=== PATIENT | female | born 1940 | race Caucasian/White ===

== ENCOUNTER 2018-08-11 00:22 | Inpatient (IN) ==
[2018-08-11 01:07] LABS: Alanine Aminotransferase 8 U/L (10-53); Albumin 2.7 g/dL (3.4-5.0); Anion Gap 9 meq/L (5-15); Aspartate Aminotransferase 10 U/L (15-37); Blood Urea Nitrogen 26 mg/dL (7-18); Calcium 8.3 mg/dL (8.5-10.1); Carbon Dioxide 26.5 meq/L (21.0-32.0); Chloride 107 meq/L (98-107); Glomerular Filtration Rate 24 mL/min (>89); Glucose,Random 316 mg/dL (74-106); Magnesium 1.9 mg/dL (1.5-2.5); Potassium 3.6 meq/L (3.5-5.1); Sodium 142 meq/L (136-145)
[2018-08-11] MEDS ORDERED: hydrALAZINE HCl Inj 20 MG/ML Vial IV.PUSH ONE (01:07)
[2018-08-11 01:10] LABS: Alkaline Phosphatase 166 U/L (45-117); Total Protein 6.5 g/dL (6.4-8.2); Troponin I 0.05 ng/mL (0.02-0.05)
[2018-08-11 01:13] LABS: Bilirubin,Urine Negative (Negative); Clarity,Urine Clear (Clear); Color,Urine Yellow (Yellw/Straw); Glucose,Urine (UA) 500 or Greater mg/dL (Negative); Nitrite,Urine Negative (Negative)
--- NOTE | 2018-08-11 01:52 | XR ---
EXAM DATE: 08/11/2018 1:39 AM EST AGE/SEX: 77 years / Female INDICATIONS: Short of breath. CLINICAL DATA: This is the patient's subsequent encounter. Patient reports that signs and symptoms h ave been present for 1 day and indicates a pain score of 5/10. MEDICAL/SURGICAL HISTORY: None. None. COMPARISON: No prior exams available for comparison. FINDINGS: Vascular congestion and symmetric bilateral interstitial and alveolar parenchymal opacity most sugges tive of pulmonary edema. Heart size is borderline. CONCLUSION: Probable CHF Electronically signed by: Sherman Nick MD 08/11/2018 1:50 AM EST
[2018-08-11 01:53] LABS: Baso # (Auto) 0.1 th/mm3 (0.0-0.2); Baso % (Auto) 0.6 % (0.0-2.0); Eos # (Auto) 0.2 th/mm3 (0.0-0.4); Eos % (Auto) 1.7 % (0.0-4.0); Hematocrit 26.3 % (35.0-46.0); Hemoglobin 8.7 gm/dL (11.6-15.3); Lymph # (Auto) 0.6 th/mm3 (1.0-4.8); Lymph % (Auto) 6.6 % (9.0-44.0); Mean Corpuscular Volume 94.1 fL (80.0-100.0); Mean Platelet Volume 8.5 fL (7.0-11.0); Mono # (Auto) 0.5 th/mm3 (0.0-0.9); Mono % (Auto) 5.2 % (0.0-8.0); Neut # (Auto) 8.2 th/mm3 (1.8-7.7); Neut % (Auto) 85.9 % (16.0-70.0); Platelet Count 134 th/mm3 (150-450); Red Blood Count 2.79 mil/mm3 (4.00-5.30); Red Cell Distribution Width 16.9 % (11.6-17.2); White Blood Count 9.5 th/mm3 (4.0-11.0)
--- NOTE | 2018-08-11 02:12 | P.HPFP ---
History of Present Illness Primary Care Physician: Fidencio Lr <Kevin Reed L - 08/11/18 13:24> Fidencio Lr <Elif Stokes T - 08/11/18 02:12> History of Present Illness: 77-year-old female with a history of stage III kidney disease, CHF, CVA, diabetes, hypertension, CAD s/p 3 stents, since the ED with worsening shortness of breath. Patient is currently visiting from [place], [place]. Has been here for about 3 weeks. Patient states that shortness of breath started 1 week ago. Also started having swelling in her lower extremities. States that she has not been able to walk for extended period of time. Shortness of breath worse with exertion and lying flat. States that she has to use 2 pillows to sleep at night. She is currently on torsemide 20 mg daily. Endorses chest pressure in sternal area. Endorses nausea, but no vomiting. Also endorses one episode of diarrhea. States that stools have been black and tarry. She denies history of stomach ulcer and chronic NSAID use. States that she has had a colonoscopy/endoscopy in the past. States that she will never have a colonoscopy again because she got an infection from it last time. Denies fevers and abdominal pain at this time. Very tearful during the exam because her sister has dementia and wants to go home to take care of her sister. She has oxygen 2L at night at home. PMH: Stage 3 kidney disease, CHF ( last EF/echo unknown), [employer] in [place]. Stroke two years ago ( L sided hands and legs are weak). Diabetes, HTN. COPD. Emphysema. Allergies: Penicillin ( Hives). Tetanus (hives). SurgHx: Complete Hysterectomy, Appendectomy. 3 Cardiac Stents. FH: Sisters have breast cancer. Dad had heart disease. Mom had CKD (72 years ). Social Hx: Lives in [place], Has a townhouse here in [facility], now retired, used to be a [employer]. 1 ppd for 15 years and quit 20 year ago. Denies any alcohol or drug use. Recently travelled from [place] by car ride 3 weeks ago. <Elif Stokes T - 08/11/18 03:45> - Diagnosis (1) Acute exacerbation of CHF (congestive heart failure) (2) Upper GI bleed (3) CKD (chronic kidney disease) (4) HTN (hypertension) (5) COPD (chronic obstructive pulmonary disease) (6) Diabetes (7) Anxiety and depression (8) Nutrition, metabolism, and development symptoms <Kevin Reed - 08/11/18 13:24> (1) Acute exacerbation of CHF (congestive heart failure) (2) Upper GI bleed (3) CKD (chronic kidney disease) (4) HTN (hypertension) (5) COPD (chronic obstructive pulmonary disease) (6) Diabetes (7) Anxiety and depression (8) Nutrition, metabolism, and development symptoms <KikeElifmickey Wheeler - 08/11/18 04:22> Inpatient Certification: I certify that the inpatient services were ordered in accordance with Medicare regulations governing the order. This includes certification that hospital inpatient services are reasonable and necessary and in the case of services not specified as inpatient-only under 42 CFR 419.22(n), that they are appropriately provided as inpatient services in accordance to with the 2-midnight benchmark under 43 CFR 412.3(e) <Kevin Reed - 08/11/18 13:24> Review of Systems All other systems reviewed negative except as stated in HPI <Elif Stokes - 08/11/18 03:16> PMFSH - History History Provided By: Patient <KikeElifmickey Pearson 08/11/18 02:12> - Medical History Medical History: Medical History (Last Reviewed 08/11/18 @ 02:14 by Carlyn Urban MD) CHF (congestive heart failure) COPD (chronic obstructive pulmonary disease) Diabetes HTN (hypertension) Kidney disease Stroke <Kevin Reed - 08/11/18 13:24> Medical History (Last Reviewed 08/11/18 @ 02:14 by Carlyn Urban MD) CHF (congestive heart failure) COPD (chronic obstructive pulmonary disease) Diabetes HTN (hypertension) Kidney disease Stroke <Elif Stokes - 08/11/18 02:33> - Surgical History Surgical History: Surgical History (Last Reviewed 08/11/18 @ 02:14 by Carlyn Urban MD) H/O heart artery stent <Kevin Reed - 08/11/18 13:24> Surgical History (Last Reviewed 08/11/18 @ 02:14 by Carlyn Urban MD) H/O heart artery stent <KikeElif Wheeler T - 08/11/18 02:33> - Family History Family History: Family History (Last Updated 08/11/18 @ 03:13 by Elif Stokes MD, R2) Other Breast cancer <Kevin Reed - 08/11/18 13:24> Family History (Last Updated 08/11/18 @ 03:13 by Elif Stokes MD, R2) Other Breast cancer <Elif Stokes - 08/11/18 03:16> - Social History I have reviewed the patient's Social History: Yes <KikeMaykelElifshani Pearson - 03:16> - Tobacco History Second Hand Smoke Exposure: No <Elif Stokes - 08/11/18 02:12> Tobacco Use In Past 30 Days: No <KikeElifshani Wheeler Lili - 08/11/18 02:12> Smoking Status: Former smoker <Elif Stokes - 08/11/18 02:12> Tobacco Type: Cigarettes <Lisha Stokesmickey Wheeler T - 08/11/18 02:12> - Alcohol History How Often Do You Have a Drink Containing Alcohol: Never <KikeMaykelElifshani Wheeler Lili - 02:12> - Substance Use History Substance History: No History of Abuse <Lisha Stokesmickey Wheeler T - 08/11/18 02:12> - Travel History Recent Travel in the [facility] Within the Last 8 Weeks: No <Elif Stokes Lili - 08/11 02:12> Recent Travel Out of the Country Within the Last 8 Weeks: No <KikeElifmickey Wheeler T - 08/11/18 02:12> - Immunization History Tetanus Immunization: Never Vaccinated <KikeElifmickey Wheeler Lili - 08/11/18 02:12> Medications and Allergies Allergies Allergy/AdvReac Type Severity Reaction Status Date / Time penicillin G Allergy Severe HIVES Verified 08/11/18 02:47 Tetanus Vaccines and Toxoid Allergy Swelling Verified 08/11/18 01:13 EST TAPE Allergy Unknown Rash Uncoded 08/11/18 01:13 EST <Kevin Reed - 08/11/18 13:24> Home Medications Medication Instructions Recorded Confirmed Type ergocalciferol (vitamin D2) 50,000 unit PO BID 08/11/18 08/11/18 History [Vitamin D2] gabapentin 300 mg PO TID 08/11/18 08/11/18 History hydralazine 25 mg PO TID 08/11/18 08/11/18 History hydroxyzine pamoate 25 mg PO HS 08/11/18 08/11/18 History insulin aspart U-100 [Novolog 5 unit SUBCUT QAM 08/11/18 08/11/18 History Flexpen U-100 Insulin] insulin degludec [Tresiba 40 unit SUBCUT DAILY 08/11/18 08/11/18 History FlexTouch U-200] isosorbide mononitrate 30 mg PO DAILY 08/11/18 08/11/18 History levothyroxine 200 mcg PO DAILY 08/11/18 08/11/18 History omeprazole 20 mg PO BID 08/11/18 08/11/18 History sertraline 50 mg PO HS 08/11/18 08/11/18 History simvastatin 20 mg PO QPM 08/11/18 08/11/18 History torsemide 20 mg PO DAILY 08/11/18 08/11/18 History trazodone 50 mg PO HS 08/11/18 08/11/18 History <Kevin Reed L - 08/11/18 13:24> Active Medications: Active Medications Albuterol (Duoneb Neb (Prn)) 1 ampul NEB Q4HR NEB PRN PRN Reason: wheezing Clonidine HCl (Catapres) 0.1 mg PO Q6H PRN PRN Reason: SEE LABEL COMMENTS Dextrose (D50w Vial) 50 ml IV.PUSH UNSCH PRN PRN Reason: PER HYPOGLYCEMIA PROTOCOL Ergocalciferol (Vitamin D2) 50,000 unit PO Q7D AG Furosemide (Lasix Inj) 40 mg IV.PUSH BID@0900,1800 [facility] Last Admin: 08/11/18 08:47 Dose: 40 mg Gabapentin (Neurontin) 300 mg PO TID [facility] Last Admin: 08/11/18 12:47 Dose: 300 mg Glucagon (Glucagon Inj) 1 mg OTHER PRN PRN PRN Reason: for Hypoglycemia Protocol Hydralazine HCl (Apresoline) 25 mg PO TID [facility] Last Admin: 08/11/18 12:48 Dose: 25 mg Lactated Ringer's (Lr 1000 Ml Inj) 1,000 mls @ 30 mls/hr IV.SIG .Q24H [facility] Stop: 08/12/18 13:14 Sodium Chloride (Ns Inj) 500 mls @ 30 mls/hr IV.SIG .Q10H [facility] Insulin Aspart (Novolog Insulin Correctional Sugar Inj) 0 unit SQ ACHS [facility]; Protocol Insulin Detemir (Levemir Inj) 20 unit SQ BID [facility] Isosorbide Mononitrate (Imdur) 30 mg PO DAILY@0700 [facility] Last Admin: 08/11/18 06:20 Dose: 30 mg Levothyroxine Sodium (Synthroid) 200 mcg PO DAILY@0700 [facility] Last Admin: 08/11/18 06:20 Dose: 200 mcg Metoprolol Tartrate (Lopressor) 25 mg PO [employer] Stop: 08/11/18 14:01 Ondansetron HCl (Zofran Inj) 4 mg IV.PUSH Q6H PRN PRN Reason: NAUSEA OR VOMITING Pantoprazole Sodium (Protonix Inj) 40 mg IV.PUSH Q12H [facility] Last Admin: 08/11/18 04:59 Dose: 40 mg Pt Own Tresiba Flex (Touch) 0 each SQ DAILY [facility] Last Admin: 08/11/18 08:48 Dose: Not Given Pravastatin Sodium (Pravachol) 40 mg PO QPM [facility] Sertraline HCl (Zoloft) 50 mg PO [facility] Sodium Chloride (Ns Flush) 2 ml IV.FLUSH BID [facility] Last Admin: 08/11/18 08:48 Dose: 2 ml Sodium Chloride (Ns Flush) 2 ml IV.FLUSH PRN PRN PRN Reason: FLUSH AFTER USING IV ACCESS Trazodone HCl (Desyrel) 50 mg PO HS [facility] Last Admin: 08/11/18 03:30 Dose: 50 mg <Kevin Reed L - 08/11/18 13:24> Exam Vital signs: Vital Signs 08/11/18 00:27 08/11/18 00:32 08/11/18 01:23 EDT Temperature 98.1 F Pulse Rate 97 H 83 82 Respiratory Rate 28 H 22 24 Blood Pressure 202/87 H 186/80 H 214/91 H Pulse Oximetry 95 98 96 08/11/18 01:24 EDT 08/11/18 01:00 EST 08/11/18 01:34 EST Temperature Pulse Rate 80 81 80 Respiratory Rate 20 24 23 Blood Pressure 199/91 H 186/82 H Pulse Oximetry 96 96 98 08/11/18 01:58 EST 08/11/18 03:49 08/11/18 05:00 Temperature Pulse Rate 85 85 90 Respiratory Rate 15 17 22 Blood Pressure 187/79 H 218/94 H 186/75 H Pulse Oximetry 98 97 97 08/11/18 06:00 08/11/18 08:00 08/11/18 09:59 Temperature 98.0 F 97.6 F Pulse Rate 86 82 Respiratory Rate 18 20 Blood Pressure 161/71 H 131/69 Pulse Oximetry 97 98 98 Intake & Output 08/10/18 08/11/18 08/11/18 19:59 06:59 18:59 Weight 70.307 kg Other: # Voids <Kevin Reed - 08/11/18 13:24> Vital Signs 08/11/18 00:27 08/11/18 00:32 08/11/18 01:23 EDT Temperature 98.1 F Pulse Rate 97 H 83 82 Respiratory Rate 28 H 22 24 Blood Pressure 202/87 H 186/80 H 214/91 H Pulse Oximetry 95 98 96 08/11/18 01:24 EDT 08/11/18 01:00 EST 08/11/18 01:34 EST Temperature Pulse Rate 80 81 80 Respiratory Rate 20 24 23 Blood Pressure 199/91 H 186/82 H Pulse Oximetry 96 96 98 08/11/18 01:58 EST Temperature Pulse Rate 85 Respiratory Rate 15 Blood Pressure 187/79 H Pulse Oximetry 98 Intake & Output 08/10/18 08/10/18 08/11/18 06:59 18:59 05:59 Weight 70.307 kg <Elif Stokes - 08/11/18 02:12> Narrative: General: Tearful and anxious elderly female on 3 L of nasal cannula, stating that she is having trouble breathing HENT: PERRLA, no lymphadenopathy or JVD, throat clear Cardio: Regular rate and rhythm, 3/6 systolic murmur, pain producible upon pressing on the chest wall Pulmonary: Lungs clear to auscultation bilaterally s/p lasix, no crackles or wheezing Abdomen: Soft, nondistended, nontender, positive bowel sounds, no guarding, no rebound Extremities: 2+ pitting edema bilaterally Neuro: Alert and oriented x3, cranial nerves II to XII intact, strength 5 out of 5 in upper and lower extremities, sensation intact <Elif Stokes T - 08/11/18 03:45> Results - Labs Result diagrams: 08/11/18 01:30 EST 08/11/18 01:30 EST <Kevin Reed L - 08/11/18 13:24> Abnormal lab results 08/11/18 08/11/18 08/11/18 Range/Units 01:30 EST 01:30 EST 03:25 RBC 2.79 L (4.00-5.30) mil/mm3 Hgb 8.7 L (11.6-15.3) gm/dL Hct 26.3 L (35.0-46.0) % Plt Count 134 L (150-450) th/mm3 Neut % (Auto) 85.9 H (16.0-70.0) % Lymph % (Auto) 6.6 L (9.0-44.0) % Neut # (Auto) 8.2 H (1.8-7.7) th/mm3 Lymph # (Auto) 0.6 L (1.0-4.8) th/mm3 ABG pH (7.380-7.420) ABG pCO2 (38-42) mmHg ABG O2 Content (12.0-20.0) Vol % Hemoglobin (12.0-16.0) G/DL POC Glucose (68-110) mg/dl Troponin I 0.06 H (0.02-0.05) ng/mL B-Natriuretic Peptide Greater than 5000 H (0-100) pg/mL 08/11/18 08/11/18 08/11/18 Range/Units 03:28 04:41 07:31 RBC (4.00-5.30) mil/mm3 Hgb (11.6-15.3) gm/dL Hct (35.0-46.0) % Plt Count (150-450) th/mm3 Neut % (Auto) (16.0-70.0) % Lymph % (Auto) (9.0-44.0) % Neut # (Auto) (1.8-7.7) th/mm3 Lymph # (Auto) (1.0-4.8) th/mm3 ABG pH 7.46 H (7.380-7.420) ABG pCO2 33 L (38-42) mmHg ABG O2 Content 11.0 L (12.0-20.0) Vol % Hemoglobin 8.2 L (12.0-16.0) G/DL POC Glucose 306 H 281 H (68-110) mg/dl Troponin I (0.02-0.05) ng/mL B-Natriuretic Peptide (0-100) pg/mL 08/11/18 08/11/18 Range/Units 11:19 12:18 RBC (4.00-5.30) mil/mm3 Hgb (11.6-15.3) gm/dL Hct (35.0-46.0) % Plt Count (150-450) th/mm3 Neut % (Auto) (16.0-70.0) % Lymph % (Auto) (9.0-44.0) % Neut # (Auto) (1.8-7.7) th/mm3 Lymph # (Auto) (1.0-4.8) th/mm3 ABG pH (7.380-7.420) ABG pCO2 (38-42) mmHg ABG O2 Content (12.0-20.0) Vol % Hemoglobin (12.0-16.0) G/DL POC Glucose 514 H* (68-110) mg/dl Troponin I 0.06 H (0.02-0.05) ng/mL B-Natriuretic Peptide (0-100) pg/mL Short CBC 08/11/18 Range/Units 01:30 EST WBC 9.5 (4.0-11.0) th/mm3 Hgb 8.7 L (11.6-15.3) gm/dL Hct 26.3 L (35.0-46.0) % Plt Count 134 L (150-450) th/mm3 Cardiac Enzymes 08/11/18 08/11/18 Range/Units 03:25 11:19 Troponin I 0.06 H 0.06 H (0.02-0.05) ng/mL Urine 08/11/18 Range/Units 01:00 EST Urine Color Yellow (Yellw/Straw) Urine Clarity Clear (Clear) Urine pH 6.0 (5.0-8.5) Ur Specific [place] 1.010 (1.002-1.035) Urine Protein 500 or greater (Neg-Trace) mg/dL Urine Glucose (UA) 500 or greater (Negative) mg/dL <Kevin Reed L - 08/11/18 13:24> Abnormal lab results 08/11/18 Range/Units 01:30 EST RBC 2.79 L (4.00-5.30) mil/mm3 Hgb 8.7 L (11.6-15.3) gm/dL Hct 26.3 L (35.0-46.0) % Plt Count 134 L (150-450) th/mm3 Neut % (Auto) 85.9 H (16.0-70.0) % Lymph % (Auto) 6.6 L (9.0-44.0) % Neut # (Auto) 8.2 H (1.8-7.7) th/mm3 Lymph # (Auto) 0.6 L (1.0-4.8) th/mm3 Short CBC 08/11/18 Range/Units 01:30 EST WBC 9.5 (4.0-11.0) th/mm3 Hgb 8.7 L (11.6-15.3) gm/dL Hct 26.3 L (35.0-46.0) % Plt Count 134 L (150-450) th/mm3 Urine 08/11/18 Range/Units 01:00 EST Urine Color Yellow (Yellw/Straw) Urine Clarity Clear (Clear) Urine pH 6.0 (5.0-8.5) Ur Specific [place] 1.010 (1.002-1.035) Urine Protein 500 or greater (Neg-Trace) mg/dL Urine Glucose (UA) 500 or greater (Negative) mg/dL <Elif Stokes T - 08/11/18 02:12> - Imaging Impressions Chest X-Ray 08/11/18 01:14 EST CONCLUSION: Probable CHF <Kevin Reed L - 08/11/18 13:24> Impressions Chest X-Ray 08/11/18 01:14 EST CONCLUSION: Probable CHF <Elif Stokes T - 08/11/18 02:12> Caprini VTE Risk Assessment Caprini VTE Risk Assessment: Moderate/High Risk (score >= 2) <Elif Stokes T - 08/11/18 03:20> Caprini Risk Assessment Model: Point Value = 1 Point Value = 2 Point Value = 3 Point Value = 5 Age 41-60 Minor surgery BMI > 25 kg/m2 Swollen legs Varicose veins or History of unexplained or recurrent spontaneous Oral contraceptives or hormone replacement Sepsis (< 1 month) Serious lung disease, including pneumonia (< 1 month) Abnormal pulmonary function Acute myocardial infarction Congestive heart failure (< 1 month) History of inflammatory bowel disease Medical patient at bed rest Age 61-74 Arthroscopic surgery Major open surgery (> 45 min) Laparoscopic surgery (> 45 min) Malignancy Confined to bed (> 72 hours) Immobilizing plaster cast Central venous access Age >= 75 History of VTE Family history of VTE Factor V Leiden Prothrombin [id number] Lupus anticoagulant Anticardiolipin antibodies Elevated serum homocysteine Heparin-induced thrombocytopenia Other congenital or acquired thrombophilia Stroke (< 1 month) Elective arthroplasty Hip, pelvis, or leg fracture Acute spinal cord injury (< 1 month) <Kevin Reed - 08/11/18 13:24> Point Value = 1 Point Value = 2 Point Value = 3 Point Value = 5 Age 41-60 Minor surgery BMI > 25 kg/m2 Swollen legs Varicose veins or History of unexplained or recurrent spontaneous Oral contraceptives or hormone replacement Sepsis (< 1 month) Serious lung disease, including pneumonia (< 1 month) Abnormal pulmonary function Acute myocardial infarction Congestive heart failure (< 1 month) History of inflammatory bowel disease Medical patient at bed rest Age 61-74 Arthroscopic surgery Major open surgery (> 45 min) Laparoscopic surgery (> 45 min) Malignancy Confined to bed (> 72 hours) Immobilizing plaster cast Central venous access Age >= 75 History of VTE Family history of VTE Factor V Leiden Prothrombin [id number] Lupus anticoagulant Anticardiolipin antibodies Elevated serum homocysteine Heparin-induced thrombocytopenia Other congenital or acquired thrombophilia Stroke (< 1 month) Elective arthroplasty Hip, pelvis, or leg fracture Acute spinal cord injury (< 1 month) <Elif Stokes T - 08/11/18 02:12> Prophylaxis Regimen: Total Risk Factor Score Risk Level Prophylaxis Regimen 0-1 Low Early ambulation 2 Moderate Order ONE of the following: *Sequential Compression Device (SCD) *Heparin 5000 units SQ BID 3-4 Higher Order ONE of the following medications: *Heparin 5000 units SQ TID *Enoxaparin/Lovenox 40 mg SQ daily (WT < 150 kg, CrCl > 30 mL/min) *Enoxaparin/Lovenox 30 mg SQ daily (WT < 150 kg, CrCl > 10-29 mL/min) *Enoxaparin/Lovenox 30 mg SQ BID (WT < 150 kg, CrCl > 30 mL/min) AND/OR *Sequential Compression Device (SCD) 5 or more Highest Order ONE of the following medications: *Heparin 5000 units SQ TID (Preferred with Epidurals) *Enoxaparin/Lovenox 40 mg SQ daily (WT < 150 kg, CrCl > 30 mL/min) *Enoxaparin/Lovenox 30 mg SQ daily (WT < 150 kg, CrCl > 10-29 mL/min) *Enoxaparin/Lovenox 30 mg SQ BID (WT < 150 kg, CrCl > 30 mL/min) AND *Sequential Compression Device (SCD) <Kevin Reed - 08/11/18 13:24> Total Risk Factor Score Risk Level Prophylaxis Regimen 0-1 Low Early ambulation 2 Moderate Order ONE of the following: *Sequential Compression Device (SCD) *Heparin 5000 units SQ BID 3-4 Higher Order ONE of the following medications: *Heparin 5000 units SQ TID *Enoxaparin/Lovenox 40 mg SQ daily (WT < 150 kg, CrCl > 30 mL/min) *Enoxaparin/Lovenox 30 mg SQ daily (WT < 150 kg, CrCl > 10-29 mL/min) *Enoxaparin/Lovenox 30 mg SQ BID (WT < 150 kg, CrCl > 30 mL/min) AND/OR *Sequential Compression Device (SCD) 5 or more Highest Order ONE of the following medications: *Heparin 5000 units SQ TID (Preferred with Epidurals) *Enoxaparin/Lovenox 40 mg SQ daily (WT < 150 kg, CrCl > 30 mL/min) *Enoxaparin/Lovenox 30 mg SQ daily (WT < 150 kg, CrCl > 10-29 mL/min) *Enoxaparin/Lovenox 30 mg SQ BID (WT < 150 kg, CrCl > 30 mL/min) AND *Sequential Compression Device (SCD) <Elif Stokes - 08/11/18 02:12> Assessment and Plan - Assessment (1) Acute exacerbation of CHF (congestive heart failure) Code(s): I50.9 - Heart failure, unspecified Status: Acute (2) Upper GI bleed Code(s): K92.2 - Gastrointestinal hemorrhage, unspecified Status: Acute (3) CKD (chronic kidney disease) Code(s): N18.9 - Chronic kidney disease, unspecified Status: Chronic (4) HTN (hypertension) Code(s): I10 - Essential (primary) hypertension Status: Chronic (5) COPD (chronic obstructive pulmonary disease) Code(s): J44.9 - Chronic obstructive pulmonary disease, unspecified Status: Acute (6) Diabetes Code(s): E11.9 - Type 2 diabetes mellitus without complications Status: Acute (7) Anxiety and depression Code(s): F41.9 - Anxiety disorder, unspecified; F32.9 - Major depressive disorder, single episode, unspecified Status: Acute (8) Nutrition, metabolism, and development symptoms Code(s): R63.8 - Other symptoms and signs concerning food and fluid intake Status: Acute <Kevin Reed - 08/11/18 13:24> (1) Acute exacerbation of CHF (congestive heart failure) Code(s): I50.9 - Heart failure, unspecified Status: Acute Plan: 77-year-old female with a history of stage III kidney disease, CHF, CVA, diabetes, hypertension, CAD s/p 3 stents, since the ED with worsening shortness of breath and lower extremity edema. Chest x-ray demonstrates probable CHF BNP ordered and pending ABG ordered EKG-normal sinus rhythm, atrial enlargement Troponin 0.05 Patient was on 20 mg p.o. of torsemide at home s/p 60mg IV lasix , Gave additional 20mg IV lasix For every 40 mg Lasix p.o., 20 mEq PO KCl given Continue IV Lasix 40mg BID Echo 2D ordered Cardiac telemetry Continue to trend EKG and troponin q6h Fluid restriction <1.5L/day Strict I & Os Daily weights (2) Upper GI bleed Code(s): K92.2 - Gastrointestinal hemorrhage, unspecified Status: Acute Plan: Patient presenting with anemia and endorsing melena. Hemoccult ordered Protonix 40 mg IV twice daily Liquid diet Continue to monitor H&H q6h, transfuse if Hb<8 due to cardiac history GI consulted for possible EGD Patient refusing colonoscopy (3) CKD (chronic kidney disease) Code(s): N18.9 - Chronic kidney disease, unspecified Status: Acute Plan: GFR of 24, BUN of 26, creatinine of 2.02 on admission Continue to monitor (4) HTN (hypertension) Code(s): I10 - Essential (primary) hypertension Status: Acute Plan: Continue home hydralazine 25 mg p.o. 3 times daily Clonidine 0.1mg PRN for BP >180/100 (5) COPD (chronic obstructive pulmonary disease) Code(s): J44.9 - Chronic obstructive pulmonary disease, unspecified Status: Acute Plan: Patient reports being on home oxygen at night 2 L Duo nebs every 4 as needed (6) Diabetes Code(s): E11.9 - Type 2 diabetes mellitus without complications Status: Acute Plan: Held home Tresiba Accu-Cheks Low-dose sliding scale Hypoglycemia protocol in place (7) Anxiety and depression Code(s): F41.9 - Anxiety disorder, unspecified; F32.9 - Major depressive disorder, single episode, unspecified Status: Acute Plan: Continue home Zoloft 50 mg p.o. at bedtime and trazodone 50 mg p.o. at bedtime (8) Nutrition, metabolism, and development symptoms Code(s): R63.8 - Other symptoms and signs concerning food and fluid intake Status: Acute Plan: Fluids: contraindicated Diet: liquid w/ fluid restriction vitals q4h, monitor I & Os, cardiac telemetery DVT ppx: SCDs, chemical ppx contraindicated <Elif Stokes - 08/11/18 04:22> - Attending Attestation The exam, history, and the medical decision-making described in the above note were completed with the assistance of the resident physician. I reviewed and agree with the findings presented. I attest that I had a [id number] encounter with the patient on the same day, and personally performed and documented my assessment and findings in the medical record. <Kevin Reed - 08/11/18 13:24> <Kevin Reed - Last Filed: 08/11/18 13:24> (3) CKD (chronic kidney disease) Qualifiers: Chronic kidney disease stage: stage 3 (moderate) Qualified Code(s): N18.3 - Chronic kidney disease, stage 3 (moderate) <Kevin Reed - Last Filed: 08/11/18 13:24> (3) CKD (chronic kidney disease) Qualifiers: Chronic kidney disease stage: stage 3 (moderate) Qualified Code(s): N18.3 - Chronic kidney disease, stage 3 (moderate)
--- NOTE | 2018-08-11 02:17 | ED ---
HPI General Chief Complaint: Shortness of Breath/Dyspnea Stated Complaint: Poss Uti Time Seen by Provider: 08/11/18 00:54 Source: patient Mode of arrival: ambulatory Limitations: no limitations History of Present Illness 77-year-old female came to the emergency room with history of progressive shortness of breath for past 1 week along with slight chest discomfort. Patient has also noticed bilateral lower extremity edema that is progressively worsening over past 1 week. Patient complains of some urinary symptoms including dysuria over past 1 week. No history of fever or chills. Patient seemed anxious and says currently she is short of breath at rest. Patient requires oxygen at night but she is in [facility] [place] from [place] and did not bring her oxygen tank. They drove from [place] 2 weeks ago. Vital signs were suggestive of hypertension. Patient has stage III kidney disease as well as coronary artery disease. 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 Shortness of breath is worsened on exertion. The chest discomfort does not radiate and no exacerbating or relieving factors identified. The chest discomfort is 2 out of 10. It is substernal. MD Complaint: Reports shortness of breath Onset (ago): week(s) Severity: moderate Consistency/Duration: constant Relieving factors: nothing Exacerbating factors: lying flat and movement Known history of: Reports COPD and congestive heart failure Treatment prior to arrival: Reports none Related Data Home Medications Medication Instructions Recorded Confirmed ergocalciferol (vitamin D2) 50,000 unit PO BID 08/11/18 08/11/18 [Vitamin D2] gabapentin 300 mg PO TID 08/11/18 08/11/18 hydralazine 25 mg PO TID 08/11/18 08/11/18 hydroxyzine pamoate 25 mg PO HS 08/11/18 08/11/18 insulin aspart U-100 [Novolog 5 unit SUBCUT QAM 08/11/18 08/11/18 Flexpen U-100 Insulin] insulin degludec [Tresiba 40 unit SUBCUT DAILY 08/11/18 08/11/18 FlexTouch U-200] isosorbide mononitrate 30 mg PO DAILY 08/11/18 08/11/18 levothyroxine 200 mcg PO DAILY 08/11/18 08/11/18 sertraline 50 mg PO HS 08/11/18 08/11/18 simvastatin 20 mg PO QPM 08/11/18 08/11/18 torsemide 20 mg PO DAILY 08/11/18 08/11/18 trazodone 50 mg PO HS 08/11/18 08/11/18 Previous Rx's Medication Instructions Recorded pantoprazole [Protonix] 40 mg PO BID #30 ea 08/14/18 Allergies Allergy/AdvReac Type Severity Reaction Status Date / Time penicillin G Allergy Severe HIVES Verified 08/11/18 02:47 Tetanus Vaccines and Toxoid Allergy Swelling Verified 08/11/18 01:13 EST TAPE Allergy Unknown Rash Uncoded 08/11/18 01:13 EST Review of Systems ROS: all other systems reviewed are negative [facility] Medical History Medical History CHF (congestive heart failure) (Acute) COPD (chronic obstructive pulmonary disease) (Acute) Diabetes (Acute) HTN (hypertension) (Acute) Kidney disease (Acute) Stroke (Acute) Surgical History Surgical History H/O heart artery stent (Acute) Family History Family History Other Breast cancer Social History Social History Substance History: No History of Abuse Second Hand Smoke Exposure: No Smoking Status: Never smoker Tobacco Type: Cigarettes How Often Do You Have a Drink Containing Alcohol: Never Recent Travel in [facility] within the Last 8 Weeks: No Recent Out of Country Travel within the Last 8 Weeks: No Immunization History Tetanus Immunization: Never Vaccinated Exam Narrative Exam Narrative: GENERAL: Awake, alert, elderly, moderate distress, anxious SKIN: Focused skin assessment warm/dry. HEAD: Atraumatic. Normocephalic. EYES: Pupils equal and round. No scleral icterus. No injection or drainage. ENT: No nasal bleeding or discharge. Mucous membranes pink and moist. NECK: Trachea midline. No JVD. CARDIOVASCULAR: Regular rate and rhythm. No murmur appreciated. RESPIRATORY: No accessory muscle use. Fine bibasilar crackles GASTROINTESTINAL: Abdomen soft, non-tender, nondistended. Hepatic and splenic margins not palpable. MUSCULOSKELETAL: No obvious deformities. No clubbing. No cyanosis. 3+ pedal edema bilaterally NEUROLOGICAL: Awake and alert. No obvious cranial nerve deficits. Motor grossly within normal limits. Normal speech. PSYCHIATRIC: Appropriate mood and affect; insight and judgment normal. Course Initial Documented Vital Signs Temperature 98.1 F 08/11/18 00:27 Pulse Rate 97 H 08/11/18 00:27 Respiratory Rate 28 H 08/11/18 00:27 Blood Pressure 202/87 H 08/11/18 00:27 Pulse Oximetry 95 08/11/18 00:27 Last Documented Vital Signs Temperature 97.9 F 08/14/18 16:00 Pulse Rate 71 08/14/18 16:00 Respiratory Rate 19 08/14/18 16:00 Blood Pressure 165/71 H 08/14/18 16:00 Pulse Oximetry 96 08/14/18 16:37 Medical Decision Making MDM Narrative Medical decision making narrative: 2:14 AM patient was given IV Lasix. She has urinated twice since then. I went back to reassess her and she says she feels better in terms of the shortness of breath. She was given an inch of Nitropaste which did not bring the blood pressure sufficiently down. I have given her IV hydralazine. Currently her blood pressure is 187/79. Blood test results are back and creatinine is suggestive of stage III kidney disease. Chest x-ray has been read by the radiologist as congestive heart failure. I explained to the patient that based on this she requires admission and she understands. She is agreeable to the plan. I discussed the case with the residents of accepted the patient. Medical Screen Exam Complete: Yes Emergency Medical Condition: Yes Lab Data Result diagrams: 08/14/18 05:00 08/14/18 05:00 Lab Results 08/11/18 08/11/18 08/11/18 Range/Units 01:00 EST 01:30 EST 01:30 EST WBC 9.5 (4.0-11.0) th/mm3 RBC 2.79 L (4.00-5.30) mil/mm3 Hgb 8.7 L (11.6-15.3) gm/dL Hct 26.3 L (35.0-46.0) % MCV 94.1 (80.0-100.0) fL MCH 31.0 (27.0-34.0) pg MCHC 33.0 (32.0-36.0) % RDW 16.9 (11.6-17.2) % Plt Count 134 L (150-450) th/mm3 MPV 8.5 (7.0-11.0) fL Neut % (Auto) 85.9 H (16.0-70.0) % Lymph % (Auto) 6.6 L (9.0-44.0) % Young % (Auto) 5.2 (0.0-8.0) % Eos % (Auto) 1.7 (0.0-4.0) % Baso % (Auto) 0.6 (0.0-2.0) % Neut # (Auto) 8.2 H (1.8-7.7) th/mm3 Lymph # (Auto) 0.6 L (1.0-4.8) th/mm3 Young # (Auto) 0.5 (0.0-0.9) th/mm3 Eos # (Auto) 0.2 (0.0-0.4) th/mm3 Baso # (Auto) 0.1 (0.0-0.2) th/mm3 WBC Differential . Differential Comment Auto diff final Retic Count (0.4-3.0) % Absolute Retic (20.0-150.0) mil/L Haptoglobin (30-200) mg/dL PT (9.8-11.6) sec INR Ratio Puncture Site Patient Temperature O2 Saturation (90-100) % ABG pH (7.380-7.420) ABG pCO2 (38-42) mmHg ABG pO2 (61-120) mmHg ABG HCO3 (22-26) mmol/L ABG O2 Content (12.0-20.0) Vol % ABG Base Excess (-2-2) mmol/L ABG Methemoglobin (0-2) % Jairo Test Hemoglobin (12.0-16.0) G/DL Carboxyhemoglobin (0-4) % O2 Delivery Device Liter Flow L/M Critical Value Sodium (136-145) meq/L Potassium (3.5-5.1) meq/L Chloride (98-107) meq/L Carbon Dioxide (21.0-32.0) meq/L Anion Gap (5-15) meq/L BUN (7-18) mg/dL Creatinine (0.50-1.00) mg/dL Estimated GFR (>89) mL/min POC Glucose (68-110) mg/dl Random Glucose (74-106) mg/dL Calcium (8.5-10.1) mg/dL Iron (50-170) mcg/dL TIBC (250-450) mcg/dL % Saturation (20-50) % Ferritin (8-252) ng/mL Total Bilirubin (0.2-1.0) mg/dL AST (15-37) U/L ALT (10-53) U/L Alkaline Phosphatase (45-117) U/L Lactate Dehydrogenase (84-246) U/L Troponin I (0.02-0.05) ng/mL B-Natriuretic Peptide Greater than 5000 H (0-100) pg/mL Total Protein (6.4-8.2) g/dL Total Protein (PEP) Albumin (3.4-5.0) g/dL Albumin (PEP) Albumin/Globulin Ratio Cajuv-2-Photksdsm Xaiyq-5-Aniljaqhx Beta Globulins Gamma Globulins PEP Pathologist Comment Vitamin B12 (193-986) pg/mL Folate (3.1-17.5) ng/mL Urine Color Yellow (Yellw/Straw) Urine Clarity Clear (Clear) Urine pH 6.0 (5.0-8.5) Ur Specific Zimmerman 1.010 (1.002-1.035) Urine Protein 500 or greater (Neg-Trace) mg/dL Urine Glucose (UA) 500 or greater (Negative) mg/dL Urine Ketones Negative (Negative) mg/dL Urine Occult Blood Negative (Negative) Urine Nitrate Negative (Negative) Urine Bilirubin Negative (Negative) Ur Microscopic Review Not Reportable 08/11/18 08/11/18 08/11/18 Range/Units 03:25 03:28 04:41 WBC (4.0-11.0) th/mm3 RBC (4.00-5.30) mil/mm3 Hgb (11.6-15.3) gm/dL Hct (35.0-46.0) % MCV (80.0-100.0) fL MCH (27.0-34.0) pg MCHC (32.0-36.0) % RDW (11.6-17.2) % Plt Count (150-450) th/mm3 MPV (7.0-11.0) fL Neut % (Auto) (16.0-70.0) % Lymph % (Auto) (9.0-44.0) % Young % (Auto) (0.0-8.0) % Eos % (Auto) (0.0-4.0) % Baso % (Auto) (0.0-2.0) % Neut # (Auto) (1.8-7.7) th/mm3 Lymph # (Auto) (1.0-4.8) th/mm3 Young # (Auto) (0.0-0.9) th/mm3 Eos # (Auto) (0.0-0.4) th/mm3 Baso # (Auto) (0.0-0.2) th/mm3 WBC Differential Differential Comment Retic Count (0.4-3.0) % Absolute Retic (20.0-150.0) mil/L Haptoglobin (30-200) mg/dL PT (9.8-11.6) sec INR Ratio Puncture Site Right brachial Patient Temperature 98.6 O2 Saturation 95 (90-100) % ABG pH 7.46 H (7.380-7.420) ABG pCO2 33 L (38-42) mmHg ABG pO2 89 (61-120) mmHg ABG HCO3 23 (22-26) mmol/L ABG O2 Content 11.0 L (12.0-20.0) Vol % ABG Base Excess -0.8 (-2-2) mmol/L ABG Methemoglobin 0.7 (0-2) % Jairo Test Present Hemoglobin 8.2 L (12.0-16.0) G/DL Carboxyhemoglobin 2.5 (0-4) % O2 Delivery Device Nasal cannula Liter Flow 3.00 L/M Critical Value No Sodium (136-145) meq/L Potassium (3.5-5.1) meq/L Chloride (98-107) meq/L Carbon Dioxide (21.0-32.0) meq/L Anion Gap (5-15) meq/L BUN (7-18) mg/dL Creatinine (0.50-1.00) mg/dL Estimated GFR (>89) mL/min POC Glucose 306 H (68-110) mg/dl Random Glucose (74-106) mg/dL Calcium (8.5-10.1) mg/dL Iron (50-170) mcg/dL TIBC (250-450) mcg/dL % Saturation (20-50) % Ferritin (8-252) ng/mL Total Bilirubin (0.2-1.0) mg/dL AST (15-37) U/L ALT (10-53) U/L Alkaline Phosphatase (45-117) U/L Lactate Dehydrogenase (84-246) U/L Troponin I 0.06 H (0.02-0.05) ng/mL B-Natriuretic Peptide (0-100) pg/mL Total Protein (6.4-8.2) g/dL Total Protein (PEP) Albumin (3.4-5.0) g/dL Albumin (PEP) Albumin/Globulin Ratio Iwnmo-1-Yybbohkwg Ntuzu-3-Bmojfpces Beta Globulins Gamma Globulins PEP Pathologist Comment Vitamin B12 (193-986) pg/mL Folate (3.1-17.5) ng/mL Urine Color (Yellw/Straw) Urine Clarity (Clear) Urine pH (5.0-8.5) Ur Specific Zimmerman (1.002-1.035) Urine Protein (Neg-Trace) mg/dL Urine Glucose (UA) (Negative) mg/dL Urine Ketones (Negative) mg/dL Urine Occult Blood (Negative) Urine Nitrate (Negative) Urine Bilirubin (Negative) Ur Microscopic Review 08/11/18 08/11/18 08/11/18 Range/Units 07:31 11:19 12:18 WBC (4.0-11.0) th/mm3 RBC (4.00-5.30) mil/mm3 Hgb (11.6-15.3) gm/dL Hct (35.0-46.0) % MCV (80.0-100.0) fL MCH (27.0-34.0) pg MCHC (32.0-36.0) % RDW (11.6-17.2) % Plt Count (150-450) th/mm3 MPV (7.0-11.0) fL Neut % (Auto) (16.0-70.0) % Lymph % (Auto) (9.0-44.0) % Young % (Auto) (0.0-8.0) % Eos % (Auto) (0.0-4.0) % Baso % (Auto) (0.0-2.0) % Neut # (Auto) (1.8-7.7) th/mm3 Lymph # (Auto) (1.0-4.8) th/mm3 Young # (Auto) (0.0-0.9) th/mm3 Eos # (Auto) (0.0-0.4) th/mm3 Baso # (Auto) (0.0-0.2) th/mm3 WBC Differential Differential Comment Retic Count (0.4-3.0) % Absolute Retic (20.0-150.0) mil/L Haptoglobin (30-200) mg/dL PT (9.8-11.6) sec INR Ratio Puncture Site Patient Temperature O2 Saturation (90-100) % ABG pH (7.380-7.420) ABG pCO2 (38-42) mmHg ABG pO2 (61-120) mmHg ABG HCO3 (22-26) mmol/L ABG O2 Content (12.0-20.0) Vol % ABG Base Excess (-2-2) mmol/L ABG Methemoglobin (0-2) % Jairo Test Hemoglobin (12.0-16.0) G/DL Carboxyhemoglobin (0-4) % O2 Delivery Device Liter Flow L/M Critical Value Sodium (136-145) meq/L Potassium (3.5-5.1) meq/L Chloride (98-107) meq/L Carbon Dioxide (21.0-32.0) meq/L Anion Gap (5-15) meq/L BUN (7-18) mg/dL Creatinine (0.50-1.00) mg/dL Estimated GFR (>89) mL/min POC Glucose 281 H 514 H* (68-110) mg/dl Random Glucose (74-106) mg/dL Calcium (8.5-10.1) mg/dL Iron (50-170) mcg/dL TIBC (250-450) mcg/dL % Saturation (20-50) % Ferritin (8-252) ng/mL Total Bilirubin (0.2-1.0) mg/dL AST (15-37) U/L ALT (10-53) U/L Alkaline Phosphatase (45-117) U/L Lactate Dehydrogenase (84-246) U/L Troponin I 0.06 H (0.02-0.05) ng/mL B-Natriuretic Peptide (0-100) pg/mL Total Protein (6.4-8.2) g/dL Total Protein (PEP) Albumin (3.4-5.0) g/dL Albumin (PEP) Albumin/Globulin Ratio Tjkvm-5-Dydzatbyj Bqdgp-5-Jwgipwcee Beta Globulins Gamma Globulins PEP Pathologist Comment Vitamin B12 (193-986) pg/mL Folate (3.1-17.5) ng/mL Urine Color (Yellw/Straw) Urine Clarity (Clear) Urine pH (5.0-8.5) Ur Specific Zimmerman (1.002-1.035) Urine Protein (Neg-Trace) mg/dL Urine Glucose (UA) (Negative) mg/dL Urine Ketones (Negative) mg/dL Urine Occult Blood (Negative) Urine Nitrate (Negative) Urine Bilirubin (Negative) Ur Microscopic Review 08/11/18 08/11/18 08/12/18 Range/Units 16:15 19:32 06:30 WBC 9.5 (4.0-11.0) th/mm3 RBC 2.77 L (4.00-5.30) mil/mm3 Hgb 8.9 L (11.6-15.3) gm/dL Hct 25.9 L (35.0-46.0) % MCV 93.5 (80.0-100.0) fL MCH 32.3 (27.0-34.0) pg MCHC 34.5 (32.0-36.0) % RDW 17.0 (11.6-17.2) % Plt Count 168 (150-450) th/mm3 MPV 8.1 (7.0-11.0) fL Neut % (Auto) 77.4 H (16.0-70.0) % Lymph % (Auto) 12.6 (9.0-44.0) % Young % (Auto) 6.7 (0.0-8.0) % Eos % (Auto) 2.7 (0.0-4.0) % Baso % (Auto) 0.6 (0.0-2.0) % Neut # (Auto) 7.3 (1.8-7.7) th/mm3 Lymph # (Auto) 1.2 (1.0-4.8) th/mm3 Young # (Auto) 0.6 (0.0-0.9) th/mm3 Eos # (Auto) 0.3 (0.0-0.4) th/mm3 Baso # (Auto) 0.1 (0.0-0.2) th/mm3 WBC Differential . Differential Comment Auto diff final Retic Count (0.4-3.0) % Absolute Retic (20.0-150.0) mil/L Haptoglobin (30-200) mg/dL PT (9.8-11.6) sec INR Ratio Puncture Site Patient Temperature O2 Saturation (90-100) % ABG pH (7.380-7.420) ABG pCO2 (38-42) mmHg ABG pO2 (61-120) mmHg ABG HCO3 (22-26) mmol/L ABG O2 Content (12.0-20.0) Vol % ABG Base Excess (-2-2) mmol/L ABG Methemoglobin (0-2) % Jairo Test Hemoglobin (12.0-16.0) G/DL Carboxyhemoglobin (0-4) % O2 Delivery Device Liter Flow L/M Critical Value Sodium (136-145) meq/L Potassium (3.5-5.1) meq/L Chloride (98-107) meq/L Carbon Dioxide (21.0-32.0) meq/L Anion Gap (5-15) meq/L BUN (7-18) mg/dL Creatinine (0.50-1.00) mg/dL Estimated GFR (>89) mL/min POC Glucose 230 H 278 H (68-110) mg/dl Random Glucose (74-106) mg/dL Calcium (8.5-10.1) mg/dL Iron (50-170) mcg/dL TIBC (250-450) mcg/dL % Saturation (20-50) % Ferritin (8-252) ng/mL Total Bilirubin (0.2-1.0) mg/dL AST (15-37) U/L ALT (10-53) U/L Alkaline Phosphatase (45-117) U/L Lactate Dehydrogenase (84-246) U/L Troponin I (0.02-0.05) ng/mL B-Natriuretic Peptide (0-100) pg/mL Total Protein (6.4-8.2) g/dL Total Protein (PEP) Albumin (3.4-5.0) g/dL Albumin (PEP) Albumin/Globulin Ratio Rcqxh-6-Byohfxjti Swwic-4-Kxyetrumk Beta Globulins Gamma Globulins PEP Pathologist Comment Vitamin B12 (193-986) pg/mL Folate (3.1-17.5) ng/mL Urine Color (Yellw/Straw) Urine Clarity (Clear) Urine pH (5.0-8.5) Ur Specific Zimmerman (1.002-1.035) Urine Protein (Neg-Trace) mg/dL Urine Glucose (UA) (Negative) mg/dL Urine Ketones (Negative) mg/dL Urine Occult Blood (Negative) Urine Nitrate (Negative) Urine Bilirubin (Negative) Ur Microscopic Review 08/12/18 08/12/18 08/12/18 Range/Units 06:30 06:30 06:30 WBC (4.0-11.0) th/mm3 RBC (4.00-5.30) mil/mm3 Hgb (11.6-15.3) gm/dL Hct (35.0-46.0) % MCV (80.0-100.0) fL MCH (27.0-34.0) pg MCHC (32.0-36.0) % RDW (11.6-17.2) % Plt Count (150-450) th/mm3 MPV (7.0-11.0) fL Neut % (Auto) (16.0-70.0) % Lymph % (Auto) (9.0-44.0) % Young % (Auto) (0.0-8.0) % Eos % (Auto) (0.0-4.0) % Baso % (Auto) (0.0-2.0) % Neut # (Auto) (1.8-7.7) th/mm3 Lymph # (Auto) (1.0-4.8) th/mm3 Young # (Auto) (0.0-0.9) th/mm3 Eos # (Auto) (0.0-0.4) th/mm3 Baso # (Auto) (0.0-0.2) th/mm3 WBC Differential Differential Comment Retic Count (0.4-3.0) % Absolute Retic (20.0-150.0) mil/L Haptoglobin (30-200) mg/dL PT 11.3 (9.8-11.6) sec INR 1.1 Ratio Puncture Site Patient Temperature O2 Saturation (90-100) % ABG pH (7.380-7.420) ABG pCO2 (38-42) mmHg ABG pO2 (61-120) mmHg ABG HCO3 (22-26) mmol/L ABG O2 Content (12.0-20.0) Vol % ABG Base Excess (-2-2) mmol/L ABG Methemoglobin (0-2) % Jairo Test Hemoglobin (12.0-16.0) G/DL Carboxyhemoglobin (0-4) % O2 Delivery Device Liter Flow L/M Critical Value Sodium 146 H (136-145) meq/L Potassium 3.2 L (3.5-5.1) meq/L Chloride 109 H (98-107) meq/L Carbon Dioxide 26.6 (21.0-32.0) meq/L Anion Gap 10 (5-15) meq/L BUN 21 H (7-18) mg/dL Creatinine 1.83 H (0.50-1.00) mg/dL Estimated GFR 27 L (>89) mL/min POC Glucose (68-110) mg/dl Random Glucose 61 L D (74-106) mg/dL Calcium 8.9 (8.5-10.1) mg/dL Iron 50 (50-170) mcg/dL TIBC 283 (250-450) mcg/dL % Saturation 17.7 L (20-50) % Ferritin (8-252) ng/mL Total Bilirubin 0.6 (0.2-1.0) mg/dL AST 5 L (15-37) U/L ALT 7 L (10-53) U/L Alkaline Phosphatase 152 H (45-117) U/L Lactate Dehydrogenase (84-246) U/L Troponin I (0.02-0.05) ng/mL B-Natriuretic Peptide (0-100) pg/mL Total Protein 6.7 (6.4-8.2) g/dL Total Protein (PEP) Albumin 2.8 L (3.4-5.0) g/dL Albumin (PEP) Albumin/Globulin Ratio Snyfu-4-Jvieiqghc Uuonm-0-Rdzvemblm Beta Globulins Gamma Globulins PEP Pathologist Comment Vitamin B12 552 (193-986) pg/mL Folate Greater than 20.0 H (3.1-17.5) ng/mL Urine Color (Yellw/Straw) Urine Clarity (Clear) Urine pH (5.0-8.5) Ur Specific Zimmerman (1.002-1.035) Urine Protein (Neg-Trace) mg/dL Urine Glucose (UA) (Negative) mg/dL Urine Ketones (Negative) mg/dL Urine Occult Blood (Negative) Urine Nitrate (Negative) Urine Bilirubin (Negative) Ur Microscopic Review 08/12/18 08/12/18 08/12/18 Range/Units 08:58 10:46 12:30 WBC (4.0-11.0) th/mm3 RBC (4.00-5.30) mil/mm3 Hgb (11.6-15.3) gm/dL Hct (35.0-46.0) % MCV (80.0-100.0) fL MCH (27.0-34.0) pg MCHC (32.0-36.0) % RDW (11.6-17.2) % Plt Count (150-450) th/mm3 MPV (7.0-11.0) fL Neut % (Auto) (16.0-70.0) % Lymph % (Auto) (9.0-44.0) % Young % (Auto) (0.0-8.0) % Eos % (Auto) (0.0-4.0) % Baso % (Auto) (0.0-2.0) % Neut # (Auto) (1.8-7.7) th/mm3 Lymph # (Auto) (1.0-4.8) th/mm3 Young # (Auto) (0.0-0.9) th/mm3 Eos # (Auto) (0.0-0.4) th/mm3 Baso # (Auto) (0.0-0.2) th/mm3 WBC Differential Differential Comment Retic Count (0.4-3.0) % Absolute Retic (20.0-150.0) mil/L Haptoglobin (30-200) mg/dL PT (9.8-11.6) sec INR Ratio Puncture Site Patient Temperature O2 Saturation (90-100) % ABG pH (7.380-7.420) ABG pCO2 (38-42) mmHg ABG pO2 (61-120) mmHg ABG HCO3 (22-26) mmol/L ABG O2 Content (12.0-20.0) Vol % ABG Base Excess (-2-2) mmol/L ABG Methemoglobin (0-2) % Jairo Test Hemoglobin (12.0-16.0) G/DL Carboxyhemoglobin (0-4) % O2 Delivery Device Liter Flow L/M Critical Value Sodium (136-145) meq/L Potassium (3.5-5.1) meq/L Chloride (98-107) meq/L Carbon Dioxide (21.0-32.0) meq/L Anion Gap (5-15) meq/L BUN (7-18) mg/dL Creatinine (0.50-1.00) mg/dL Estimated GFR (>89) mL/min POC Glucose 76 77 90 (68-110) mg/dl Random Glucose (74-106) mg/dL Calcium (8.5-10.1) mg/dL Iron (50-170) mcg/dL TIBC (250-450) mcg/dL % Saturation (20-50) % Ferritin (8-252) ng/mL Total Bilirubin (0.2-1.0) mg/dL AST (15-37) U/L ALT (10-53) U/L Alkaline Phosphatase (45-117) U/L Lactate Dehydrogenase (84-246) U/L Troponin I (0.02-0.05) ng/mL B-Natriuretic Peptide (0-100) pg/mL Total Protein (6.4-8.2) g/dL Total Protein (PEP) Albumin (3.4-5.0) g/dL Albumin (PEP) Albumin/Globulin Ratio Rfbmf-3-Fjqivcnxz Rtmre-0-Xkjpbfzsq Beta Globulins Gamma Globulins PEP Pathologist Comment Vitamin B12 (193-986) pg/mL Folate (3.1-17.5) ng/mL Urine Color (Yellw/Straw) Urine Clarity (Clear) Urine pH (5.0-8.5) Ur Specific Zimmerman (1.002-1.035) Urine Protein (Neg-Trace) mg/dL Urine Glucose (UA) (Negative) mg/dL Urine Ketones (Negative) mg/dL Urine Occult Blood (Negative) Urine Nitrate (Negative) Urine Bilirubin (Negative) Ur Microscopic Review 11/05/18 11/05/18 11/06/18 Range/Units 17:44 20:17 04:00 WBC 9.8 (4.0-11.0) th/mm3 RBC 2.49 L (4.00-5.30) mil/mm3 Hgb 7.8 L (11.6-15.3) gm/dL Hct 23.5 L (35.0-46.0) % MCV 94.2 (80.0-100.0) fL MCH 31.3 (27.0-34.0) pg MCHC 33.2 (32.0-36.0) % RDW 16.5 (11.6-17.2) % Plt Count 130 L (150-450) th/mm3 MPV 8.0 (7.0-11.0) fL Neut % (Auto) 82.6 H (16.0-70.0) % Lymph % (Auto) 9.2 (9.0-44.0) % Young % (Auto) 5.4 (0.0-8.0) % Eos % (Auto) 2.2 (0.0-4.0) % Baso % (Auto) 0.6 (0.0-2.0) % Neut # (Auto) 8.1 H (1.8-7.7) th/mm3 Lymph # (Auto) 0.9 L (1.0-4.8) th/mm3 Young # (Auto) 0.5 (0.0-0.9) th/mm3 Eos # (Auto) 0.2 (0.0-0.4) th/mm3 Baso # (Auto) 0.1 (0.0-0.2) th/mm3 WBC Differential . Differential Comment Auto diff final Retic Count (0.4-3.0) % Absolute Retic (20.0-150.0) mil/L Haptoglobin (30-200) mg/dL PT (9.8-11.6) sec INR Ratio Puncture Site Patient Temperature O2 Saturation (90-100) % ABG pH (7.380-7.420) ABG pCO2 (38-42) mmHg ABG pO2 (61-120) mmHg ABG HCO3 (22-26) mmol/L ABG O2 Content (12.0-20.0) Vol % ABG Base Excess (-2-2) mmol/L ABG Methemoglobin (0-2) % Jairo Test Hemoglobin (12.0-16.0) G/DL Carboxyhemoglobin (0-4) % O2 Delivery Device Liter Flow L/M Critical Value Sodium (136-145) meq/L Potassium (3.5-5.1) meq/L Chloride (98-107) meq/L Carbon Dioxide (21.0-32.0) meq/L Anion Gap (5-15) meq/L BUN (7-18) mg/dL Creatinine (0.50-1.00) mg/dL Estimated GFR (>89) mL/min POC Glucose 239 H 205 H (68-110) mg/dl Random Glucose (74-106) mg/dL Calcium (8.5-10.1) mg/dL Iron (50-170) mcg/dL TIBC (250-450) mcg/dL % Saturation (20-50) % Ferritin (8-252) ng/mL Total Bilirubin (0.2-1.0) mg/dL AST (15-37) U/L ALT (10-53) U/L Alkaline Phosphatase (45-117) U/L Lactate Dehydrogenase (84-246) U/L Troponin I (0.02-0.05) ng/mL B-Natriuretic Peptide (0-100) pg/mL Total Protein (6.4-8.2) g/dL Total Protein (PEP) Albumin (3.4-5.0) g/dL Albumin (PEP) Albumin/Globulin Ratio Pcfwy-1-Zgpkmydhj Kpgmb-5-Fnhtzziem Beta Globulins Gamma Globulins PEP Pathologist Comment Vitamin B12 (193-986) pg/mL Folate (3.1-17.5) ng/mL Urine Color (Yellw/Straw) Urine Clarity (Clear) Urine pH (5.0-8.5) Ur Specific Zimmerman (1.002-1.035) Urine Protein (Neg-Trace) mg/dL Urine Glucose (UA) (Negative) mg/dL Urine Ketones (Negative) mg/dL Urine Occult Blood (Negative) Urine Nitrate (Negative) Urine Bilirubin (Negative) Ur Microscopic Review 08/13/18 08/13/18 08/13/18 Range/Units 04:00 04:00 07:42 WBC (4.0-11.0) th/mm3 RBC (4.00-5.30) mil/mm3 Hgb (11.6-15.3) gm/dL Hct (35.0-46.0) % MCV (80.0-100.0) fL MCH (27.0-34.0) pg MCHC (32.0-36.0) % RDW (11.6-17.2) % Plt Count (150-450) th/mm3 MPV (7.0-11.0) fL Neut % (Auto) (16.0-70.0) % Lymph % (Auto) (9.0-44.0) % Young % (Auto) (0.0-8.0) % Eos % (Auto) (0.0-4.0) % Baso % (Auto) (0.0-2.0) % Neut # (Auto) (1.8-7.7) th/mm3 Lymph # (Auto) (1.0-4.8) th/mm3 Young # (Auto) (0.0-0.9) th/mm3 Eos # (Auto) (0.0-0.4) th/mm3 Baso # (Auto) (0.0-0.2) th/mm3 WBC Differential Differential Comment Retic Count (0.4-3.0) % Absolute Retic (20.0-150.0) mil/L Haptoglobin 183 (30-200) mg/dL PT (9.8-11.6) sec INR Ratio Puncture Site Patient Temperature O2 Saturation (90-100) % ABG pH (7.380-7.420) ABG pCO2 (38-42) mmHg ABG pO2 (61-120) mmHg ABG HCO3 (22-26) mmol/L ABG O2 Content (12.0-20.0) Vol % ABG Base Excess (-2-2) mmol/L ABG Methemoglobin (0-2) % Jairo Test Hemoglobin (12.0-16.0) G/DL Carboxyhemoglobin (0-4) % O2 Delivery Device Liter Flow L/M Critical Value Sodium 141 (136-145) meq/L Potassium 4.3 D (3.5-5.1) meq/L Chloride 107 (98-107) meq/L Carbon Dioxide 27.2 (21.0-32.0) meq/L Anion Gap 7 (5-15) meq/L BUN 20 H (7-18) mg/dL Creatinine 1.90 H (0.50-1.00) mg/dL Estimated GFR 26 L (>89) mL/min POC Glucose 152 H (68-110) mg/dl Random Glucose 199 H D (74-106) mg/dL Calcium 8.5 (8.5-10.1) mg/dL Iron (50-170) mcg/dL TIBC (250-450) mcg/dL % Saturation (20-50) % Ferritin 96 (8-252) ng/mL Total Bilirubin (0.2-1.0) mg/dL AST (15-37) U/L ALT (10-53) U/L Alkaline Phosphatase (45-117) U/L Lactate Dehydrogenase 203 (84-246) U/L Troponin I (0.02-0.05) ng/mL B-Natriuretic Peptide (0-100) pg/mL Total Protein (6.4-8.2) g/dL Total Protein (PEP) Cancelled Albumin (3.4-5.0) g/dL Albumin (PEP) Cancelled Albumin/Globulin Ratio Cancelled Arifs-5-Egzqybjgx Cancelled Vnerv-9-Efzrpwhfb Cancelled Beta Globulins Cancelled Gamma Globulins Cancelled PEP Pathologist Comment Cancelled Vitamin B12 (193-986) pg/mL Folate (3.1-17.5) ng/mL Urine Color (Yellw/Straw) Urine Clarity (Clear) Urine pH (5.0-8.5) Ur Specific Zimmerman (1.002-1.035) Urine Protein (Neg-Trace) mg/dL Urine Glucose (UA) (Negative) mg/dL Urine Ketones (Negative) mg/dL Urine Occult Blood (Negative) Urine Nitrate (Negative) Urine Bilirubin (Negative) Ur Microscopic Review 08/13/18 08/13/18 08/13/18 Range/Units 12:15 12:15 12:33 WBC (4.0-11.0) th/mm3 RBC (4.00-5.30) mil/mm3 Hgb 7.8 L (11.6-15.3) gm/dL Hct 23.0 L (35.0-46.0) % MCV (80.0-100.0) fL MCH (27.0-34.0) pg MCHC (32.0-36.0) % RDW (11.6-17.2) % Plt Count (150-450) th/mm3 MPV (7.0-11.0) fL Neut % (Auto) (16.0-70.0) % Lymph % (Auto) (9.0-44.0) % Young % (Auto) (0.0-8.0) % Eos % (Auto) (0.0-4.0) % Baso % (Auto) (0.0-2.0) % Neut # (Auto) (1.8-7.7) th/mm3 Lymph # (Auto) (1.0-4.8) th/mm3 Young # (Auto) (0.0-0.9) th/mm3 Eos # (Auto) (0.0-0.4) th/mm3 Baso # (Auto) (0.0-0.2) th/mm3 WBC Differential Differential Comment Retic Count 3.6 H (0.4-3.0) % Absolute Retic 88.2 (20.0-150.0) mil/L Haptoglobin (30-200) mg/dL PT (9.8-11.6) sec INR Ratio Puncture Site Patient Temperature O2 Saturation (90-100) % ABG pH (7.380-7.420) ABG pCO2 (38-42) mmHg ABG pO2 (61-120) mmHg ABG HCO3 (22-26) mmol/L ABG O2 Content (12.0-20.0) Vol % ABG Base Excess (-2-2) mmol/L ABG Methemoglobin (0-2) % Jairo Test Hemoglobin (12.0-16.0) G/DL Carboxyhemoglobin (0-4) % O2 Delivery Device Liter Flow L/M Critical Value Sodium (136-145) meq/L Potassium (3.5-5.1) meq/L Chloride (98-107) meq/L Carbon Dioxide (21.0-32.0) meq/L Anion Gap (5-15) meq/L BUN (7-18) mg/dL Creatinine (0.50-1.00) mg/dL Estimated GFR (>89) mL/min POC Glucose 199 H (68-110) mg/dl Random Glucose (74-106) mg/dL Calcium (8.5-10.1) mg/dL Iron (50-170) mcg/dL TIBC (250-450) mcg/dL % Saturation (20-50) % Ferritin (8-252) ng/mL Total Bilirubin (0.2-1.0) mg/dL AST (15-37) U/L ALT (10-53) U/L Alkaline Phosphatase (45-117) U/L Lactate Dehydrogenase (84-246) U/L Troponin I (0.02-0.05) ng/mL B-Natriuretic Peptide (0-100) pg/mL Total Protein (6.4-8.2) g/dL Total Protein (PEP) Albumin (3.4-5.0) g/dL Albumin (PEP) Albumin/Globulin Ratio Vxzer-5-Ctmbjysyn Tqqyg-7-Yqvfddbos Beta Globulins Gamma Globulins PEP Pathologist Comment Vitamin B12 (193-986) pg/mL Folate (3.1-17.5) ng/mL Urine Color (Yellw/Straw) Urine Clarity (Clear) Urine pH (5.0-8.5) Ur Specific Zimmerman (1.002-1.035) Urine Protein (Neg-Trace) mg/dL Urine Glucose (UA) (Negative) mg/dL Urine Ketones (Negative) mg/dL Urine Occult Blood (Negative) Urine Nitrate (Negative) Urine Bilirubin (Negative) Ur Microscopic Review 08/13/18 08/13/18 08/14/18 Range/Units 16:13 20:45 05:00 WBC 8.0 (4.0-11.0) th/mm3 RBC 2.60 L (4.00-5.30) mil/mm3 Hgb 8.3 L (11.6-15.3) gm/dL Hct 24.1 L (35.0-46.0) % MCV 92.8 (80.0-100.0) fL MCH 32.0 (27.0-34.0) pg MCHC 34.5 (32.0-36.0) % RDW 16.0 (11.6-17.2) % Plt Count 111 L (150-450) th/mm3 MPV 7.8 (7.0-11.0) fL Neut % (Auto) (16.0-70.0) % Lymph % (Auto) (9.0-44.0) % Young % (Auto) (0.0-8.0) % Eos % (Auto) (0.0-4.0) % Baso % (Auto) (0.0-2.0) % Neut # (Auto) (1.8-7.7) th/mm3 Lymph # (Auto) (1.0-4.8) th/mm3 Young # (Auto) (0.0-0.9) th/mm3 Eos # (Auto) (0.0-0.4) th/mm3 Baso # (Auto) (0.0-0.2) th/mm3 WBC Differential Differential Comment Retic Count (0.4-3.0) % Absolute Retic (20.0-150.0) mil/L Haptoglobin (30-200) mg/dL PT (9.8-11.6) sec INR Ratio Puncture Site Patient Temperature O2 Saturation (90-100) % ABG pH (7.380-7.420) ABG pCO2 (38-42) mmHg ABG pO2 (61-120) mmHg ABG HCO3 (22-26) mmol/L ABG O2 Content (12.0-20.0) Vol % ABG Base Excess (-2-2) mmol/L ABG Methemoglobin (0-2) % Jairo Test Hemoglobin (12.0-16.0) G/DL Carboxyhemoglobin (0-4) % O2 Delivery Device Liter Flow L/M Critical Value Sodium (136-145) meq/L Potassium (3.5-5.1) meq/L Chloride (98-107) meq/L Carbon Dioxide (21.0-32.0) meq/L Anion Gap (5-15) meq/L BUN (7-18) mg/dL Creatinine (0.50-1.00) mg/dL Estimated GFR (>89) mL/min POC Glucose 178 H 235 H (68-110) mg/dl Random Glucose (74-106) mg/dL Calcium (8.5-10.1) mg/dL Iron (50-170) mcg/dL TIBC (250-450) mcg/dL % Saturation (20-50) % Ferritin (8-252) ng/mL Total Bilirubin (0.2-1.0) mg/dL AST (15-37) U/L ALT (10-53) U/L Alkaline Phosphatase (45-117) U/L Lactate Dehydrogenase (84-246) U/L Troponin I (0.02-0.05) ng/mL B-Natriuretic Peptide (0-100) pg/mL Total Protein (6.4-8.2) g/dL Total Protein (PEP) Albumin (3.4-5.0) g/dL Albumin (PEP) Albumin/Globulin Ratio Fdwsk-2-Kkctgyomu Kszfj-8-Dcvvpnrts Beta Globulins Gamma Globulins PEP Pathologist Comment Vitamin B12 (193-986) pg/mL Folate (3.1-17.5) ng/mL Urine Color (Yellw/Straw) Urine Clarity (Clear) Urine pH (5.0-8.5) Ur Specific Zimmerman (1.002-1.035) Urine Protein (Neg-Trace) mg/dL Urine Glucose (UA) (Negative) mg/dL Urine Ketones (Negative) mg/dL Urine Occult Blood (Negative) Urine Nitrate (Negative) Urine Bilirubin (Negative) Ur Microscopic Review 08/14/18 08/14/18 08/14/18 Range/Units 05:00 05:00 05:00 WBC (4.0-11.0) th/mm3 RBC (4.00-5.30) mil/mm3 Hgb (11.6-15.3) gm/dL Hct (35.0-46.0) % MCV (80.0-100.0) fL MCH (27.0-34.0) pg MCHC (32.0-36.0) % RDW (11.6-17.2) % Plt Count (150-450) th/mm3 MPV (7.0-11.0) fL Neut % (Auto) (16.0-70.0) % Lymph % (Auto) (9.0-44.0) % Young % (Auto) (0.0-8.0) % Eos % (Auto) (0.0-4.0) % Baso % (Auto) (0.0-2.0) % Neut # (Auto) (1.8-7.7) th/mm3 Lymph # (Auto) (1.0-4.8) th/mm3 Young # (Auto) (0.0-0.9) th/mm3 Eos # (Auto) (0.0-0.4) th/mm3 Baso # (Auto) (0.0-0.2) th/mm3 WBC Differential Differential Comment Retic Count (0.4-3.0) % Absolute Retic (20.0-150.0) mil/L Haptoglobin (30-200) mg/dL PT (9.8-11.6) sec INR Ratio Puncture Site Patient Temperature O2 Saturation (90-100) % ABG pH (7.380-7.420) ABG pCO2 (38-42) mmHg ABG pO2 (61-120) mmHg ABG HCO3 (22-26) mmol/L ABG O2 Content (12.0-20.0) Vol % ABG Base Excess (-2-2) mmol/L ABG Methemoglobin (0-2) % Jairo Test Hemoglobin (12.0-16.0) G/DL Carboxyhemoglobin (0-4) % O2 Delivery Device Liter Flow L/M Critical Value Sodium 141 (136-145) meq/L Potassium 3.9 (3.5-5.1) meq/L Chloride 104 (98-107) meq/L Carbon Dioxide 28.0 (21.0-32.0) meq/L Anion Gap 9 (5-15) meq/L BUN 27 H (7-18) mg/dL Creatinine 2.05 H (0.50-1.00) mg/dL Estimated GFR 23 L (>89) mL/min POC Glucose (68-110) mg/dl Random Glucose 152 H (74-106) mg/dL Calcium 8.9 (8.5-10.1) mg/dL Iron (50-170) mcg/dL TIBC (250-450) mcg/dL % Saturation (20-50) % Ferritin (8-252) ng/mL Total Bilirubin (0.2-1.0) mg/dL AST (15-37) U/L ALT (10-53) U/L Alkaline Phosphatase (45-117) U/L Lactate Dehydrogenase (84-246) U/L Troponin I (0.02-0.05) ng/mL B-Natriuretic Peptide (0-100) pg/mL Total Protein (6.4-8.2) g/dL Total Protein (PEP) 5.8 L Albumin (3.4-5.0) g/dL Albumin (PEP) 3.13 L Albumin/Globulin Ratio 1.17 L Rgjua-0-Kwvikjuoc 0.26 Gcmuy-1-Mkeubeaci 0.83 Beta Globulins 0.68 Gamma Globulins 0.89 PEP Pathologist Comment Vitamin B12 428 (193-986) pg/mL Folate 16.8 (3.1-17.5) ng/mL Urine Color (Yellw/Straw) Urine Clarity (Clear) Urine pH (5.0-8.5) Ur Specific Zimmerman (1.002-1.035) Urine Protein (Neg-Trace) mg/dL Urine Glucose (UA) (Negative) mg/dL Urine Ketones (Negative) mg/dL Urine Occult Blood (Negative) Urine Nitrate (Negative) Urine Bilirubin (Negative) Ur Microscopic Review 08/14/18 08/14/18 08/14/18 Range/Units 08:27 12:28 17:04 WBC (4.0-11.0) th/mm3 RBC (4.00-5.30) mil/mm3 Hgb (11.6-15.3) gm/dL Hct (35.0-46.0) % MCV (80.0-100.0) fL MCH (27.0-34.0) pg MCHC (32.0-36.0) % RDW (11.6-17.2) % Plt Count (150-450) th/mm3 MPV (7.0-11.0) fL Neut % (Auto) (16.0-70.0) % Lymph % (Auto) (9.0-44.0) % Young % (Auto) (0.0-8.0) % Eos % (Auto) (0.0-4.0) % Baso % (Auto) (0.0-2.0) % Neut # (Auto) (1.8-7.7) th/mm3 Lymph # (Auto) (1.0-4.8) th/mm3 Young # (Auto) (0.0-0.9) th/mm3 Eos # (Auto) (0.0-0.4) th/mm3 Baso # (Auto) (0.0-0.2) th/mm3 WBC Differential Differential Comment Retic Count (0.4-3.0) % Absolute Retic (20.0-150.0) mil/L Haptoglobin (30-200) mg/dL PT (9.8-11.6) sec INR Ratio Puncture Site Patient Temperature O2 Saturation (90-100) % ABG pH (7.380-7.420) ABG pCO2 (38-42) mmHg ABG pO2 (61-120) mmHg ABG HCO3 (22-26) mmol/L ABG O2 Content (12.0-20.0) Vol % ABG Base Excess (-2-2) mmol/L ABG Methemoglobin (0-2) % Jairo Test Hemoglobin (12.0-16.0) G/DL Carboxyhemoglobin (0-4) % O2 Delivery Device Liter Flow L/M Critical Value Sodium (136-145) meq/L Potassium (3.5-5.1) meq/L Chloride (98-107) meq/L Carbon Dioxide (21.0-32.0) meq/L Anion Gap (5-15) meq/L BUN (7-18) mg/dL Creatinine (0.50-1.00) mg/dL Estimated GFR (>89) mL/min POC Glucose 186 H 255 H 270 H (68-110) mg/dl Random Glucose (74-106) mg/dL Calcium (8.5-10.1) mg/dL Iron (50-170) mcg/dL TIBC (250-450) mcg/dL % Saturation (20-50) % Ferritin (8-252) ng/mL Total Bilirubin (0.2-1.0) mg/dL AST (15-37) U/L ALT (10-53) U/L Alkaline Phosphatase (45-117) U/L Lactate Dehydrogenase (84-246) U/L Troponin I (0.02-0.05) ng/mL B-Natriuretic Peptide (0-100) pg/mL Total Protein (6.4-8.2) g/dL Total Protein (PEP) Albumin (3.4-5.0) g/dL Albumin (PEP) Albumin/Globulin Ratio Zkeuj-3-Bcpbsnhbh Xfsfx-0-Vawwgsgvs Beta Globulins Gamma Globulins PEP Pathologist Comment Vitamin B12 (193-986) pg/mL Folate (3.1-17.5) ng/mL Urine Color (Yellw/Straw) Urine Clarity (Clear) Urine pH (5.0-8.5) Ur Specific Zimmerman (1.002-1.035) Urine Protein (Neg-Trace) mg/dL Urine Glucose (UA) (Negative) mg/dL Urine Ketones (Negative) mg/dL Urine Occult Blood (Negative) Urine Nitrate (Negative) Urine Bilirubin (Negative) Ur Microscopic Review Imaging Data Radiologist's impression: Chest X-Ray 08/11/18 01:14 EST CONCLUSION: Probable CHF Liver Ultrasound 08/14/18 00:00 CONCLUSION: 1. Elongated right hepatic lobe characteristic of a Celina's lobe. 2. Thickened gallbladder wall with intraluminal filling defect which is adherent and may represent a small polyp. 3. Right renal calculus. ECG Data Attestation: I personally reviewed and interpreted this ECG as follows: Interpretation: Twelve-lead EKG was reviewed by me. Normal sinus rhythm, left axis deviation, LVH by voltage criteria, poor R wave progression, nonspecific ST -T wave changes. Heart rate of 83 bpm. Discharge Plan Discharge Disposition Patient Disposition: 30 Still Patient Discharge Condition Condition: Stable Discharge Order Discharge Orders: Discharge Order (Routine); Ordered 08/14/18 Ordered By: Sabino Pérez Discharge Details Anticipated Discharge Date: 08/14/18 Physicians Team ED Provider: Carlyn Urban Attending Provider: Kevin Reed Other Providers: Bina Fontaine ; Christal Aranda Status ED Status: Left Department Discharge Information Discharge Date/Time: 08/11/18 06:16
[2018-08-11] MEDS ORDERED: Sodium Chloride 0.9% 2 ML Flush PRN IV.FLUSH (03:17)
[2018-08-11] MEDS: hydrALAZINE 25 MG Tablet PO SCH ×4 (03:30→17:17)
[2018-08-11] MEDS: traZODone 50 MG Tablet PO SCH ×2 (03:30→20:07)
[2018-08-11] MEDS ORDERED: Dextrose 50% in Water 50 ML Vial IV.PUSH PRN (03:51)
[2018-08-11 04:59] LABS: ABG Base Excess -0.8 mmol/L (-2-2); ABG PCO2 33 mmHg (38-42); ABG PO2 89 mmHg (61-120)
[2018-08-11] MEDS: Pantoprazole Inj 40 MG Vial IV.PUSH SCH ×2 (04:59→16:39)
[2018-08-11] MEDS: Isosorbide Mononitrate 30 MG ER 24HR Tablet (Imdur) PO SCH (06:20)
[2018-08-11] MEDS: Gabapentin 300 MG Capsule PO SCH ×3 (08:47→17:18)
[2018-08-11] MEDS: Sodium Chloride 0.9% 2 ML Flush BID IV.FLUSH SCH ×2 (08:48→20:07)
[2018-08-11] MEDS: TRESIBA FLEX TOUCH SQ SCH (08:48)
--- NOTE | 2018-08-11 10:43 | P.CONGI ---
History of Present Illness Consult date: 08/11/18 Chief complaint: CHF exacerbation History of Present Illness: This is 77-year-old female with a history of stage III kidney disease, CHF, CVA , diabetes, hypertension, CAD s/p 3 stents, visiting from [place], [place] who presents with shortness of breath for 1 week worse with exertion and edema in her lower extremities. Labs revealed anemia, hgb of 8.7. Endorses black tarry stools on off for few weeks, more recent episodes were few days ago. She denies history of stomach ulcer. Denies chronic NSAID use. States she had hx of GI anemia and GI bleed 2 yrs ago, at which time, she under went colonoscopy/ endoscopy and CE and no source of bleed found. States that she will never have a colonoscopy again because she got an infection from it last time. Denies nausea, vomiting, hematemesis, or abd pain. <Whitney Du - Last Filed: 08/11/18 10:33> Review of Systems All other systems reviewed negative except as stated in HPI <Whitney Du - Last Filed: 08/11/18 10:33> PMFSH - History History Provided By: Patient - Medical History Medical History: Medical History (Last Reviewed 08/11/18 @ 02:14 by Carlyn Urban MD) CHF (congestive heart failure) COPD (chronic obstructive pulmonary disease) Diabetes HTN (hypertension) Kidney disease Stroke - Surgical History Surgical History: Surgical History (Last Reviewed 08/11/18 @ 02:14 by Carlyn Urban MD) H/O heart artery stent - Family History Family History: Family History (Last Updated 08/11/18 @ 03:13 by Elif Stokes MD, R2) Other Breast cancer - Tobacco History Second Hand Smoke Exposure: No Tobacco Use In Past 30 Days: No Smoking Status: Never smoker Tobacco Type: Cigarettes - Alcohol History How Often Do You Have a Drink Containing Alcohol: Never - Substance Use History Substance History: No History of Abuse - Travel History Recent Travel in the [facility] Within the Last 8 Weeks: No Recent Travel Out of the Country Within the Last 8 Weeks: No - Immunization History Tetanus Immunization: Never Vaccinated Hx Influenza Vaccine This Season: No <Whitney Du - Last Filed: 08/11/18 10:33> - Medical History Medical History: Medical History (Last Reviewed 08/11/18 @ 02:14 by Carlyn Urban MD) CHF (congestive heart failure) COPD (chronic obstructive pulmonary disease) Diabetes HTN (hypertension) Kidney disease Stroke - Surgical History Surgical History: Surgical History (Last Reviewed 08/11/18 @ 02:14 by Carlyn Urban MD) H/O heart artery stent - Family History Family History: Family History (Last Updated 08/11/18 @ 03:13 by Elif Stokes MD, R2) Other Breast cancer <Bina Fontaine - Last Filed: 08/11/18 19:23> Medications and Allergies Active Medications: Active Medications Albuterol (Duoneb Neb (Prn)) 1 ampul NEB Q4HR NEB PRN PRN Reason: wheezing Clonidine HCl (Catapres) 0.1 mg PO Q6H PRN PRN Reason: SEE LABEL COMMENTS Dextrose (D50w Vial) 50 ml IV.PUSH UNSCH PRN PRN Reason: PER HYPOGLYCEMIA PROTOCOL Ergocalciferol (Vitamin D2) 50,000 unit PO BID AG Furosemide (Lasix Inj) 40 mg IV.PUSH BID@0900,1800 [facility] Last Admin: 08/11/18 08:47 Dose: 40 mg Gabapentin (Neurontin) 300 mg PO TID [facility] Last Admin: 08/11/18 08:47 Dose: 300 mg Glucagon (Glucagon Inj) 1 mg OTHER PRN PRN PRN Reason: for Hypoglycemia Protocol Hydralazine HCl (Apresoline) 25 mg PO TID [facility] Last Admin: 08/11/18 08:47 Dose: 25 mg Insulin Aspart (Novolog Inj) 5 units SQ DAILY@0800 [facility] Last Admin: 08/11/18 08:47 Dose: 5 units Isosorbide Mononitrate (Imdur) 30 mg PO DAILY@0700 [facility] Last Admin: 08/11/18 06:20 Dose: 30 mg Levothyroxine Sodium (Synthroid) 200 mcg PO DAILY@0700 [facility] Last Admin: 08/11/18 06:20 Dose: 200 mcg Ondansetron HCl (Zofran Inj) 4 mg IV.PUSH Q6H PRN PRN Reason: NAUSEA OR VOMITING Pantoprazole Sodium (Protonix Inj) 40 mg IV.PUSH Q12H [facility] Last Admin: 08/11/18 04:59 Dose: 40 mg Pt Own Tresiba Flex (Touch) 0 each SQ DAILY [facility] Last Admin: 08/11/18 08:48 Dose: Not Given Pravastatin Sodium (Pravachol) 40 mg PO QPM AG Sertraline HCl (Zoloft) 50 mg PO HS [facility] Sodium Chloride (Ns Flush) 2 ml IV.FLUSH BID [facility] Last Admin: 08/11/18 08:48 Dose: 2 ml Sodium Chloride (Ns Flush) 2 ml IV.FLUSH PRN PRN PRN Reason: FLUSH AFTER USING IV ACCESS Trazodone HCl (Desyrel) 50 mg PO HS [facility] Last Admin: 08/11/18 03:30 Dose: 50 mg <FlorianMichaelsweetiegomez - Last Filed: 08/11/18 10:33> Active Medications: Active Medications Albuterol (Duoneb Neb (Prn)) 1 ampul NEB Q4HR NEB PRN PRN Reason: wheezing Clonidine HCl (Catapres) 0.1 mg PO Q6H PRN PRN Reason: SEE LABEL COMMENTS Dextrose (D50w Vial) 50 ml IV.PUSH UNSCH PRN PRN Reason: PER HYPOGLYCEMIA PROTOCOL Ergocalciferol (Vitamin D2) 50,000 unit PO Q7D [facility] Furosemide (Lasix Inj) 40 mg IV.PUSH BID@0900,1800 [facility] Last Admin: 08/11/18 17:17 Dose: 40 mg Gabapentin (Neurontin) 300 mg PO TID [facility] Last Admin: 08/11/18 17:18 Dose: 300 mg Glucagon (Glucagon Inj) 1 mg OTHER PRN PRN PRN Reason: for Hypoglycemia Protocol Hydralazine HCl (Apresoline) 25 mg PO TID [facility] Last Admin: 08/11/18 17:17 Dose: 25 mg Lactated Ringer's (Lr 1000 Ml Inj) 1,000 mls @ 30 mls/hr IV.SIG .Q24H [facility] Stop: 08/12/18 13:14 Sodium Chloride (Ns Inj) 500 mls @ 30 mls/hr IV.SIG .Q10H [facility] Insulin Aspart (Novolog Insulin Correctional Sugar Inj) 0 unit SQ ACHS [facility]; Protocol Last Admin: 08/11/18 17:17 Dose: 4 unit Insulin Detemir (Levemir Inj) 20 unit SQ BID [facility] Isosorbide Mononitrate (Imdur) 30 mg PO DAILY@0700 [facility] Last Admin: 08/11/18 06:20 Dose: 30 mg Levothyroxine Sodium (Synthroid) 200 mcg PO DAILY@0700 [facility] Last Admin: 08/11/18 06:20 Dose: 200 mcg Ondansetron HCl (Zofran Inj) 4 mg IV.PUSH Q6H PRN PRN Reason: NAUSEA OR VOMITING Pantoprazole Sodium (Protonix Inj) 40 mg IV.PUSH Q12H [facility] Last Admin: 08/11/18 16:39 Dose: 40 mg Pt Own Tresiba Flex (Touch) 0 each SQ DAILY [facility] Last Admin: 08/11/18 08:48 Dose: Not Given Pravastatin Sodium (Pravachol) 40 mg PO QPM [facility] Last Admin: 08/11/18 17:18 Dose: 40 mg Sertraline HCl (Zoloft) 50 mg PO HS [facility] Sodium Chloride (Ns Flush) 2 ml IV.FLUSH BID [facility] Last Admin: 08/11/18 08:48 Dose: 2 ml Sodium Chloride (Ns Flush) 2 ml IV.FLUSH PRN PRN PRN Reason: FLUSH AFTER USING IV ACCESS Trazodone HCl (Desyrel) 50 mg PO HS [facility] Last Admin: 08/11/18 03:30 Dose: 50 mg <Bina Fontaine - Last Filed: 08/11/18 19:23> Allergies Allergy/AdvReac Type Severity Reaction Status Date / Time penicillin G Allergy Severe HIVES Verified 08/11/18 02:47 Tetanus Vaccines and Toxoid Allergy Swelling Verified 08/11/18 01:13 EST TAPE Allergy Unknown Rash Uncoded 08/11/18 01:13 EST Home Medications Medication Instructions Recorded Confirmed Type ergocalciferol (vitamin D2) 50,000 unit PO BID 08/11/18 08/11/18 History [Vitamin D2] gabapentin 300 mg PO TID 08/11/18 08/11/18 History hydralazine 25 mg PO TID 08/11/18 08/11/18 History hydroxyzine pamoate 25 mg PO HS 08/11/18 08/11/18 History insulin aspart U-100 [Novolog 5 unit SUBCUT QAM 08/11/18 08/11/18 History Flexpen U-100 Insulin] insulin degludec [Tresiba 40 unit SUBCUT DAILY 08/11/18 08/11/18 History FlexTouch U-200] isosorbide mononitrate 30 mg PO DAILY 08/11/18 08/11/18 History levothyroxine 200 mcg PO DAILY 08/11/18 08/11/18 History omeprazole 20 mg PO BID 08/11/18 08/11/18 History sertraline 50 mg PO HS 08/11/18 08/11/18 History simvastatin 20 mg PO QPM 08/11/18 08/11/18 History torsemide 20 mg PO DAILY 08/11/18 08/11/18 History trazodone 50 mg PO HS 08/11/18 08/11/18 History Exam Vital signs: Vital Signs 08/11/18 00:27 08/11/18 00:32 08/11/18 01:23 EDT Temperature 98.1 F Pulse Rate 97 H 83 82 Respiratory Rate 28 H 22 24 Blood Pressure 202/87 H 186/80 H 214/91 H Pulse Oximetry 95 98 96 08/11/18 01:24 EDT 08/11/18 01:00 EST 08/11/18 01:34 EST Temperature Pulse Rate 80 81 80 Respiratory Rate 20 24 23 Blood Pressure 199/91 H 186/82 H Pulse Oximetry 96 96 98 08/11/18 01:58 EST 08/11/18 03:49 08/11/18 05:00 Temperature Pulse Rate 85 85 90 Respiratory Rate 15 17 22 Blood Pressure 187/79 H 218/94 H 186/75 H Pulse Oximetry 98 97 97 08/11/18 06:00 08/11/18 09:59 Temperature 98.0 F Pulse Rate 86 Respiratory Rate 18 Blood Pressure 161/71 H Pulse Oximetry 97 98 Intake & Output 08/10/18 08/11/18 08/11/18 19:59 06:59 18:59 Weight Other: # Voids - Constitutional no acute distress - Routine HEENT Exam Head: Present: normocephalic - Routine Neck Exam Present: supple - Routine Respiratory Exam Present: CTA bilaterally - Routine Cardiovascular Exam Present: RRR - Routine Abdominal Exam Present: soft, normoactive bowel sounds. Absent: tenderness, distended, rebound - Routine Extremities Exam Present: edema - Routine Skin Exam Present: intact, dry - Routine Neurological Exam Present: alert, oriented X3, normal speech <Amawi,Khawla - Last Filed: 08/11/18 10:33> Vital signs: Vital Signs 08/11/18 00:27 08/11/18 00:32 08/11/18 01:23 EDT Temperature 98.1 F Pulse Rate 97 H 83 82 Respiratory Rate 28 H 22 24 Blood Pressure 202/87 H 186/80 H 214/91 H Pulse Oximetry 95 98 96 08/11/18 01:24 EDT 08/11/18 01:00 EST 08/11/18 01:34 EST Temperature Pulse Rate 80 81 80 Respiratory Rate 20 24 23 Blood Pressure 199/91 H 186/82 H Pulse Oximetry 96 96 98 08/11/18 01:58 EST 08/11/18 03:49 08/11/18 05:00 Temperature Pulse Rate 85 85 90 Respiratory Rate 15 17 22 Blood Pressure 187/79 H 218/94 H 186/75 H Pulse Oximetry 98 97 97 08/11/18 06:00 08/11/18 08:00 08/11/18 09:59 Temperature 98.0 F 97.6 F Pulse Rate 86 82 Respiratory Rate 18 20 Blood Pressure 161/71 H 131/69 Pulse Oximetry 97 98 98 08/11/18 16:00 Temperature Pulse Rate 75 Respiratory Rate Blood Pressure Pulse Oximetry Intake & Output 08/11/18 08/11/18 08/12/18 06:59 18:59 06:59 Weight 70.307 kg Other: # Voids 1 <Bina Fontaine - Last Filed: 08/11/18 19:23> Results - Labs CBC & Chem 7: 08/11/18 01:30 EST 08/11/18 01:30 EST Labs: Laboratory Results - last 24 hr 08/11/18 08/11/18 08/11/18 01:00 EST 01:30 EST 01:30 EST WBC 9.5 RBC 2.79 L Hgb 8.7 L Hct 26.3 L MCV 94.1 MCH 31.0 MCHC 33.0 RDW 16.9 Plt Count 134 L MPV 8.5 Neut % (Auto) 85.9 H Lymph % (Auto) 6.6 L [place] % (Auto) 5.2 Eos % (Auto) 1.7 Baso % (Auto) 0.6 Neut # (Auto) 8.2 H Lymph # (Auto) 0.6 L [place] # (Auto) 0.5 Eos # (Auto) 0.2 Baso # (Auto) 0.1 WBC Differential . Differential Comment Auto diff final Puncture Site Patient Temperature O2 Saturation ABG pH ABG pCO2 ABG pO2 ABG HCO3 ABG O2 Content ABG Base Excess ABG Methemoglobin [place] Test Hemoglobin Carboxyhemoglobin O2 Delivery Device Liter Flow Critical Value POC Glucose Troponin I B-Natriuretic Peptide Greater than 5000 H Urine Color Yellow Urine Clarity Clear Urine pH 6.0 Ur Specific [place] 1.010 Urine Protein 500 or greater Urine Glucose (UA) 500 or greater Urine Ketones Negative Urine Occult Blood Negative Urine Nitrate Negative Urine Bilirubin Negative Ur Microscopic Review Not Reportable 08/11/18 08/11/18 08/11/18 03:25 03:28 04:41 WBC RBC Hgb Hct MCV MCH MCHC RDW Plt Count MPV Neut % (Auto) Lymph % (Auto) [place] % (Auto) Eos % (Auto) Baso % (Auto) Neut # (Auto) Lymph # (Auto) [place] # (Auto) Eos # (Auto) Baso # (Auto) WBC Differential Differential Comment Puncture Site Right brachial Patient Temperature 98.6 O2 Saturation 95 ABG pH 7.46 H ABG pCO2 33 L ABG pO2 89 ABG HCO3 23 ABG O2 Content 11.0 L ABG Base Excess -0.8 ABG Methemoglobin 0.7 [place] Test Present Hemoglobin 8.2 L Carboxyhemoglobin 2.5 O2 Delivery Device Nasal cannula Liter Flow 3.00 Critical Value No POC Glucose 306 H Troponin I 0.06 H B-Natriuretic Peptide Urine Color Urine Clarity Urine pH Ur Specific [place] Urine Protein Urine Glucose (UA) Urine Ketones Urine Occult Blood Urine Nitrate Urine Bilirubin Ur Microscopic Review 08/11/18 07:31 WBC RBC Hgb Hct MCV MCH MCHC RDW Plt Count MPV Neut % (Auto) Lymph % (Auto) [place] % (Auto) Eos % (Auto) Baso % (Auto) Neut # (Auto) Lymph # (Auto) [place] # (Auto) Eos # (Auto) Baso # (Auto) WBC Differential Differential Comment Puncture Site Patient Temperature O2 Saturation ABG pH ABG pCO2 ABG pO2 ABG HCO3 ABG O2 Content ABG Base Excess ABG Methemoglobin [place] Test Hemoglobin Carboxyhemoglobin O2 Delivery Device Liter Flow Critical Value POC Glucose 281 H Troponin I B-Natriuretic Peptide Urine Color Urine Clarity Urine pH Ur Specific [place] Urine Protein Urine Glucose (UA) Urine Ketones Urine Occult Blood Urine Nitrate Urine Bilirubin Ur Microscopic Review - Imaging Impressions Chest X-Ray 08/11/18 01:14 EST CONCLUSION: Probable CHF <Whitney Du - Last Filed: 08/11/18 10:33> - Labs CBC & Chem 7: 08/11/18 01:30 EST 08/11/18 01:30 EST Labs: Laboratory Results - last 24 hr 08/11/18 08/11/18 08/11/18 01:00 EST 01:30 EST 01:30 EST WBC 9.5 RBC 2.79 L Hgb 8.7 L Hct 26.3 L MCV 94.1 MCH 31.0 MCHC 33.0 RDW 16.9 Plt Count 134 L MPV 8.5 Neut % (Auto) 85.9 H Lymph % (Auto) 6.6 L [place] % (Auto) 5.2 Eos % (Auto) 1.7 Baso % (Auto) 0.6 Neut # (Auto) 8.2 H Lymph # (Auto) 0.6 L [place] # (Auto) 0.5 Eos # (Auto) 0.2 Baso # (Auto) 0.1 WBC Differential . Differential Comment Auto diff final Puncture Site Patient Temperature O2 Saturation ABG pH ABG pCO2 ABG pO2 ABG HCO3 ABG O2 Content ABG Base Excess ABG Methemoglobin [place] Test Hemoglobin Carboxyhemoglobin O2 Delivery Device Liter Flow Critical Value POC Glucose Troponin I B-Natriuretic Peptide Greater than 5000 H Urine Color Yellow Urine Clarity Clear Urine pH 6.0 Ur Specific [place] 1.010 Urine Protein 500 or greater Urine Glucose (UA) 500 or greater Urine Ketones Negative Urine Occult Blood Negative Urine Nitrate Negative Urine Bilirubin Negative Ur Microscopic Review Not Reportable 08/11/18 08/11/18 08/11/18 03:25 03:28 04:41 WBC RBC Hgb Hct MCV MCH MCHC RDW Plt Count MPV Neut % (Auto) Lymph % (Auto) [place] % (Auto) Eos % (Auto) Baso % (Auto) Neut # (Auto) Lymph # (Auto) [place] # (Auto) Eos # (Auto) Baso # (Auto) WBC Differential Differential Comment Puncture Site Right brachial Patient Temperature 98.6 O2 Saturation 95 ABG pH 7.46 H ABG pCO2 33 L ABG pO2 89 ABG HCO3 23 ABG O2 Content 11.0 L ABG Base Excess -0.8 ABG Methemoglobin 0.7 [place] Test Present Hemoglobin 8.2 L Carboxyhemoglobin 2.5 O2 Delivery Device Nasal cannula Liter Flow 3.00 Critical Value No POC Glucose 306 H Troponin I 0.06 H B-Natriuretic Peptide Urine Color Urine Clarity Urine pH Ur Specific [place] Urine Protein Urine Glucose (UA) Urine Ketones Urine Occult Blood Urine Nitrate Urine Bilirubin Ur Microscopic Review 08/11/18 08/11/18 08/11/18 07:31 11:19 12:18 WBC RBC Hgb Hct MCV MCH MCHC RDW Plt Count MPV Neut % (Auto) Lymph % (Auto) [place] % (Auto) Eos % (Auto) Baso % (Auto) Neut # (Auto) Lymph # (Auto) [place] # (Auto) Eos # (Auto) Baso # (Auto) WBC Differential Differential Comment Puncture Site Patient Temperature O2 Saturation ABG pH ABG pCO2 ABG pO2 ABG HCO3 ABG O2 Content ABG Base Excess ABG Methemoglobin [place] Test Hemoglobin Carboxyhemoglobin O2 Delivery Device Liter Flow Critical Value POC Glucose 281 H 514 H* Troponin I 0.06 H B-Natriuretic Peptide Urine Color Urine Clarity Urine pH Ur Specific [place] Urine Protein Urine Glucose (UA) Urine Ketones Urine Occult Blood Urine Nitrate Urine Bilirubin Ur Microscopic Review 08/11/18 16:15 WBC RBC Hgb Hct MCV MCH MCHC RDW Plt Count MPV Neut % (Auto) Lymph % (Auto) [place] % (Auto) Eos % (Auto) Baso % (Auto) Neut # (Auto) Lymph # (Auto) [place] # (Auto) Eos # (Auto) Baso # (Auto) WBC Differential Differential Comment Puncture Site Patient Temperature O2 Saturation ABG pH ABG pCO2 ABG pO2 ABG HCO3 ABG O2 Content ABG Base Excess ABG Methemoglobin [place] Test Hemoglobin Carboxyhemoglobin O2 Delivery Device Liter Flow Critical Value POC Glucose 230 H Troponin I B-Natriuretic Peptide Urine Color Urine Clarity Urine pH Ur Specific [place] Urine Protein Urine Glucose (UA) Urine Ketones Urine Occult Blood Urine Nitrate Urine Bilirubin Ur Microscopic Review - Imaging Impressions Chest X-Ray 08/11/18 01:14 EST CONCLUSION: Probable CHF <Bina Fontaine - Last Filed: 08/11/18 19:23> Assessment and Plan - Plan - Anemia/symptomatic, melanotic stools- Labs revealed anemia, hgb of 8.7. Endorses black tarry stools on off for few weeks, more recent episodes were few days ago. She denies history of stomach ulcer. Denies chronic NSAID use. States she had hx of GI anemia and GI bleed 2 yrs ago, at which time, she under went colonoscopy/endoscopy and CE and no source of bleed found. States that she will never have a colonoscopy again because she got an infection from it last time. Denies nausea, vomiting, hematemesis, or abd pain. - CHF- Echo ordered, diuretics per attending - history of stage III kidney disease, CHF, CVA, diabetes, hypertension, CAD s/ p 3 stents, per attending Plan: - Clears - EGD tomorrow - NPO mn - Cont. protonix - Monitor hh - Transfuse as needed - PT is declining colonoscopy - Supportive care - Pt seen and examined by Dr. Fontaine and myself and this note is written on her behalf. <Whitney Du - Last Filed: 08/11/18 10:33> - Attending Attestation seen, examined agree with above <Bina Fontaine - Last Filed: 08/11/18 19:23>
[2018-08-11] MEDS ORDERED: Insulin Detemir Inj 1,000 UNIT/10 ML Vial SQ ONE (12:31)
[2018-08-11] MEDS ORDERED: Chlorhexidine Gluconate 2% 1 Pack (2 Cloths) TOPICAL ONE (13:07)
--- NOTE | 2018-08-11 13:10 | P.PNFP ---
Subjective Interval history: She is sitting up in a chair this morning. She reports feeling significantly better compared to yesterday. She feels anxious but states that she is an "anxious person". Does not report any additional black stools overnight. No nausea/vomiting. No abdominal pain. Edema in legs significantly decreased. Reports good urine output. Currently on 3L nasal cannula and has normal O2 saturation. Not requiring much accessory muscle use. No chest pain. No calf tenderness or swelling. Results - Labs Result diagrams: 08/11/18 01:30 EST 08/11/18 01:30 EST Abnormal lab results 08/11/18 08/11/18 08/11/18 Range/Units 01:30 EST 01:30 EST 03:25 RBC 2.79 L (4.00-5.30) mil/mm3 Hgb 8.7 L (11.6-15.3) gm/dL Hct 26.3 L (35.0-46.0) % Plt Count 134 L (150-450) th/mm3 Neut % (Auto) 85.9 H (16.0-70.0) % Lymph % (Auto) 6.6 L (9.0-44.0) % Neut # (Auto) 8.2 H (1.8-7.7) th/mm3 Lymph # (Auto) 0.6 L (1.0-4.8) th/mm3 ABG pH (7.380-7.420) ABG pCO2 (38-42) mmHg ABG O2 Content (12.0-20.0) Vol % Hemoglobin (12.0-16.0) G/DL POC Glucose (68-110) mg/dl Troponin I 0.06 H (0.02-0.05) ng/mL B-Natriuretic Peptide Greater than 5000 H (0-100) pg/mL 08/11/18 08/11/18 08/11/18 Range/Units 03:28 04:41 07:31 RBC (4.00-5.30) mil/mm3 Hgb (11.6-15.3) gm/dL Hct (35.0-46.0) % Plt Count (150-450) th/mm3 Neut % (Auto) (16.0-70.0) % Lymph % (Auto) (9.0-44.0) % Neut # (Auto) (1.8-7.7) th/mm3 Lymph # (Auto) (1.0-4.8) th/mm3 ABG pH 7.46 H (7.380-7.420) ABG pCO2 33 L (38-42) mmHg ABG O2 Content 11.0 L (12.0-20.0) Vol % Hemoglobin 8.2 L (12.0-16.0) G/DL POC Glucose 306 H 281 H (68-110) mg/dl Troponin I (0.02-0.05) ng/mL B-Natriuretic Peptide (0-100) pg/mL 08/11/18 08/11/18 Range/Units 11:19 12:18 RBC (4.00-5.30) mil/mm3 Hgb (11.6-15.3) gm/dL Hct (35.0-46.0) % Plt Count (150-450) th/mm3 Neut % (Auto) (16.0-70.0) % Lymph % (Auto) (9.0-44.0) % Neut # (Auto) (1.8-7.7) th/mm3 Lymph # (Auto) (1.0-4.8) th/mm3 ABG pH (7.380-7.420) ABG pCO2 (38-42) mmHg ABG O2 Content (12.0-20.0) Vol % Hemoglobin (12.0-16.0) G/DL POC Glucose 514 H* (68-110) mg/dl Troponin I 0.06 H (0.02-0.05) ng/mL B-Natriuretic Peptide (0-100) pg/mL Short CBC 08/11/18 Range/Units 01:30 EST WBC 9.5 (4.0-11.0) th/mm3 Hgb 8.7 L (11.6-15.3) gm/dL Hct 26.3 L (35.0-46.0) % Plt Count 134 L (150-450) th/mm3 Cardiac Enzymes 08/11/18 08/11/18 Range/Units 03:25 11:19 Troponin I 0.06 H 0.06 H (0.02-0.05) ng/mL Urine 08/11/18 Range/Units 01:00 EST Urine Color Yellow (Yellw/Straw) Urine Clarity Clear (Clear) Urine pH 6.0 (5.0-8.5) Ur Specific Beecher 1.010 (1.002-1.035) Urine Protein 500 or greater (Neg-Trace) mg/dL Urine Glucose (UA) 500 or greater (Negative) mg/dL - Imaging Impressions Chest X-Ray 08/11/18 01:14 EST CONCLUSION: Probable CHF Physical Exam Vital signs: Vital Signs 08/11/18 00:27 08/11/18 00:32 08/11/18 01:23 EDT Temperature 98.1 F Pulse Rate 97 H 83 82 Respiratory Rate 28 H 22 24 Blood Pressure 202/87 H 186/80 H 214/91 H Pulse Oximetry 95 98 96 08/11/18 01:24 EDT 08/11/18 01:00 EST 08/11/18 01:34 EST Temperature Pulse Rate 80 81 80 Respiratory Rate 20 24 23 Blood Pressure 199/91 H 186/82 H Pulse Oximetry 96 96 98 08/11/18 01:58 EST 08/11/18 03:49 08/11/18 05:00 Temperature Pulse Rate 85 85 90 Respiratory Rate 15 17 22 Blood Pressure 187/79 H 218/94 H 186/75 H Pulse Oximetry 98 97 97 08/11/18 06:00 08/11/18 08:00 08/11/18 09:59 Temperature 98.0 F 97.6 F Pulse Rate 86 82 Respiratory Rate 18 20 Blood Pressure 161/71 H 131/69 Pulse Oximetry 97 98 98 Intake & Output 08/10/18 08/11/18 08/11/18 19:59 06:59 18:59 Weight 70.307 kg Other: # Voids Narrative: General: Sitting up in chair, no distress Skin: No rashes or lesions HEENT: Normocephalic Neck: Supple, JVD present, hepatojugular reflux positive CV: RRR, 3/6 systolic murmur over the aortic valve (reports this is not new) Lungs: Fine crackles in bases, otherwise CTAB, 3L nasal cannula, no accessory muscle use, no respiratory distress Abdomen: Soft, nontender, nondistended, normal bowel sounds Ext: Very minimal lower extremity edema Neuro: Awake, alert Assessment and Plan - Assessment (1) Acute exacerbation of CHF (congestive heart failure) Code(s): I50.9 - Heart failure, unspecified Status: Acute Plan: 77-year-old female with a history of stage III kidney disease, CHF, CVA, diabetes, hypertension, CAD s/p 3 stents, presented with SOB and edema. Chest x-ray demonstrates probable CHF BNP significantly elevated ABG relatively benign EKG-normal sinus rhythm, atrial enlargement Troponin levels stable Has significant systolic murmur over aortic valve Continue IV Lasix 40mg BID Continue supplemental KCl Echo 2D ordered and pending Cardiac telemetry Fluid restriction <1.5L/day Strict I & Os Daily weights Counseling on sodium restriction Continue hydralazine and isosorbide mononitrate (2) Upper GI bleed Code(s): K92.2 - Gastrointestinal hemorrhage, unspecified Status: Acute Plan: No chronic NSAID use, had anemia and melena about 2 years ago with negative colonoscopy/EGD (per patient report) No pepto bismol or iron therapy that would turn stool black No reported history of gastric ulcers Patient presenting with anemia and endorsing melena. Hemoccult ordered, pending Protonix 40 mg IV twice daily Liquid diet Continue to monitor H&H, transfuse if Hb<8 due to cardiac history GI consulted, EGD tomorrow Patient refusing colonoscopy (3) CKD (chronic kidney disease) Code(s): N18.9 - Chronic kidney disease, unspecified Status: Chronic Plan: Avoid nephrotoxic agents, NSAIDs/contrast if possible (4) HTN (hypertension) Code(s): I10 - Essential (primary) hypertension Status: Chronic Plan: Continue home hydralazine 25 mg p.o. 3 times daily Clonidine 0.1mg PRN for BP >180/100 (5) COPD (chronic obstructive pulmonary disease) Code(s): J44.9 - Chronic obstructive pulmonary disease, unspecified Status: Acute Plan: Patient reports being on home oxygen at night 2 L Duo nebs every 4 as needed Does not appear to be in COPD exacerbation at this time (6) Diabetes Code(s): E11.9 - Type 2 diabetes mellitus without complications Status: Acute Plan: Held home Tresiba Levemir 20 units BID Accu-Cheks Low-dose sliding scale Hypoglycemia protocol in place (7) Anxiety and depression Code(s): F41.9 - Anxiety disorder, unspecified; F32.9 - Major depressive disorder, single episode, unspecified Status: Acute Plan: Continue home Zoloft 50 mg p.o. at bedtime and trazodone 50 mg p.o. at bedtime (8) Nutrition, metabolism, and development symptoms Code(s): R63.8 - Other symptoms and signs concerning food and fluid intake Status: Acute Plan: Fluids: by mouth Diet: liquid w/ fluid restriction, NPO after midnight for EGD vitals q4h, monitor I & Os, cardiac telemetery DVT ppx: SCDs, chemical ppx contraindicated due to acute GI bleed - Assessment and Plan Discussed Condition With: Seen and discussed with Dr. Stokes, Dr. Caldwell, Dr. Knox Discharge Planning: From respiratory standpoint she is much better and almost back to baseline. Discharge pending workup for acute GI bleed. (3) CKD (chronic kidney disease) Qualifiers: Chronic kidney disease stage: stage 3 (moderate) Qualified Code(s): N18.3 - Chronic kidney disease, stage 3 (moderate)
[2018-08-11] MEDS ORDERED: Sodium Chlor 0.9% Inj 500 ML IV.SIG SCH (14:00)
[2018-08-11] MEDS ORDERED: Metoprolol Tartrate 25 MG Tablet PO ONE (14:00)
[2018-08-11] MEDS: Insulin NovoLOG Aspart Correctional Sugar Inj SQ SCH ×2 (17:17→20:08)
[2018-08-11] MEDS: Sertraline 50 MG Tablet PO SCH (20:07)
[2018-08-11] MEDS: Insulin Detemir Inj 1,000 UNIT/10 ML Vial SQ SCH (20:08)
--- NOTE | 2018-08-11 22:30 | ECG ---
Date Performed: 08/11/2018 Time Performed: 10:11:37 PTAGE: 77 years EKG: Sinus rhythm POSSIBLE LEFT ATRIAL ENLARGEMENT LEFT VENTRICULAR HYPERTROPHY AND ST-T CHANGE ABNORMAL ECG PREVIOUS TRACING : 08/11/2018 01.20 Since the previous tracing, no significant change noted DOCTOR: Jose Juan Jacobs Interpretating Date/Time 08/11/2018 22:29:13
--- NOTE | 2018-08-11 22:47 | ECG ---
Date Performed: 08/11/2018 Time Performed: 01:20:05 PTAGE: 77 years EKG: Sinus rhythm POSSIBLE LEFT ATRIAL ENLARGEMENT BORDERLINE LEFT AXIS DEVIATION LEFT VENTRICULAR HYPERTROPHY AND ST- T CHANGE ABNORMAL ECG Since the PREVIOUS TRACING , no significant change noted DOCTOR: Jose Juan Jacobs Interpretating Date/Time 08/11/2018 22:46:27
[2018-08-12] MEDS: Pantoprazole Inj 40 MG Vial IV.PUSH SCH ×2 (03:19→17:55)
[2018-08-12] MEDS: Isosorbide Mononitrate 30 MG ER 24HR Tablet (Imdur) PO SCH ×2 (06:42→12:54)
[2018-08-12 07:23] LABS: Baso # (Auto) 0.1 th/mm3 (0.0-0.2); Baso % (Auto) 0.6 % (0.0-2.0); Eos # (Auto) 0.3 th/mm3 (0.0-0.4); Eos % (Auto) 2.7 % (0.0-4.0); Hematocrit 25.9 % (35.0-46.0); Hemoglobin 8.9 gm/dL (11.6-15.3); Lymph # (Auto) 1.2 th/mm3 (1.0-4.8); Lymph % (Auto) 12.6 % (9.0-44.0); Mean Corpuscular HGB Conc 34.5 % (32.0-36.0); Mean Corpuscular Hemoglobin 32.3 pg (27.0-34.0); Mean Corpuscular Volume 93.5 fL (80.0-100.0); Mean Platelet Volume 8.1 fL (7.0-11.0); Mono # (Auto) 0.6 th/mm3 (0.0-0.9); Mono % (Auto) 6.7 % (0.0-8.0); Neut # (Auto) 7.3 th/mm3 (1.8-7.7); Neut % (Auto) 77.4 % (16.0-70.0); Platelet Count 168 th/mm3 (150-450); Red Blood Count 2.77 mil/mm3 (4.00-5.30); White Blood Count 9.5 th/mm3 (4.0-11.0)
[2018-08-12 07:43] LABS: INR 1.1 Ratio; Prothrombin Time 11.3 sec (9.8-11.6)
[2018-08-12] MEDS: Insulin Detemir Inj 1,000 UNIT/10 ML Vial SQ SCH ×2 (08:00→20:31)
[2018-08-12 08:04] LABS: Alanine Aminotransferase 7 U/L (10-53); Albumin 2.8 g/dL (3.4-5.0); Alkaline Phosphatase 152 U/L (45-117); Anion Gap 10 meq/L (5-15); Aspartate Aminotransferase 5 U/L (15-37); Blood Urea Nitrogen 21 mg/dL (7-18); Calcium 8.9 mg/dL (8.5-10.1); Carbon Dioxide 26.6 meq/L (21.0-32.0); Chloride 109 meq/L (98-107); Glomerular Filtration Rate 27 mL/min (>89); Glucose,Random 61 mg/dL (74-106); Potassium 3.2 meq/L (3.5-5.1); Sodium 146 meq/L (136-145); Total Protein 6.7 g/dL (6.4-8.2)
[2018-08-12] MEDS ORDERED: Influenza (Quadrivalent) Vaccine 0.5 ML Syringe IM ONE (09:00)
[2018-08-12] MEDS: Sodium Chloride 0.9% 2 ML Flush BID IV.FLUSH SCH ×2 (09:00→20:30)
[2018-08-12] MEDS: Insulin NovoLOG Aspart Correctional Sugar Inj SQ SCH ×4 (09:11→20:31)
--- NOTE | 2018-08-12 12:02 | P.PNFP ---
Subjective Interval history: Patient has no complaints this morning. NPO for EGD. Denies any SOB, chest pain, or abdominal pain. Last bowel movement was three days ago. Slept well overnight. On 3 L NC. <Monse Benites C - 08/12/18 12:02> Results - Labs Result diagrams: 08/12/18 06:30 08/12/18 06:30 <Kevin Reed L - 08/12/18 16:57> Abnormal lab results 08/11/18 08/12/18 08/12/18 Range/Units 19:32 06:30 06:30 RBC 2.77 L (4.00-5.30) mil/mm3 Hgb 8.9 L (11.6-15.3) gm/dL Hct 25.9 L (35.0-46.0) % Neut % (Auto) 77.4 H (16.0-70.0) % Sodium 146 H (136-145) meq/L Potassium 3.2 L (3.5-5.1) meq/L Chloride 109 H (98-107) meq/L BUN 21 H (7-18) mg/dL Creatinine 1.83 H (0.50-1.00) mg/dL Estimated GFR 27 L (>89) mL/min POC Glucose 278 H (68-110) mg/dl Random Glucose 61 L D (74-106) mg/dL % Saturation (20-50) % AST 5 L (15-37) U/L ALT 7 L (10-53) U/L Alkaline Phosphatase 152 H (45-117) U/L Albumin 2.8 L (3.4-5.0) g/dL Folate (3.1-17.5) ng/mL 08/12/18 Range/Units 06:30 RBC (4.00-5.30) mil/mm3 Hgb (11.6-15.3) gm/dL Hct (35.0-46.0) % Neut % (Auto) (16.0-70.0) % Sodium (136-145) meq/L Potassium (3.5-5.1) meq/L Chloride (98-107) meq/L BUN (7-18) mg/dL Creatinine (0.50-1.00) mg/dL Estimated GFR (>89) mL/min POC Glucose (68-110) mg/dl Random Glucose (74-106) mg/dL % Saturation 17.7 L (20-50) % AST (15-37) U/L ALT (10-53) U/L Alkaline Phosphatase (45-117) U/L Albumin (3.4-5.0) g/dL Folate Greater than 20.0 H (3.1-17.5) ng/mL Short CBC 08/12/18 Range/Units 06:30 WBC 9.5 (4.0-11.0) th/mm3 Hgb 8.9 L (11.6-15.3) gm/dL Hct 25.9 L (35.0-46.0) % Plt Count 168 (150-450) th/mm3 BMP 08/12/18 06:30 Sodium 146 H Potassium 3.2 L Chloride 109 H Carbon Dioxide 26.6 BUN 21 H Creatinine 1.83 H Calcium 8.9 Liver Function 08/12/18 Range/Units 06:30 Total Bilirubin 0.6 (0.2-1.0) mg/dL AST 5 L (15-37) U/L ALT 7 L (10-53) U/L Alkaline Phosphatase 152 H (45-117) U/L Albumin 2.8 L (3.4-5.0) g/dL <Kevin Reed L - 08/12/18 16:57> Abnormal lab results 08/11/18 08/11/18 08/11/18 Range/Units 11:19 12:18 16:15 RBC (4.00-5.30) mil/mm3 Hgb (11.6-15.3) gm/dL Hct (35.0-46.0) % Neut % (Auto) (16.0-70.0) % Sodium (136-145) meq/L Potassium (3.5-5.1) meq/L Chloride (98-107) meq/L BUN (7-18) mg/dL Creatinine (0.50-1.00) mg/dL Estimated GFR (>89) mL/min POC Glucose 514 H* 230 H (68-110) mg/dl Random Glucose (74-106) mg/dL AST (15-37) U/L ALT (10-53) U/L Alkaline Phosphatase (45-117) U/L Troponin I 0.06 H (0.02-0.05) ng/mL Albumin (3.4-5.0) g/dL 08/11/18 08/12/18 08/12/18 Range/Units 19:32 06:30 06:30 RBC 2.77 L (4.00-5.30) mil/mm3 Hgb 8.9 L (11.6-15.3) gm/dL Hct 25.9 L (35.0-46.0) % Neut % (Auto) 77.4 H (16.0-70.0) % Sodium 146 H (136-145) meq/L Potassium 3.2 L (3.5-5.1) meq/L Chloride 109 H (98-107) meq/L BUN 21 H (7-18) mg/dL Creatinine 1.83 H (0.50-1.00) mg/dL Estimated GFR 27 L (>89) mL/min POC Glucose 278 H (68-110) mg/dl Random Glucose 61 L D (74-106) mg/dL AST 5 L (15-37) U/L ALT 7 L (10-53) U/L Alkaline Phosphatase 152 H (45-117) U/L Troponin I (0.02-0.05) ng/mL Albumin 2.8 L (3.4-5.0) g/dL Short CBC 08/12/18 Range/Units 06:30 WBC 9.5 (4.0-11.0) th/mm3 Hgb 8.9 L (11.6-15.3) gm/dL Hct 25.9 L (35.0-46.0) % Plt Count 168 (150-450) th/mm3 BMP 08/12/18 06:30 Sodium 146 H Potassium 3.2 L Chloride 109 H Carbon Dioxide 26.6 BUN 21 H Creatinine 1.83 H Calcium 8.9 Cardiac Enzymes 08/11/18 Range/Units 11:19 Troponin I 0.06 H (0.02-0.05) ng/mL Liver Function 08/12/18 Range/Units 06:30 Total Bilirubin 0.6 (0.2-1.0) mg/dL AST 5 L (15-37) U/L ALT 7 L (10-53) U/L Alkaline Phosphatase 152 H (45-117) U/L Albumin 2.8 L (3.4-5.0) g/dL <Monse Benites C - 08/12/18 12:02> Physical Exam Vital signs: Vital Signs 08/11/18 20:00 08/12/18 00:00 08/12/18 04:00 Temperature 98.0 F 97.4 F L 97.3 F L Pulse Rate 74 77 70 Respiratory Rate 20 20 20 Blood Pressure 142/63 H 116/57 L 152/71 H Pulse Oximetry 99 96 95 08/12/18 08:00 08/12/18 10:31 08/12/18 12:23 Temperature 97.2 F L Pulse Rate 74 58 L 76 Respiratory Rate 18 Blood Pressure 170/70 H 170/75 H Pulse Oximetry 96 08/12/18 12:40 08/12/18 15:00 08/12/18 16:00 Temperature 97.2 F L Pulse Rate 80 90 90 Respiratory Rate 18 18 Blood Pressure 168/80 H 161/70 H Pulse Oximetry 96 Intake & Output 08/11/18 08/12/18 08/12/18 18:59 06:59 18:59 Intake Total 1260 / 1260 280 / 280 200 / 200 Balance 1260 / 1260 280 / 280 200 / 200 Weight 70.307 kg 76.3 kg 76.3 kg Intake: Oral 1260 / 1260 280 / 280 Anesthesia Amount 200 / 200 Other: # Voids 5 3 1 Date of Last Bowel Movement 08/11/18 # Bowel Movements 0 <Kevin Reed L - 08/12/18 16:57> Vital Signs 08/11/18 12:00 08/11/18 16:00 08/11/18 20:00 Temperature 97.9 F 97.7 F 98.0 F Pulse Rate 72 59 L 74 Respiratory Rate 20 20 20 Blood Pressure 162/77 H 166/88 H 142/63 H Pulse Oximetry 96 98 99 08/12/18 00:00 08/12/18 04:00 08/12/18 10:31 Temperature 97.4 F L 97.3 F L Pulse Rate 77 70 58 L Respiratory Rate 20 20 Blood Pressure 116/57 L 152/71 H 170/70 H Pulse Oximetry 96 95 Intake & Output 08/11/18 08/12/18 08/12/18 18:59 06:59 18:59 Intake Total 1260 / 1260 280 / 280 Balance 1260 / 1260 280 / 280 Weight 70.307 kg 76.3 kg Intake: Oral 1260 / 1260 280 / 280 Other: # Voids 5 3 # Bowel Movements 0 <Monse Benites - 08/12/18 12:02> Narrative: General: Sitting up in chair, no distress Skin: No rashes or lesions HEENT: Normocephalic Neck: Supple, JVD present, hepatojugular reflux positive CV: RRR, 3/6 systolic murmur over the aortic valve (reports this is not new) Lungs: Fine crackles in bases, otherwise CTAB, 3L nasal cannula, no accessory muscle use, no respiratory distress Abdomen: Soft, nontender, nondistended, normal bowel sounds Ext: Very minimal lower extremity edema Neuro: Awake, alert <Monse Benites - 08/12/18 12:02> Assessment and Plan - Assessment (1) Acute exacerbation of CHF (congestive heart failure) Code(s): I50.9 - Heart failure, unspecified Status: Acute (2) Upper GI bleed Code(s): K92.2 - Gastrointestinal hemorrhage, unspecified Status: Acute (3) CKD (chronic kidney disease) Code(s): N18.9 - Chronic kidney disease, unspecified Status: Chronic (4) HTN (hypertension) Code(s): I10 - Essential (primary) hypertension Status: Chronic (5) COPD (chronic obstructive pulmonary disease) Code(s): J44.9 - Chronic obstructive pulmonary disease, unspecified Status: Acute (6) Diabetes Code(s): E11.9 - Type 2 diabetes mellitus without complications Status: Acute (7) Anxiety and depression Code(s): F41.9 - Anxiety disorder, unspecified; F32.9 - Major depressive disorder, single episode, unspecified Status: Acute (8) Nutrition, metabolism, and development symptoms Code(s): R63.8 - Other symptoms and signs concerning food and fluid intake Status: Acute <Kevin Reed - 08/12/18 16:57> (1) Acute exacerbation of CHF (congestive heart failure) Code(s): I50.9 - Heart failure, unspecified Status: Acute Plan: 77-year-old female with a history of stage III kidney disease, CHF, CVA, diabetes, hypertension, CAD s/p 3 stents, presented with SOB and edema. Chest x-ray demonstrates probable CHF BNP significantly elevated ABG relatively benign EKG-normal sinus rhythm, atrial enlargement Troponin levels stable Has significant systolic murmur over aortic valve Transitioned from IV Lasix 40mg BID to PO 40 BID Continue supplemental KCl Echo 2D ordered and pending Cardiac telemetry Fluid restriction <1.5L/day Strict I & Os Daily weights: up 6 kg from yesterday but unsure accuracy of measurements. Counseling on sodium restriction Continue hydralazine and isosorbide mononitrate (2) Upper GI bleed Code(s): K92.2 - Gastrointestinal hemorrhage, unspecified Status: Acute Plan: No chronic NSAID use, had anemia and melena about 2 years ago with negative colonoscopy/EGD (per patient report) No pepto bismol or iron therapy that would turn stool black No reported history of gastric ulcers Patient presenting with anemia and endorsing melena. Hemoccult ordered, pending Protonix 40 mg IV twice daily NPO for procedure, was on liquid diet Continue to monitor H&H, transfuse if Hb<8 due to cardiac history GI consulted, EGD today Patient refusing colonoscopy (3) CKD (chronic kidney disease) Code(s): N18.9 - Chronic kidney disease, unspecified Status: Chronic Plan: Avoid nephrotoxic agents, NSAIDs/contrast if possible (4) HTN (hypertension) Code(s): I10 - Essential (primary) hypertension Status: Chronic Plan: Continue home hydralazine 25 mg p.o. 3 times daily Clonidine 0.1mg PRN for BP >180/100 (5) COPD (chronic obstructive pulmonary disease) Code(s): J44.9 - Chronic obstructive pulmonary disease, unspecified Status: Acute Plan: Patient reports being on home oxygen at night 2 L Duo nebs every 4 as needed Does not appear to be in COPD exacerbation at this time (6) Diabetes Code(s): E11.9 - Type 2 diabetes mellitus without complications Status: Acute Plan: Held home Tresiba Levemir 20 units BID; holding morning dose for NPO and procedure Accu-Cheks Low-dose sliding scale Hypoglycemia protocol in place (7) Anxiety and depression Code(s): F41.9 - Anxiety disorder, unspecified; F32.9 - Major depressive disorder, single episode, unspecified Status: Acute Plan: Continue home Zoloft 50 mg p.o. at bedtime and trazodone 50 mg p.o. at bedtime (8) Nutrition, metabolism, and development symptoms Code(s): R63.8 - Other symptoms and signs concerning food and fluid intake Status: Acute Plan: Fluids: by mouth Diet: liquid w/ fluid restriction, NPO after midnight for EGD vitals q4h, monitor I & Os, cardiac telemetery DVT ppx: SCDs, chemical ppx contraindicated due to acute GI bleed Discussed with Dr. Reed <Monse Benites - 08/12/18 11:54> - Attending Attestation The exam, history, and the medical decision-making described in the above note were completed with the assistance of the resident physician. I reviewed and agree with the findings presented. I attest that I had a [id number] encounter with the patient on the same day, and personally performed and documented my assessment and findings in the medical record. By my exam, has trace edema of lower extremities and fine crackles in the bases. Overall she feels much better from a respiratory standpoint, "almost back to baseline". I believe she would benefit from at least another day of recovery. Plus, we are still waiting on the echocardiogram as this may guide further management. I do hear a significant systolic murmur over the aortic valve, which echocardiogram will help us to characterize. She reports this murmur is not new. Will continue hydralazine/isosorbide mononitrate for her CHF, and will continue to elder counselor on limiting sodium intake in the diet. She would benefit from following up with cardiology closely, and may benefit from cardiac rehab as well. <Kevin Reed - 08/12/18 16:57> <Monse Benites - Last Filed: 08/12/18 11:54> (3) CKD (chronic kidney disease) Qualifiers: Chronic kidney disease stage: stage 3 (moderate) Qualified Code(s): N18.3 - Chronic kidney disease, stage 3 (moderate) <Kevin Reed - Last Filed: 08/12/18 16:57> (3) CKD (chronic kidney disease) Qualifiers: Chronic kidney disease stage: stage 3 (moderate) Qualified Code(s): N18.3 - Chronic kidney disease, stage 3 (moderate) <Monse Benites - Last Filed: 08/12/18 11:54> (3) CKD (chronic kidney disease) Qualifiers: Chronic kidney disease stage: stage 3 (moderate) Qualified Code(s): N18.3 - Chronic kidney disease, stage 3 (moderate) <Kevin Reed - Last Filed: 08/12/18 16:57> (3) CKD (chronic kidney disease) Qualifiers: Chronic kidney disease stage: stage 3 (moderate) Qualified Code(s): N18.3 - Chronic kidney disease, stage 3 (moderate)
--- NOTE | 2018-08-12 12:18 | GIPROC ---
[facility] [address] [facility]. [facility], [address] EGD PROCEDURE REPORT EXAM DATE: 08/12/2018 PATIENT NAME: Rita Trivedi MR #: [id number] BIRTHDATE: 1940 ATTENDING: Bina Fontaine MD ORDER #: [id number] CUSTOMER SERVICE CLERK: Candelario Madrid and Vanita Rowell STATUS: inpatient INDICATIONS: The patient is a 77 yr old female here for an EGD due to anemia melena PROCEDURE PERFORMED: EGD w/ biopsy MEDICATIONS: Per Anesthesia and None. TOPICAL ANESTHETIC: none CONSENT: The patient understands the risks and benefits of the procedure and understands that these risks include, but are not limited to: sedation, allergic reaction, infection, perforation and/or bleeding. Alternative means of evaluation and treatment include, among others: physical exam, x-rays, and/or surgical intervention. The patient elects to proceed with this endoscopic procedure. medical equipment was checked for proper function. Hand hygiene and appropriate measures for infection prevention was taken. After the risks, benefits and alternatives of the procedure were thoroughly explained, Informed consent was verified, confirmed and timeout was successfully executed by the treatment team. The patient was anesthetized with topical anesthesia and the Pentax EG-[id number] endoscope was introduced through the mouth and advanced to the second portion of the duodenum. Retroflexed views revealed a hiatal hernia The gastroscope was then slowly withdrawn and removed. Duodenitis second portion-biopsy gastritis antrum-biopsy gastric body polyps -biopsy. ADVERSE EVENTS: There were no complications. IMPRESSIONS: 1. Duodenitis second portion-biopsy gastritis antrum-biopsy gastric body polyps -biopsy 2. Retroflexed views revealed a hiatal hernia RECOMMENDATIONS: 1. Await biopsy results. Biopsy results will not be ready for 7-10 days. If you don't hear from us in two weeks, call our office for biopsy results. 2. Anti-reflux regimen 3. Continue PPI 4. Colonoscopy if agrees if hb cintinues to drop-bleeidng scan hematology evalution PATIENT CONDITION: stable DISPOSITION: Inpatient REPEAT EXAM: Return 3 years EGD Bina Fontaine MD eSigned: Bina Fontaine MD 08/12/2018 12:17 PM cc: PATIENT NAME: Rita Trivedi MR#: [id number]
[2018-08-12] MEDS: Gabapentin 300 MG Capsule PO SCH ×3 (12:53→17:55)
[2018-08-12] MEDS: hydrALAZINE 25 MG Tablet PO SCH ×3 (12:53→17:55)
[2018-08-12 14:26] LABS: % Iron Saturation 17.7 % (20-50); Iron 50 mcg/dL (50-170); Total Iron Binding Capacity 283 mcg/dL (250-450); Vitamin B12 552 pg/mL (193-986)
[2018-08-12] MEDS: TRESIBA FLEX TOUCH SQ SCH (15:33)
[2018-08-12] MEDS: Senna/Docusate Sodium 8.6/50 MG Tablet PO PRN (15:35)
--- NOTE | 2018-08-12 17:18 | ECHRPT ---
Indication: Heart Failure CONCLUSIONS Normal left ventricular size. Moderate concentric left ventricular hypertrophy. The left ventricular systolic function is moderately reduced with an estimated ejection fraction in the range of 40-45%. The left atrial size is mildly dilated. Moderate mitral valve regurgitation. Mitral annular calcification is present. Aortic valve sclerosis is present. mean gradient = 19 mm hg c/w at least mild aortic valve stenosis There is trace tricuspid valve regurgitation. The estimated pulmonary arterial pressure is 49 mmHg. BP: / HR: Rhythm: MEASUREMENTS (Male / Female) Normal Values Technical Quality:Good 2D ECHO LV Diastolic Diameter PLAX 4.4 cm 4.2 - 5.9 / 3.9 - 5.3 cm LV Systolic Diameter PLAX 3.3 cm IVS Diastolic Thickness 1.5 cm 0.6 - 1.0 / 0.6 - 0.9 cm LVPW Diastolic Thickness 1.4 cm 0.6 - 1.0 / 0.6 - 0.9 cm LV Relative Wall Thickness 0.6 RV Internal Dim ED PLAX 3.1 cm LVOT Diameter 2.1 cm Aortic Root Diameter 2.4 cm LA Systolic Diameter LX 4.4 cm 3.0 - 4.0 / 2.7 - 3.8 cm DOPPLER AV Peak Velocity 288.0 cm/s AV Peak Gradient 33.2 mmHg AV Mean Gradient 19.0 mmHg AV Velocity Time Integral 58.5 cm LVOT Peak Velocity 141.0 cm/s LVOT Peak Gradient 8.0 mmHg LVOT Velocity Time Integral 29.5 cm AV Area Cont Eq vti 1.7 cm AV Area Cont Eq pk 1.7 cm MV Peak Velocity 196.0 cm/s MV Peak Gradient 15.4 mmHg MV Mean Velocity 126.0 cm/s MV Mean Gradient 7.0 mmHg Mitral E Point Velocity 160.0 cm/s Mitral A Point Velocity 174.0 cm/s Mitral E to A Ratio 0.9 LV E' Lateral Velocity 6.8 cm/s Mitral E to LV E' Lateral Ratio 23.5 LV E' Septal Velocity 5.8 cm/s Mitral E to LV E' Septal Ratio 27.8 TR Peak Velocity 312.0 cm/s TR Peak Gradient 38.9 mmHg Right Atrial Pressure 10.0 mmHg Pulmonary Artery Systolic Pressu 48.9 mmHg Right Ventricular Systolic Press 48.9 mmHg PV Peak Velocity 134.0 cm/s PV Peak Gradient 7.2 mmHg FINDINGS LEFT VENTRICLE Normal left ventricular size. Moderate concentric left ventricular hypertrophy. The left ventricular systolic function is moderately reduced with an estimated ejection fraction in the range of 40-45%. RIGHT VENTRICLE Normal right ventricular size and systolic function. LEFT ATRIUM The left atrial size is mildly dilated. RIGHT ATRIUM The right atrial size is normal. ATRIAL SEPTUM Normal atrial septal thickness without atrial level shunting by limited color doppler interrogation. AORTA The aortic root and proximal ascending aorta are normal in size on limited imaging. MITRAL VALVE Moderate mitral valve regurgitation. Mitral annular calcification is present. AORTIC VALVE Trileaflet aortic valve. Aortic valve sclerosis is present. TRICUSPID VALVE There is trace tricuspid valve regurgitation. The estimated pulmonary arterial pressure is 49 mmHg. PULMONARY VALVE No pulmonary valve regurgitation or stenosis. VESSELS The inferior vena cava is normal in size. PERICARDIUM No pericardial effusion. Gt Dee MD, FACC, [facility] [place] (Electronically Signed) Final Date:12 August 2018 17:18
[2018-08-12] MEDS: Furosemide 40 MG Tablet PO SCH (17:55)
[2018-08-12] MEDS: Sertraline 50 MG Tablet PO SCH (20:30)
[2018-08-12] MEDS: traZODone 50 MG Tablet PO SCH (20:30)
[2018-08-13] MEDS: Pantoprazole Inj 40 MG Vial IV.PUSH SCH (03:12)
[2018-08-13 04:31] LABS: Baso # (Auto) 0.1 th/mm3 (0.0-0.2); Baso % (Auto) 0.6 % (0.0-2.0); Eos # (Auto) 0.2 th/mm3 (0.0-0.4); Eos % (Auto) 2.2 % (0.0-4.0); Hematocrit 23.5 % (35.0-46.0); Hemoglobin 7.8 gm/dL (11.6-15.3); Lymph # (Auto) 0.9 th/mm3 (1.0-4.8); Lymph % (Auto) 9.2 % (9.0-44.0); Mean Corpuscular HGB Conc 33.2 % (32.0-36.0); Mean Corpuscular Hemoglobin 31.3 pg (27.0-34.0); Mean Corpuscular Volume 94.2 fL (80.0-100.0); Mono # (Auto) 0.5 th/mm3 (0.0-0.9); Mono % (Auto) 5.4 % (0.0-8.0); Neut # (Auto) 8.1 th/mm3 (1.8-7.7); Neut % (Auto) 82.6 % (16.0-70.0); Platelet Count 130 th/mm3 (150-450); Red Blood Count 2.49 mil/mm3 (4.00-5.30); Red Cell Distribution Width 16.5 % (11.6-17.2); White Blood Count 9.8 th/mm3 (4.0-11.0)
[2018-08-13 05:05] LABS: Calcium 8.5 mg/dL (8.5-10.1); Carbon Dioxide 27.2 meq/L (21.0-32.0); Potassium 4.3 meq/L (3.5-5.1)
[2018-08-13] MEDS: Isosorbide Mononitrate 30 MG ER 24HR Tablet (Imdur) PO SCH (06:01)
[2018-08-13] MEDS: Gabapentin 300 MG Capsule PO SCH ×3 (08:27→17:30)
[2018-08-13] MEDS: hydrALAZINE 25 MG Tablet PO SCH ×3 (08:27→17:30)
[2018-08-13] MEDS: Insulin Detemir Inj 1,000 UNIT/10 ML Vial SQ SCH ×2 (08:28→21:56)
[2018-08-13] MEDS: Furosemide 40 MG Tablet PO SCH ×2 (08:30→17:32)
[2018-08-13] MEDS: Sodium Chloride 0.9% 2 ML Flush BID IV.FLUSH SCH ×2 (08:31→20:34)
[2018-08-13] MEDS: TRESIBA FLEX TOUCH SQ SCH (10:06)
[2018-08-13] MEDS: Insulin NovoLOG Aspart Correctional Sugar Inj SQ SCH (10:33)
--- NOTE | 2018-08-13 11:16 | P.PNFP ---
Subjective Interval history: Patient seen and examined this morning. Patient reports she is doing well. No acute events overnight. Patient reports she still has not had a bowel movement. Patient has had blood pressure ranges between 150s/80s-90s for the past 24 hours. Chest pain, shortness of breath, fever, or chills. She would like to know when she can go home. Results - Labs Result diagrams: 08/13/18 04:00 08/13/18 04:00 Abnormal lab results 08/12/18 08/12/18 08/12/18 Range/Units 06:30 17:44 20:17 RBC (4.00-5.30) mil/mm3 Hgb (11.6-15.3) gm/dL Hct (35.0-46.0) % Plt Count (150-450) th/mm3 Neut % (Auto) (16.0-70.0) % Neut # (Auto) (1.8-7.7) th/mm3 Lymph # (Auto) (1.0-4.8) th/mm3 BUN (7-18) mg/dL Creatinine (0.50-1.00) mg/dL Estimated GFR (>89) mL/min POC Glucose 239 H 205 H (68-110) mg/dl Random Glucose (74-106) mg/dL % Saturation 17.7 L (20-50) % Folate Greater than 20.0 H (3.1-17.5) ng/mL 08/13/18 08/13/18 08/13/18 Range/Units 04:00 04:00 07:42 RBC 2.49 L (4.00-5.30) mil/mm3 Hgb 7.8 L (11.6-15.3) gm/dL Hct 23.5 L (35.0-46.0) % Plt Count 130 L (150-450) th/mm3 Neut % (Auto) 82.6 H (16.0-70.0) % Neut # (Auto) 8.1 H (1.8-7.7) th/mm3 Lymph # (Auto) 0.9 L (1.0-4.8) th/mm3 BUN 20 H (7-18) mg/dL Creatinine 1.90 H (0.50-1.00) mg/dL Estimated GFR 26 L (>89) mL/min POC Glucose 152 H (68-110) mg/dl Random Glucose 199 H D (74-106) mg/dL % Saturation (20-50) % Folate (3.1-17.5) ng/mL Short CBC 08/13/18 Range/Units 04:00 WBC 9.8 (4.0-11.0) th/mm3 Hgb 7.8 L (11.6-15.3) gm/dL Hct 23.5 L (35.0-46.0) % Plt Count 130 L (150-450) th/mm3 BMP 08/13/18 04:00 Sodium 141 Potassium 4.3 D Chloride 107 Carbon Dioxide 27.2 BUN 20 H Creatinine 1.90 H Calcium 8.5 Physical Exam Vital signs: Vital Signs 08/12/18 12:23 08/12/18 12:40 08/12/18 15:00 Temperature 97.2 F L 97.2 F L Pulse Rate 76 80 90 Respiratory Rate 18 18 18 Blood Pressure 170/75 H 168/80 H 161/70 H Pulse Oximetry 96 96 08/12/18 16:00 08/12/18 20:00 08/13/18 00:00 Temperature 98.1 F 98.6 F 98.8 F Pulse Rate 94 H 94 H 94 H Respiratory Rate 18 16 18 Blood Pressure 155/67 H 168/78 H 152/86 H Pulse Oximetry 96 98 96 08/13/18 04:00 08/13/18 08:00 08/13/18 10:53 Temperature 98.1 F 98 F Pulse Rate 75 77 Respiratory Rate 14 19 Blood Pressure 158/89 H 161/75 H Pulse Oximetry 94 L 98 98 Intake & Output 08/12/18 08/13/18 08/13/18 18:59 06:59 18:59 Intake Total 200 / 200 240 / 240 Output Total 850 / 850 Balance 200 / 200 -610 / -610 Weight 76.3 kg 76 kg Intake: Oral 240 / 240 Anesthesia Amount 200 / 200 Output: Urine 850 / 850 Other: # Voids 1 Date of Last Bowel Movement 08/11/18 08/11/18 08/11/18 - Constitutional no acute distress - Routine HEENT Exam Head: Present: normocephalic Eye: Present: EOMI, PERRL ENT: Present: mucous membranes moist - Routine Neck Exam Present: supple, full ROM - Routine Respiratory Exam Present: CTA bilaterally. Absent: accessory muscle use - Routine Cardiovascular Exam Present: RRR, S1, S2, murmur (systolic ejection murmur over aortic valve, chronic) - Routine Abdominal Exam Present: soft. Absent: tenderness - Routine Extremities Exam Present: pulses intact. Absent: cyanosis, edema, calf tenderness - Routine Skin Exam Present: intact - Routine Neurological Exam Present: oriented X3 Assessment and Plan - Assessment (1) Acute exacerbation of CHF (congestive heart failure) Code(s): I50.9 - Heart failure, unspecified Status: Acute Plan: 77-year-old female with a history of stage III kidney disease, CHF, CVA, diabetes, hypertension, CAD s/p 3 stents, presented with SOB and edema. On admission: chest x-ray demonstrates probable CHF BNP significantly elevated ABG relatively benign EKG-normal sinus rhythm, atrial enlargement Troponin levels stable Has significant systolic murmur over aortic valve, stable Patient is asymptomatic and lower extremity edema has resolved. Transitioned from IV Lasix 40mg BID to PO 40 BID on 08/11 Continue supplemental KCl Echo: Ejection fraction of 40-45%, moderate concentric left ventricular hypertrophy, mildly dilated left atrium and aortic valve sclerosis. Cardiac telemetry Fluid restriction <1.5L/day Strict I & Os Daily weights: Today's weight slightly decrease from yesterday by 0.3 kg but unsure accuracy of measurements. Counseling on sodium restriction Continue hydralazine and isosorbide mononitrate Hydralazine increased to 50 mg 3 times daily (2) Upper GI bleed Code(s): K92.2 - Gastrointestinal hemorrhage, unspecified Status: Acute Plan: No chronic NSAID use, had anemia and melena about 2 years ago with negative colonoscopy/EGD (per patient report) No pepto bismol or iron therapy that would turn stool black No reported history of gastric ulcers Patient presenting with anemia and endorsing melena. Hemoccult ordered, pending Protonix 40 mg IV twice daily Continue to monitor H&H, transfuse if Hb<8 due to cardiac history Patient with drop in H&H this morning of 7.8/23.5 from 8.9/25.9 (08/12). Will repeat H&H at noon and consider transfusing 1 unit if H&H remains less than 7 or is decreased. Patient is otherwise asymptomatic. Medical plan discussed with patient and she agreed. GI consulted, she recommendations Patient refusing colonoscopy EGD procedure done on 08/12 showing: Gastritis and gastric polyps. Biopsy taken, results will be available 7-10 days. (3) CKD (chronic kidney disease) Code(s): N18.9 - Chronic kidney disease, unspecified Status: Chronic Plan: Avoid nephrotoxic agents, NSAIDs/contrast if possible Stable Continue to monitor kidney function (4) HTN (hypertension) Code(s): I10 - Essential (primary) hypertension Status: Chronic Plan: Patient with elevated blood pressures of 150s/80s-90s Will increase home hydralazine from 25 mg p.o. 3 times daily to 50 mg 3 times daily Clonidine 0.1mg PRN for BP >180/100 Continue to monitor vital signs (5) COPD (chronic obstructive pulmonary disease) Code(s): J44.9 - Chronic obstructive pulmonary disease, unspecified Status: Acute Plan: Patient reports being on home oxygen at night 2 L Duo nebs every 4 as needed Does not appear to be in COPD exacerbation at this time (6) Diabetes Code(s): E11.9 - Type 2 diabetes mellitus without complications Status: Acute Plan: Held home Tresiba Levemir 20 units BID Accu-Cheks Low-dose sliding scale Hypoglycemia protocol in place (7) Anxiety and depression Code(s): F41.9 - Anxiety disorder, unspecified; F32.9 - Major depressive disorder, single episode, unspecified Status: Acute Plan: Continue home Zoloft 50 mg p.o. at bedtime and trazodone 50 mg p.o. at bedtime (8) Nutrition, metabolism, and development symptoms Code(s): R63.8 - Other symptoms and signs concerning food and fluid intake Status: Acute Plan: Fluids: by mouth Diet: Diabetic diet vitals q4h, monitor I & Os, cardiac telemetery DVT ppx: SCDs, chemical ppx contraindicated due to acute GI bleed Discussed with Dr. Reed (3) CKD (chronic kidney disease) Qualifiers: Chronic kidney disease stage: stage 3 (moderate) Qualified Code(s): N18.3 - Chronic kidney disease, stage 3 (moderate)
[2018-08-13 12:42] LABS: Hemoglobin 7.8 gm/dL (11.6-15.3)
[2018-08-13] MEDS: Senna/Docusate Sodium 8.6/50 MG Tablet PO PRN (12:47)
[2018-08-13] MEDS: Insulin NovoLIN Regular Correctional Sugar Inj SQ SCH ×3 (12:52→21:56)
--- NOTE | 2018-08-13 14:01 | P.PNGI ---
Subjective Interval history: Patient is resting in the bed but states that she is feeling somewhat better has some lower abdominal cramping but feels like her bowels are going to move today Discussed with patient again EGD findings and antireflux regimen including PPI meds Current hemoglobin unchanged 7.8, will redraw this afternoon to see if patient possibly needs transfusion <Farzana Jordan - Last Filed: 08/13/18 14:01> Physical Exam Vital signs: Vital Signs 08/12/18 15:00 08/12/18 16:00 08/12/18 20:00 Temperature 98.1 F 98.6 F Pulse Rate 90 94 H 94 H Respiratory Rate 18 18 16 Blood Pressure 161/70 H 155/67 H 168/78 H Pulse Oximetry 96 98 08/13/18 00:00 08/13/18 04:00 08/13/18 08:00 Temperature 98.8 F 98.1 F 98 F Pulse Rate 94 H 75 68 Respiratory Rate 18 14 19 Blood Pressure 152/86 H 158/89 H 161/75 H Pulse Oximetry 96 94 L 98 08/13/18 10:53 08/13/18 12:00 Temperature 97.8 F Pulse Rate 72 Respiratory Rate 22 Blood Pressure 161/77 H Pulse Oximetry 98 97 Intake & Output 08/12/18 08/13/18 08/13/18 18:59 06:59 18:59 Intake Total 200 / 200 240 / 240 Output Total 850 / 850 Balance 200 / 200 -610 / -610 Weight 76.3 kg 76 kg Intake: Oral 240 / 240 Anesthesia Amount 200 / 200 Output: Urine 850 / 850 Other: # Voids 1 Date of Last Bowel Movement 08/11/18 08/11/18 08/11/18 - Constitutional no acute distress, obese, cooperative - Routine HEENT Exam Head: Present: normocephalic (Pale) ENT: Present: mucous membranes moist - Routine Respiratory Exam Present: accessory muscle use (No shortness of breath at rest) - Routine Cardiovascular Exam Present: S1, S2 - Routine Abdominal Exam Present: soft (Round, no obvious tenderness, occasional lower abdominal cramping with urge to defecate) <Farzana Jordan - Last Filed: 08/13/18 14:01> Vital signs: Vital Signs 08/12/18 20:00 08/13/18 00:00 08/13/18 04:00 Temperature 98.6 F 98.8 F 98.1 F Pulse Rate 94 H 94 H 75 Respiratory Rate 16 18 14 Blood Pressure 168/78 H 152/86 H 158/89 H Pulse Oximetry 98 96 94 L 08/13/18 08:00 08/13/18 10:53 08/13/18 12:00 Temperature 98 F 97.8 F Pulse Rate 68 72 Respiratory Rate 19 22 Blood Pressure 161/75 H 161/77 H Pulse Oximetry 98 98 97 08/13/18 16:00 Temperature 98.1 F Pulse Rate 76 Respiratory Rate 24 Blood Pressure 116/74 Pulse Oximetry 98 Intake & Output 08/12/18 08/13/18 08/13/18 18:59 06:59 18:59 Intake Total 200 / 200 240 / 240 420 / 420 Output Total 850 / 850 Balance 200 / 200 -610 / -610 420 / 420 Weight 76.3 kg 76 kg Intake: IV 0 / 0 Oral 240 / 240 420 / 420 Anesthesia Amount 200 / 200 Output: Urine 850 / 850 Other: # Voids 1 Date of Last Bowel Movement 08/11/18 08/11/18 08/11/18 <Bina Fontaine - Last Filed: 08/13/18 18:47> Results - Labs CBC & Chem 7: 08/13/18 12:15 08/13/18 04:00 Laboratory Results - last 24 hr 08/12/18 08/12/18 08/12/18 06:30 17:44 20:17 WBC RBC Hgb Hct MCV MCH MCHC RDW Plt Count MPV Neut % (Auto) Lymph % (Auto) Coleman % (Auto) Eos % (Auto) Baso % (Auto) Neut # (Auto) Lymph # (Auto) Coleman # (Auto) Eos # (Auto) Baso # (Auto) WBC Differential Differential Comment Sodium Potassium Chloride Carbon Dioxide Anion Gap BUN Creatinine Estimated GFR POC Glucose 239 H 205 H Random Glucose Calcium Iron 50 TIBC 283 % Saturation 17.7 L Vitamin B12 552 Folate Greater than 20.0 H 08/13/18 08/13/18 08/13/18 04:00 04:00 07:42 WBC 9.8 RBC 2.49 L Hgb 7.8 L Hct 23.5 L MCV 94.2 MCH 31.3 MCHC 33.2 RDW 16.5 Plt Count 130 L MPV 8.0 Neut % (Auto) 82.6 H Lymph % (Auto) 9.2 Coleman % (Auto) 5.4 Eos % (Auto) 2.2 Baso % (Auto) 0.6 Neut # (Auto) 8.1 H Lymph # (Auto) 0.9 L Coleman # (Auto) 0.5 Eos # (Auto) 0.2 Baso # (Auto) 0.1 WBC Differential . Differential Comment Auto diff final Sodium 141 Potassium 4.3 D Chloride 107 Carbon Dioxide 27.2 Anion Gap 7 BUN 20 H Creatinine 1.90 H Estimated GFR 26 L POC Glucose 152 H Random Glucose 199 H D Calcium 8.5 Iron TIBC % Saturation Vitamin B12 Folate 08/13/18 08/13/18 12:15 12:33 WBC RBC Hgb 7.8 L Hct 23.0 L MCV MCH MCHC RDW Plt Count MPV Neut % (Auto) Lymph % (Auto) Coleman % (Auto) Eos % (Auto) Baso % (Auto) Neut # (Auto) Lymph # (Auto) Coleman # (Auto) Eos # (Auto) Baso # (Auto) WBC Differential Differential Comment Sodium Potassium Chloride Carbon Dioxide Anion Gap BUN Creatinine Estimated GFR POC Glucose 199 H Random Glucose Calcium Iron TIBC % Saturation Vitamin B12 Folate Microbiology 08/11/18 01:30 EST Blood - Peripheral Aerobic Blood Culture - Preliminary No growth in 2 days 08/11/18 01:30 EST Blood - Peripheral Anaerobic Blood Culture - Preliminary No growth in 2 days 08/11/18 01:38 EST Blood - Peripheral Aerobic Blood Culture - Preliminary No growth in 2 days 08/11/18 01:38 EST Blood - Peripheral Anaerobic Blood Culture - Preliminary No growth in 2 days <Farzana Jordan - Last Filed: 08/13/18 14:01> - Labs CBC & Chem 7: 08/13/18 12:15 08/13/18 04:00 Laboratory Results - last 24 hr 08/12/18 08/13/18 08/13/18 20:17 04:00 04:00 WBC 9.8 RBC 2.49 L Hgb 7.8 L Hct 23.5 L MCV 94.2 MCH 31.3 MCHC 33.2 RDW 16.5 Plt Count 130 L MPV 8.0 Neut % (Auto) 82.6 H Lymph % (Auto) 9.2 Coleman % (Auto) 5.4 Eos % (Auto) 2.2 Baso % (Auto) 0.6 Neut # (Auto) 8.1 H Lymph # (Auto) 0.9 L Coleman # (Auto) 0.5 Eos # (Auto) 0.2 Baso # (Auto) 0.1 WBC Differential . Differential Comment Auto diff final Sodium 141 Potassium 4.3 D Chloride 107 Carbon Dioxide 27.2 Anion Gap 7 BUN 20 H Creatinine 1.90 H Estimated GFR 26 L POC Glucose 205 H Random Glucose 199 H D Calcium 8.5 08/13/18 08/13/18 08/13/18 07:42 12:15 12:33 WBC RBC Hgb 7.8 L Hct 23.0 L MCV MCH MCHC RDW Plt Count MPV Neut % (Auto) Lymph % (Auto) Coleman % (Auto) Eos % (Auto) Baso % (Auto) Neut # (Auto) Lymph # (Auto) Coleman # (Auto) Eos # (Auto) Baso # (Auto) WBC Differential Differential Comment Sodium Potassium Chloride Carbon Dioxide Anion Gap BUN Creatinine Estimated GFR POC Glucose 152 H 199 H Random Glucose Calcium 08/13/18 16:13 WBC RBC Hgb Hct MCV MCH MCHC RDW Plt Count MPV Neut % (Auto) Lymph % (Auto) Coleman % (Auto) Eos % (Auto) Baso % (Auto) Neut # (Auto) Lymph # (Auto) Coleman # (Auto) Eos # (Auto) Baso # (Auto) WBC Differential Differential Comment Sodium Potassium Chloride Carbon Dioxide Anion Gap BUN Creatinine Estimated GFR POC Glucose 178 H Random Glucose Calcium Microbiology 08/11/18 01:30 EST Blood - Peripheral Aerobic Blood Culture - Preliminary No growth in 2 days 08/11/18 01:30 EST Blood - Peripheral Anaerobic Blood Culture - Preliminary No growth in 2 days 08/11/18 01:38 EST Blood - Peripheral Aerobic Blood Culture - Preliminary No growth in 2 days 08/11/18 01:38 EST Blood - Peripheral Anaerobic Blood Culture - Preliminary No growth in 2 days <Bina Fontaine - Last Filed: 08/13/18 18:47> Assessment and Plan - Plan - Anemia/symptomatic, melanotic stools- Labs revealed anemia, hgb of 8.7. Endorses black tarry stools on off for few weeks, more recent episodes were few days ago. She denies history of stomach ulcer. Denies chronic NSAID use. States she had hx of GI anemia and GI bleed 2 yrs ago, at which time, she under went colonoscopy/endoscopy and CE and no source of bleed found. States that she will never have a colonoscopy again because she got an infection from it last time. Denies nausea, vomiting, hematemesis, or abd pain. - CHF- Echo ordered, diuretics per attending - history of stage III kidney disease, CHF, CVA, diabetes, hypertension, CAD s/ p 3 stents, per attending 08/13/2018 patient is resting in the bed no bowel movement times 2 days but has the urge with some lower abdominal cramping patient denies any chest pain no shortness of breath no dizziness. Patient was able to eat without any nausea vomiting or heartburn Patient is status post EGD on 08/12/2018 findings included gastritis, duodenitis , gastric polyps, and hiatal hernia. Biopsies are pending discussed findings with patient. Per the record patient is declining colonoscopy. Plan: Diet as tolerated PPI, transition dose to p.o. 40 mg twice daily Monitor for any further melena Avoid NSAIDs and aspirin Bowel regimen, if no BM by this evening encourage patient to take regular laxative, already receiving stool softeners Monitor labs with special attention to hemoglobin and transfuse as needed Biopsies pending Supportive care Patient was seen per myself and Dr. Fontaine, note was written on her behalf <Farzana Jordan - Last Filed: 08/13/18 14:01> - Attending Attestation seen, examined agree with above gi will sign off patient refusing colonoscopy hematology eval call us as needed <Bina Fontaine - Last Filed: 08/13/18 18:47>
[2018-08-13] MEDS ORDERED: LORazepam 0.5 MG Tablet PO PRN (16:00)
--- NOTE | 2018-08-13 20:24 | MB ---
cc: Christal Aranda MD DATE: 08/13/2018 CHIEF COMPLAINT: Anemia. HISTORY OF PRESENT ILLNESS: Ms. Silva is a 77-year-old lady with history of chronic kidney disease, congestive heart failure, stroke, diabetes, hypertension, coronary artery disease, who was admitted to the hospital with shortness of breath of 1 week duration and bilateral lower extremity edema. She also reports intermittent black tarry stools and she does have a history of GI bleed approximately 2 years ago. She was seen by the gastroenterology service and underwent EGD, which showed duodenitis in the second portion. Biopsy performed. Gastritis in the antrum. Biopsy report from the gastric body polyps and biopsy performed. She also was found to have a hiatal hernia. Colonoscopy was offered; however, the patient declined. Echocardiogram performed showed left ventricular systolic function moderately reduced with an estimated ejection fraction in the range of 40-45%. PAST MEDICAL HISTORY: 1. Chronic kidney disease. 2. Congestive heart failure. 3. Cerebrovascular accident. 4. Diabetes. 5. Hypertension. 6. Chronic obstructive pulmonary disease. SURGICAL HISTORY: 1. Hysterectomy. 2. Appendectomy. 3. Cardiac stent. ALLERGIES: PENICILLIN. FAMILY HISTORY: No known family history of anemia. SOCIAL HISTORY: Good support system with her family. Former smoker. No current alcohol use. REVIEW OF SYSTEMS: As above in HPI, all others negative. PHYSICAL EXAMINATION: GENERAL: Elderly lady, in no distress, sitting in bedside chair. HEENT: Head is normocephalic, atraumatic. Eyes: PERRLA. EOMI. NECK: Supple. No palpable lymphadenopathy. CARDIOVASCULAR: Regular rate and rhythm. No murmurs. RESPIRATORY: Clear to auscultation bilaterally. ABDOMEN: Soft, nontender, nondistended. Bowel sounds present. EXTREMITIES: No edema. NEUROLOGIC: Nonfocal. PSYCHIATRIC: Appropriate mood and affect. LABORATORY STUDIES: Creatinine 1.9, EGFR estimated at 20. Vitamin B12 is within normal limits at 552, folate is greater than 20, total bilirubin is 0.6. AST low at 5, ALT low at 7, alkaline phosphatase slightly elevated at 152. White blood cell count 9, hemoglobin 7.8, platelet count 130,000, ANC slightly elevated at 8.1. Total iron binding capacity and percent sat are within normal limits. ASSESSMENT AND PLAN: Anemia with normal total white blood cell count intermittent elevated absolute neutrophil count and intermittent mild thrombocytopenia. Contributing factors to anemia certainly include chronic renal disease. Could consider initiation of erythropoietin therapy in the outpatient setting. Total protein is within normal limits at 6.7. Anemia can be common in older adults, especially those with chronic conditions including heart failure and chronic renal disease. MCV is within normal limits at 94.2, possibly some evidence of occult GI bleed, given noticed decreased renal function and heart failure. We will check ferritin, reticulocyte count, SPEP, LDH, haptoglobin, also cardiorenal anemia, with the patient with anemia, heart failure and chronic renal disease could certainly be contributing. She does have intermittently elevated platelet count. We will check ultrasound to evaluate the spleen. If further workup unrevealing, could consider bone marrow biopsy. she will need close follow up in oncology clinic. MD JONATHAN Noel/claude , 05:39 PM , 05:49 PM GENEVIEVE
[2018-08-13] MEDS: traZODone 50 MG Tablet PO SCH (20:33)
[2018-08-13] MEDS: Sertraline 50 MG Tablet PO SCH (20:34)
[2018-08-13 20:37] LABS: Reticulocyte Percent 3.6 % (0.4-3.0)
[2018-08-13 21:23] LABS: Lactate Dehydrogenase 203 U/L (84-246)
[2018-08-13 21:25] LABS: Ferritin 96 ng/mL (8-252)
[2018-08-14] MEDS: Isosorbide Mononitrate 30 MG ER 24HR Tablet (Imdur) PO SCH (06:06)
[2018-08-14 06:58] LABS: Calcium 8.9 mg/dL (8.5-10.1); Potassium 3.9 meq/L (3.5-5.1)
[2018-08-14 07:07] LABS: Hematocrit 24.1 % (35.0-46.0); Hemoglobin 8.3 gm/dL (11.6-15.3); Mean Corpuscular HGB Conc 34.5 % (32.0-36.0); Mean Corpuscular Volume 92.8 fL (80.0-100.0); Mean Platelet Volume 7.8 fL (7.0-11.0); Platelet Count 111 th/mm3 (150-450)
[2018-08-14] MEDS ORDERED: Furosemide 40 MG Tablet PO SCH (09:00)
[2018-08-14] MEDS: Insulin Detemir Inj 1,000 UNIT/10 ML Vial SQ SCH (09:16)
[2018-08-14 09:52] LABS: Folate 16.8 ng/mL (3.1-17.5)
--- NOTE | 2018-08-14 10:20 | US ---
EXAM DATE: 08/14/2018 10:10 AM EST AGE/SEX: 77 years / Female INDICATIONS: Abdominal pain. CLINICAL DATA: This is the patient's initial encounter. Patient reports that signs and symptoms have been present for 1 day and indicates a pain score of 0/10. MEDICAL/SURGICAL HISTORY: Congestive heart failure. Chronic obstructive pulmonary disease. Hy pertension. Diabetes. CVA. Kidney disease. Coronary artery stent. COMPARISON: [facility], US KIDNEY, BILATERAL, 08/26/2015. . MEASUREMENTS: Liver:__ 20.9 cm. Common Bile Duct:__ 5mm. Right Kidney:__ 10.7 x 4.5 x 4.6 cm. FINDINGS: Liver: Elongation of the right hepatic lobe has appearance of a Celina's lobe. Echogenic texture of t he liver is normal. There are no space-occupying lesions or evidence of biliary duct dilatation. Portal Vein: Hepatopedal flow seen in portal vein. Common Duct: No intraluminal mass or stone visualized. Gallbladder: Gallbladder wall is thickened measuring 5 mm. 5 mm filling defect is identified depende ntly within the gallbladder. The filling defect is not mobile Pancreas: The visualized portions are within normal limits Right Kidney: 6 mm hyperechoic structure is identified in the midpole which has the appearance of a small stone. There is no evidence of hydronephrosis. Other: None. CONCLUSION: 1. Elongated right hepatic lobe characteristic of a Celina's lobe. 2. Thickened gallbladder wall with intraluminal filling defect which is adherent and may represent a small polyp. 3. Right renal calculus. Electronically signed by: Lino Zacarias MD 08/14/2018 10:19 AM EST
[2018-08-14] MEDS: Gabapentin 300 MG Capsule PO SCH ×3 (10:21→18:49)
[2018-08-14] MEDS: hydrALAZINE 25 MG Tablet PO SCH ×3 (10:21→18:49)
[2018-08-14] MEDS: TRESIBA FLEX TOUCH SQ SCH (10:27)
[2018-08-14] MEDS: Insulin NovoLIN Regular Correctional Sugar Inj SQ SCH ×3 (10:31→18:48)
[2018-08-14] MEDS: Sodium Chloride 0.9% 2 ML Flush BID IV.FLUSH SCH (10:32)
--- NOTE | 2018-08-14 13:11 | P.PNFP ---
Subjective Interval history: Patient was seen and examined at bedside this am. No acute events overnight. Patient reports that she feels well and would like to go home. She had a normal BM yesterday. Denies fever, chills, CP or SOB. <Sabino Pérez D - 08/14/18 21:30> Results - Labs Result diagrams: 08/14/18 05:00 08/14/18 05:00 <Kevin Reed - 08/15/18 22:36> Abnormal lab results 08/13/18 08/13/18 08/13/18 Range/Units 12:15 16:13 20:45 RBC (4.00-5.30) mil/mm3 Hgb (11.6-15.3) gm/dL Hct (35.0-46.0) % Plt Count (150-450) th/mm3 Retic Count 3.6 H (0.4-3.0) % BUN (7-18) mg/dL Creatinine (0.50-1.00) mg/dL Estimated GFR (>89) mL/min POC Glucose 178 H 235 H (68-110) mg/dl Random Glucose (74-106) mg/dL Total Protein (PEP) (6.4-8.2) gm/dL 08/14/18 08/14/18 08/14/18 Range/Units 05:00 05:00 05:00 RBC 2.60 L (4.00-5.30) mil/mm3 Hgb 8.3 L (11.6-15.3) gm/dL Hct 24.1 L (35.0-46.0) % Plt Count 111 L (150-450) th/mm3 Retic Count (0.4-3.0) % BUN 27 H (7-18) mg/dL Creatinine 2.05 H (0.50-1.00) mg/dL Estimated GFR 23 L (>89) mL/min POC Glucose (68-110) mg/dl Random Glucose 152 H (74-106) mg/dL Total Protein (PEP) 5.8 L (6.4-8.2) gm/dL 08/14/18 08/14/18 Range/Units 08:27 12:28 RBC (4.00-5.30) mil/mm3 Hgb (11.6-15.3) gm/dL Hct (35.0-46.0) % Plt Count (150-450) th/mm3 Retic Count (0.4-3.0) % BUN (7-18) mg/dL Creatinine (0.50-1.00) mg/dL Estimated GFR (>89) mL/min POC Glucose 186 H 255 H (68-110) mg/dl Random Glucose (74-106) mg/dL Total Protein (PEP) (6.4-8.2) gm/dL Short CBC 08/14/18 Range/Units 05:00 WBC 8.0 (4.0-11.0) th/mm3 Hgb 8.3 L (11.6-15.3) gm/dL Hct 24.1 L (35.0-46.0) % Plt Count 111 L (150-450) th/mm3 BMP 08/14/18 05:00 Sodium 141 Potassium 3.9 Chloride 104 Carbon Dioxide 28.0 BUN 27 H Creatinine 2.05 H Calcium 8.9 <Sabino Pérez - 08/14/18 13:11> - Imaging Impressions Liver Ultrasound 08/14/18 00:00 CONCLUSION: 1. Elongated right hepatic lobe characteristic of a Celina's lobe. 2. Thickened gallbladder wall with intraluminal filling defect which is adherent and may represent a small polyp. 3. Right renal calculus. <Sabino Pérez 08/14/18 13:11> Physical Exam Vital signs: Vital Signs 08/13/18 16:00 08/13/18 20:00 08/14/18 00:00 Temperature 98.1 F 98.6 F 97.5 F L Pulse Rate 76 82 72 Respiratory Rate 24 18 20 Blood Pressure 116/74 162/72 H 164/71 H Pulse Oximetry 98 96 98 08/14/18 04:00 08/14/18 08:00 Temperature 97.8 F Pulse Rate 83 Respiratory Rate 18 Blood Pressure 130/61 Pulse Oximetry 94 L 95 Intake & Output 08/13/18 08/14/18 08/14/18 18:59 06:59 18:59 Intake Total 420 / 420 Balance 420 / 420 Weight 75.3 kg Intake: IV 0 / 0 Oral 420 / 420 Other: # Voids 4 Date of Last Bowel Movement 08/11/18 08/11/18 08/11/18 <Sabino Pérez 08/14/18 13:11> - Constitutional no acute distress <Sabino Pérez 08/14/18 21:30> - Routine HEENT Exam Head: Present: normocephalic <Sabino Pérez 08/14/18 21:30> Eye: Present: EOMI, PERRL <Sabino Pérez 08/14/18 21:30> ENT: Present: mucous membranes moist <Sabino Pérez 08/14/18 21:30> - Routine Respiratory Exam Present: CTA bilaterally. Absent: accessory muscle use <Sabino Pérez 04/24 21:30> - Routine Cardiovascular Exam Present: RRR, S1, S2, murmur (systolic ejection murmur over aortic valve, chronic) <Sabino Pérez 08/14/18 21:30> - Routine Abdominal Exam Present: soft. Absent: distended <Sabino Pérez 08/14/18 21:30> - Routine Extremities Exam Present: pulses intact. Absent: cyanosis, edema, calf tenderness <Sabino Pérez 08/14/18 21:30> - Routine Skin Exam Present: intact <Sabino Pérez 08/14/18 21:30> - Routine Neurological Exam Present: oriented X3 <Sabino Pérez 08/14/18 21:30> - Routine Psychiatric Exam Present: normal affect <Sabino Pérez 08/14/18 21:30> Assessment and Plan - Assessment (1) Acute exacerbation of CHF (congestive heart failure) Code(s): I50.9 - Heart failure, unspecified Status: Acute (2) Upper GI bleed Code(s): K92.2 - Gastrointestinal hemorrhage, unspecified Status: Acute (3) CKD (chronic kidney disease) Code(s): N18.9 - Chronic kidney disease, unspecified Status: Chronic (4) HTN (hypertension) Code(s): I10 - Essential (primary) hypertension Status: Chronic (5) COPD (chronic obstructive pulmonary disease) Code(s): J44.9 - Chronic obstructive pulmonary disease, unspecified Status: Acute (6) Diabetes Code(s): E11.9 - Type 2 diabetes mellitus without complications Status: Acute (7) Anxiety and depression Code(s): F41.9 - Anxiety disorder, unspecified; F32.9 - Major depressive disorder, single episode, unspecified Status: Acute (8) Nutrition, metabolism, and development symptoms Code(s): R63.8 - Other symptoms and signs concerning food and fluid intake Status: Acute <Kevin Reed - 08/15/18 22:36> (1) Acute exacerbation of CHF (congestive heart failure) Code(s): I50.9 - Heart failure, unspecified Status: Acute Plan: 77-year-old female with a history of stage III kidney disease, CHF, CVA, diabetes, hypertension, CAD s/p 3 stents, presented with SOB and edema. On admission: chest x-ray demonstrates probable CHF BNP significantly elevated ABG relatively benign EKG-normal sinus rhythm, atrial enlargement Troponin levels stable Has significant systolic murmur over aortic valve, stable Patient is asymptomatic and lower extremity edema has resolved. Decreased Lasix 40mg BID to PO 40 QD Continue supplemental KCl Echo: Ejection fraction of 40-45%, moderate concentric left ventricular hypertrophy, mildly dilated left atrium and aortic valve sclerosis. Cardiac telemetry Fluid restriction <1.5L/day Strict I & Os Daily weights: Today's weight slightly decrease from yesterday Counseling on sodium restriction Continue hydralazine and isosorbide mononitrate Hydralazine increased to 50 mg 3 times daily (2) Upper GI bleed Code(s): K92.2 - Gastrointestinal hemorrhage, unspecified Status: Acute Plan: No chronic NSAID use, had anemia and melena about 2 years ago with negative colonoscopy/EGD (per patient report) No pepto bismol or iron therapy that would turn stool black No reported history of gastric ulcers Patient presented with anemia and endorsing melena. Hemoccult ordered, pending Protonix 40 mg po BID monitor H&H, transfuse if Hb<8 due to cardiac history Patient with stable repeat H&H x2 Patient is asymptomatic. Medical plan discussed with patient and she agreed. GI consulted, appreciate recommendations Patient refusing colonoscopy EGD procedure done on 08/12 showing: Gastritis and gastric polyps. Biopsy taken, results will be available 7-10 days. GI has signed off and heme/onc was consulted for further evaluation of anemia causes Discussed cause with heme/onc and pt is cleared to be discharge from their standpoint and ok to f/u as an out patient. (3) CKD (chronic kidney disease) Code(s): N18.9 - Chronic kidney disease, unspecified Status: Chronic Plan: Avoid nephrotoxic agents, NSAIDs/contrast if possible Stable Continue to monitor kidney function (4) HTN (hypertension) Code(s): I10 - Essential (primary) hypertension Status: Chronic Plan: Blood pressures of 130s/60s this am Increase home hydralazine from 25 mg p.o. 3 times daily to 50 mg 3 times daily Clonidine 0.1mg PRN for BP >180/100 Continue to monitor vital signs (5) COPD (chronic obstructive pulmonary disease) Code(s): J44.9 - Chronic obstructive pulmonary disease, unspecified Status: Acute Plan: Patient reports being on home oxygen at night 2 L Duo nebs every 4 as needed Does not appear to be in COPD exacerbation (6) Diabetes Code(s): E11.9 - Type 2 diabetes mellitus without complications Status: Acute Plan: Held home Tresiba Levemir 20 units BID Accu-Cheks Low-dose sliding scale Hypoglycemia protocol in place (7) Anxiety and depression Code(s): F41.9 - Anxiety disorder, unspecified; F32.9 - Major depressive disorder, single episode, unspecified Status: Acute Plan: Continue home Zoloft 50 mg p.o. at bedtime and trazodone 50 mg p.o. at bedtime (8) Nutrition, metabolism, and development symptoms Code(s): R63.8 - Other symptoms and signs concerning food and fluid intake Status: Acute Plan: Fluids: by mouth Diet: Diabetic diet vitals q4h, monitor I & Os, cardiac telemetery DVT ppx: SCDs, chemical ppx contraindicated due to acute GI bleed Discussed with Dr. Reed <Sabino Pérez - 08/14/18 21:11> - Attending Attestation The exam, history, and the medical decision-making described in the above note were completed with the assistance of the resident physician. I reviewed and agree with the findings presented. I attest that I had a inte-fh-[id number] encounter with the patient on the same day, and personally performed and documented my assessment and findings in the medical record. <Kevin Reed - 08/15/18 22:36> <Sabino Pérez D - Last Filed: 08/14/18 21:11> (3) CKD (chronic kidney disease) Qualifiers: Chronic kidney disease stage: stage 3 (moderate) Qualified Code(s): N18.3 - Chronic kidney disease, stage 3 (moderate) <Kevin Reed - Last Filed: 08/15/18 22:36> (3) CKD (chronic kidney disease) Qualifiers: Chronic kidney disease stage: stage 3 (moderate) Qualified Code(s): N18.3 - Chronic kidney disease, stage 3 (moderate) <Sabino Pérez D - Last Filed: 08/14/18 21:11> (3) CKD (chronic kidney disease) Qualifiers: Chronic kidney disease stage: stage 3 (moderate) Qualified Code(s): N18.3 - Chronic kidney disease, stage 3 (moderate) <Kevin Reed - Last Filed: 08/15/18 22:36> (3) CKD (chronic kidney disease) Qualifiers: Chronic kidney disease stage: stage 3 (moderate) Qualified Code(s): N18.3 - Chronic kidney disease, stage 3 (moderate)
[2018-08-14 16:38] VITALS: O2SAT 96
[2018-08-14 16:56] VITALS: BP 165/71; PULSE 71; RESP 19; TEMP 97.9
--- NOTE | 2018-08-14 17:13 | P.PNONC ---
Subjective Interval history: Patient sleeping on approach, awakens easily to voice. She is asking when she can go home. She has no complaints at this time. Objective Vital Signs/Intake & Output: Vital Signs 08/13/18 20:00 08/14/18 00:00 08/14/18 04:00 Temperature 98.6 F 97.5 F L 97.8 F Pulse Rate 82 72 83 Respiratory Rate 18 20 18 Blood Pressure 162/72 H 164/71 H 130/61 Pulse Oximetry 96 98 94 L Pulse Oximetry [Exertion on Room Air] Pulse Oximetry [Resting on Room Air] 08/14/18 08:00 08/14/18 12:00 08/14/18 16:00 Temperature 97.8 F 97.9 F Pulse Rate 67 71 Respiratory Rate 18 19 Blood Pressure 154/69 H 165/71 H Pulse Oximetry 95 94 L 96 Pulse Oximetry [Exertion on Room Air] Pulse Oximetry [Resting on Room Air] 08/14/18 16:37 Temperature Pulse Rate Respiratory Rate Blood Pressure Pulse Oximetry Pulse Oximetry [Exertion on Room Air] 90 L Pulse Oximetry [Resting on Room Air] 96 Intake & Output 08/13/18 08/14/18 08/14/18 18:59 06:59 18:59 Intake Total 420 / 420 Balance 420 / 420 Weight 75.3 kg Intake: IV 0 / 0 Oral 420 / 420 Other: # Voids 4 Date of Last Bowel Movement 08/11/18 08/11/18 08/11/18 Result Diagrams: 08/14/18 05:00 08/14/18 05:00 Laboratory Results: Laboratory Results - last 24 hr 08/13/18 08/13/18 08/13/18 04:00 12:15 20:45 WBC RBC Hgb Hct MCV MCH MCHC RDW Plt Count MPV Retic Count 3.6 H Absolute Retic 88.2 Haptoglobin 183 Sodium Potassium Chloride Carbon Dioxide Anion Gap BUN Creatinine Estimated GFR POC Glucose 235 H Random Glucose Calcium Ferritin 96 Lactate Dehydrogenase 203 Total Protein (PEP) Cancelled Albumin (PEP) Cancelled Albumin/Globulin Ratio Cancelled Cucby-5-Ptqoqlhfo Cancelled Kenqu-3-Uhxoawzlj Cancelled Beta Globulins Cancelled Gamma Globulins Cancelled PEP Pathologist Comment Cancelled Vitamin B12 Folate 08/14/18 08/14/18 08/14/18 05:00 05:00 05:00 WBC 8.0 RBC 2.60 L Hgb 8.3 L Hct 24.1 L MCV 92.8 MCH 32.0 MCHC 34.5 RDW 16.0 Plt Count 111 L MPV 7.8 Retic Count Absolute Retic Haptoglobin Sodium 141 Potassium 3.9 Chloride 104 Carbon Dioxide 28.0 Anion Gap 9 BUN 27 H Creatinine 2.05 H Estimated GFR 23 L POC Glucose Random Glucose 152 H Calcium 8.9 Ferritin Lactate Dehydrogenase Total Protein (PEP) 5.8 L Albumin (PEP) Albumin/Globulin Ratio Nvomg-1-Qqrisdshc Vegek-9-Qbccarnqo Beta Globulins Gamma Globulins PEP Pathologist Comment Vitamin B12 Folate 08/14/18 08/14/18 08/14/18 05:00 08:27 12:28 WBC RBC Hgb Hct MCV MCH MCHC RDW Plt Count MPV Retic Count Absolute Retic Haptoglobin Sodium Potassium Chloride Carbon Dioxide Anion Gap BUN Creatinine Estimated GFR POC Glucose 186 H 255 H Random Glucose Calcium Ferritin Lactate Dehydrogenase Total Protein (PEP) Albumin (PEP) Albumin/Globulin Ratio Eefxc-7-Jzodhbspn Jifeq-3-Xhhhysmgi Beta Globulins Gamma Globulins PEP Pathologist Comment Vitamin B12 428 Folate 16.8 Culture Results: Microbiology 08/11/18 01:30 EST Aerobic Blood Culture - Preliminary Blood - Peripheral No growth in 3 days Anaerobic Blood Culture - Preliminary No growth in 3 days 08/11/18 01:38 EST Aerobic Blood Culture - Preliminary Blood - Peripheral No growth in 3 days Anaerobic Blood Culture - Preliminary No growth in 3 days Imaging Studies: Impressions Liver Ultrasound 08/14/18 00:00 CONCLUSION: 1. Elongated right hepatic lobe characteristic of a Celina's lobe. 2. Thickened gallbladder wall with intraluminal filling defect which is adherent and may represent a small polyp. 3. Right renal calculus. Medications: Active Medications Generic Name Dose Route Start Last Admin Trade Name Freq PRN Reason Stop Dose Admin Clonidine HCl 0.1 mg 08/11/18 04:21 08/13/18 21:56 Catapres PO 0.1 mg Q6H PRN Administration SEE LABEL COMMENTS Furosemide 40 mg 08/14/18 09:00 08/14/18 10:29 Lasix PO 40 mg DAILY AG Administration Gabapentin 300 mg 08/11/18 09:00 08/14/18 13:12 Neurontin PO 300 mg TID AG Administration Hydralazine HCl 50 mg 08/13/18 13:00 08/14/18 13:12 Apresoline PO 50 mg TID AG Administration Sodium Chloride 500 mls @ 30 mls/hr 08/11/18 14:00 08/12/18 11:03 Ns Inj IV.SIG Not Given .Q10H AG Insulin Detemir 20 unit 08/11/18 21:00 08/14/18 09:16 Levemir Inj SQ 20 unit BID AG Administration Insulin Human Regular 0 units 08/13/18 12:00 08/14/18 13:14 Novolin R Correctional Sugar Inj SQ 5 units ACHS AG Administration Protocol Isosorbide Mononitrate 30 mg 08/11/18 07:00 08/14/18 06:06 Imdur PO 30 mg DAILY@0700 AG Administration Levothyroxine Sodium 200 mcg 08/11/18 07:00 08/14/18 06:06 Synthroid PO 200 mcg DAILY@0700 AG Administration Lorazepam 0.5 mg 08/13/18 16:00 08/13/18 17:33 Ativan PO 0.5 mg Q8H PRN Administration breakthrough anxiety Pantoprazole Sodium 40 mg 08/13/18 14:15 08/14/18 10:21 Protonix PO 40 mg BID AG Administration Pt Own Tresiba Flex 0 each 08/11/18 09:00 08/14/18 10:27 Touch SQ Not Given DAILY [facility] Potassium Chloride 20 meq 08/13/18 09:00 08/14/18 10:22 Klor-Con 10 PO 20 meq DAILY AG Administration Pravastatin Sodium 40 mg 08/11/18 18:00 08/13/18 17:32 Pravachol PO 40 mg QPM AG Administration Senna/Docusate Sodium 1 tab 08/12/18 14:23 08/13/18 12:47 Nidhi-Colace PO 1 tab BID PRN Administration MILD [employer]IP[employer] Sennosides 17.2 mg 08/12/18 18:00 08/14/18 05:04 Senokot PO 17.2 mg Q12H AG Administration Sertraline HCl 50 mg 08/11/18 21:00 08/13/18 20:34 Zoloft PO 50 mg HS AG Administration Sodium Chloride 2 ml 08/11/18 09:00 08/14/18 10:32 Ns Flush IV.FLUSH 2 ml BID AG Administration Trazodone HCl 50 mg 08/11/18 03:00 08/13/18 20:33 Desyrel PO 50 mg HS AG Administration Objective Remarks: GENERAL: Elderly female patient, in no acute distress. SKIN: Warm and dry. HEAD: Normocephalic. EYES: No scleral icterus. No injection or drainage. NECK: Supple, trachea midline. CARDIOVASCULAR: Regular rate and rhythm without murmurs. RESPIRATORY: Posterior breath sounds clear, equal bilaterally. No accessory muscle use. GASTROINTESTINAL: Abdomen soft, non-tender, nondistended. EXTREMITIES: No cyanosis, or edema. MUSCULOSKELETAL: Adequate muscle tone. NEUROLOGICAL: No obvious focal deficit. Awake, alert, and oriented x3. PSYCHIATRIC: Appropriate mood and affect; insight and judgment normal. Assessment/Plan - Plan Ms. Silva lady with a history of chronic kidney disease, CHF, stroke, diabetes, hypertension and coronary artery disease. Recently admitted to the hospital for shortness of breath and possible GI bleed. Hematology was consulted for anemia. Recommendations: 1. Normocytic anemia, hemoglobin has trended up slightly. Ultrasound abdomen does not appear to have included the spleen. Ferritin folate and B12 are all within normal limits. 2. Continue to monitor hemoglobin trends. Anemia could be secondary to chronic disease or GI bleed. 3.
[2018-08-14] MEDS: Furosemide 40 MG Tablet PO SCH (19:23)
--- NOTE | 2018-08-14 19:47 | P.DS ---
Date of admission: 08/11/18 02:19 Primary care physician: Fidencio Lr Brief History from admission: 77-year-old female with a history of stage III kidney disease, CHF, CVA, diabetes, hypertension, CAD s/p 3 stents, since the ED with worsening shortness of breath. Patient is currently visiting from [place], [place]. Has been here for about 3 weeks. Patient states that shortness of breath started 1 week ago. Also started having swelling in her lower extremities. States that she has not been able to walk for extended period of time. Shortness of breath worse with exertion and lying flat. States that she has to use 2 pillows to sleep at night. She is currently on torsemide 20 mg daily. Endorses chest pressure in sternal area. Endorses nausea, but no vomiting. Also endorses one episode of diarrhea. States that stools have been black and tarry. She denies history of stomach ulcer and chronic NSAID use. States that she has had a colonoscopy/ endoscopy in the past. States that she will never have a colonoscopy again because she got an infection from it last time. Denies fevers and abdominal pain at this time. Very tearful during the exam because her sister has dementia and wants to go home to take care of her sister. She has oxygen 2L at night at home. PMH: Stage 3 kidney disease, CHF ( last EF/echo unknown), [employer] in [place]. Stroke two years ago ( L sided hands and legs are weak). Diabetes, HTN. COPD. Emphysema. Allergies: Penicillin ( Hives). Tetanus (hives). SurgHx: Complete Hysterectomy, Appendectomy. 3 Cardiac Stents. FH: Sisters have breast cancer. Dad had heart disease. Mom had CKD (72 years ). Social Hx: Lives in [place], Has a townhouse here in [facility], now retired, used to be a [employer]. 1 ppd for 15 years and quit 20 year ago. Denies any alcohol or drug use. Recently travelled from [place] by car ride 3 weeks ago. DS: Diagnosis - Discharge Diagnosis (1) Acute exacerbation of CHF (congestive heart failure) Status: Acute (2) Upper GI bleed Status: Acute (3) CKD (chronic kidney disease) Status: Chronic (4) HTN (hypertension) Status: Chronic (5) COPD (chronic obstructive pulmonary disease) Status: Acute (6) Diabetes Status: Acute (7) Anxiety and depression Status: Acute (8) Nutrition, metabolism, and development symptoms Status: Acute DS: Medications - Discharge Medications Prescriptions: pantoprazole [Protonix] 40 mg PO BID #30 ea DS: Summary - Time Spent with Patient Total time spent providing and/or coordinating discharge services: - Quality: VTE Deep Vein Thrombosis/Pulmonary Embolism Present on Admission: No Exam Vital signs: Vital Signs 08/13/18 20:00 08/14/18 00:00 08/14/18 04:00 Temperature 98.6 F 97.5 F L 97.8 F Pulse Rate 82 72 83 Respiratory Rate 18 20 18 Blood Pressure 162/72 H 164/71 H 130/61 Pulse Oximetry 96 98 94 L Pulse Oximetry [Exertion on Room Air] Pulse Oximetry [Resting on Room Air] 08/14/18 08:00 08/14/18 12:00 08/14/18 16:00 Temperature 97.8 F 97.9 F Pulse Rate 67 71 Respiratory Rate 18 19 Blood Pressure 154/69 H 165/71 H Pulse Oximetry 95 94 L 96 Pulse Oximetry [Exertion on Room Air] Pulse Oximetry [Resting on Room Air] 08/14/18 16:37 Temperature Pulse Rate Respiratory Rate Blood Pressure Pulse Oximetry Pulse Oximetry [Exertion on Room Air] 90 L Pulse Oximetry [Resting on Room Air] 96 Intake & Output 08/14/18 08/14/18 08/15/18 06:59 18:59 06:59 Weight 75.3 kg Other: # Voids 4 Date of Last Bowel Movement 08/11/18 08/11/18 Results Completed studies during hospitalization: Pending at discharge 08/12/18 07:23 Surgical [PTH] Routine Labs on day of discharge: Labs from last 24 hours 08/14/18 08/14/18 08/14/18 17:04 12:28 08:27 WBC RBC Hgb Hct MCV MCH MCHC RDW Plt Count MPV Retic Count Absolute Retic Haptoglobin Sodium Potassium Chloride Carbon Dioxide Anion Gap BUN Creatinine Estimated GFR POC Glucose 270 H 255 H 186 H Random Glucose Calcium Ferritin Lactate Dehydrogenase Total Protein (PEP) Albumin (PEP) Albumin/Globulin Ratio Ufbcc-2-Kuryapcgv Oilve-1-Tjvyarkxn Beta Globulins Gamma Globulins PEP Pathologist Comment Vitamin B12 Folate 08/14/18 08/14/18 08/14/18 05:00 05:00 05:00 WBC RBC Hgb Hct MCV MCH MCHC RDW Plt Count MPV Retic Count Absolute Retic Haptoglobin Sodium 141 Potassium 3.9 Chloride 104 Carbon Dioxide 28.0 Anion Gap 9 BUN 27 H Creatinine 2.05 H Estimated GFR 23 L POC Glucose Random Glucose 152 H Calcium 8.9 Ferritin Lactate Dehydrogenase Total Protein (PEP) 5.8 L Albumin (PEP) Pending Albumin/Globulin Ratio Pending Fxycp-5-Kelxrygkx Pending Pzfuq-7-Yjocpfksw Pending Beta Globulins Pending Gamma Globulins Pending PEP Pathologist Comment Pending Vitamin B12 428 Folate 16.8 08/14/18 08/13/18 08/13/18 05:00 20:45 12:15 WBC 8.0 RBC 2.60 L Hgb 8.3 L Hct 24.1 L MCV 92.8 MCH 32.0 MCHC 34.5 RDW 16.0 Plt Count 111 L MPV 7.8 Retic Count 3.6 H Absolute Retic 88.2 Haptoglobin Sodium Potassium Chloride Carbon Dioxide Anion Gap BUN Creatinine Estimated GFR POC Glucose 235 H Random Glucose Calcium Ferritin Lactate Dehydrogenase Total Protein (PEP) Albumin (PEP) Albumin/Globulin Ratio Rajrz-1-Lddsmkzaq Bqcos-9-Osyipbpkx Beta Globulins Gamma Globulins PEP Pathologist Comment Vitamin B12 Folate 08/13/18 04:00 WBC RBC Hgb Hct MCV MCH MCHC RDW Plt Count MPV Retic Count Absolute Retic Haptoglobin 183 Sodium Potassium Chloride Carbon Dioxide Anion Gap BUN Creatinine Estimated GFR POC Glucose Random Glucose Calcium Ferritin 96 Lactate Dehydrogenase 203 Total Protein (PEP) Cancelled Albumin (PEP) Cancelled Albumin/Globulin Ratio Cancelled Aevxs-8-Cfsicpxdy Cancelled Wfmrr-6-Xemsrmegd Cancelled Beta Globulins Cancelled Gamma Globulins Cancelled PEP Pathologist Comment Cancelled Vitamin B12 Folate Preliminary micro results at discharge 08/11/18 01:30 EST Aerobic Blood Culture - Preliminary Blood - Peripheral No growth in 3 days Anaerobic Blood Culture - Preliminary No growth in 3 days 08/11/18 01:38 EST Aerobic Blood Culture - Preliminary Blood - Peripheral No growth in 3 days Anaerobic Blood Culture - Preliminary No growth in 3 days - Impressions ITS Impressions Chest X-Ray 08/11/18 01:14 EST CONCLUSION: Probable CHF Liver Ultrasound 08/14/18 00:00 CONCLUSION: 1. Elongated right hepatic lobe characteristic of a Celina's lobe. 2. Thickened gallbladder wall with intraluminal filling defect which is adherent and may represent a small polyp. 3. Right renal calculus. Discharge Plan - Discharge Disposition Patient Disposition: 01 Discharge Home - Discharge Condition Condition: Stable - Discharge Order Discharge Orders: Discharge Order (Routine); Ordered 08/14/18 Ordered By: Sabino Pérez - Discharge Details Anticipated Discharge Date: 08/14/18 - Physicians Team Attending Provider: Kevin Reed Other Providers: Bina Fontaine MD ; Christal Aranda
== END 2018-08-14 18:51 | disposition home or self-care (01) ==
LOC: NEPE 00:22 → NEDA 02:19 → N04 05:52
PROVIDERS: ADMIT Family Medicine; ATTEND Family Medicine
PROC: PANENDO (2018-08-12 11:51)

== ENCOUNTER 2018-10-10 16:08 | Inpatient (IN) ==
--- NOTE | 2018-10-10 16:51 | ED ---
HPI General Chief complaint: Anxiety Stated complaint: syncope Time Seen by Provider: 10/10/18 16:23 History of Present Illness HPI narrative: This patient was in the waiting room of her oncologist office. She was feeling lightheaded and generalized weakness. She was seated in a wheelchair. She had a syncopal episode according to the friend who is with her. She says the patient passed out and leaned back in the wheelchair but did not fall out. There is no seizure activity. When this happened staff called paramedics who brought her to the ER. She recently had a bone marrow biopsy. She does not know the results. Symptoms were of moderate severity. No alleviating factors. She presents extremely anxious and panicky. She has a lot of anxiety problems. She is tearful. She acts very immature and regressed like a child. Symptoms are exacerbated by her anxiety. Duration one day Related Data Home Medications Medication Instructions Recorded Confirmed ergocalciferol (vitamin D2) 50,000 unit PO BID 08/11/18 09/25/18 [Vitamin D2] gabapentin 300 mg PO TID 08/11/18 10/10/18 hydralazine 25 mg PO TID 08/11/18 10/10/18 hydroxyzine pamoate 25 mg PO HS 08/11/18 09/25/18 insulin aspart U-100 [Novolog 5 unit SUBCUT QAM 08/11/18 09/25/18 Flexpen U-100 Insulin] insulin degludec [Tresiba 40 unit SUBCUT DAILY 08/11/18 10/10/18 FlexTouch U-200] isosorbide mononitrate 30 mg PO DAILY 08/11/18 10/10/18 levothyroxine 200 mcg PO DAILY 08/11/18 10/10/18 sertraline 50 mg PO HS 08/11/18 10/10/18 simvastatin 20 mg PO QPM 08/11/18 10/10/18 torsemide 20 mg PO DAILY 08/11/18 10/10/18 trazodone 50 mg PO HS 08/11/18 10/10/18 carvedilol 25 mg PO BID 09/25/18 09/25/18 omeprazole 40 mg PO DAILY 10/10/18 10/10/18 Previous Rx's Medication Instructions Recorded pantoprazole [Protonix] 40 mg PO BID #30 ea 08/14/18 albuterol sulfate 2 inh INHALATION Q8H PRN #18 g 09/11/18 Allergies Allergy/AdvReac Type Severity Reaction Status Date / Time penicillin G Allergy Severe HIVES Verified 10/10/18 16:16 minocycline [From Minocin] Allergy Hives Verified 10/10/18 16:16 Tetanus Vaccines and Toxoid Allergy Swelling Verified 10/10/18 16:16 TAPE Allergy Unknown Rash Uncoded 09/11/18 18:53 Review of Systems ROS: all other systems reviewed are negative [facility] Medical History Medical History Anxiety (Acute) CHF (congestive heart failure) (Acute) COPD (chronic obstructive pulmonary disease) (Acute) Diabetes (Acute) H/O: hysterectomy (Acute) HTN (hypertension) (Acute) Kidney disease (Acute) Panic disorder (Acute) Stroke (Acute) Surgical History Surgical History H/O heart artery stent (Acute) History of tonsillectomy (Acute) Family History Family History Other Breast cancer Social History Social History Substance History: No History of Abuse Second Hand Smoke Exposure: No Smoking Status: Former smoker Tobacco Type: Cigarettes How Often Do You Have a Drink Containing Alcohol: Never Recent Travel in [facility] within the Last 8 Weeks: No Recent Out of Country Travel within the Last 8 Weeks: No Immunization History Tetanus Immunization: >5 Years Exam Narrative Exam Narrative: GENERAL: Well-nourished, well-developed patient in no apparent distress. SKIN: Focused skin assessment reveals no rash and nodules. Skin is Warm and dry. HEAD: Atraumatic. Normocephalic. EYES: Pupils equal and round. No scleral icterus. No injection or drainage. ENT: No nasal bleeding or discharge. Mucous membranes pink and moist. NECK: Trachea midline. No JVD. CARDIOVASCULAR: Regular rate and rhythm. No murmur appreciated. RESPIRATORY: No accessory muscle use. Clear to auscultation. Breath sounds equal bilaterally. GASTROINTESTINAL: Abdomen soft, non-tender, nondistended. Hepatic and splenic margins not palpable. MUSCULOSKELETAL: No obvious deformities. No clubbing. No cyanosis. No edema. NEUROLOGICAL: Awake and alert. No obvious cranial nerve deficits. Motor exam shows some left-sided weakness of the leg which is chronic per prior stroke according to the patient. Normal speech. PSYCHIATRIC: Extremely anxious mood and affect; insight and judgment seem reduced . Course Initial Documented Vital Signs Temperature 98.7 F 10/10/18 16:10 Pulse Rate 73 10/10/18 16:10 Respiratory Rate 24 10/10/18 16:10 Blood Pressure 224/97 H 10/10/18 16:10 Pulse Oximetry 98 10/10/18 16:10 Last Documented Vital Signs Temperature 98.7 F 10/10/18 16:10 Pulse Rate 58 L 10/10/18 17:20 Respiratory Rate 18 10/10/18 17:20 Blood Pressure 189/85 H 10/10/18 17:20 Pulse Oximetry 98 10/10/18 17:20 Critical Care Time Critical Care Time: Yes Total Critical Care Time: 80 Attestation: Aggregate critical care time was 80 minutes. Time to perform other separately billable procedures was not included in the critical care time. My time did not include minutes spent treating any other patients simultaneously or on activities that did not directly contribute to the patient's treatment. The services I provided to this patient were to treat and/or prevent clinically significant deterioration that could result in: Cardiogenic shock, cardiopulmonary arrest, myocardial injury I provided critical care services requiring my management, as noted below: Chart data review, documentation time, medication orders and management, vital sign assessments/reviewing monitor data, ordering and reviewing lab tests, ordering and interpreting/reviewing x-rays and diagnostic studies, care of the patient and discussion of the patient with the admitting physicians. Medical Decision Making MDM Narrative Medical decision making narrative: 77-year-old panicky female who reports having had a syncopal episode while seated in a wheelchair. She seems to be at neurologic baseline. She is very hypertensive and anxious. I gave her a dose of clonidine and Ativan and will telemetry observe her. I have ordered EKG and labs and brain CT. On recheck her anxiety has completely resolved. She is calm and cooperative. Unfortunately her diabetes is out of control with a blood sugar of 700. She is not in DKA. PH is 7.4 and bicarbonate is normal at 23. I did give her half liter of normal saline IV. She has CHF so I am not going to give her any more fluid. Her chest x-ray shows borderline fluid balance. Creatinine is 2.3. I gave her 10 units IV regular insulin. Repeat Accu-Chek is 550. Patient came in with a sinus bradycardia and no ectopy. Now she is throwing a few PVCs. She had a spell of lightheadedness with a 10 beat run of nonsustained V. tach. The terminated without treatment. She did not have syncope. She has not had any chest pain or symptoms. On request of Dr. Prado I am adding a set of cardiac enzymes. Patient has hypokalemia. I have given her 50 mEq. With elevated creatinine I have gone to be a bit cautious but this will require close management to increase the level a bit more. I placed a call to the hospitalist to discuss. Dr. Prado has recommended CIC at the [facility]. This patient may very well likely need EP studies and he recommends consultation also with Dr. Sharpe. Patient is quite complicated with a lot of chronic medical problems thrown in. I spoken with her at 7:30 PM and she is at this point minimally symptomatic. She has never been hypotensive. Dr. Prado recommends continuing the beta- maura but no antiarrhythmics at this time. Apparently they would throw off the accuracy and usefulness of any EP studies. Medical Screen Exam Complete: Yes Emergency Medical Condition: Yes Differential Diagnosis Differential Diagnosis: Cardiac arrhythmia, vasovagal episode, panic attack Medical Records Medical records reviewed: Yes I reviewed the patient's medical records. Lab Data Lab results reviewed: Yes I reviewed the patient's lab results. Result diagrams: 10/10/18 17:00 10/10/18 17:00 Lab Results 10/10/18 10/10/18 10/10/18 Range/Units 17:00 17:00 17:00 CBC w Diff Auto diff final WBC 11.5 H (4.0-11.0) th/mm3 RBC 3.55 L (4.00-5.30) mil/mm3 Hgb 10.3 L (11.6-15.3) gm/dL Hct 31.6 L (35.0-46.0) % MCV 89.1 (80.0-100.0) fL MCH 29.1 (27.0-34.0) pg MCHC 32.6 (32.0-36.0) % RDW 14.5 (11.6-17.2) % Plt Count 164 D (150-450) th/mm3 MPV 7.6 (7.0-11.0) fL Neut % (Auto) 90.2 H (16.0-70.0) % Lymph % (Auto) 5.4 L (9.0-44.0) % [place] % (Auto) 3.0 (0.0-8.0) % Eos % (Auto) 0.9 (0.0-4.0) % Baso % (Auto) 0.5 (0.0-2.0) % Neut # (Auto) 10.4 H (1.8-7.7) th/mm3 Lymph # (Auto) 0.6 L (1.0-4.8) th/mm3 [place] # (Auto) 0.3 (0.0-0.9) th/mm3 Eos # (Auto) 0.1 (0.0-0.4) th/mm3 Baso # (Auto) 0.1 (0.0-0.2) th/mm3 WBC Differential . Differential Comment . Puncture Site Patient Temperature O2 Saturation (90-100) % ABG pH (7.380-7.420) ABG pCO2 (38-42) mmHg ABG pO2 (61-120) mmHg ABG HCO3 (22-26) mmol/L ABG O2 Content (12.0-20.0) Vol % ABG Base Excess (-2-2) mmol/L ABG Methemoglobin (0-2) % Jairo Test Hemoglobin (12.0-16.0) G/DL Carboxyhemoglobin (0-4) % O2 Delivery Device Liter Flow L/M Critical Value Sodium 129 L (136-145) meq/L Potassium 2.9 L* (3.5-5.1) meq/L Chloride 92 L (98-107) meq/L Carbon Dioxide 23.1 (21.0-32.0) meq/L Anion Gap 14 (5-15) meq/L BUN 27 H (7-18) mg/dL Creatinine 2.30 H (0.50-1.00) mg/dL Estimated GFR 21 L (>89) mL/min POC Glucose (68-110) mg/dl Random Glucose 700 H* (74-106) mg/dL Calcium 9.1 (8.5-10.1) mg/dL Total Bilirubin 0.6 (0.2-1.0) mg/dL AST 14 L (15-37) U/L ALT Less than 6 L (10-53) U/L Alkaline Phosphatase 145 H (45-117) U/L Total Protein 7.5 (6.4-8.2) g/dL Albumin 3.0 L (3.4-5.0) g/dL Beta-Hydroxybutyric Acd 1.50 H (0.00-0.39) mmol/L 10/10/18 10/10/18 10/10/18 Range/Units 18:09 18:35 19:02 CBC w Diff WBC (4.0-11.0) th/mm3 RBC (4.00-5.30) mil/mm3 Hgb (11.6-15.3) gm/dL Hct (35.0-46.0) % MCV (80.0-100.0) fL MCH (27.0-34.0) pg MCHC (32.0-36.0) % RDW (11.6-17.2) % Plt Count (150-450) th/mm3 MPV (7.0-11.0) fL Neut % (Auto) (16.0-70.0) % Lymph % (Auto) (9.0-44.0) % [place] % (Auto) (0.0-8.0) % Eos % (Auto) (0.0-4.0) % Baso % (Auto) (0.0-2.0) % Neut # (Auto) (1.8-7.7) th/mm3 Lymph # (Auto) (1.0-4.8) th/mm3 [place] # (Auto) (0.0-0.9) th/mm3 Eos # (Auto) (0.0-0.4) th/mm3 Baso # (Auto) (0.0-0.2) th/mm3 WBC Differential Differential Comment Puncture Site Right brachial Patient Temperature 98.6 O2 Saturation 93 (90-100) % ABG pH 7.40 (7.380-7.420) ABG pCO2 40 (38-42) mmHg ABG pO2 77 (61-120) mmHg ABG HCO3 24 (22-26) mmol/L ABG O2 Content 17.5 (12.0-20.0) Vol % ABG Base Excess 0.1 (-2-2) mmol/L ABG Methemoglobin 0.6 (0-2) % Jairo Test Present Hemoglobin 13.3 (12.0-16.0) G/DL Carboxyhemoglobin 1.6 (0-4) % O2 Delivery Device Nasal cannula Liter Flow 2.00 L/M Critical Value No Sodium (136-145) meq/L Potassium (3.5-5.1) meq/L Chloride (98-107) meq/L Carbon Dioxide (21.0-32.0) meq/L Anion Gap (5-15) meq/L BUN (7-18) mg/dL Creatinine (0.50-1.00) mg/dL Estimated GFR (>89) mL/min POC Glucose Greater than 600 H* Greater than 600 H* (68-110) mg/dl Random Glucose (74-106) mg/dL Calcium (8.5-10.1) mg/dL Total Bilirubin (0.2-1.0) mg/dL AST (15-37) U/L ALT (10-53) U/L Alkaline Phosphatase (45-117) U/L Total Protein (6.4-8.2) g/dL Albumin (3.4-5.0) g/dL Beta-Hydroxybutyric Acd (0.00-0.39) mmol/L 10/10/18 Range/Units 19:24 CBC w Diff WBC (4.0-11.0) th/mm3 RBC (4.00-5.30) mil/mm3 Hgb (11.6-15.3) gm/dL Hct (35.0-46.0) % MCV (80.0-100.0) fL MCH (27.0-34.0) pg MCHC (32.0-36.0) % RDW (11.6-17.2) % Plt Count (150-450) th/mm3 MPV (7.0-11.0) fL Neut % (Auto) (16.0-70.0) % Lymph % (Auto) (9.0-44.0) % [place] % (Auto) (0.0-8.0) % Eos % (Auto) (0.0-4.0) % Baso % (Auto) (0.0-2.0) % Neut # (Auto) (1.8-7.7) th/mm3 Lymph # (Auto) (1.0-4.8) th/mm3 [place] # (Auto) (0.0-0.9) th/mm3 Eos # (Auto) (0.0-0.4) th/mm3 Baso # (Auto) (0.0-0.2) th/mm3 WBC Differential Differential Comment Puncture Site Patient Temperature O2 Saturation (90-100) % ABG pH (7.380-7.420) ABG pCO2 (38-42) mmHg ABG pO2 (61-120) mmHg ABG HCO3 (22-26) mmol/L ABG O2 Content (12.0-20.0) Vol % ABG Base Excess (-2-2) mmol/L ABG Methemoglobin (0-2) % Jairo Test Hemoglobin (12.0-16.0) G/DL Carboxyhemoglobin (0-4) % O2 Delivery Device Liter Flow L/M Critical Value Sodium (136-145) meq/L Potassium (3.5-5.1) meq/L Chloride (98-107) meq/L Carbon Dioxide (21.0-32.0) meq/L Anion Gap (5-15) meq/L BUN (7-18) mg/dL Creatinine (0.50-1.00) mg/dL Estimated GFR (>89) mL/min POC Glucose 550 H* (68-110) mg/dl Random Glucose (74-106) mg/dL Calcium (8.5-10.1) mg/dL Total Bilirubin (0.2-1.0) mg/dL AST (15-37) U/L ALT (10-53) U/L Alkaline Phosphatase (45-117) U/L Total Protein (6.4-8.2) g/dL Albumin (3.4-5.0) g/dL Beta-Hydroxybutyric Acd (0.00-0.39) mmol/L Imaging Data Attestation: I personally reviewed and interpreted this imaging study as follows : Radiologist's impression: Head CT 10/10/18 16:40 CONCLUSION: 1. Stable CT scan of the brain compared to the prior examination. . Chest X-Ray 10/10/18 18:12 CONCLUSION: 1. Cardiomegaly with trace positive fluid balance. Discharge Plan Discharge Order Discharge Orders: ED Use Only Admit Order (Routine); Ordered 10/10/18 Ordered By: Jakob Leyva Physicians Team ED Provider: Jakob Leyva Primary Care Provider: NON STAFF,PROVIDER Attending Provider: Chris Hunt Rxs /Orders / Referrals /Forms Prescriptions: No Action torsemide 20 mg Tablet 20 mg PO DAILY RF: 0 trazodone 50 mg Tablet 50 mg PO HS RF: 0 isosorbide mononitrate 30 mg Tablet Extended Release 24 Hr 30 mg PO DAILY RF: 0 hydralazine 25 mg Tablet 25 mg PO TID RF: 0 simvastatin 20 mg Tablet 20 mg PO QPM RF: 0 gabapentin 300 mg Capsule 300 mg PO TID RF: 0 levothyroxine 200 mcg Tablet 200 mcg PO DAILY RF: 0 ergocalciferol (vitamin D2) [Vitamin D2] 50,000 unit Capsule 50,000 unit PO BID RF: 0 sertraline 50 mg Tablet 50 mg PO HS RF: 0 hydroxyzine pamoate 25 mg Capsule 25 mg PO HS RF: 0 insulin aspart U-100 [Novolog Flexpen U-100 Insulin] 100 unit/mL Insulin Pen 5 unit SUBCUT QAM RF: 0 insulin degludec [Tresiba FlexTouch U-200] 200 unit/mL (3 mL) Insulin Pen 40 unit SUBCUT DAILY RF: 0 pantoprazole [Protonix] [address] For Susp In Packet 40 mg PO BID Qty: 30 RF: 0 carvedilol 12.5 mg Tablet 25 mg PO BID RF: 0 omeprazole 40 mg Capsule,Delayed Release(Dr/Ec) 40 mg PO DAILY RF: 0 albuterol sulfate 90 mcg/actuation HFA aerosol inhaler 2 inh INHALATION Q8H PRN (Reason: shortness of breath or wheezing) Qty: 18 RF : 0 Discharge Interventions Interventions: Vital Signs Last Done: 10/10/18 17:20 Status ED Status: Admitted Patient
[2018-10-10 17:17] LABS: Baso # (Auto) 0.1 th/mm3 (0.0-0.2); Baso % (Auto) 0.5 % (0.0-2.0); Eos # (Auto) 0.1 th/mm3 (0.0-0.4); Eos % (Auto) 0.9 % (0.0-4.0); Hematocrit 31.6 % (35.0-46.0); Hemoglobin 10.3 gm/dL (11.6-15.3); Lymph # (Auto) 0.6 th/mm3 (1.0-4.8); Lymph % (Auto) 5.4 % (9.0-44.0); Mean Corpuscular HGB Conc 32.6 % (32.0-36.0); Mean Corpuscular Hemoglobin 29.1 pg (27.0-34.0); Mean Corpuscular Volume 89.1 fL (80.0-100.0); Mean Platelet Volume 7.6 fL (7.0-11.0); Mono # (Auto) 0.3 th/mm3 (0.0-0.9); Neut # (Auto) 10.4 th/mm3 (1.8-7.7); Neut % (Auto) 90.2 % (16.0-70.0); Platelet Count 164 th/mm3 (150-450); Red Blood Count 3.55 mil/mm3 (4.00-5.30); Red Cell Distribution Width 14.5 % (11.6-17.2); White Blood Count 11.5 th/mm3 (4.0-11.0)
[2018-10-10 17:36] LABS: Alkaline Phosphatase 145 U/L (45-117); Anion Gap 14 meq/L (5-15); Aspartate Aminotransferase 14 U/L (15-37); Blood Urea Nitrogen 27 mg/dL (7-18); Calcium 9.1 mg/dL (8.5-10.1); Carbon Dioxide 23.1 meq/L (21.0-32.0); Chloride 92 meq/L (98-107); Glomerular Filtration Rate 21 mL/min (>89); Sodium 129 meq/L (136-145); Total Protein 7.5 g/dL (6.4-8.2)
[2018-10-10 17:45] LABS: Glucose,Random 700 mg/dL (74-106); Potassium 2.9 meq/L (3.5-5.1)
--- NOTE | 2018-10-10 17:47 | CT ---
EXAM DATE: 10/10/2018 5:44 PM EST AGE/SEX: 77 years / Female INDICATIONS: Cephalgia. Syncope. CLINICAL DATA: This is the patient's initial encounter. Patient reports that signs and symptoms have been present for 1 day and indicates a pain score of 6/10. MEDICAL/SURGICAL HISTORY: Hypertension. Stroke. Congestive heart failure. Tonsillectomy. RADIATION DOSE: 57.91 CTDI (mGy) COMPARISON: [facility] [place], CT HEAD W/O CONTRAST, 09/11/2018. . TECHNIQUE: CT of the head without contrast. Using automated exposure control and adjustment of the mA and/or kV according to patient size, radiation dose was kept as low as reasonably achievable to ob tain optimal diagnostic quality images. DICOM format image data is available electronically for revi ew and comparison. FINDINGS: Cerebrum: The ventricles are normal for age. Stable bilateral cortical atrophy and chronic white mat ter changes. No evidence of midline shift, mass lesion, hemorrhage or acute infarction. No extraaxi al fluid collections are seen. Posterior Fossa: The cerebellum and brainstem are intact. The 4th ventricle is midline. The cerebe llopontine angle is unremarkable. Extracranial: The visualized portion of the orbits is intact. Skull: The calvaria is intact. No evidence of skull fracture. No new or significant changes compared to the prior study. CONCLUSION: 1. Stable CT scan of the brain compared to the prior examination. . Electronically signed by: John Jaimes MD Board Certified Radiologist 10/10/2018 5:46 PM EST
[2018-10-10] MEDS ORDERED: Sodium Chlor 0.9% Inj 500 ML IV.SIG ONE (18:12)
[2018-10-10 18:43] LABS: ABG Base Excess 0.1 mmol/L (-2-2); ABG PCO2 40 mmHg (38-42); ABG PO2 77 mmHg (61-120)
--- NOTE | 2018-10-10 19:09 | XR ---
EXAM DATE: 10/10/2018 7:06 PM EST AGE/SEX: 77 years / Female INDICATIONS: Short of breath. CLINICAL DATA: This is the patient's initial encounter. Patient reports that signs and symptoms have been present for 1 day and indicates a pain score of 0/10. MEDICAL/SURGICAL HISTORY: . COPD. Asthma. DM type 2. CHF. . Tonsillectomy. 3 cardiac stent maci cements. COMPARISON: [facility], CHEST 1V SINGLE AP, 09/11/2018. . FINDINGS: Mild diffuse interstitial prominence improved from prior exam. Cardiac silhouette is enlarged. Remain cullen of exam is unchanged. CONCLUSION: 1. Cardiomegaly with trace positive fluid balance. Electronically signed by: Russel Holloway MD Board Certified Radiologist 10/10/2018 7:08 PM EST
[2018-10-10 19:55] LABS: Creatine Kinase 102 U/L (26-192)
[2018-10-10 19:56] LABS: Troponin I 0.14 ng/mL (0.02-0.05)
[2018-10-10 20:07] LABS: Creatine Kinase MB 5.1 ng/mL (0.5-3.6)
[2018-10-10] MEDS ORDERED: Dextrose 50% in Water 50 ML Vial IV.PUSH PRN (20:49)
[2018-10-10] MEDS ORDERED: Acetaminophen 325 MG Tablet PO PRN (21:00)
[2018-10-10] MEDS: Insulin NovoLOG Aspart Correctional Sugar Inj SQ SCH (21:28)
[2018-10-11] MEDS ORDERED: ALPRAZolam 0.25 MG Tablet PO ONE (00:19)
[2018-10-11 02:07] LABS: Troponin I 0.14 ng/mL (0.02-0.05)
[2018-10-11] MEDS: Insulin NovoLOG Aspart Correctional Sugar Inj SQ SCH ×5 (02:23→22:49)
--- NOTE | 2018-10-11 04:13 | P.HPIM ---
History of Present Illness Service: [facility] Primary Care Physician: PROVIDER NON STAFF Chief Complaint: Syncope History of Present Illness: 77-year-old female with a history of anxiety, CHF, COPD, diabetes, CVA presented to the ED after having a syncopal episode at her oncologist office. She was following up with Dr. Aranda for results on her recent bone marrow biopsy when she felt very upset and feeling lightheaded and generalized weakness when she passed out in her wheelchair. Per the ER physician there was no seizure activity and she did not fall. The ER physician talked to Dr. Prado who recommended patient be evaluated for an EP study by Dr. Li. She was also found to have a blood sugar of 700 and states she has been taking her insulin at home. Patient is somewhat of a poor historian and it is unsure how reliable she is. During her visit in the ER she did have a 10 beat run of V. tach and was asymptomatic. She is currently anxious because she does not know the results of her bone biopsy. Inpatient Certification Inpatient Certification: I certify that the inpatient services were ordered in accordance with Medicare regulations governing the order. This includes certification that hospital inpatient services are reasonable and necessary and in the case of services not specified as inpatient-only under 42 CFR 419.22(n), that they are appropriately provided as inpatient services in accordance to with the 2-midnight benchmark under 43 CFR 412.3(e) Estimated Total Length of Stay (Days): 2 Plans for Post Hospital Care: Home Review of Systems Review of Systems: all other systems reviewed are negative [facility] Medical History Medical History Anxiety (Acute) H/O: hysterectomy (Acute) Panic disorder (Acute) CHF (congestive heart failure) (Acute) COPD (chronic obstructive pulmonary disease) (Acute) Diabetes (Acute) HTN (hypertension) (Acute) Kidney disease (Acute) Stroke (Acute) Surgical History Surgical History History of tonsillectomy (Acute) H/O heart artery stent (Acute) Family History Family History Other Breast cancer Social History Social History Substance History: No History of Abuse Second Hand Smoke Exposure: No Smoking Status: Former smoker Tobacco Type: Cigarettes How Often Do You Have a Drink Containing Alcohol: Never Recent Travel in [facility] within the Last 8 Weeks: No Recent Out of Country Travel within the Last 8 Weeks: No Immunization History Tetanus Immunization: >5 Years Medications and Allergies Allergies Allergy/AdvReac Type Severity Reaction Status Date / Time penicillin G Allergy Severe HIVES Verified 10/10/18 16:16 minocycline [From Minocin] Allergy Hives Verified 10/10/18 16:16 Tetanus Vaccines and Toxoid Allergy Swelling Verified 10/10/18 16:16 TAPE Allergy Unknown Rash Uncoded 09/11/18 18:53 Home Medications Medication Instructions Recorded Confirmed Type ergocalciferol (vitamin D2) 50,000 unit PO BID 08/11/18 09/25/18 History [Vitamin D2] gabapentin 300 mg PO TID 08/11/18 10/10/18 History hydralazine 25 mg PO TID 08/11/18 10/10/18 History hydroxyzine pamoate 25 mg PO HS 08/11/18 09/25/18 History insulin aspart U-100 [Novolog 5 unit SUBCUT QAM 08/11/18 09/25/18 History Flexpen U-100 Insulin] insulin degludec [Tresiba 40 unit SUBCUT DAILY 08/11/18 10/10/18 History FlexTouch U-200] isosorbide mononitrate 30 mg PO DAILY 08/11/18 10/10/18 History levothyroxine 200 mcg PO DAILY 08/11/18 10/10/18 History sertraline 50 mg PO HS 08/11/18 10/10/18 History simvastatin 20 mg PO QPM 08/11/18 10/10/18 History torsemide 20 mg PO DAILY 08/11/18 10/10/18 History trazodone 50 mg PO HS 08/11/18 10/10/18 History carvedilol 25 mg PO BID 09/25/18 09/25/18 History omeprazole 40 mg PO DAILY 10/10/18 10/10/18 History Active Medications: Active Medications Acetaminophen (Tylenol) 650 mg PO Q4H PRN PRN Reason: Temp > 100.4 Dextrose (D50w Vial) 50 ml IV.PUSH UNSCH PRN PRN Reason: PER HYPOGLYCEMIA PROTOCOL Glucagon (Glucagon Inj) 1 mg OTHER PRN PRN PRN Reason: for Hypoglycemia Protocol Insulin Aspart (Novolog Insulin Correctional Sugar Inj) 0 unit SQ ACHS AND 3AM AG; Protocol Last Admin: 10/11/18 02:23 Dose: 4 unit Ondansetron HCl (Zofran Inj) 4 mg IV.PUSH Q6H PRN PRN Reason: NAUSEA OR VOMITING Sodium Chloride (Ns Flush) 2 ml IV.FLUSH BID AG Last Admin: 10/11/18 00:14 Dose: Not Given Sodium Chloride (Ns Flush) 2 ml IV.FLUSH PRN PRN PRN Reason: FLUSH AFTER USING IV ACCESS Physical Exam Vital signs: Last Vital Signs Temp 98.3 F 10/11/18 00:00 Pulse 52 L 10/11/18 01:00 Resp 16 10/11/18 00:00 BP 133/58 L 10/11/18 00:00 Pulse Ox 95 10/11/18 00:00 Intake & Output 10/08/18 10/09/18 10/10/18 10/11/18 06:59 06:59 06:59 06:59 Intake Total 500 / 500 Balance 500 / 500 Weight 70.76 kg Narrative: GENERAL: Well-nourished patient who is anxious, in no distress SKIN: Warm and dry. No open lesions or lacerations HEAD: Normocephalic. EYES: No scleral icterus. No injection or drainage. NECK: Supple, trachea midline. No JVD or lymphadenopathy. CARDIOVASCULAR: Regular rate and rhythm without murmurs, gallops, or rubs. RESPIRATORY: Breath sounds equal bilaterally. No accessory muscle use. GASTROINTESTINAL: Abdomen soft, non-tender, nondistended. MUSCULOSKELETAL: No cyanosis, or edema. Results Labs CBC & Chem 7: 10/10/18 17:00 10/10/18 17:[address] 10/10/18 16:40 CONCLUSION: 1. Stable CT scan of the brain compared to the prior examination. . Chest X-Ray 10/10/18 18:12 CONCLUSION: 1. Cardiomegaly with trace positive fluid balance. Caprini VTE Risk Assessment Caprini VTE Risk Assessment: Moderate/High Risk (score >= 2) Caprini Risk Assessment Model: Point Value = 1 Point Value = 2 Point Value = 3 Point Value = 5 Age 41-60 Minor surgery BMI > 25 kg/m2 Swollen legs Varicose veins or History of unexplained or recurrent spontaneous Oral contraceptives or hormone replacement Sepsis (< 1 month) Serious lung disease, including pneumonia (< 1 month) Abnormal pulmonary function Acute myocardial infarction Congestive heart failure (< 1 month) History of inflammatory bowel disease Medical patient at bed rest Age 61-74 Arthroscopic surgery Major open surgery (> 45 min) Laparoscopic surgery (> 45 min) Malignancy Confined to bed (> 72 hours) Immobilizing plaster cast Central venous access Age >= 75 History of VTE Family history of VTE Factor V Leiden Prothrombin [id number] Lupus anticoagulant Anticardiolipin antibodies Elevated serum homocysteine Heparin-induced thrombocytopenia Other congenital or acquired thrombophilia Stroke (< 1 month) Elective arthroplasty Hip, pelvis, or leg fracture Acute spinal cord injury (< 1 month) Prophylaxis Regimen: Total Risk Factor Score Risk Level Prophylaxis Regimen 0-1 Low Early ambulation 2 Moderate Order ONE of the following: *Sequential Compression Device (SCD) *Heparin 5000 units SQ BID 3-4 Higher Order ONE of the following medications: *Heparin 5000 units SQ TID *Enoxaparin/Lovenox 40 mg SQ daily (WT < 150 kg, CrCl > 30 mL/min) *Enoxaparin/Lovenox 30 mg SQ daily (WT < 150 kg, CrCl > 10-29 mL/min) *Enoxaparin/Lovenox 30 mg SQ BID (WT < 150 kg, CrCl > 30 mL/min) AND/OR *Sequential Compression Device (SCD) 5 or more Highest Order ONE of the following medications: *Heparin 5000 units SQ TID (Preferred with Epidurals) *Enoxaparin/Lovenox 40 mg SQ daily (WT < 150 kg, CrCl > 30 mL/min) *Enoxaparin/Lovenox 30 mg SQ daily (WT < 150 kg, CrCl > 10-29 mL/min) *Enoxaparin/Lovenox 30 mg SQ BID (WT < 150 kg, CrCl > 30 mL/min) AND *Sequential Compression Device (SCD) Assessment and Plan Plan 77-year-old female with a history of anxiety, CHF, COPD, diabetes, CVA presented to the ED after having a syncopal episode and her oncologist office. She states she was feeling lightheaded and generalized weakness when she passed out in her wheelchair. Syncope possibly due to heart arrhythmia -Consult cardiology, Dr. Holm for evaluation of EP study -Continue home beta-maura -N.p.o. -Carotid US ordered Hypokalemia Potassium 2.9 -Supplementation ordered, check potassium, replace as needed Hyperglycemia, Glucose 700 -Accu checks with SSI EMA, creatinine 2.3, baseline 1.8 -Mild hydration with IVF -Trend creatinine -Consider US if no improvement -Hold torsemide for now Elevated troponin, troponin 0.14 likely due to kidney function r/o acs -Serial troponin and EKGs -We will start heparin if troponin trends upward Plasma cell neoplasm -will consult her oncologist CHF, chronic Last echocardiogram August 2018 shows LV systolic function moderately reduced , EF 40-45% -Resume home medications -Monitor for fluid overload Anxiety -Xanax as needed COPD, chronic, not in exacerbation -Resume home medications, duo nebs as needed DVT prophylaxis: Heparin sq H&P: Quality VTE Deep Vein Thrombosis/Pulmonary Embolism Present on Admission: No
[2018-10-11] MEDS: Sod Chloride 0.9% Inj 1,000 ML IV.CONT SCH ×2 (05:31→18:20)
[2018-10-11 06:43] LABS: Baso # (Auto) 0.1 th/mm3 (0.0-0.2); Baso % (Auto) 0.5 % (0.0-2.0); Eos # (Auto) 0.2 th/mm3 (0.0-0.4); Eos % (Auto) 1.6 % (0.0-4.0); Hematocrit 26.6 % (35.0-46.0); Hemoglobin 9.3 gm/dL (11.6-15.3); Lymph # (Auto) 1.4 th/mm3 (1.0-4.8); Lymph % (Auto) 11.6 % (9.0-44.0); Mean Corpuscular Hemoglobin 30.4 pg (27.0-34.0); Mean Corpuscular Volume 86.8 fL (80.0-100.0); Mean Platelet Volume 7.8 fL (7.0-11.0); Mono # (Auto) 0.7 th/mm3 (0.0-0.9); Mono % (Auto) 6.1 % (0.0-8.0); Neut # (Auto) 9.4 th/mm3 (1.8-7.7); Neut % (Auto) 80.2 % (16.0-70.0); Platelet Count 148 th/mm3 (150-450); Red Blood Count 3.06 mil/mm3 (4.00-5.30); Red Cell Distribution Width 15.8 % (11.6-17.2); White Blood Count 11.7 th/mm3 (4.0-11.0)
[2018-10-11 07:03] LABS: Calcium 9.1 mg/dL (8.5-10.1); Carbon Dioxide 25.7 meq/L (21.0-32.0); Troponin I 0.18 ng/mL (0.02-0.05)
[2018-10-11 07:12] LABS: Potassium 2.9 meq/L (3.5-5.1)
[2018-10-11] MEDS ORDERED: Magnesium Sulfate Inj 2 GM in Sodium Chlor 0.9% Inj 96 ML IV.SIG ONE (09:00)
[2018-10-11] MEDS: hydrALAZINE 25 MG Tablet PO SCH ×4 (09:22→18:20)
[2018-10-11] MEDS: Heparin - SQ 10,000 UNITS/ML Vial SQ SCH ×2 (09:23→22:51)
[2018-10-11] MEDS: Isosorbide Mononitrate 30 MG ER 24HR Tablet (Imdur) PO SCH ×2 (09:23→16:16)
--- NOTE | 2018-10-11 09:28 | US ---
EXAM DATE: 10/11/2018 7:48 AM EST AGE/SEX: 77 years / Female INDICATIONS: Syncope. CLINICAL DATA: This is the patient's initial encounter. Patient reports that signs and symptoms have been present for 1 day and indicates a pain score of 0/10. MEDICAL/SURGICAL HISTORY: . Congestive heart failure. Chronic obstructive pulmonary disease. Hy pertension. Diabetes. CVA. Kidney disease. Tonsillectomy. Coronary artery stent. COMPARISON: POI, CTA CAROTID ARTERIES, 08/12/2015. . VELOCITY PARAMETERS: ICA/CCA Ratio: Right 2.7 , Left 1.2 ICA: Right 183 cm/sec, Left 90 cm/sec CCA: Right 67 cm/sec, Left 73 cm/sec ECA: Right 140 cm/sec, Left 124 cm/sec Vertebral: Right 60 cm/sec antegrade, Left 42 cm/sec antegrade FINDINGS: Right Carotid: There is extensive atherosclerotic plaquing at the bifurcation.The waveforms are with in normal limits. Left Carotid: There is moderate atherosclerotic plaquing at the bifurcation. The waveforms are withi n normal limits. Other: None. CONCLUSION: 1. Right Internal Carotid Artery: Extensive atherosclerotic plaquing with elevation of the peak syst olic velocity ratio suggesting hemodynamically significant stenosis in the origin of the right chemistry intern al carotid. This is in the range of 50-69% by NASCET criteria. 2. Left Internal Carotid Artery: Moderate atherosclerotic plaquing. Exam would suggest a mild degree of stenosis at the bifurcation. This does not appear hemodynamically significant. Electronically signed by: Stevo Ventura MD Board Certified Radiologist 10/11/2018 9:27 AM EST
[2018-10-11] MEDS ORDERED: Regadenoson Inj 0.4 MG/5 ML Syringe IV.PUSH ONE (09:30)
--- NOTE | 2018-10-11 10:00 | MB ---
cc: Sascha Krishna MD DATE: 10/11/2018 REASON FOR CONSULTATION: Syncopal episode. HISTORY OF PRESENT ILLNESS: Ms. Silva is a 77-year-old female with history of CVA, heart failure, COPD, diabetes mellitus, coronary artery disease. She had a previous PTCA plus stent by in 2005. Reportedly, 2-3 years ago, she had 3-4 stent placement. The patient was at the doctor's office and lost consciousness. She was brought to the emergency room. Also, blood sugar was high at 700. Episode of nonsustained ventricular tachycardia also observed. I was consulted for further evaluation and management. The patient was reviewed. The patient was evaluated. ALLERGIES: MULTIPLE, PENICILLIN, MINOCYCLINE, TETANUS TOXOID, AND TAPE. SOCIAL HISTORY: She denies smoking and drinking. FAMILY HISTORY: Noncontributory to her current medical condition. MEDICATIONS: She is on Apresoline 25 mg, 3 times a day. She is on acetaminophen. She is on Imdur 30 mg a day, Levoxyl 200 mcg a day, magnesium sulfate, Zofran, Protonix, Pravachol 40 mg a day, Zoloft 50 mg a day and trazodone 50 mg at bedtime. REVIEW OF SYSTEMS: Currently, the patient referred no chest pain, no chest discomfort. No fever. PHYSICAL EXAMINATION: GENERAL: Alert, fully oriented. VITAL SIGNS: Blood pressure on evaluation 112/57, pulse 60, respiratory rate 18. LUNGS: Ventilated. CARDIOVASCULAR: S1, S2. No gallop. No murmur. ABDOMEN: Soft. No masses. No bruits. EXTREMITIES: No edema. ELECTROCARDIOGRAM: Sinus rhythm, sinus yan, diffuse ST changes. LABORATORY DATA: Hemoglobin 9.3, white blood cell 11.7. Potassium normal at 2.9, creatinine 2.08. Troponin 0.18. BNP over 2500. ASSESSMENT AND RECOMMENDATIONS: Ms. Silva had a syncopal episode. Also, her blood sugar was very high. It is controlled right now. Also, her blood pressure was very high. She has a history of coronary artery disease and multiple stent placements. Her BNP is over 2500. During hospitalization, she had an episode of nonsustained ventricular tachycardia, over 210 beats observed. At this point, she will need a nuclear stress study. If the nuclear stress study is negative for ischemia, then I will consider electrophysiology study. Also, her potassium is low. Potassium will need to be replaced. Replacement is in the process. We will await for new lab. Case extensively discussed with her. Will be followed this weekend by one of my partners. Possible electrophysiology study on Sunday morning. MD ROSA Gabriel/[email or web address] , 08:52 AM , 09:02 AM
--- NOTE | 2018-10-11 12:09 | NM ---
EXAM DATE: 10/11/2018 11:54 AM EST AGE/SEX: 77 years / Female INDICATIONS:Angina. . Syncope. CLINICAL DATA: This is the patient's initial encounter. Patient reports that signs and symptoms have been present for 1 day and indicates a pain score of 5/10. MEDICAL/SURGICAL HISTORY: Chronic obstructive pulmonary disease. Congestive heart failure. Hy pertension. Diabetes. Tonsillectomy. Coronary artery stent. COMPARISON: No prior exams available for comparison. DOSE: 8.1 mCi Tc 99m Myoview at rest 26.3 mCi [id number] at stress 0.4 mg Lexiscan STRESS SYMPTOMS: Short of breath. EJECTION FRACTION: 45 % TECHNIQUE: The patient underwent pharmacologic stress with infusion of prescribed dose. Continuous ECG tracing was monitored during stress. Gated SPECT imaging was performed after stress and conventi onal SPECT imaging was performed at rest. The examination was performed on a SPECT/CT scanner, both attenuation and non-corrected datasets were reviewed. FINDINGS: Distribution: The maximum perfused segment at stress is in the anterior lateral wall. Perfusion Study: The pattern of perfusion at stress is within normal limits. Gated Study: There are intact wall motion and wall thickening without hypokinetic or dyskinetic segm ents. The ejection fraction is calculated at 45%. RISK CATEGORY: Low (<1% Annual Mortality Rate) CONCLUSION: 1. Globally depressed ejection fraction without evidence for stress-induced ischemia Electronically signed by: Jim Ventura MD Board Certified Radiologist 10/11/2018 12:08 PM EST
[2018-10-11] MEDS ORDERED: MethylPREDNISolone Sod Succinate Inj 125 MG/2 ML Vial IV.PUSH ONE (15:13)
--- NOTE | 2018-10-11 15:32 | P.PNIM ---
Subjective Interval history: Chief Complaint: Syncope History of Present Illness: 77-year-old female with a history of anxiety, CHF, COPD, diabetes, CVA presented to the ED after having a syncopal episode at her oncologist office. She was following up with Dr. Aranda for results on her recent bone marrow biopsy when she felt very upset and feeling lightheaded and generalized weakness when she passed out in her wheelchair. Per the ER physician there was no seizure activity and she did not fall. The ER physician talked to Dr. Prado who recommended patient be evaluated for an EP study by Dr. Li. She was also found to have a blood sugar of 700 and states she has been taking her insulin at home. Patient is somewhat of a poor historian and it is unsure how reliable she is. During her visit in the ER she did have a 10 beat run of V. tach and was asymptomatic. She is currently anxious because she does not know the results of her bone biopsy. 1-4 ANNETTE ALARCON- HAS MULTIPLE MYELOMA- HE FEELS HAS INTERSTITIAL PNEUMONITIS- WILL GIVE STEROID HYPOKALEMIA WILL REPLACE SEEN BY DR GORDON POSSIBLE EP STUDY IN FUTURE ANNETTE RN AND PATIENT AND CM AM LABS NUCLEAR STRESS SHOWS DEPRESSED EF WITHOUT STRESS INDUCED ISCHEMIA AT EF OF 45% Physical Exam Vital signs: Vital Signs 10/10/18 16:10 10/10/18 17:00 10/10/18 17:20 Temperature 98.7 F Pulse Rate 73 58 L 58 L Respiratory Rate 24 18 Blood Pressure 224/97 H 189/85 H Pulse Oximetry 98 98 10/10/18 19:34 10/10/18 20:29 10/10/18 21:32 Temperature Pulse Rate 58 L 54 L 53 L Respiratory Rate 17 16 16 Blood Pressure 116/57 L 133/57 L 140/73 Pulse Oximetry 97 97 98 10/11/18 00:00 10/11/18 00:10 10/11/18 01:00 Temperature 98.3 F Pulse Rate 58 L 51 L 52 L Respiratory Rate 16 Blood Pressure 133/58 L Pulse Oximetry 95 10/11/18 02:00 10/11/18 03:00 10/11/18 04:00 Temperature 99.2 F Pulse Rate 48 L 51 L 51 L Respiratory Rate 16 Blood Pressure 112/57 L Pulse Oximetry 98 10/11/18 05:00 10/11/18 06:00 10/11/18 07:00 Temperature 98 F Pulse Rate 56 L 58 L 46 L Respiratory Rate 16 Blood Pressure 137/80 Pulse Oximetry 97 10/11/18 08:00 10/11/18 09:00 10/11/18 10:00 Temperature Pulse Rate 64 62 62 Respiratory Rate Blood Pressure Pulse Oximetry 10/11/18 12:00 10/11/18 13:00 10/11/18 14:00 Temperature 98 F Pulse Rate 62 67 65 Respiratory Rate 16 Blood Pressure 157/69 H Pulse Oximetry 93 L Intake & Output 10/10/18 10/11/18 10/11/18 18:59 06:59 18:59 Intake Total 500 / 500 100 / 100 Balance 500 / 500 100 / 100 Weight 70.76 kg 70.5 kg Intake: IV 500 / 500 100 / 100 Magnesium Sulfate Inj 2 GM In 100 / 100 NS Inj 96 ML @ 50 mls/hr IV.SIG ONCE ONE Rx#:[id number] NS Inj 500 ML @ Wide Open IV. 500 / 500 SIG BOLUS ONE Rx#:[id number] Other: # Voids 1 # Bowel Movements 1 Narrative: GENERAL: Well-nourished patient who is anxious, in no distress SKIN: Warm and dry. No open lesions or lacerations HEAD: Normocephalic. EYES: No scleral icterus. No injection or drainage. NECK: Supple, trachea midline. No JVD or lymphadenopathy. CARDIOVASCULAR: Regular rate and rhythm without murmurs, gallops, or rubs. RESPIRATORY: Breath sounds equal bilaterally. No accessory muscle use. GASTROINTESTINAL: Abdomen soft, non-tender, nondistended. MUSCULOSKELETAL: No cyanosis, or edema. Results - Labs CBC & Chem 7: 10/11/18 05:29 10/11/18 05:29 Laboratory Results - last 24 hr 10/10/18 10/10/18 10/10/18 17:00 17:00 17:00 CBC w Diff Auto diff final WBC 11.5 H RBC 3.55 L Hgb 10.3 L Hct 31.6 L MCV 89.1 MCH 29.1 MCHC 32.6 RDW 14.5 Plt Count 164 D MPV 7.6 Neut % (Auto) 90.2 H Lymph % (Auto) 5.4 L [place] % (Auto) 3.0 Eos % (Auto) 0.9 Baso % (Auto) 0.5 Neut # (Auto) 10.4 H Lymph # (Auto) 0.6 L [place] # (Auto) 0.3 Eos # (Auto) 0.1 Baso # (Auto) 0.1 WBC Differential . Differential Comment . Puncture Site Patient Temperature O2 Saturation ABG pH ABG pCO2 ABG pO2 ABG HCO3 ABG O2 Content ABG Base Excess ABG Methemoglobin [place] Test Hemoglobin Carboxyhemoglobin O2 Delivery Device Liter Flow Critical Value Sodium 129 L Potassium 2.9 L* Chloride 92 L Carbon Dioxide 23.1 Anion Gap 14 BUN 27 H Creatinine 2.30 H Estimated GFR 21 L POC Glucose Random Glucose 700 H* Calcium 9.1 Magnesium Total Bilirubin 0.6 AST 14 L ALT Less than 6 L Alkaline Phosphatase 145 H Total Creatine Kinase CK-MB (CK-2) Troponin I B-Natriuretic Peptide Total Protein 7.5 Albumin 3.0 L Beta-Hydroxybutyric Acd 1.50 H Stl C.difficile DNA Amp St C. diff Tox Epid 027 10/10/18 10/10/18 10/10/18 17:00 18:09 18:35 CBC w Diff WBC RBC Hgb Hct MCV MCH MCHC RDW Plt Count MPV Neut % (Auto) Lymph % (Auto) [place] % (Auto) Eos % (Auto) Baso % (Auto) Neut # (Auto) Lymph # (Auto) [place] # (Auto) Eos # (Auto) Baso # (Auto) WBC Differential Differential Comment Puncture Site Right brachial Patient Temperature 98.6 O2 Saturation 93 ABG pH 7.40 ABG pCO2 40 ABG pO2 77 ABG HCO3 24 ABG O2 Content 17.5 ABG Base Excess 0.1 ABG Methemoglobin 0.6 [place] Test Present Hemoglobin 13.3 Carboxyhemoglobin 1.6 O2 Delivery Device Nasal cannula Liter Flow 2.00 Critical Value No Sodium Potassium Chloride Carbon Dioxide Anion Gap BUN Creatinine Estimated GFR POC Glucose Greater than 600 H* Random Glucose Calcium Magnesium Total Bilirubin AST ALT Alkaline Phosphatase Total Creatine Kinase 102 CK-MB (CK-2) 5.1 H Troponin I 0.14 H B-Natriuretic Peptide Total Protein Albumin Beta-Hydroxybutyric Acd Stl C.difficile DNA Amp St C. diff Tox Epid 027 10/10/18 10/10/18 10/10/18 19:02 19:24 21:06 CBC w Diff WBC RBC Hgb Hct MCV MCH MCHC RDW Plt Count MPV Neut % (Auto) Lymph % (Auto) [place] % (Auto) Eos % (Auto) Baso % (Auto) Neut # (Auto) Lymph # (Auto) [place] # (Auto) Eos # (Auto) Baso # (Auto) WBC Differential Differential Comment Puncture Site Patient Temperature O2 Saturation ABG pH ABG pCO2 ABG pO2 ABG HCO3 ABG O2 Content ABG Base Excess ABG Methemoglobin [place] Test Hemoglobin Carboxyhemoglobin O2 Delivery Device Liter Flow Critical Value Sodium Potassium Chloride Carbon Dioxide Anion Gap BUN Creatinine Estimated GFR POC Glucose Greater than 600 H* 550 H* 419 H Random Glucose Calcium Magnesium Total Bilirubin AST ALT Alkaline Phosphatase Total Creatine Kinase CK-MB (CK-2) Troponin I B-Natriuretic Peptide Total Protein Albumin Beta-Hydroxybutyric Acd Stl C.difficile DNA Amp St C. diff Tox Epid 027 10/10/18 10/11/18 10/11/18 22:07 01:13 02:00 CBC w Diff WBC RBC Hgb Hct MCV MCH MCHC RDW Plt Count MPV Neut % (Auto) Lymph % (Auto) [place] % (Auto) Eos % (Auto) Baso % (Auto) Neut # (Auto) Lymph # (Auto) [place] # (Auto) Eos # (Auto) Baso # (Auto) WBC Differential Differential Comment Puncture Site Patient Temperature O2 Saturation ABG pH ABG pCO2 ABG pO2 ABG HCO3 ABG O2 Content ABG Base Excess ABG Methemoglobin [place] Test Hemoglobin Carboxyhemoglobin O2 Delivery Device Liter Flow Critical Value Sodium Potassium Chloride Carbon Dioxide Anion Gap BUN Creatinine Estimated GFR POC Glucose 439 H Random Glucose Calcium Magnesium Total Bilirubin AST ALT Alkaline Phosphatase Total Creatine Kinase 97 CK-MB (CK-2) Troponin I 0.14 H B-Natriuretic Peptide Total Protein Albumin Beta-Hydroxybutyric Acd Stl C.difficile DNA Amp Negative St C. diff Tox Epid 027 Negative 10/11/18 10/11/18 10/11/18 02:20 05:29 05:29 CBC w Diff WBC 11.7 H RBC 3.06 L Hgb 9.3 L Hct 26.6 L MCV 86.8 MCH 30.4 MCHC 35.0 RDW 15.8 Plt Count 148 L MPV 7.8 Neut % (Auto) 80.2 H Lymph % (Auto) 11.6 [place] % (Auto) 6.1 Eos % (Auto) 1.6 Baso % (Auto) 0.5 Neut # (Auto) 9.4 H Lymph # (Auto) 1.4 [place] # (Auto) 0.7 Eos # (Auto) 0.2 Baso # (Auto) 0.1 WBC Differential . Differential Comment Auto diff final Puncture Site Patient Temperature O2 Saturation ABG pH ABG pCO2 ABG pO2 ABG HCO3 ABG O2 Content ABG Base Excess ABG Methemoglobin [place] Test Hemoglobin Carboxyhemoglobin O2 Delivery Device Liter Flow Critical Value Sodium 138 Potassium 2.9 L* Chloride 103 D Carbon Dioxide 25.7 Anion Gap 9 BUN 26 H Creatinine 2.08 H Estimated GFR 23 L POC Glucose 222 H Random Glucose 143 H D Calcium 9.1 Magnesium Total Bilirubin AST ALT Alkaline Phosphatase Total Creatine Kinase 88 CK-MB (CK-2) Troponin I 0.18 H B-Natriuretic Peptide Total Protein Albumin Beta-Hydroxybutyric Acd Stl C.difficile DNA Amp St C. diff Tox Epid 027 10/11/18 10/11/18 10/11/18 05:29 09:21 09:27 CBC w Diff WBC RBC Hgb Hct MCV MCH MCHC RDW Plt Count MPV Neut % (Auto) Lymph % (Auto) [place] % (Auto) Eos % (Auto) Baso % (Auto) Neut # (Auto) Lymph # (Auto) [place] # (Auto) Eos # (Auto) Baso # (Auto) WBC Differential Differential Comment Puncture Site Patient Temperature O2 Saturation ABG pH ABG pCO2 ABG pO2 ABG HCO3 ABG O2 Content ABG Base Excess ABG Methemoglobin [place] Test Hemoglobin Carboxyhemoglobin O2 Delivery Device Liter Flow Critical Value Sodium Potassium Chloride Carbon Dioxide Anion Gap BUN Creatinine Estimated GFR POC Glucose 192 H Random Glucose Calcium Magnesium 1.9 Total Bilirubin AST ALT Alkaline Phosphatase Total Creatine Kinase CK-MB (CK-2) Troponin I B-Natriuretic Peptide 2518 H Total Protein Albumin Beta-Hydroxybutyric Acd Stl C.difficile DNA Amp St C. diff Tox Epid 027 10/11/18 13:23 CBC w Diff WBC RBC Hgb Hct MCV MCH MCHC RDW Plt Count MPV Neut % (Auto) Lymph % (Auto) [place] % (Auto) Eos % (Auto) Baso % (Auto) Neut # (Auto) Lymph # (Auto) [place] # (Auto) Eos # (Auto) Baso # (Auto) WBC Differential Differential Comment Puncture Site Patient Temperature O2 Saturation ABG pH ABG pCO2 ABG pO2 ABG HCO3 ABG O2 Content ABG Base Excess ABG Methemoglobin [place] Test Hemoglobin Carboxyhemoglobin O2 Delivery Device Liter Flow Critical Value Sodium Potassium Chloride Carbon Dioxide Anion Gap BUN Creatinine Estimated GFR POC Glucose 249 H Random Glucose Calcium Magnesium Total Bilirubin AST ALT Alkaline Phosphatase Total Creatine Kinase CK-MB (CK-2) Troponin I B-Natriuretic Peptide Total Protein Albumin Beta-Hydroxybutyric Acd Stl C.difficile DNA Amp St C. diff Tox Epid 027 - Imaging Impressions Head CT 10/10/18 16:40 CONCLUSION: 1. Stable CT scan of the brain compared to the prior examination. . Chest X-Ray 10/10/18 18:12 CONCLUSION: 1. Cardiomegaly with trace positive fluid balance. Carotid Doppler Study 10/11/18 00:00 CONCLUSION: 1. Right Internal Carotid Artery: Extensive atherosclerotic plaquing with elevation of the peak systolic velocity ratio suggesting hemodynamically significant stenosis in the origin of the right internal carotid. This is in the range of 50-69% by NASCET criteria. 2. Left Internal Carotid Artery: Moderate atherosclerotic plaquing. Exam would suggest a mild degree of stenosis at the bifurcation. This does not appear hemodynamically significant. Myocardial Perfusion Scan Nuc Med 10/11/18 00:00 CONCLUSION: 1. Globally depressed ejection fraction without evidence for stress-induced ischemia Assessment and Plan - Plan 77-year-old female with a history of anxiety, CHF, COPD, diabetes, CVA presented to the ED after having a syncopal episode and her oncologist office. She states she was feeling lightheaded and generalized weakness when she passed out in her wheelchair. Syncope possibly due to heart arrhythmia -Consult cardiology, Dr. GORDON for evaluation of EP study -Continue home [id number] -START DIET -Carotid US ordered Hypokalemia Potassium 2.9 -Supplementation ordered, check potassium, replace as needed REPLACE POTASSIUM Hyperglycemia, Glucose 700 -Accu checks with SSI EMA, creatinine 2.3, baseline 1.8 -Mild hydration with IVF -Trend creatinine -Consider US if no improvement -Hold torsemide for now Elevated troponin, troponin 0.14 likely due to kidney function r/o acs -Serial troponin and EKGs -We will start heparin if troponin trends upward Plasma cell neoplasm/MULTIPLE MYELOMA -will consult her oncologist CHF, chronic Last echocardiogram August 2018 shows LV systolic function moderately reduced , EF 40-45% -Resume home medications -Monitor for fluid overload Anxiety -Xanax as needed COPD, chronic, not in exacerbation -Resume home medications, duo nebs as needed INTERSTITIAL PNEUMONITIS START STEROIDS PER DR ALARCON AM LABS CARDIAC DIABETIC DIET DVT prophylaxis: Heparin sq Code Status: FULL CODE Discussed Condition With: RN AND PT AND CM AND DR ALARCON Discharge Planning: ONCE CLEARED BY CARDIOLOGY AND ONCOLOGY
--- NOTE | 2018-10-11 17:22 | PQ ---
Physician Query Response Document PATIENT: Rita Trivedi : 1940 ADMIT DATE: 10/10/2018 7:28 PM DISCH DATE: RESPONDING PROVIDER #: SGRNINA QUERY TEXT: CDS Clarification Acute on chronic systolic heart failure in a patient whose last echo Aug 2018 showed LV systolic func tion moderately reduced, EF 40-45% and on admission had a BNP 2518 CXR showed Cardiomegaly with trace positive fluid balance TX Cardiology consult / close monitoriing for fluid overload in an intermedi ate cardiac setting daily labs, weight /continue home meds Carvedilol HCTZ, Other explanation of clinical findings. Unable to determine (no explanation for clinical findings). The medical record reflects the following clinical findings, treatment, and risk factors. * Clinical Indicators Cardiomegaly with trace positive fluid balance. last echo Aug 2018 shows LV sys tolic function moderately reduced, EF 40-45% BNP 2518 * Risk Factors HTN EMA * Treatment Cardiology consult / close monitoriing for fluid overload in an intermediate cardiac set ting daily labs, weight /continue home meds Carvedilol HCTZ, The patient's Clinical Indicators include: Please clarify and document your clinical opinion in the progress notes and discharge summary includi ng the definitive and/or presumptive diagnosis (suspected or probable), related to the above clinical findings. Please include clinical findings supporting your diagnosis. Thank you, Jessica Connelly CDS: Jessica Connelly Patient Unit: [facility] Contact Number: Room: 243 Query created by: Jessica Connelly on 10/11/2018 11:57 AM RESPONSE TEXT: Provider disagreed with this CDI query. probable interstital pneumonitis steroids added Electronically signed by: Jim Gamboa 10/11/2018 5:18 PM
--- NOTE | 2018-10-11 17:57 | ECG ---
Date Performed: 10/10/2018 Time Performed: 17:00:01 PTAGE: 77 years EKG: SINUS BRADYCARDIA POSSIBLE LEFT ATRIAL ENLARGEMENT LEFT VENTRICULAR HYPERTROPHY AND ST-T CH CARLOS POSSIBLE SEPTAL MYOCARDIAL INFARCTION Compared to previous tracing, sinus rate is slower ABNORMA L ECG PREVIOUS TRACING : 09/11/2018 19.47 DOCTOR: Leonardo Eastman Interpretating Date/Time 10/11/2018 17:55:53
--- NOTE | 2018-10-11 18:09 | P.CON ---
History of Present Illness Primary Care Provider: PROVIDER NON STAFF Chief Complaint: Syncope History of Present Illness: Ms. Silva is a 77 year old lady with anxiety, CHF, COPD, DM, history of CVA. She was being followed in oncology clinic for work up of pancytopenia and evaluation for paraproteinemia. She presented to oncology clinic for follow up visit and evaluation of further laboratory studies. In the lobby she had a seizure and subsequently became obtunded. EMS called. She was found to have blood sugars greater than 600. Laboratoy studies revealed M-spike of 0.8 with an IgAKLC monoclonal gamapthy. IgA elevated at 1344. KLC 49.2. LLC 5.6. Free light chain ratio 9.79. B12, folate, iron profile WNL. Bone marrow biopsy revealed plasma cell neoplasm with 0.88% plasma cells on flow cytometry. No chromosome abnormalitiy. No lytic bony lesions. Creatinine elevated, patient has anemia. Review of Systems All other systems reviewed negative except as stated in HPI PMFSH - History History Provided By: Patient - Medical History Medical History: Medical History (Last Reviewed 10/11/18 @ 17:59 by Christal Aranda) Anxiety H/O: hysterectomy Panic disorder CHF (congestive heart failure) COPD (chronic obstructive pulmonary disease) Diabetes HTN (hypertension) Kidney disease Stroke - Surgical History Surgical History: Surgical History (Last Reviewed 10/11/18 @ 17:59 by Christal Aranda) History of tonsillectomy H/O heart artery stent - Family History Family History: Family History (Last Reviewed 10/11/18 @ 17:59 by Christal Aranda) Other Breast cancer - Tobacco History Second Hand Smoke Exposure: No Tobacco Use In Past 30 Days: No Smoking Status: Former smoker Tobacco Type: Cigarettes - Alcohol History How Often Do You Have a Drink Containing Alcohol: Never - Substance Use History Substance History: No History of Abuse - Travel History Recent Travel in the [place] Within the Last 8 Weeks: No Recent Travel Out of the Country Within the Last 8 Weeks: No - Immunization History Tetanus Immunization: >5 Years Medications and Allergies Active Medications: Active Medications Acetaminophen (Tylenol) 650 mg PO Q4H PRN PRN Reason: Temp > 100.4 Dextrose (D50w Vial) 50 ml IV.PUSH UNSCH PRN PRN Reason: PER HYPOGLYCEMIA PROTOCOL Glucagon (Glucagon Inj) 1 mg OTHER PRN PRN PRN Reason: for Hypoglycemia Protocol Heparin Sodium (Porcine) (Heparin Inj) 5,000 units SQ Q12HR [facility] Last Admin: 10/11/18 09:23 Dose: 5,000 units Hydralazine HCl (Apresoline) 25 mg PO TID [facility] Last Admin: 10/11/18 16:16 Dose: 25 mg Sodium Chloride (Ns Inj) 1,000 mls @ 75 mls/hr IV.CONT .[id number] [facility] Last Admin: 10/11/18 05:31 Dose: 75 mls/hr Insulin Aspart (Novolog Insulin Correctional Sugar Inj) 0 unit SQ ACHS AND 3AM AG; Protocol Last Admin: 10/11/18 16:02 Dose: 4 unit Isosorbide Mononitrate (Imdur) 30 mg PO DAILY [facility] Last Admin: 10/11/18 16:16 Dose: 30 mg Levothyroxine Sodium (Synthroid) 200 mcg PO DAILY@0600 [facility] Last Admin: 10/11/18 05:30 Dose: 200 mcg Methylprednisolone Sodium Succinate (Solumedrol Inj) 40 mg IV.PUSH Q8HR [facility] Ondansetron HCl (Zofran Inj) 4 mg IV.PUSH Q6H PRN PRN Reason: NAUSEA OR VOMITING Pantoprazole Sodium (Protonix) 40 mg PO DAILY [facility] Last Admin: 10/11/18 09:23 Dose: Not Given Pravastatin Sodium (Pravachol) 40 mg PO QPM AG Sertraline HCl (Zoloft) 50 mg PO HS [facility] Sodium Chloride (Ns Flush) 2 ml IV.FLUSH BID [facility] Last Admin: 10/11/18 09:23 Dose: Not Given Sodium Chloride (Ns Flush) 2 ml IV.FLUSH PRN PRN PRN Reason: FLUSH AFTER USING IV ACCESS Trazodone HCl (Desyrel) 50 mg PO HS [facility] Allergies Allergy/AdvReac Type Severity Reaction Status Date / Time penicillin G Allergy Severe HIVES Verified 10/10/18 16:16 minocycline [From Minocin] Allergy Hives Verified 10/10/18 16:16 Tetanus Vaccines and Toxoid Allergy Swelling Verified 10/10/18 16:16 TAPE Allergy Unknown Rash Uncoded 09/11/18 18:53 Home Medications Medication Instructions Recorded Confirmed Type ergocalciferol (vitamin D2) 50,000 unit PO BID 08/11/18 09/25/18 History [Vitamin D2] gabapentin 300 mg PO TID 08/11/18 10/10/18 History hydralazine 25 mg PO TID 08/11/18 10/10/18 History hydroxyzine pamoate 25 mg PO HS 08/11/18 09/25/18 History insulin aspart U-100 [Novolog 5 unit SUBCUT QAM 08/11/18 09/25/18 History Flexpen U-100 Insulin] insulin degludec [Tresiba 40 unit SUBCUT DAILY 08/11/18 10/10/18 History FlexTouch U-200] isosorbide mononitrate 30 mg PO DAILY 08/11/18 10/10/18 History levothyroxine 200 mcg PO DAILY 08/11/18 10/10/18 History sertraline 50 mg PO HS 08/11/18 10/10/18 History simvastatin 20 mg PO QPM 08/11/18 10/10/18 History torsemide 20 mg PO DAILY 08/11/18 10/10/18 History trazodone 50 mg PO HS 08/11/18 10/10/18 History carvedilol 25 mg PO BID 09/25/18 09/25/18 History omeprazole 40 mg PO DAILY 10/10/18 10/10/18 History Physical Exam Vital signs: Vital Signs 10/10/18 19:34 10/10/18 20:29 10/10/18 21:32 Temperature Pulse Rate 58 L 54 L 53 L Respiratory Rate 17 16 16 Blood Pressure 116/57 L 133/57 L 140/73 Pulse Oximetry 97 97 98 10/11/18 00:00 10/11/18 00:10 10/11/18 01:00 Temperature 98.3 F Pulse Rate 58 L 51 L 52 L Respiratory Rate 16 Blood Pressure 133/58 L Pulse Oximetry 95 10/11/18 02:00 10/11/18 03:00 10/11/18 04:00 Temperature 99.2 F Pulse Rate 48 L 51 L 51 L Respiratory Rate 16 Blood Pressure 112/57 L Pulse Oximetry 98 10/11/18 05:00 10/11/18 06:00 10/11/18 07:00 Temperature 98 F Pulse Rate 56 L 58 L 46 L Respiratory Rate 16 Blood Pressure 137/80 Pulse Oximetry 97 10/11/18 08:00 10/11/18 09:00 10/11/18 10:00 Temperature Pulse Rate 64 62 62 Respiratory Rate Blood Pressure Pulse Oximetry 10/11/18 12:00 10/11/18 13:00 10/11/18 14:00 Temperature 98 F Pulse Rate 62 67 65 Respiratory Rate 16 Blood Pressure 157/69 H Pulse Oximetry 93 L 10/11/18 16:00 Temperature 98.1 F Pulse Rate 54 L Respiratory Rate 16 Blood Pressure 180/74 H Pulse Oximetry Intake & Output 10/10/18 10/11/18 10/11/18 18:59 06:59 18:59 Intake Total 500 / 500 100 / 100 Balance 500 / 500 100 / 100 Weight 70.76 kg 70.5 kg Intake: IV 500 / 500 100 / 100 Magnesium Sulfate Inj 2 GM In 100 / 100 NS Inj 96 ML @ 50 mls/hr IV.SIG ONCE ONE Rx#:[id number] NS Inj 500 ML @ Wide Open IV. 500 / 500 SIG BOLUS ONE Rx#:[id number] Other: # Voids 1 Date of Last Bowel Movement 10/11/18 # Bowel Movements 1 - Constitutional no acute distress - Routine HEENT Exam Head: Present: normocephalic, atraumatic Eye: Present: EOMI, PERRL ENT: Present: mucous membranes moist - Routine Neck Exam Present: supple, full ROM - Routine Respiratory Exam Present: CTA bilaterally - Routine Cardiovascular Exam Present: RRR, S1, S2 - Routine Abdominal Exam Present: soft, normoactive bowel sounds - Routine Skin Exam Present: intact - Routine Neurological Exam Present: alert, oriented X3 Results - Labs CBC & Chem 7: 10/11/18 05:29 10/11/18 05:29 Labs: Laboratory Results - last 24 hr 10/10/18 10/10/18 10/10/18 17:00 17:00 17:00 WBC RBC Hgb Hct MCV MCH MCHC RDW Plt Count MPV Neut % (Auto) Lymph % (Auto) Mcmullen % (Auto) Eos % (Auto) Baso % (Auto) Neut # (Auto) Lymph # (Auto) Mcmullen # (Auto) Eos # (Auto) Baso # (Auto) WBC Differential Differential Comment Puncture Site Patient Temperature O2 Saturation ABG pH ABG pCO2 ABG pO2 ABG HCO3 ABG O2 Content ABG Base Excess ABG Methemoglobin Jairo Test Hemoglobin Carboxyhemoglobin O2 Delivery Device Liter Flow Critical Value Sodium 129 L Potassium 2.9 L* Chloride 92 L Carbon Dioxide 23.1 Anion Gap 14 BUN 27 H Creatinine 2.30 H Estimated GFR 21 L POC Glucose Random Glucose 700 H* Calcium 9.1 Magnesium Total Bilirubin 0.6 AST 14 L ALT Less than 6 L Alkaline Phosphatase 145 H Total Creatine Kinase 102 CK-MB (CK-2) 5.1 H Troponin I 0.14 H B-Natriuretic Peptide Total Protein 7.5 Albumin 3.0 L Beta-Hydroxybutyric Acd 1.50 H Stl C.difficile DNA Amp St C. diff Tox Epid 027 10/10/18 10/10/18 10/10/18 18:09 18:35 19:02 WBC RBC Hgb Hct MCV MCH MCHC RDW Plt Count MPV Neut % (Auto) Lymph % (Auto) Mcmullen % (Auto) Eos % (Auto) Baso % (Auto) Neut # (Auto) Lymph # (Auto) Mcmullen # (Auto) Eos # (Auto) Baso # (Auto) WBC Differential Differential Comment Puncture Site Right brachial Patient Temperature 98.6 O2 Saturation 93 ABG pH 7.40 ABG pCO2 40 ABG pO2 77 ABG HCO3 24 ABG O2 Content 17.5 ABG Base Excess 0.1 ABG Methemoglobin 0.6 Jairo Test Present Hemoglobin 13.3 Carboxyhemoglobin 1.6 O2 Delivery Device Nasal cannula Liter Flow 2.00 Critical Value No Sodium Potassium Chloride Carbon Dioxide Anion Gap BUN Creatinine Estimated GFR POC Glucose Greater than 600 H* Greater than 600 H* Random Glucose Calcium Magnesium Total Bilirubin AST ALT Alkaline Phosphatase Total Creatine Kinase CK-MB (CK-2) Troponin I B-Natriuretic Peptide Total Protein Albumin Beta-Hydroxybutyric Acd Stl C.difficile DNA Amp St C. diff Tox Epid 027 10/10/18 10/10/18 10/10/18 19:24 21:06 22:07 WBC RBC Hgb Hct MCV MCH MCHC RDW Plt Count MPV Neut % (Auto) Lymph % (Auto) Mcmullen % (Auto) Eos % (Auto) Baso % (Auto) Neut # (Auto) Lymph # (Auto) Mcmullen # (Auto) Eos # (Auto) Baso # (Auto) WBC Differential Differential Comment Puncture Site Patient Temperature O2 Saturation ABG pH ABG pCO2 ABG pO2 ABG HCO3 ABG O2 Content ABG Base Excess ABG Methemoglobin Jairo Test Hemoglobin Carboxyhemoglobin O2 Delivery Device Liter Flow Critical Value Sodium Potassium Chloride Carbon Dioxide Anion Gap BUN Creatinine Estimated GFR POC Glucose 550 H* 419 H 439 H Random Glucose Calcium Magnesium Total Bilirubin AST ALT Alkaline Phosphatase Total Creatine Kinase CK-MB (CK-2) Troponin I B-Natriuretic Peptide Total Protein Albumin Beta-Hydroxybutyric Acd Stl C.difficile DNA Amp St C. diff Tox Epid 027 10/11/18 10/11/18 10/11/18 01:13 02:00 02:20 WBC RBC Hgb Hct MCV MCH MCHC RDW Plt Count MPV Neut % (Auto) Lymph % (Auto) Mcmullen % (Auto) Eos % (Auto) Baso % (Auto) Neut # (Auto) Lymph # (Auto) Mcmullen # (Auto) Eos # (Auto) Baso # (Auto) WBC Differential Differential Comment Puncture Site Patient Temperature O2 Saturation ABG pH ABG pCO2 ABG pO2 ABG HCO3 ABG O2 Content ABG Base Excess ABG Methemoglobin Jairo Test Hemoglobin Carboxyhemoglobin O2 Delivery Device Liter Flow Critical Value Sodium Potassium Chloride Carbon Dioxide Anion Gap BUN Creatinine Estimated GFR POC Glucose 222 H Random Glucose Calcium Magnesium Total Bilirubin AST ALT Alkaline Phosphatase Total Creatine Kinase 97 CK-MB (CK-2) Troponin I 0.14 H B-Natriuretic Peptide Total Protein Albumin Beta-Hydroxybutyric Acd Stl C.difficile DNA Amp Negative St C. diff Tox Epid 027 Negative 10/11/18 10/11/18 10/11/18 05:29 05:29 05:29 WBC 11.7 H RBC 3.06 L Hgb 9.3 L Hct 26.6 L MCV 86.8 MCH 30.4 MCHC 35.0 RDW 15.8 Plt Count 148 L MPV 7.8 Neut % (Auto) 80.2 H Lymph % (Auto) 11.6 Mcmullen % (Auto) 6.1 Eos % (Auto) 1.6 Baso % (Auto) 0.5 Neut # (Auto) 9.4 H Lymph # (Auto) 1.4 Mcmullen # (Auto) 0.7 Eos # (Auto) 0.2 Baso # (Auto) 0.1 WBC Differential . Differential Comment Auto diff final Puncture Site Patient Temperature O2 Saturation ABG pH ABG pCO2 ABG pO2 ABG HCO3 ABG O2 Content ABG Base Excess ABG Methemoglobin Jairo Test Hemoglobin Carboxyhemoglobin O2 Delivery Device Liter Flow Critical Value Sodium 138 Potassium 2.9 L* Chloride 103 D Carbon Dioxide 25.7 Anion Gap 9 BUN 26 H Creatinine 2.08 H Estimated GFR 23 L POC Glucose Random Glucose 143 H D Calcium 9.1 Magnesium Total Bilirubin AST ALT Alkaline Phosphatase Total Creatine Kinase 88 CK-MB (CK-2) Troponin I 0.18 H B-Natriuretic Peptide 2518 H Total Protein Albumin Beta-Hydroxybutyric Acd Stl C.difficile DNA Amp St C. diff Tox Epid 027 10/11/18 10/11/18 10/11/18 09:21 09:27 13:23 WBC RBC Hgb Hct MCV MCH MCHC RDW Plt Count MPV Neut % (Auto) Lymph % (Auto) Mcmullen % (Auto) Eos % (Auto) Baso % (Auto) Neut # (Auto) Lymph # (Auto) Mcmullen # (Auto) Eos # (Auto) Baso # (Auto) WBC Differential Differential Comment Puncture Site Patient Temperature O2 Saturation ABG pH ABG pCO2 ABG pO2 ABG HCO3 ABG O2 Content ABG Base Excess ABG Methemoglobin Jairo Test Hemoglobin Carboxyhemoglobin O2 Delivery Device Liter Flow Critical Value Sodium Potassium Chloride Carbon Dioxide Anion Gap BUN Creatinine Estimated GFR POC Glucose 192 H 249 H Random Glucose Calcium Magnesium 1.9 Total Bilirubin AST ALT Alkaline Phosphatase Total Creatine Kinase CK-MB (CK-2) Troponin I B-Natriuretic Peptide Total Protein Albumin Beta-Hydroxybutyric Acd Stl C.difficile DNA Amp St C. diff Tox Epid 027 10/11/18 15:57 WBC RBC Hgb Hct MCV MCH MCHC RDW Plt Count MPV Neut % (Auto) Lymph % (Auto) Mcmullen % (Auto) Eos % (Auto) Baso % (Auto) Neut # (Auto) Lymph # (Auto) Mcmullen # (Auto) Eos # (Auto) Baso # (Auto) WBC Differential Differential Comment Puncture Site Patient Temperature O2 Saturation ABG pH ABG pCO2 ABG pO2 ABG HCO3 ABG O2 Content ABG Base Excess ABG Methemoglobin Jairo Test Hemoglobin Carboxyhemoglobin O2 Delivery Device Liter Flow Critical Value Sodium Potassium Chloride Carbon Dioxide Anion Gap BUN Creatinine Estimated GFR POC Glucose 229 H Random Glucose Calcium Magnesium Total Bilirubin AST ALT Alkaline Phosphatase Total Creatine Kinase CK-MB (CK-2) Troponin I B-Natriuretic Peptide Total Protein Albumin Beta-Hydroxybutyric Acd Stl C.difficile DNA Amp St C. diff Tox Epid 027 - Imaging Impressions Head CT 10/10/18 16:40 CONCLUSION: 1. Stable CT scan of the brain compared to the prior examination. . Chest X-Ray 10/10/18 18:12 CONCLUSION: 1. Cardiomegaly with trace positive fluid balance. Carotid Doppler Study 10/11/18 00:00 CONCLUSION: 1. Right Internal Carotid Artery: Extensive atherosclerotic plaquing with elevation of the peak systolic velocity ratio suggesting hemodynamically significant stenosis in the origin of the right internal carotid. This is in the range of 50-69% by NASCET criteria. 2. Left Internal Carotid Artery: Moderate atherosclerotic plaquing. Exam would suggest a mild degree of stenosis at the bifurcation. This does not appear hemodynamically significant. Myocardial Perfusion Scan Nuc Med 10/11/18 00:00 CONCLUSION: 1. Globally depressed ejection fraction without evidence for stress-induced ischemia Assessment and Plan - Plan Plasma cell neoplasm: UPEP negative. She has bone marrow plasma cells less than 10%, SPEP less than 3. She has CKD and anemia which can be caused by myeloma but also her uncontrolled DM could be contributing. Per patient report she had work up for paraproteinemia performed many years ago which was nondiagnostic for myleoma. Could consider performing renal biopsy to determine exact cause of renal disease. Will need to discuss further with patient and family risks vs benefit. No family members present at bedside. This can be further evaluated outpatient after patient has recovered from acute medical issues. Anemia: iron profile, ferritin WNL. B12, folate WNL. LDH, haptoglobin WNL. No evidence of hemolysis, CKD, iron defeicney, B12 deficiency. Patient does have CKD which can certainly be contributing to anemia.
[2018-10-11] MEDS: traZODone 50 MG Tablet PO SCH (22:50)
[2018-10-11] MEDS: MethylPREDNISolone Sod Succinate Inj 40 MG/ML Vial IV.PUSH SCH (22:51)
[2018-10-11] MEDS: Sertraline 50 MG Tablet PO SCH (22:52)
[2018-10-11] MEDS: Insulin Detemir Inj 1,000 UNIT/10 ML Vial SQ SCH (23:33)
[2018-10-12] MEDS: Insulin NovoLOG Aspart Correctional Sugar Inj SQ SCH ×5 (03:08→22:39)
[2018-10-12] MEDS: Isosorbide Mononitrate 30 MG ER 24HR Tablet (Imdur) PO SCH ×2 (03:09→10:13)
[2018-10-12 07:15] LABS: Baso % (Auto) 0.3 % (0.0-2.0); Eos % (Auto) 0.1 % (0.0-4.0); Hematocrit 26.3 % (35.0-46.0); Hemoglobin 8.9 gm/dL (11.6-15.3); Lymph # (Auto) 0.6 th/mm3 (1.0-4.8); Lymph % (Auto) 3.7 % (9.0-44.0); Mean Corpuscular HGB Conc 33.8 % (32.0-36.0); Mean Corpuscular Volume 88.7 fL (80.0-100.0); Mean Platelet Volume 7.7 fL (7.0-11.0); Mono # (Auto) 0.2 th/mm3 (0.0-0.9); Mono % (Auto) 1.4 % (0.0-8.0); Neut # (Auto) 15.8 th/mm3 (1.8-7.7); Neut % (Auto) 94.5 % (16.0-70.0); Platelet Count 142 th/mm3 (150-450); Red Blood Count 2.97 mil/mm3 (4.00-5.30); Red Cell Distribution Width 15.7 % (11.6-17.2); White Blood Count 16.7 th/mm3 (4.0-11.0)
[2018-10-12 07:48] LABS: Alanine Aminotransferase 6 U/L (10-53); Albumin 2.8 g/dL (3.4-5.0); Anion Gap 8 meq/L (5-15); Aspartate Aminotransferase 13 U/L (15-37); Blood Urea Nitrogen 28 mg/dL (7-18); Calcium 9.1 mg/dL (8.5-10.1); Carbon Dioxide 23.2 meq/L (21.0-32.0); Chloride 105 meq/L (98-107); Glomerular Filtration Rate 24 mL/min (>89); Glucose,Random 252 mg/dL (74-106); Magnesium 2.4 mg/dL (1.5-2.5); Potassium 4.1 meq/L (3.5-5.1); Sodium 136 meq/L (136-145)
[2018-10-12 07:49] LABS: Alkaline Phosphatase 130 U/L (45-117); Free T4 (Free Thyroxine) 1.18 ng/dL (0.76-1.46); Phosphorus 1.9 mg/dL (2.5-4.9); Thyroid Stimulating Hormone 0.204 uIU/mL (0.358-3.740); Total Protein 6.6 g/dL (6.4-8.2)
[2018-10-12] MEDS: MethylPREDNISolone Sod Succinate Inj 40 MG/ML Vial IV.PUSH SCH ×3 (08:20→21:59)
[2018-10-12] MEDS: Sod Chloride 0.9% Inj 1,000 ML IV.CONT SCH ×2 (08:22→21:57)
[2018-10-12] MEDS: hydrALAZINE 25 MG Tablet PO SCH ×3 (10:13→17:19)
[2018-10-12] MEDS: Heparin - SQ 10,000 UNITS/ML Vial SQ SCH ×2 (10:13→21:58)
[2018-10-12 12:54] LABS: Hemoglobin A1c 11.7 % (4.3-6.0)
--- NOTE | 2018-10-12 15:25 | P.PNIM ---
Subjective Interval history: Chief Complaint: Syncope History of Present Illness: 77-year-old female with a history of anxiety, CHF, COPD, diabetes, CVA presented to the ED after having a syncopal episode at her oncologist office. She was following up with Dr. Aranda for results on her recent bone marrow biopsy when she felt very upset and feeling lightheaded and generalized weakness when she passed out in her wheelchair. Per the ER physician there was no seizure activity and she did not fall. The ER physician talked to Dr. Prado who recommended patient be evaluated for an EP study by Dr. GORDON. She was also found to have a blood sugar of 700 and states she has been taking her insulin at home. Patient is somewhat of a poor historian and it is unsure how reliable she is. During her visit in the ER she did have a 10 beat run of V. tach and was asymptomatic. She is currently anxious because she does not know the results of her bone biopsy. 1-[address] ALARCON- HAS PLASMA CELL NEOPLASM- HE FEELS HAS INTERSTITIAL PNEUMONITIS - WILL GIVE STEROID HYPOKALEMIA WILL REPLACE SEEN BY DR GORDON POSSIBLE EP STUDY IN FUTURE ANNETTE RN AND PATIENT AND CM AM LABS NUCLEAR STRESS SHOWS DEPRESSED EF WITHOUT STRESS INDUCED ISCHEMIA AT EF OF 45% 1-5 BREATHING BETTER FEELS STRONGER TODAY ANNETTE RN AND PT AND CM WILL NEED EP STUDY WITH DR GORDON ON SUNDAY AM LABS Physical Exam Vital signs: Vital Signs 10/11/18 16:00 10/11/18 17:00 10/11/18 18:00 Temperature 98.1 F Pulse Rate 62 62 66 Respiratory Rate 16 Blood Pressure 180/74 H Pulse Oximetry 10/11/18 18:28 10/11/18 20:00 10/11/18 21:00 Temperature Pulse Rate 73 76 Respiratory Rate 16 Blood Pressure 120/60 206/89 H Pulse Oximetry 98 10/11/18 22:00 10/11/18 23:00 10/11/18 23:05 Temperature Pulse Rate 76 76 Respiratory Rate Blood Pressure 195/95 H Pulse Oximetry 10/12/18 00:00 10/12/18 01:00 10/12/18 02:00 Temperature Pulse Rate 70 74 72 Respiratory Rate 16 Blood Pressure 191/78 H Pulse Oximetry 100 10/12/18 03:00 10/12/18 04:00 10/12/18 05:00 Temperature 98.5 F Pulse Rate 68 75 70 Respiratory Rate 16 Blood Pressure 186/56 H Pulse Oximetry 98 10/12/18 06:00 10/12/18 07:00 10/12/18 08:00 Temperature Pulse Rate 54 L 57 L 62 Respiratory Rate Blood Pressure Pulse Oximetry 10/12/18 09:00 10/12/18 09:58 10/12/18 10:00 Temperature 99.5 F Pulse Rate 56 L 85 76 Respiratory Rate 16 Blood Pressure 157/93 H Pulse Oximetry 95 10/12/18 11:00 10/12/18 13:42 Temperature 97 F L Pulse Rate 70 75 Respiratory Rate 16 Blood Pressure 165/77 H Pulse Oximetry 97 Intake & Output 10/11/18 10/12/18 10/12/18 18:59 06:59 18:59 Intake Total 1340 / 1340 900 / 900 950 / 950 Output Total 600 / 600 1100 / 1100 Balance 740 / 740 -200 / -200 950 / 950 Weight 70.2 kg Intake: IV 1100 / 1100 950 / 950 NS Inj 1,000 ML @ 75 mls/hr IV. 1000 / 1000 950 / 950 CONT .[id number] [facility] Rx#:[id number] Magnesium Sulfate Inj 2 GM In 100 / 100 NS Inj 96 ML @ 50 mls/hr IV.SIG ONCE ONE Rx#:[id number] Oral 240 / 240 900 / 900 Output: Urine 600 / 600 1100 / 1100 Other: # Voids 2 Date of Last Bowel Movement 10/11/18 10/11/18 10/11/18 # Bowel Movements 1 1 Narrative: GENERAL: Well-nourished patient who is anxious, in no distress SKIN: Warm and dry. No open lesions or lacerations HEAD: Normocephalic. EYES: No scleral icterus. No injection or drainage. NECK: Supple, trachea midline. No JVD or lymphadenopathy. CARDIOVASCULAR: Regular rate and rhythm without murmurs, gallops, or rubs. RESPIRATORY: Breath sounds equal bilaterally. No accessory muscle use. GASTROINTESTINAL: Abdomen soft, non-tender, nondistended. MUSCULOSKELETAL: No cyanosis, or edema. Results - Labs CBC & Chem 7: 10/12/18 06:00 10/12/18 06:00 Laboratory Results - last 24 hr 10/11/18 10/11/18 10/11/18 15:57 22:44 23:29 WBC RBC Hgb Hct MCV MCH MCHC RDW Plt Count MPV Neut % (Auto) Lymph % (Auto) Kidder % (Auto) Eos % (Auto) Baso % (Auto) Neut # (Auto) Lymph # (Auto) Kidder # (Auto) Eos # (Auto) Baso # (Auto) WBC Differential Differential Comment Sodium Potassium Chloride Carbon Dioxide Anion Gap BUN Creatinine Estimated GFR POC Glucose 229 H 488 H* 478 H* Random Glucose Hemoglobin A1c Calcium Phosphorus Magnesium Total Bilirubin AST ALT Alkaline Phosphatase Total Protein Albumin TSH Free T4 10/12/18 10/12/18 10/12/18 00:29 02:58 06:00 WBC 16.7 H RBC 2.97 L Hgb 8.9 L Hct 26.3 L MCV 88.7 MCH 30.0 MCHC 33.8 RDW 15.7 Plt Count 142 L MPV 7.7 Neut % (Auto) 94.5 H Lymph % (Auto) 3.7 L Kidder % (Auto) 1.4 Eos % (Auto) 0.1 Baso % (Auto) 0.3 Neut # (Auto) 15.8 H Lymph # (Auto) 0.6 L Kidder # (Auto) 0.2 Eos # (Auto) 0.0 Baso # (Auto) 0.0 WBC Differential . Differential Comment Auto diff final Sodium Potassium Chloride Carbon Dioxide Anion Gap BUN Creatinine Estimated GFR POC Glucose 443 H 343 H Random Glucose Hemoglobin A1c Calcium Phosphorus Magnesium Total Bilirubin AST ALT Alkaline Phosphatase Total Protein Albumin TSH Free T4 10/12/18 10/12/18 10/12/18 06:00 06:00 08:02 WBC RBC Hgb Hct MCV MCH MCHC RDW Plt Count MPV Neut % (Auto) Lymph % (Auto) Kidder % (Auto) Eos % (Auto) Baso % (Auto) Neut # (Auto) Lymph # (Auto) Kidder # (Auto) Eos # (Auto) Baso # (Auto) WBC Differential Differential Comment Sodium 136 Potassium 4.1 D Chloride 105 Carbon Dioxide 23.2 Anion Gap 8 BUN 28 H Creatinine 2.04 H Estimated GFR 24 L POC Glucose 255 H Random Glucose 252 H D Hemoglobin A1c 11.7 H Calcium 9.1 Phosphorus 1.9 L Magnesium 2.4 Total Bilirubin 0.3 AST 13 L ALT 6 L Alkaline Phosphatase 130 H Total Protein 6.6 D Albumin 2.8 L TSH 0.204 L Free T4 1.18 10/12/18 10:40 WBC RBC Hgb Hct MCV MCH MCHC RDW Plt Count MPV Neut % (Auto) Lymph % (Auto) Kidder % (Auto) Eos % (Auto) Baso % (Auto) Neut # (Auto) Lymph # (Auto) Kidder # (Auto) Eos # (Auto) Baso # (Auto) WBC Differential Differential Comment Sodium Potassium Chloride Carbon Dioxide Anion Gap BUN Creatinine Estimated GFR POC Glucose 291 H Random Glucose Hemoglobin A1c Calcium Phosphorus Magnesium Total Bilirubin AST ALT Alkaline Phosphatase Total Protein Albumin TSH Free T4 - Imaging ITS Impressions Head CT 10/10/18 16:40 CONCLUSION: 1. Stable CT scan of the brain compared to the prior examination. . Chest X-Ray 10/10/18 18:12 CONCLUSION: 1. Cardiomegaly with trace positive fluid balance. Carotid Doppler Study 10/11/18 00:00 CONCLUSION: 1. Right Internal Carotid Artery: Extensive atherosclerotic plaquing with elevation of the peak systolic velocity ratio suggesting hemodynamically significant stenosis in the origin of the right internal carotid. This is in the range of 50-69% by NASCET criteria. 2. Left Internal Carotid Artery: Moderate atherosclerotic plaquing. Exam would suggest a mild degree of stenosis at the bifurcation. This does not appear hemodynamically significant. Myocardial Perfusion Scan Nuc Med 10/11/18 00:00 CONCLUSION: 1. Globally depressed ejection fraction without evidence for stress-induced ischemia - Procedures STRESS TEST Assessment and Plan - Plan 77-year-old female with a history of anxiety, CHF, COPD, diabetes, CVA presented to the ED after having a syncopal episode and her oncologist office. She states she was feeling lightheaded and generalized weakness when she passed out in her wheelchair. Syncope possibly due to heart arrhythmia -Consult cardiology, Dr. GORDON for evaluation of EP study -Continue home [id number] -START DIET -Carotid US ordered Hypokalemia Potassium 2.9 -Supplementation ordered, check potassium, replace as needed REPLACE POTASSIUM IMPROVED Hyperglycemia, Glucose 700 -Accu checks with SSI WATCH SUGARS EMA, creatinine 2.3, baseline 1.8 -Mild hydration with IVF -Trend creatinine -Consider US if no improvement -Hold torsemide for now Elevated troponin, troponin 0.14 likely due to kidney function r/o acs -Serial troponin and EKGs -We will start heparin if troponin trends upward Plasma cell neoplasm/MULTIPLE MYELOMA -will consult her oncologist CHF, chronic Last echocardiogram August 2018 shows LV systolic function moderately reduced , EF 40-45% -Resume home medications -Monitor for fluid overload Anxiety -Xanax as needed COPD, chronic, not in exacerbation -Resume home medications, duo nebs as needed INTERSTITIAL PNEUMONITIS START STEROIDS PER DR ALARCON AM LABS CARDIAC DIABETIC DIET DVT prophylaxis: Heparin sq Code Status: FULL CODE Discussed Condition With: RN AND PT AND CM Discharge Planning: ONCE CLEARED BY CARDIOLOGY AND ONCOLOGY NEEDS EP STUDY WITH EVAN ON SUNDAY
[2018-10-12] MEDS: traZODone 50 MG Tablet PO SCH (21:57)
[2018-10-12] MEDS: Insulin Detemir Inj 1,000 UNIT/10 ML Vial SQ SCH (21:58)
[2018-10-12] MEDS: Sertraline 50 MG Tablet PO SCH (21:59)
[2018-10-13] MEDS: MethylPREDNISolone Sod Succinate Inj 40 MG/ML Vial IV.PUSH SCH ×3 (02:55→21:58)
[2018-10-13] MEDS: Insulin NovoLOG Aspart Correctional Sugar Inj SQ SCH ×5 (03:13→21:57)
[2018-10-13 07:52] LABS: Baso % (Auto) 0.2 % (0.0-2.0); Hematocrit 26.5 % (35.0-46.0); Lymph # (Auto) 0.5 th/mm3 (1.0-4.8); Lymph % (Auto) 3.1 % (9.0-44.0); Mean Corpuscular HGB Conc 33.8 % (32.0-36.0); Mean Corpuscular Hemoglobin 30.3 pg (27.0-34.0); Mean Corpuscular Volume 89.6 fL (80.0-100.0); Mono # (Auto) 0.4 th/mm3 (0.0-0.9); Mono % (Auto) 2.3 % (0.0-8.0); Neut # (Auto) 14.8 th/mm3 (1.8-7.7); Neut % (Auto) 94.4 % (16.0-70.0); Platelet Count 149 th/mm3 (150-450); Red Blood Count 2.96 mil/mm3 (4.00-5.30); Red Cell Distribution Width 15.6 % (11.6-17.2); White Blood Count 15.7 th/mm3 (4.0-11.0)
[2018-10-13 08:08] LABS: Albumin 2.9 g/dL (3.4-5.0); Anion Gap 8 meq/L (5-15); Blood Urea Nitrogen 34 mg/dL (7-18); Calcium 9.3 mg/dL (8.5-10.1); Carbon Dioxide 22.5 meq/L (21.0-32.0); Chloride 105 meq/L (98-107); Glomerular Filtration Rate 25 mL/min (>89); Glucose,Random 230 mg/dL (74-106); Magnesium 2.4 mg/dL (1.5-2.5); Potassium 4.4 meq/L (3.5-5.1); Sodium 135 meq/L (136-145)
[2018-10-13 08:09] LABS: Aspartate Aminotransferase 11 U/L (15-37)
[2018-10-13 08:23] LABS: Alkaline Phosphatase 128 U/L (45-117); Phosphorus 3.2 mg/dL (2.5-4.9); Total Protein 6.6 g/dL (6.4-8.2)
[2018-10-13] MEDS: Isosorbide Mononitrate 30 MG ER 24HR Tablet (Imdur) PO SCH (09:36)
[2018-10-13] MEDS: hydrALAZINE 25 MG Tablet PO SCH ×3 (09:36→17:00)
[2018-10-13] MEDS: Heparin - SQ 10,000 UNITS/ML Vial SQ SCH ×2 (09:37→21:55)
[2018-10-13] MEDS: Sod Chloride 0.9% Inj 1,000 ML IV.CONT SCH (09:44)
--- NOTE | 2018-10-13 14:41 | ECG ---
Date Performed: 10/12/2018 Time Performed: 22:00:10 PTAGE: 77 years EKG: Sinus rhythm Possible left ventricular hypertrophy Lateral ST-T changes are probably due to ventricular hypertrop hy Abnormal ECG Compared to PREVIOUS TRACING , possible changes of septal myocardial infarction no longer present. T- wave changes have improved slightly. PREVIOUS TRACIN10/10/2018 17.00 DOCTOR: Chalino Snow Interpretating Date/Time 10/13/2018 14:40:33
--- NOTE | 2018-10-13 15:51 | P.PNIM ---
Subjective Interval history: patient reports feeling well. no dizziness or lightheadedness. Physical Exam Vital signs: Last Vital Signs Temp 98.5 F 10/13/18 12:37 Pulse 77 10/13/18 12:37 Resp 18 10/13/18 12:37 BP 153/74 H 10/13/18 12:37 Pulse Ox 94 L 10/13/18 12:37 Intake & Output 10/11/18 10/12/18 10/13/18 10/14/18 06:59 06:59 06:59 06:59 Intake Total 500 / 500 2240 / 2240 2380 / 2380 Output Total 1700 / 1700 1600 / 1600 Balance 500 / 500 540 / 540 780 / 780 Weight 70.5 kg 70.2 kg 70.5 kg Narrative: GENERAL: Well-nourished patient who is anxious, in no distress SKIN: Warm and dry. No open lesions or lacerations HEAD: Normocephalic. EYES: No scleral icterus. No injection or drainage. NECK: Supple, trachea midline. No JVD or lymphadenopathy. CARDIOVASCULAR: Regular rate and rhythm without murmurs, gallops, or rubs. RESPIRATORY: Breath sounds equal bilaterally. No accessory muscle use. GASTROINTESTINAL: Abdomen soft, non-tender, nondistended. MUSCULOSKELETAL: No cyanosis, or edema. Results Labs CBC & Chem 7: 10/13/18 06:30 10/13/18 06:30 Procedures Procedures: STRESS TEST Assessment and Plan Plan 77-year-old female with a history of anxiety, CHF, COPD, diabetes, CVA presented to the ED after having a syncopal episode and her oncologist office. She states she was feeling lightheaded and generalized weakness when she passed out in her wheelchair. Syncope possibly due to heart arrhythmia mildly elevated troponin likely due to arrhythmia. Head CT negative, nuclear stress test negative for ischemia. appreciate cardiology. Dr. GORDON -- EP study--planned for Saturday 10/14 -B maura on hold due to bradycardia. DM type 2 with Hyperglycemia-A1C 11.7% this admission. blood glucose uncontrolled, range mostly 300's to 400's, steroids contributing. Required 44units of coverage 10/12, currently on Levemir 10 hs, increased Levemir to 20 units BID. -Accu checks with SSI Acute kidney injury on CKD III, baseline 1.8 creatinine, peaked at 2.3 this admission, now 1.9 Avoid nephrotoxins. Hypokalemia-jenni 2.9, repleted and now resolved. Plasma cell neoplasm-appreciate heme/onc recs. outpatient follow up. CHF, chronic Last echocardiogram August 2018 shows LV systolic function moderately reduced , EF 40-45% home medications continued, Torsemide on hold at present. 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 Haddad Progress Note: Quality VTE Deep Vein Thrombosis/Pulmonary Embolism Present on Admission: No
--- NOTE | 2018-10-13 21:09 | P.PNIM ---
Subjective Interval history: not seen Physical Exam Vital signs: Last Vital Signs Temp 98.3 F 10/13/18 16:35 Pulse 77 10/13/18 20:00 Resp 18 10/13/18 16:35 BP 153/74 H 10/13/18 12:37 Pulse Ox 94 L 10/13/18 16:35 Intake & Output 10/11/18 10/12/18 10/13/18 10/14/18 06:59 06:59 06:59 06:59 Intake Total 500 / 500 2240 / 2240 2380 / 2380 860 / 860 Output Total 1700 / 1700 1600 / 1600 1100 / 1100 Balance 500 / 500 540 / 540 780 / 780 -240 / -240 Weight 70.5 kg 70.2 kg 70.5 kg Narrative: GENERAL: Well-nourished patient who is anxious, in no distress SKIN: Warm and dry. No open lesions or lacerations HEAD: Normocephalic. EYES: No scleral icterus. No injection or drainage. NECK: Supple, trachea midline. No JVD or lymphadenopathy. CARDIOVASCULAR: Regular rate and rhythm without murmurs, gallops, or rubs. RESPIRATORY: Breath sounds equal bilaterally. No accessory muscle use. GASTROINTESTINAL: Abdomen soft, non-tender, nondistended. MUSCULOSKELETAL: No cyanosis, or edema. Results Labs CBC & Chem 7: 10/13/18 06:30 10/13/18 06:30 Imaging Imaging: ITS Impressions Head CT 10/10/18 16:40 CONCLUSION: 1. Stable CT scan of the brain compared to the prior examination. . Chest X-Ray 10/10/18 18:12 CONCLUSION: 1. Cardiomegaly with trace positive fluid balance. Carotid Doppler Study 10/11/18 00:00 CONCLUSION: 1. Right Internal Carotid Artery: Extensive atherosclerotic plaquing with elevation of the peak systolic velocity ratio suggesting hemodynamically significant stenosis in the origin of the right internal carotid. This is in the range of 50-69% by NASCET criteria. 2. Left Internal Carotid Artery: Moderate atherosclerotic plaquing. Exam would suggest a mild degree of stenosis at the bifurcation. This does not appear hemodynamically significant. Myocardial Perfusion Scan Nuc Med 10/11/18 00:00 CONCLUSION: 1. Globally depressed ejection fraction without evidence for stress-induced ischemia Procedures Procedures: STRESS TEST Assessment and Plan Plan 77-year-old female with a history of anxiety, CHF, COPD, diabetes, CVA presented to the ED after having a syncopal episode and her oncologist office. She states she was feeling lightheaded and generalized weakness when she passed out in her wheelchair. Syncope possibly due to heart arrhythmia mildly elevated troponin likely due to arrhythmia. Head CT negative, nuclear stress test negative for ischemia. appreciate cardiology. Dr. GORDON -- EP study--planned for Saturday 10/14 -B maura on hold due to bradycardia. DM type 2 with Hyperglycemia-A1C 11.7% this admission. blood glucose uncontrolled, range mostly 300's to 400's, steroids contributing. Required 44units of coverage 10/12, currently on Levemir 10 hs, increased Levemir to 20 units BID. -Accu checks with SSI Acute kidney injury on CKD III, baseline 1.8 creatinine, peaked at 2.3 this admission, now 1.9 Avoid nephrotoxins. Hypokalemia-jenni 2.9, repleted and now resolved. Plasma cell neoplasm-appreciate heme/onc recs. outpatient follow up with BM biopsy. CHF, chronic Last echocardiogram August 2018 shows LV systolic function moderately reduced , EF 40-45% home medications continued, Torsemide on hold at present. 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 Haddad Progress Note: Quality VTE Deep Vein Thrombosis/Pulmonary Embolism Present on Admission: No
[2018-10-13] MEDS: traZODone 50 MG Tablet PO SCH (21:56)
[2018-10-13] MEDS: Sertraline 50 MG Tablet PO SCH (21:56)
[2018-10-13] MEDS: Insulin Detemir Inj 1,000 UNIT/10 ML Vial SQ SCH (21:57)
[2018-10-14] MEDS: Sod Chloride 0.9% Inj 1,000 ML IV.CONT SCH ×3 (00:43→23:54)
[2018-10-14] MEDS: ALPRAZolam 0.25 MG Tablet PO PRN ×3 (02:14→23:03)
[2018-10-14] MEDS: Insulin NovoLOG Aspart Correctional Sugar Inj SQ SCH ×5 (03:09→21:50)
[2018-10-14] MEDS: MethylPREDNISolone Sod Succinate Inj 40 MG/ML Vial IV.PUSH SCH ×3 (05:35→21:50)
[2018-10-14] MEDS: Isosorbide Mononitrate 30 MG ER 24HR Tablet (Imdur) PO SCH (09:01)
[2018-10-14] MEDS: hydrALAZINE 25 MG Tablet PO SCH ×4 (09:01→17:34)
[2018-10-14] MEDS: Heparin - SQ 10,000 UNITS/ML Vial SQ SCH ×2 (09:02→20:46)
[2018-10-14] MEDS: Insulin Detemir Inj 1,000 UNIT/10 ML Vial SQ SCH ×2 (09:03→21:50)
[2018-10-14 09:38] LABS: Baso % (Auto) 0.2 % (0.0-2.0); Hematocrit 28.2 % (35.0-46.0); Hemoglobin 9.7 gm/dL (11.6-15.3); Lymph # (Auto) 0.4 th/mm3 (1.0-4.8); Lymph % (Auto) 2.6 % (9.0-44.0); Mean Corpuscular HGB Conc 34.5 % (32.0-36.0); Mean Corpuscular Hemoglobin 30.6 pg (27.0-34.0); Mean Corpuscular Volume 88.8 fL (80.0-100.0); Mean Platelet Volume 7.9 fL (7.0-11.0); Mono # (Auto) 0.3 th/mm3 (0.0-0.9); Mono % (Auto) 2.1 % (0.0-8.0); Neut # (Auto) 13.4 th/mm3 (1.8-7.7); Neut % (Auto) 95.1 % (16.0-70.0); Platelet Count 142 th/mm3 (150-450); Red Blood Count 3.17 mil/mm3 (4.00-5.30); Red Cell Distribution Width 16.1 % (11.6-17.2); White Blood Count 14.1 th/mm3 (4.0-11.0)
[2018-10-14 09:53] LABS: INR 1.1 Ratio; Prothrombin Time 10.9 sec (9.8-11.6)
[2018-10-14 10:06] LABS: Calcium 9.2 mg/dL (8.5-10.1); Carbon Dioxide 23.9 meq/L (21.0-32.0); Potassium 4.5 meq/L (3.5-5.1)
--- NOTE | 2018-10-14 15:25 | P.PNIM ---
Subjective Interval history: Syncope. Awaiting EP. BP elevated denies headache, dizziness chest pain or shortness of breath. Physical Exam Vital signs: Last Vital Signs Temp 97.3 F L 10/14/18 12:00 Pulse 59 L 10/14/18 15:00 Resp 18 10/14/18 12:00 BP 178/98 H 10/14/18 12:00 Pulse Ox 99 10/14/18 12:00 Intake & Output 10/12/18 10/13/18 10/14/18 10/15/18 06:59 06:59 06:59 06:59 Intake Total 2240 / 2240 2380 / 2380 1100 / 1100 Output Total 1700 / 1700 1600 / 1600 2150 / 2150 Balance 540 / 540 780 / 780 -1050 / -1050 Weight 70.2 kg 70.5 kg 72.5 kg Narrative: GENERAL: Well-nourished patient who is anxious, in no distress SKIN: Warm and dry. No open lesions or lacerations CARDIOVASCULAR: Regular rate and rhythm without murmurs, gallops, or rubs. RESPIRATORY: Breath sounds equal bilaterally. No accessory muscle use. GASTROINTESTINAL: Abdomen soft, non-tender, nondistended. MUSCULOSKELETAL: No cyanosis, or edema. Results Labs CBC & Chem 7: 10/14/18 08:29 10/14/18 08:29 Procedures Procedures: STRESS TEST Assessment and Plan Plan 77-year-old female with a history of anxiety, CHF, COPD, diabetes, CVA presented to the ED after having a syncopal episode and her oncologist office. She states she was feeling lightheaded and generalized weakness when she passed out in her wheelchair. Syncope possibly due to heart arrhythmia mildly elevated troponin likely due to arrhythmia. Head CT negative, nuclear stress test negative for ischemia. appreciate cardiology. Dr. GORDON -- EP study--planned for 4 PM today -B maura on hold due to bradycardia. DM type 2 with Hyperglycemia-A1C 11.7% this admission. blood glucose uncontrolled, range mostly 300's to 400's, steroids contributing. Required 44units of coverage 10/12, currently on Levemir 10 hs, increased Levemir to 20 units BID. -Accu checks with SSI Acute kidney injury on CKD III, baseline 1.8 creatinine, peaked at 2.3 this admission, now 1.9 Avoid nephrotoxins. Hypokalemia-jenni 2.9, repleted and now resolved. Plasma cell neoplasm-appreciate heme/onc recs. outpatient follow up with BM biopsy. CHF, chronic Last echocardiogram August 2018 shows LV systolic function moderately reduced , EF 40-45% home medications continued, Torsemide on hold at present. 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 Haddad DVT prophylaxis with heparin Progress Note: Quality VTE Deep Vein Thrombosis/Pulmonary Embolism Present on Admission: No
[2018-10-14] MEDS ORDERED: Isoproterenol HCl Inj 0.2 MG/ML Ampul ONE (18:09)
--- NOTE | 2018-10-14 18:47 | CATHPROC ---
Patient Name: Rita Trivedi Study #: [id number] Initial MD: Sascha Krishna Date of : 1940 Study Date: 10/14/2018 Cardiac Catheterization Report 10/14/2018 6:47:52 PM Financial #: [id number] 1 of 9 Patient Name: Rita Trivedi Study #: [id number] Initial MD: Sascha Krishna Date of : 1940 Study Date: 10/14/2018 Entire Case Report Patient Information Patient Name Rita Trivedi Date of 1940 Age 77 years Financial # [id number] Gender F AlternateID Lab Number 6 Room Number 243 Height (in) 62.0 Height (cm) 157.4 BSA 1.74 Weight (lbs) 159.5 Weight (kg) 72.5 Patient Address/Phone Number Home Address [facility] Home Phone Number [phone] [place] [phone] Study Information Study Number Admission Scheduled Start Study Start [id number] Oct 10 2018 7:28PM 10/14/2018 Oct 14 2018 5:25PM [place] [facility] Cardiac Pacer/ICD Admit Source Facility Department Other [facility] - Elevator Serviceman Physician and Clinical Staff Initial Sascha Martin Gis Engineer Héctor Sarabia,RT(R) Other Anesthesia, MEMBERSHIP CORRESPONDENT Recorder Rita Gross RN RN Lawler, Barbara, RN Scrub [place]as, Diana, RCIS 10/14/2018 6:47:52 PM Financial #: [id number] 2 of 9 Patient Name: Rita Trivedi Study #: [id number] Initial MD: Sascha Krishna Date of : 1940 Study Date: 10/14/2018 Equipment Time Apprentice Plant Attendant Description Size Mfg Part Number Used/Scraped [id number] 17:28 [employer] BLANKET,WARM AIR CCL * Used *[id number] 17:28 [employer] PACK, CCL CUSTOM * Used *[id number] 17:28 MEDLINE PACER SANCHEZ, LIMB * 2530 *[id number] Used [id number] 17:29 [employer] MEDICAL CATHETER, JSN, QUAD FR 5 Used *[id number] 17:29 [employer] MEDICAL CATHETER, JSN, QUAD FR 5 Used *[id number] 17:29 [employer] MEDICAL CATHETER, JSN, QUAD FR 5 Used *[id number] 17:29 [employer] MEDICAL CATHETER, JSN, QUAD FR 5 Used *[id number] 17:29 [employer] MEDICAL SHEATH, EPS, FR5 FAST CATH FR 5 Used *[id number] 17:29 [employer] MEDICAL SHEATH, EPS, FR5 FAST CATH FR 5 Used *[id number] 17:29 [employer] MEDICAL SHEATH, EPS, FR5 FAST CATH FR 5 Used *[id number] 17:29 [employer] MEDICAL SHEATH, EPS, FR5 FAST CATH FR 5 Used *[id number] 112923 17:29 [employer] MEDICAL SHEATH, EPS, FR6 FAST CATH FR 6 Used *[id number] Insurance Information Insurance Payor Medicare Third Democrat Third Democrat Number MEDICARE A B MCRAB History: Allergies Allergy Reaction penicillin G HIVES TAPE Rash Tetanus Vaccines and Toxoid Swelling minocycline Hives History: Risk Factors Hypertension Yes Chronic Lung Diabetes Diabetes Therapy Disease Labs 10/14/2018 6:47:52 PM Financial #: [id number] 3 of Patient Name: Rita Trivedi Study #: [id number] Initial MD: Sascha Krishna Date of : 1940 Study Date: 10/14/19 19 Hgb (g/dl) Hct (%) RBC (MIL/MM3) WBC (l/cumm) Platelets (thousands) 11.60-17.00 35.00-51.00 4.00-5.90 4.00-11.00 150.00-450.00 9.0 28 3 14.1 142 Glucose (mg/dl) BUN (mg/dl) Creatinine (mg/dl) BUN:Creatinine (1:x) 74.00-106.00 7.00-18.00 0.50-1.30 10.00-20.00 229 39 1.8 21.7 Na (meq/l) K (meq/l) 136.00-145.00 3.50-5.10 137 4.5 INR (PTT:PT) 0.90-1.10 1.1 Medication Medication Total Dose (Bolus/Oral) Medication Total Dosage/Unit 1% XYLOCAINE 20 mL Medications (Bolus/Oral) Medication Time Given Dosage/Unit Administered By Reason 1% XYLOCAINE 10/14/2018 6:04:52 PM 20 mL Sascha Krishna 20 mL 1% XYLOCAINE given in lab by Sascha Krishna in Right Groin via Subcutaneous. Ordered by Stacey Krishna. Medication (Drip) Medication Time Given Dosage/Unit Concentration/Unit Diluent (ml) Solution ISUPREL 10/14/2018 6:20:42 PM 4 mcg/min 1 mg 250 NaCl .9 4 mcg/min ISUPREL given in lab by Anesthesia MEMBERSHIP CORRESPONDENT via Peripheral IV. Pump/Drip Flow = 60 ml/hr using NaCl .9 with a concentration of 1 mg in 250 ml. Ordered by Sascah Krishna. Reason: As per physicians verbal order. ISUPREL DRIP STOPPED 10/14/2018 6:25:10 PM 0 units/hr 0 0 units/hr ISUPREL DRIP STOPPED given in lab by Anesthesia, MEMBERSHIP CORRESPONDENT. Pump/Drip Flow = 0 ml/hr using [Marlene ution Name]. Ordered by Sascha Krishna. Reason: As per physicians verbal order. Discontinued at 10/14/2018 18:25. IV Solutions 10/14/2018 5:34:20 PM 0 mL (IV) NaCl .9 Patient arrived on IV Solutions in Left Antecubital via Peripheral IV. Pump/Drip Flow = 30 ml/hr usin g NaCl .9. Ordered by Sascha Krishna. Reason: As per physicians verbal order. IV Solutions 10/14/2018 5:35:02 PM 0 mL (IV) NaCl .9 Patient arrived on IV Solutions given by Anesthesia, MEMBERSHIP CORRESPONDENT in Right Antecubital via Peripheral IV. Pum p/Drip Flow = 30 ml/hr using NaCl .9. Ordered by Sascha Krishna. Reason: As per physicians verbal order. 10/14/2018 6:47:52 PM Financial #: [id number] 4 of 9 Patient Name: Rita Trivedi Study #: [id number] Initial MD: Sascha Krishna Date of : 1940 Study Date: 10/14/2018 Initial Case Assessment Cardiovascular HR NIBP 69 196/92 Edema Present Skin color Skin None Normal Warm Dry Circulatory - Right Pulses Dorsalis Pedis 1 Scale (0,1,2,3,4,d) Circulatory - Left Pulses Dorsalis Pedis 1 Scale (0,1,2,3,4,d) Circulatory - Lower Extremities Color Lower Right Color Lower Left Normal Normal Neurological State Oriented to time-place- Alert Moves all extremities person Respiration - General Respiration Rate SpO2 (%) (B/min) 18 95 10/14/2018 6:47:52 PM Financial #: [id number] 5 of 9 Patient Name: Rita Trivedi Study #: [id number] Initial MD: Sascha Krishna Date of : 1940 Study Date: 10/14/2018 Final Case Assessment Cardiovascular HR NIBP 67 164/72 Edema Present Skin color Skin None Normal Warm Dry Circulatory - Right Pulses Dorsalis Pedis 1 Scale (0,1,2,3,4,d) Circulatory - Left Pulses Dorsalis Pedis 1 Scale (0,1,2,3,4,d) Circulatory - Lower Extremities Color Lower Right Color Lower Left Normal Normal Neurological State Drowsy Moves all extremities Comment: oriented x 2 Respiration - General Respiration Rate SpO2 (%) O2 (lpm) (B/min) 16 99 4 Chronological Log Time Study Chronological Log 17:33:25 Patient arrived via Bed. 17:33:25 Patient Name, D.O.B, / Armband Verified By R.N. 17:33:26 Anesthesia at bedside. Assumes care of patient. All vital signs will be recorded on anesthe carmel record. 17:33:26 Consent signed by the physician and the patient and verified by the Elevator Serviceman staff. 17:33:27 Pre-op and post- op instructions given; patient acknowledges understanding of instructions. 17:33:28 Verbal Stimulation=2 Physical Stimulation=2 Airway=2 Respiration=2 TOTAL=8. (0=absent, 1=li mited, 2=present) 17:33:47 Patient has been NPO for More than 6Hrs. 17:33:48 Skin Breakdown- none per pt. 10/14/2018 6:47:52 PM Financial #: [id number] 6 of 9 Patient Name: Rita Trivedi Study #: [id number] Initial MD: Sascha Krishna Date of : 1940 Study Date: 10/14/2018 17:33:57 Patient Warmer Placed on the Table. 17:34:00 Dani Prominences Protected 17:34:03 A # 20 IV was noted in the Antecubital (left). Grade = 0 Patient arrived on IV Solutions in Left Antecubital via Peripheral IV. Pump/Drip Flow = 30 ml/h r using NaCl .9. Ordered 17:34:20 by Sascha Krishna. Reason: As per physicians verbal order. 17:34:51 A # 20 IV was noted in the Antecubital (right). Grade = 0 Patient arrived on IV Solutions given by Anesthesia, MEMBERSHIP CORRESPONDENT in Right Antecubital via Peripheral I V. Pump/Drip Flow = 30 17:35:02 ml/hr using NaCl .9. Ordered by Sascha Krishna. Reason: As per physicians verbal order. 17:35:47 2% CHLORHEXIDINE GLUCONATE WASH AND NASAL SWIPE DONE PRIOR TO PROCEDURE. 17:38:59 Disposable Defibrillator Pads Placed On Patient. 17:42:27 History and physical on the chart...see emr 17:47:33 Table restraints applied according to hospital policy 17:51:09 Reference ECG taken 17:52:45 Bilateral groins prepped with 2% chlorhexidine. Assessment: Initial Case, HR=69 BPM, HGLU=831/92 mmhg, Edema=None, Color=Normal, Skin = Warm, D ry Right Pulses: James Ped=1 Left Pulses: James Ped=1 17:52:46 Lower Right Extremities: Color=Normal Lower Left Extremities: Color=Normal Neurological: State=Alert, Ox3, BELLO Respiration: Resp=18 B/min, SpO2=95 % 17:56:35 A sterile drape was applied after a 3 min. waiting time. 17:57:43 MD paged 18:01:47 MD arrived. Time Out. Correct patient, procedure, procedure equipment, site and side verified with physicia n present. Time 18:04:11 concurred by MD, individual staff and MEMBERSHIP CORRESPONDENT. Time Out #2 - Consents verified, patient in correct position, all results are labled and displa yed, safety precautions 18:04:39 taken, antibiotics administered. Time out concurred by MD, individual staff and MEMBERSHIP CORRESPONDENT in procedu re 18:04:39 Case Start 18:04:52 20 mL 1% XYLOCAINE given in lab by Sascha Krishna in Right Groin via Subcutaneous. Ordered b y Sascha Krishna. 18:04:55 Vascular access was obtained in the Fem Vein (right). 18:05:52 Vascular access was obtained in the Fem Vein (right). 18:05:54 Vascular access was obtained in the Fem Vein (right). 18:05:55 Vascular access was obtained in the Fem Vein (right). 18:05:57 A SHEATH, EPS, FR5 FAST CATH FR 5 was advanced into the Fem Vein (right) using the Modified Seldinger technique. 18:05:59 A SHEATH, EPS, FR5 FAST CATH FR 5 was advanced into the Fem Vein (right) using the Modified Seldinger technique. 18:05:59 A SHEATH, EPS, FR5 FAST CATH FR 5 was advanced into the Fem Vein (right) using the Modified Seldinger technique. 18:06:00 A SHEATH, EPS, FR6 FAST CATH FR 6 was advanced into the Fem Vein (right) using the Modified Seldinger technique. A CATHETER, JSN, QUAD FR 5 was advanced vis Fem Vein (right) and placed in the CS. Placement wa s visually 18:06:46 confirmed under fluoroscopy. A CATHETER, JSN, QUAD FR 5 was advanced vis Fem Vein (right) and placed in the HIS. Placement w as visually 18:07:25 confirmed under fluoroscopy. A CATHETER, JSN, QUAD FR 5 was advanced vis Fem Vein (right) and placed in the HRA. Placement w as visually 18:09:20 confirmed under fluoroscopy. 10/14/2018 6:47:52 PM Financial #: [id number] Patient Name: Rita Trivedi Study #: [id number] Initial MD: Sashca Krishna Date of : 1940 Study Date: 10/14/2018 A CATHETER, JSN, QUAD FR 5 was advanced vis Fem Vein (right) and placed in the RVOT. Placement was visually 18:10:31 confirmed under fluoroscopy. 18:12:39 Incremental Pacing/EP study in progress 4 mcg/min ISUPREL given in lab by RYAN Jara via Peripheral IV. Pump/Drip Flow = 60 ml/h r using NaCl .9 with 18:20:42 a concentration of 1 mg in 250 ml. Ordered by Sascha Krishna. Reason: As per physicians verbal order. 0 units/hr ISUPREL DRIP STOPPED given in lab by Anesthesia, RYAN. Pump/Drip Flow = 0 ml/hr luis ng [Solution Name]. 18:25:10 Ordered by Sascha Krishna. Reason: As per physicians verbal order. Discontinued at 10/14/2018 18: 25. 18:25:26 Incremental Pacing stopped. EP study complete. 18:26:26 All Catheter(s) removed without difficulty. 18:26:47 Case End (Physician broke scrub) 18:26:52 All Sheaths removed; pressure applied to access site. DC 18:30:16 No case complications noted. 18:30:18 Cine recording checked. 18:30:20 Holding Area notified of successful procedure. 18:30:41 Bedside Report will be given. 18:30:50 Defibrillator and ground pads removed. Skin intact. 18:37:10 Sterile dressing applied to site Assessment: Final Case, HR=67 BPM, BHTY=643/72 mmhg, Edema=None, Color=Normal, Skin = Warm, Dr y Right Pulses: James Ped=1 Left Pulses: James Ped=1 18:45:12 Lower Right Extremities: Color=Normal Lower Left Extremities: Color=Normal Neurological: State=Drowsy, BELLO, Comment=oriented x 2 Respiration: Resp=16 B/min, SpO2=99 %, O2=4 lpm Patient moved to [facility] and transported back to [facility] with RN and tech on supplemental oxy gen by NC in stable 18:45:16 condition. End Study - Contrast Media Used In Study Contrast Total Opened (mL) Total Used (mL) Total Wasted (mL) Unspecified 0 0 0 End Study - Maximum Contrast Load Max Contrast Load (mL) 201.4 End Study - Radiation Exposure Fluoro Time Fluoro Dose (mGy) Cine Dose (uGym2) (minutes) 1.2 8 82 10/14/2018 6:47:52 PM Financial #: [id number] 8 of 9 Patient Name: Rita Trivedi Study #: [id number] Initial MD: Sascha Krishna Date of : 1940 Study Date: 10/14/2018 End Study - Sheaths Sheaths Pulled By Sheath Hold Time (min) Ai Ann 10 End Study - Patient Disposition Complications Transferred To Telemetry Bed 10/14/2018 6:47:52 PM Financial #: [id number]
[2018-10-14] MEDS ORDERED: fentaNYL Citrate Inj 100 MCG/2 ML Ampul ONE (18:57)
[2018-10-14] MEDS ORDERED: hydrALAZINE HCl Inj 20 MG/ML Vial IV.PUSH ONE (19:44)
[2018-10-14] MEDS: traZODone 50 MG Tablet PO SCH (20:25)
[2018-10-14] MEDS: Sertraline 50 MG Tablet PO SCH (20:25)
[2018-10-15] MEDS: Sod Chloride 0.9% Inj 1,000 ML IV.CONT SCH (00:51)
[2018-10-15] MEDS ORDERED: LORazepam 1 MG Tablet PO ONE (01:49)
[2018-10-15] MEDS: Insulin NovoLOG Aspart Correctional Sugar Inj SQ SCH ×5 (02:13→21:37)
[2018-10-15] MEDS: MethylPREDNISolone Sod Succinate Inj 40 MG/ML Vial IV.PUSH SCH (05:30)
[2018-10-15 05:41] LABS: Baso % (Auto) 0.2 % (0.0-2.0); Hematocrit 27.8 % (35.0-46.0); Hemoglobin 9.4 gm/dL (11.6-15.3); Lymph # (Auto) 0.3 th/mm3 (1.0-4.8); Lymph % (Auto) 2.3 % (9.0-44.0); Mean Corpuscular HGB Conc 33.8 % (32.0-36.0); Mean Corpuscular Hemoglobin 30.4 pg (27.0-34.0); Mean Corpuscular Volume 90.2 fL (80.0-100.0); Mean Platelet Volume 7.8 fL (7.0-11.0); Mono % (Auto) 2.3 % (0.0-8.0); Neut % (Auto) 95.2 % (16.0-70.0); Platelet Count 136 th/mm3 (150-450); Red Blood Count 3.08 mil/mm3 (4.00-5.30); Red Cell Distribution Width 15.9 % (11.6-17.2); White Blood Count 12.6 th/mm3 (4.0-11.0)
[2018-10-15 05:42] LABS: Mono # (Auto) 0.3 th/mm3 (0.0-0.9)
[2018-10-15 06:10] LABS: Calcium 8.4 mg/dL (8.5-10.1); Carbon Dioxide 22.3 meq/L (21.0-32.0); Magnesium 2.3 mg/dL (1.5-2.5); Potassium 3.8 meq/L (3.5-5.1)
[2018-10-15] MEDS ORDERED: Insulin Detemir Inj 1,000 UNIT/10 ML Vial SQ SCH ×2 (07:56→21:00)
[2018-10-15] MEDS: Insulin Detemir Inj 1,000 UNIT/10 ML Vial SQ SCH (08:00)
[2018-10-15] MEDS: Heparin - SQ 10,000 UNITS/ML Vial SQ SCH ×2 (08:12→21:20)
[2018-10-15] MEDS: hydrALAZINE 25 MG Tablet PO SCH ×3 (08:12→17:43)
[2018-10-15] MEDS: Isosorbide Mononitrate 30 MG ER 24HR Tablet (Imdur) PO SCH (08:12)
--- NOTE | 2018-10-15 11:49 | P.PN ---
Subjective Interval history: Feeling fine Physical Exam Vital signs: Vital Signs 10/14/18 12:00 10/14/18 13:00 10/14/18 14:00 Temperature 97.3 F L Pulse Rate 78 77 66 Respiratory Rate 18 Blood Pressure 178/98 H Pulse Oximetry 99 10/14/18 15:00 10/14/18 16:00 10/14/18 17:00 Temperature 97.8 F Pulse Rate 59 L 60 57 L Respiratory Rate 18 Blood Pressure 201/96 H Pulse Oximetry 98 10/14/18 19:00 10/14/18 20:00 10/14/18 21:00 Temperature 97.9 F Pulse Rate 73 56 L 79 Respiratory Rate 19 Blood Pressure 195/95 H Pulse Oximetry 97 10/14/18 21:44 10/14/18 22:00 10/14/18 22:31 Temperature Pulse Rate 76 Respiratory Rate Blood Pressure 165/73 H Pulse Oximetry 100 10/14/18 23:00 10/15/18 00:00 10/15/18 01:00 Temperature 97.8 F Pulse Rate 54 L 78 74 Respiratory Rate 18 Blood Pressure 145/64 H Pulse Oximetry 100 10/15/18 02:00 10/15/18 03:00 10/15/18 04:00 Temperature 98 F Pulse Rate 72 53 L 72 Respiratory Rate 17 Blood Pressure 133/64 Pulse Oximetry 100 10/15/18 05:00 10/15/18 06:00 10/15/18 07:00 Temperature Pulse Rate 73 73 76 Respiratory Rate Blood Pressure Pulse Oximetry 10/15/18 08:00 10/15/18 09:00 10/15/18 10:00 Temperature 98.0 F Pulse Rate 76 78 73 Respiratory Rate 20 Blood Pressure 181/84 H Pulse Oximetry 100 10/15/18 11:00 Temperature Pulse Rate 73 Respiratory Rate Blood Pressure Pulse Oximetry Intake & Output 10/14/18 10/15/18 10/15/18 18:59 06:59 18:59 Intake Total 1120 / 1120 1000 / 1000 Output Total 850 / 850 200 / 200 Balance 270 / 270 800 / 800 Weight 72 kg Intake: IV 1000 / 1000 1000 / 1000 NS Inj 1,000 ML @ 60 mls/hr IV. 1000 / 1000 1000 / 1000 CONT .[id number] [facility] Rx#:[id number] Oral 120 / 120 Output: Urine 850 / 850 200 / 200 Other: # Voids 2 1 - Constitutional no acute distress - Routine HEENT Exam Head: Present: normocephalic Eye: Present: PERRL ENT: Present: mucous membranes moist - Routine Respiratory Exam Present: CTA bilaterally - Routine Cardiovascular Exam Present: RRR, S1, S2 - Routine Neurological Exam Present: alert, oriented X3 - Detailed Neurological Exam: Coma Scale Eye Opening: Spontaneous Verbal Response: Oriented Motor Response: Obey commands [place] Coma Scale Total: 15 Results - Labs CBC & Chem 7: 10/15/18 04:27 10/15/18 04:27 Laboratory Results - last 24 hr 10/14/18 10/14/18 10/14/18 12:12 16:21 21:45 WBC RBC Hgb Hct MCV MCH MCHC RDW Plt Count MPV Neut % (Auto) Lymph % (Auto) Dare % (Auto) Eos % (Auto) Baso % (Auto) Neut # (Auto) Lymph # (Auto) Dare # (Auto) Eos # (Auto) Baso # (Auto) WBC Differential Differential Comment Sodium Potassium Chloride Carbon Dioxide Anion Gap BUN Creatinine Estimated GFR POC Glucose 218 H 229 H 192 H Random Glucose Calcium Magnesium 10/15/18 10/15/18 10/15/18 02:10 04:27 04:27 WBC 12.6 H RBC 3.08 L Hgb 9.4 L Hct 27.8 L MCV 90.2 MCH 30.4 MCHC 33.8 RDW 15.9 Plt Count 136 L MPV 7.8 Neut % (Auto) 95.2 H Lymph % (Auto) 2.3 L Dare % (Auto) 2.3 Eos % (Auto) 0.0 Baso % (Auto) 0.2 Neut # (Auto) 12.0 H Lymph # (Auto) 0.3 L Dare # (Auto) 0.3 Eos # (Auto) 0.0 Baso # (Auto) 0.0 WBC Differential . Differential Comment Auto diff final Sodium 139 Potassium 3.8 Chloride 109 H Carbon Dioxide 22.3 Anion Gap 8 BUN 43 H Creatinine 1.79 H Estimated GFR 27 L POC Glucose 373 H Random Glucose 274 H Calcium 8.4 L D Magnesium 2.3 10/15/18 07:34 WBC RBC Hgb Hct MCV MCH MCHC RDW Plt Count MPV Neut % (Auto) Lymph % (Auto) Dare % (Auto) Eos % (Auto) Baso % (Auto) Neut # (Auto) Lymph # (Auto) Dare # (Auto) Eos # (Auto) Baso # (Auto) WBC Differential Differential Comment Sodium Potassium Chloride Carbon Dioxide Anion Gap BUN Creatinine Estimated GFR POC Glucose 177 H Random Glucose Calcium Magnesium Assessment and Plan - Assessment (1) HTN (hypertension) Code(s): I10 - Essential (primary) hypertension Status: Chronic Plan: SBP 184 BP may need to be controlled before discharge home (2) Syncope Code(s): R55 - Syncope and collapse Status: Acute Plan: Doing well No new syncopal episode Doing well Negative electrophysiology can be DH when ok with the managing team
--- NOTE | 2018-10-15 12:20 | MA ---
cc: Sascha Krishna MD DATE: 10/14/2018 DATE OF PROCEDURE: 10/14/2018 SUBJECTIVE: Mrs. Silva is a 77-year-old female with a history of high blood pressure, shortness of breath, diabetes mellitus, admitted due to syncopal episode. During hospitalization nuclear stress study was performed, there was no gross ischemia. Decision for electrophysiology study and possible ablation was taken. The risks, the nature, and the benefits of the procedure are clearly stated to her. Risks include pneumothorax, cardiac perforation, stroke, need for open heart surgery, and even . The patient understood and agreed to proceed. PROCEDURE: After the informed consent was obtained, the patient was brought to the EP lab where she was prepped and draped in the usual surgical fashion. Conscious sedation was initiated and maintained throughout the procedure by the anesthesiologist. Once sedation was verified, the right inguinal area was anesthetized with 2% Xylocaine. Using modified Seldinger technique, the right femoral vein was cannulated on 4 occasions and 4 guidewires were advanced over the wire to be 5 and a 6-Ugandan Hemaquet advanced. Then, under fluoroscopic guidance through the 5 and 6-Ugandan Hemaquet, four 5-Ugandan Ailyn curved quadripolar electrophysiology catheters were positioned along the His, right atrium, coronary sinus, and right ventricular apex. Basic interval was measured and they were within normal limits. At this point, atrial pacing protocol was performed. Atrial pacing protocol course of atrial pacing as well as program stimulation with ventricular cycle length and up to 1 extrastimuli delivered. No tachyarrhythmia was induced. Then, ventricular pacing protocol was performed. There was VA conduction. It was concentric. Ventricular pacing protocol consisted of incremental ventricular pacing as well as program stimulation with a 410 cycle length and up to 3 extrastimuli delivered, no tachyarrhythmia was induced. Then, Isuprel infusion was initiated at 5 mcg. Atrial and ventricular pacing protocols were repeated again, no tachyarrhythmia was induced. At that point the procedure was complete, all catheters were removed. The patient is going to be transferred to the recovery room. No incident to report, but the patient tolerated the procedure. Blood loss minimal. ELECTROCARDIOGRAM: At baseline the patient was in sinus. Postprocedure electrocardiogram was unchanged. BASIC INTERVAL: Basic interval was around 820 milliseconds, AH was at 90 and HV was 140 milliseconds. ATRIAL PACING PROTOCOL: Wenckebach of the node was 250 milliseconds, ERPR was 600, of the noted 600 at 260 milliseconds. No tachyarrhythmia was induced. VENTRICULAR PACING PROTOCOL: There was VA conduction at baseline on Isuprel, no tachyarrhythmia was induced. CONCLUSION: Negative electrophysiology study for supraventricular tachyarrhythmia. RECOMMENDATIONS: The patient is going to be transferred to the recovery room. She will be observed and can be discharged home in the morning if it is okay with the managing team. Sascha Krishna MD HS/ , 11:43 AM , 11:51 AM
[2018-10-15] MEDS: Torsemide 20 MG Tablet PO SCH (12:37)
--- NOTE | 2018-10-15 15:46 | P.DCO ---
Diagnosis (1) HTN (hypertension): Status: Chronic (2) Syncope: Status: Acute Physical Therapy Order: Evaluate and treat, Improve ambulation and Strength and gait training Home Health Nursing Order: Medical education, Signs/symptoms of disease process, Medication education-adverse effect and Nursing assessment with vital signs Case Management Consult Case Management Consult-Home Health: Yes I have seen patient Rita Trivedi on 10/15/18. My clinical findings support the need for the requested home health care services because: Limited mobility due to disease progression and Medication compliance is questionable I certify that my clinical findings support that this patient is homebound because: Need for psychosocial assistance _ (1) HTN (hypertension) Qualifiers: Hypertension type: (2) Syncope Qualifiers: Syncope type: Encounter type:
--- NOTE | 2018-10-15 15:52 | P.PNIM ---
Subjective Interval history: Follow-up syncope and hypertension. EP study negative. BP uncontrolled patient off of her 2 home medications (Coreg secondary to bradycardia and torsemide secondary to acute kidney injury) discussed with cardiology cleared for discharge. Physical Exam Vital signs: Last Vital Signs Temp 97.9 F 10/15/18 12:40 Pulse 65 10/15/18 13:00 Resp 20 10/15/18 12:00 BP 158/66 H 10/15/18 12:40 Pulse Ox 100 10/15/18 12:40 Intake & Output 10/13/18 10/14/18 10/15/18 10/16/18 06:59 06:59 06:59 06:59 Intake Total 2380 / 2380 1100 / 1100 2120 / 2120 Output Total 1600 / 1600 2150 / 2150 1050 / 1050 Balance 780 / 780 -1050 / -1050 1070 / 1070 Weight 70.5 kg 72.5 kg 72 kg Narrative: GENERAL: Well-developed, well-nourished in no distress SKIN: Warm and dry. CARDIOVASCULAR: Regular rate and rhythm without murmurs, gallops, or rubs. RESPIRATORY: Breath sounds equal bilaterally. No accessory muscle use. GASTROINTESTINAL: Abdomen soft, non-tender, nondistended. MUSCULOSKELETAL: No cyanosis, or edema. BACK: Nontender without obvious deformity. No CVA tenderness. Results Labs CBC & Chem 7: 10/15/18 04:27 10/15/18 04:27 Procedures Procedures: EP study Assessment and Plan (1) HTN (hypertension): Code(s): I10 - Essential (primary) hypertension Status: Chronic 77-year-old female with a history of anxiety, CHF, COPD, diabetes, CVA presented to the ED after having a syncopal episode and her oncologist office. She states she was feeling lightheaded and generalized weakness when she passed out in her wheelchair. Syncope possibly due to heart arrhythmia mildly elevated troponin likely due to arrhythmia. Head CT negative, nuclear stress test negative for ischemia. appreciate cardiology. Dr. GODRON -- EP study negative -B maura on hold due to bradycardia. DM type 2 with Hyperglycemia-A1C 11.7% this admission. blood glucose uncontrolled, range mostly 300's to 400's, steroids contributing. Adjust Levemir to 24 units in the morning and 32 units in the evening -Accu checks with SSI Acute kidney injury on CKD III, baseline 1.8 creatinine, peaked at 2.3 this admission, now 1.9. Improving discontinue IV hydration Avoid nephrotoxins. Hypokalemia-jenni 2.9, repleted and now resolved. Plasma cell neoplasm-appreciate heme/onc recs. outpatient follow up with BM biopsy. CHF, chronic Last echocardiogram August 2018 shows LV systolic function moderately reduced , EF 40-45% home medications continued, Torsemide on hold at present. 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 Haddad. Improved discontinue steroids Uncontrolled hypertension off Coreg and torsemide. Continue isosorbide and hydralazine and restart torsemide with improved renal function and monitor DVT prophylaxis with heparin Discharged with home care possibly in the morning (2) Syncope: Code(s): R55 - Syncope and collapse Status: Acute Progress Note: Quality VTE Deep Vein Thrombosis/Pulmonary Embolism Present on Admission: No _ (1) HTN (hypertension) Qualifiers: Hypertension type: (2) Syncope Qualifiers: Syncope type: Encounter type:
[2018-10-15] MEDS: Sertraline 50 MG Tablet PO SCH (21:19)
[2018-10-15] MEDS: ALPRAZolam 0.25 MG Tablet PO PRN (21:19)
[2018-10-15] MEDS: traZODone 50 MG Tablet PO SCH (21:19)
--- NOTE | 2018-10-16 01:10 | ECG ---
Date Performed: 10/14/2018 Time Performed: 21:17:00 PTAGE: 77 years EKG: Sinus rhythm with PAC(s) Possible septal infarct - age undetermined Inferior/lateral ST-T changes are nonspecific Abnormal ECG PREVIOUS TRACING : 10/12/2018 22.00 Since the previous tracing, no significant change noted DOCTOR: Jose Juan Jacobs Interpretating Date/Time 10/16/2018 01:08:52
[2018-10-16] MEDS: ALPRAZolam 0.25 MG Tablet PO PRN ×2 (03:43→13:03)
[2018-10-16] MEDS: Insulin NovoLOG Aspart Correctional Sugar Inj SQ SCH ×4 (03:44→17:01)
[2018-10-16] MEDS: Insulin Detemir Inj 1,000 UNIT/10 ML Vial SQ SCH (07:00)
[2018-10-16] MEDS ORDERED: Insulin Detemir Inj 1,000 UNIT/10 ML Vial SQ ONE (08:02)
--- NOTE | 2018-10-16 08:21 | P.PNIM ---
Subjective Interval history: F/U HTN and DM. Improved BP but hypoglycemic since steroids dc. A1c 11.7 Results Labs CBC & Chem 7: 10/15/18 04:27 10/15/18 04:27 Procedures Procedures: EP study Assessment and Plan (1) HTN (hypertension): Code(s): I10 - Essential (primary) hypertension Status: Chronic 77-year-old female with a history of anxiety, CHF, COPD, diabetes, CVA presented to the ED after having a syncopal episode and her oncologist office. She states she was feeling lightheaded and generalized weakness when she passed out in her wheelchair. Syncope possibly due to heart arrhythmia mildly elevated troponin likely due to arrhythmia. Head CT negative, nuclear stress test negative for ischemia. appreciate cardiology. Dr. GORDON -- EP study negative -B maura on hold due to bradycardia. DM type 2 with Hyperglycemia-A1C 11.7% this admission. blood glucose uncontrolled, range mostly 300's to 400's, steroids contributing. Hypoglycemic since steroid discontinued. Hypoglycemia protocol. Adjust Levemir. -Accu checks with SSI Acute kidney injury on CKD III, baseline 1.8 creatinine, peaked at 2.3 this admission, now 1.9. Improving discontinue IV hydration Avoid nephrotoxins. Hypokalemia-jenni 2.9, repleted and now resolved. Plasma cell neoplasm-appreciate heme/onc recs. outpatient follow up with BM biopsy. CHF, chronic Last echocardiogram August 2018 shows LV systolic function moderately reduced , EF 40-45% home medications continued, Torsemide on hold at present. 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 Haddad. Improved discontinue steroids Uncontrolled hypertension off Coreg and torsemide. Improving. Continue isosorbide, hydralazine and torsemide DVT prophylaxis with heparin Discharged with home care possibly later today if no recurrence of hypoglycemia (2) Syncope: Code(s): R55 - Syncope and collapse Status: Acute Doing well No new syncopal episode Doing well Negative electrophysiology can be DH when ok with the managing team Progress Note: Quality VTE Deep Vein Thrombosis/Pulmonary Embolism Present on Admission: No _ (1) Syncope Qualifiers: Encounter type: Syncope type: (2) HTN (hypertension) Qualifiers: Hypertension type:
[2018-10-16] MEDS: Torsemide 20 MG Tablet PO SCH (09:09)
[2018-10-16] MEDS: Isosorbide Mononitrate 30 MG ER 24HR Tablet (Imdur) PO SCH (09:09)
[2018-10-16] MEDS: hydrALAZINE 25 MG Tablet PO SCH ×3 (09:10→17:01)
[2018-10-16] MEDS: Heparin - SQ 10,000 UNITS/ML Vial SQ SCH (09:11)
[2018-10-16 14:54] VITALS: RESP 18
--- NOTE | 2018-10-16 15:23 | P.DS ---
DS: Providers Date of admission: 10/10/18 19:28 Primary care physician: PROVIDER NON STAFF Consults: 10/10/18 20:19 Consult to Cardiology Routine Consulting Provider: Sascha Gordon Does the patient have a Manager Performance Improvement who follows them?: No Preferred Consultant Rn:: Sascha Gordon Reason for Consultation: Possible EP study Notified:: Service Spoke with:: peggy Date Notified:: 10/10/18 Time Notified:: 20:24 Ordering Provider: MICHAEL 10/11/18 05:21 Consult to Oncology Routine Consulting Provider: Rios Villagran Reason for Consultation: patient known to Dr. 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 She was following up with Dr. Ambrosio for results on her recent bone marrow biopsy when she felt very upset and feeling lightheaded and generalized weakness when she passed out in her wheelchair. Per the ER physician there was no seizure activity and she did not fall. The ER physician talked to Dr. Prado who recommended patient be evaluated for an EP study by Dr. Li. She was also found to have a blood sugar of 700 and states she has been taking her insulin at home. Patient is somewhat of a poor historian and it is unsure how reliable she is. During her visit in the ER she did have a 10 beat run of V. tach and was asymptomatic. She is currently anxious because she does not know the results of her bone biopsy. DS: Diagnosis Discharge Diagnosis (1) HTN (hypertension): Status: Chronic (2) Syncope: Status: Acute DS: Summary 77-year-old female with a history of anxiety, CHF, COPD, diabetes, CVA presented to the ED after having a syncopal episode and her oncologist office. She states she was feeling lightheaded and generalized weakness when she passed out in her wheelchair. Syncope possibly due to heart arrhythmia mildly elevated troponin likely due to arrhythmia. Head CT negative, nuclear stress test negative for ischemia. appreciate cardiology. Dr. GORDON -- EP study negative -B maura on hold due to bradycardia. DM type 2 with Hyperglycemia-A1C 11.7% this admission. blood glucose uncontrolled, range mostly 300's to 400's, steroids contributing. Hypoglycemic since steroid discontinued. Hypoglycemia protocol. Adjust Levemir. -Accu checks with SSI Acute kidney injury on CKD III, baseline 1.8 creatinine, peaked at 2.3 this admission, now 1.9. Improving discontinue IV hydration Avoid nephrotoxins. Hypokalemia-jenni 2.9, repleted and now resolved. Plasma cell neoplasm-appreciate heme/onc recs. outpatient follow up with BM biopsy. CHF, chronic Last echocardiogram August 2018 shows LV systolic function moderately reduced , EF 40-45% home medications continued, Torsemide on hold at present. 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 Haddad. Improved discontinue steroids Uncontrolled hypertension off Coreg and torsemide. Improving. Continue isosorbide, hydralazine and torsemide DVT prophylaxis with heparin Discharged with home care possibly later today if no recurrence of hypoglycemia Time Spent with Patient Total time spent providing and/or coordinating discharge services: Greater than 30 minutes Quality: VTE Deep Vein Thrombosis/Pulmonary Embolism Present on Admission: No Exam Narrative Exam Narrative: GENERAL: Well-developed, well-nourished in no distress SKIN: Warm and dry. CARDIOVASCULAR: Regular rate and rhythm without murmurs, gallops, or rubs. RESPIRATORY: Breath sounds equal bilaterally. No accessory muscle use. GASTROINTESTINAL: Abdomen soft, non-tender, nondistended. MUSCULOSKELETAL: No cyanosis, or edema. BACK: Nontender without obvious deformity. No CVA tenderness. Results Procedures completed during hospitalization: EP study Labs on day of discharge: Labs from last 24 hours 10/16/18 10/16/18 10/16/18 11:35 09:08 07:59 POC Glucose 125 H 125 H 72 10/16/18 10/16/18 10/15/18 04:08 03:38 21:24 POC Glucose 88 58 L 202 H 10/15/18 17:35 POC Glucose 280 H Impressions ITS Impressions Head CT 10/10/18 16:40 CONCLUSION: 1. Stable CT scan of the brain compared to the prior examination. . Chest X-Ray 10/10/18 18:12 CONCLUSION: 1. Cardiomegaly with trace positive fluid balance. Carotid Doppler Study 10/11/18 00:00 CONCLUSION: 1. Right Internal Carotid Artery: Extensive atherosclerotic plaquing with elevation of the peak systolic velocity ratio suggesting hemodynamically significant stenosis in the origin of the right internal carotid. This is in the range of 50-69% by NASCET criteria. 2. Left Internal Carotid Artery: Moderate atherosclerotic plaquing. Exam would suggest a mild degree of stenosis at the bifurcation. This does not appear hemodynamically significant. Myocardial Perfusion Scan Nuc Med 10/11/18 00:00 CONCLUSION: 1. Globally depressed ejection fraction without evidence for stress-induced ischemia Discharge Plan Discharge Disposition Patient Disposition: /[facility] Discharge Condition Condition: Stable Discharge Order Discharge Orders: Discharge Order (Routine); Ordered 10/16/18 Ordered By: Alfred Foster Physicians Team Primary Care Provider: NON STAFF,PROVIDER Attending Provider: Alfred Foster Other Providers: ; Sascha Gordon ; Rios Villagran Rxs /Orders / Referrals /Forms Prescriptions: Continue torsemide 20 mg Tablet 20 mg PO DAILY RF: 0 trazodone 50 mg Tablet 50 mg PO HS RF: 0 isosorbide mononitrate 30 mg Tablet Extended Release 24 Hr 30 mg PO DAILY RF: 0 simvastatin 20 mg Tablet 20 mg PO QPM RF: 0 levothyroxine 200 mcg Tablet 200 mcg PO DAILY RF: 0 ergocalciferol (vitamin D2) [Vitamin D2] 50,000 unit Capsule 50,000 unit PO BID RF: 0 sertraline 50 mg Tablet 50 mg PO HS RF: 0 hydroxyzine pamoate 25 mg Capsule 25 mg PO HS RF: 0 insulin aspart U-100 [Novolog Flexpen U-100 Insulin] 100 unit/mL Insulin Pen 5 unit SUBCUT QAM RF: 0 insulin degludec [Tresiba FlexTouch U-200] 200 unit/mL (3 mL) Insulin Pen 40 unit SUBCUT DAILY RF: 0 omeprazole 40 mg Capsule,Delayed Release(Dr/Ec) 40 mg PO DAILY RF: 0 albuterol sulfate 90 mcg/actuation HFA aerosol inhaler 2 inh INHALATION Q8H PRN (Reason: shortness of breath or wheezing) Qty: 18 RF : 0 Discontinued gabapentin 300 mg Capsule 300 mg PO TID RF: 0 pantoprazole [Protonix] [address] For Susp In Packet 40 mg PO BID Qty: 30 RF: 0 carvedilol 12.5 mg Tablet 25 mg PO BID RF: 0 Referrals: Rios Villagran MD [Physician] - See Instructions (Follow-up MD in 1 week) [facility], [Agency] - See Instructions NON STAFF,PROVIDER [Primary Care Provider] - See Instructions (PCP follow-up in 1 week) Discharge Instructions Additional Instructions: HOME HEALTH CARE HAS BEEN ARRANGED WITH [facility], CONTACT# [phone] Post Discharge Care Plan Care Plan Goals: Your Health Problems: Goals to Promote Your Health: * To prevent worsening of your condition * To maintain your health at the optimal level Directions to Meet Your Goals: * Take your medications as prescribed * Follow your dietary instruction * Follow activity as directed * Keep your appointments as scheduled * Take your immunizations and boosters as scheduled * If your symptoms worsen call your PCP * If no PCP go to Urgent Care or Emergency Room Smoking is dangerous to your health. Avoid second hand smoke. You may reach the 24-hour crisis hotline for domestic abuse at . Status ED Status: Left Department
[2018-10-16 17:41] VITALS: PULSE 60
[2018-10-16 17:42] VITALS: BP 150/82; TEMP 97.6; O2SAT 98
[2018-10-17] MEDS ORDERED: Insulin Detemir Inj 1,000 UNIT/10 ML Vial SQ SCH (07:00)
== END 2018-10-16 17:23 | disposition home health service (06) | DRG 197 ==
LOC: PHED 16:08 → PHEDA 19:28 → HCIS 23:54
PROVIDERS: ADMIT Internal Medicine; ATTEND Internal Medicine
DX: E87.6 Hypokalemia; E11.22 Type 2 diabetes mellitus with diabetic chronic kidney disease; Z86.73 Personal history of transient ischemic attack (TIA), and cerebral infarction without residual deficits; J84.89 Other specified interstitial pulmonary diseases; Z79.890 Hormone replacement therapy; E11.65 Type 2 diabetes mellitus with hyperglycemia; N17.9 Acute kidney failure, unspecified; I50.9 Heart failure, unspecified; Z79.4 Long term (current) use of insulin; Z95.5 Presence of coronary angioplasty implant and graft; D64.9 Anemia, unspecified; R74.8 Abnormal levels of other serum enzymes; F41.0 Panic disorder [episodic paroxysmal anxiety]; N18.3 Chronic kidney disease, stage 3 (moderate); R55 Syncope and collapse; E11.649 Type 2 diabetes mellitus with hypoglycemia without coma; Z87.891 Personal history of nicotine dependence; I25.10 Atherosclerotic heart disease of native coronary artery without angina pectoris; Z79.899 Other long term (current) drug therapy; R00.1 Bradycardia, unspecified; I47.2 Ventricular tachycardia; I13.0 Hypertensive heart and chronic kidney disease with heart failure and stage 1 through stage 4 chronic kidney disease, or unspecified chronic kidney disease; J44.9 Chronic obstructive pulmonary disease, unspecified; C90.00 Multiple myeloma not having achieved remission
CPT/HCPCS: 36600; 70450; 71010; 71045; 78452; 80048; 80053; 82010; 82550; 82552; 82805; 82948; 82962; 83036; 83520; 83735; 83880; 84100; 84439; 84443; 84484; 85025; 85610; 87493; 90761; 90774; 90775; 93005; 93017; 93620; 93623; 93880; 96361; 96374; 96375; 97110; 97162; 97166; 97530; 99291; 99292; A9502; C1730; C8952; J0360; J1644; J1815; J2060; J2250; J2785; J2920; J2930; J3010; J3475; J7030; J7040

== ENCOUNTER 2018-12-06 15:14 | Inpatient (IN) ==
--- NOTE | 2018-12-06 17:34 | ED ---
HPI General Chief complaint: Diabetic Stated complaint: sugar complaint Time Seen by Provider: 12/06/18 17:10 Source: patient Mode of arrival: ambulatory Limitations: no limitations History of Present Illness HPI narrative: 77 y/o female presents with sugars at home in the 400-500 range at home over the past couple days. Her primary took her off her steriods and sent her here. She denies any symptoms now and wants to go. She states dr lopez is her primary Onset (ago): day(s) Relieving factors: none Associated symptoms: Reports denies other symptoms Related Data Home Medications Medication Instructions Recorded Confirmed ergocalciferol (vitamin D2) 50,000 unit PO BID 08/11/18 12/06/18 [Vitamin D2] hydroxyzine pamoate 25 mg PO HS 08/11/18 12/06/18 insulin aspart U-100 [Novolog 5 unit SUBCUT QAM 08/11/18 12/06/18 Flexpen U-100 Insulin] insulin degludec [Tresiba 40 unit SUBCUT DAILY 08/11/18 12/06/18 FlexTouch U-200] isosorbide mononitrate 30 mg PO DAILY 08/11/18 12/06/18 levothyroxine 200 mcg PO DAILY 08/11/18 12/06/18 sertraline 50 mg PO HS 08/11/18 12/06/18 simvastatin 20 mg PO QPM 08/11/18 12/06/18 torsemide 20 mg PO DAILY 08/11/18 12/06/18 omeprazole 40 mg PO DAILY 10/10/18 12/06/18 Previous Rx's Medication Instructions Recorded albuterol sulfate 2 inh INHALATION Q8H PRN #18 g 09/11/18 hydralazine 50 mg PO TID #0 tab 10/16/18 Allergies Allergy/AdvReac Type Severity Reaction Status Date / Time penicillin G Allergy Severe HIVES Verified 10/10/18 16:16 minocycline [From Minocin] Allergy Hives Verified 10/10/18 16:16 Tetanus Vaccines and Toxoid Allergy Swelling Verified 10/10/18 16:16 TAPE Allergy Unknown Rash Uncoded 09/11/18 18:53 Review of Systems ROS: all other systems reviewed are negative [facility] Medical History Medical History Anxiety (Acute) CHF (congestive heart failure) (Acute) COPD (chronic obstructive pulmonary disease) (Acute) Diabetes (Acute) H/O: hysterectomy (Acute) HTN (hypertension) (Acute) Kidney disease (Acute) Panic disorder (Acute) Stroke (Acute) Surgical History Surgical History H/O heart artery stent (Acute) History of tonsillectomy (Acute) Family History Family History Other Breast cancer Social History Social History Substance History: No History of Abuse Second Hand Smoke Exposure: No Smoking Status: Former smoker Tobacco Type: Cigarettes How Often Do You Have a Drink Containing Alcohol: Never Recent Travel in [facility] within the Last 8 Weeks: No Recent Out of Country Travel within the Last 8 Weeks: No Immunization History Tetanus Immunization: <5 Years Exam Narrative Exam Narrative: GENERAL: 77 y/o female in no apparent distress SKIN: Focused skin assessment warm/dry. HEAD: Atraumatic. Normocephalic. EYES: Pupils equal and round. No scleral icterus. No injection or drainage. ENT: No nasal bleeding or discharge. Mucous membranes pink and moist. NECK: Trachea midline. No JVD. CARDIOVASCULAR: Regular rate and rhythm. RESPIRATORY: No accessory muscle use. Clear to auscultation. Breath sounds equal bilaterally. GASTROINTESTINAL: Abdomen soft, non-tender, nondistended. MUSCULOSKELETAL: No obvious deformities. No clubbing. No cyanosis. No edema. NEUROLOGICAL: Awake and alert. Motor grossly within normal limits. Normal speech. PSYCHIATRIC: Appropriate mood and affect; insight and judgment normal. Course Reevaluation(s) Reevaluation #1: patient updated about renal function and agrees to admit Consultations Consultation #1: dr lopez states to check labs and ua to rule out other process as gave a dose of insulin in the office already Consultation #2: dr lopez agrees to admit Initial Documented Vital Signs Temperature 98.5 F 12/06/18 15:19 Pulse Rate 100 H 12/06/18 15:19 Respiratory Rate 18 12/06/18 15:19 Blood Pressure 128/60 12/06/18 15:19 Pulse Oximetry 95 12/06/18 15:19 Last Documented Vital Signs Temperature 98.5 F 12/06/18 15:19 Pulse Rate 91 H 12/06/18 18:09 Respiratory Rate 18 12/06/18 18:09 Blood Pressure 184/78 H 12/06/18 18:09 Pulse Oximetry 95 12/06/18 18:09 Medical Decision Making MDM Narrative Medical decision making narrative: will check glucose and discuss with her primary Medical Screen Exam Complete: Yes Emergency Medical Condition: Yes Differential Diagnosis Differential Diagnosis: medication effect, renal failure, uti.... Lab Data Result diagrams: 12/06/18 17:57 12/06/18 17:57 Lab Results 12/06/18 12/06/18 12/06/18 Range/Units 17:15 17:55 17:57 WBC 12.1 H (4.0-11.0) th/mm3 RBC 3.41 L (4.00-5.30) mil/mm3 Hgb 9.9 L (11.6-15.3) gm/dL Hct 29.5 L (35.0-46.0) % MCV 86.5 (80.0-100.0) fL MCH 29.2 (27.0-34.0) pg MCHC 33.7 (32.0-36.0) % RDW 15.9 (11.6-17.2) % Plt Count 195 (150-450) th/mm3 MPV 7.5 (7.0-11.0) fL Neut % (Auto) 80.2 H (16.0-70.0) % Lymph % (Auto) 9.9 (9.0-44.0) % [place] % (Auto) 6.5 (0.0-8.0) % Eos % (Auto) 2.5 (0.0-4.0) % Baso % (Auto) 0.9 (0.0-2.0) % Neut # (Auto) 9.7 H (1.8-7.7) th/mm3 Lymph # (Auto) 1.2 (1.0-4.8) th/mm3 [place] # (Auto) 0.8 (0.0-0.9) th/mm3 Eos # (Auto) 0.3 (0.0-0.4) th/mm3 Baso # (Auto) 0.1 (0.0-0.2) th/mm3 WBC Differential . Differential Comment Auto diff final Sodium (136-145) meq/L Potassium (3.5-5.1) meq/L Chloride (98-107) meq/L Carbon Dioxide (21.0-32.0) meq/L Anion Gap (5-15) meq/L BUN (7-18) mg/dL Creatinine (0.50-1.00) mg/dL Estimated GFR (>89) mL/min POC Glucose 119 H (68-110) mg/dl Random Glucose (74-106) mg/dL Calcium (8.5-10.1) mg/dL Total Bilirubin (0.2-1.0) mg/dL AST (15-37) U/L ALT (10-53) U/L Alkaline Phosphatase (45-117) U/L Total Protein (6.4-8.2) g/dL Albumin (3.4-5.0) g/dL Beta-Hydroxybutyric Acd (0.00-0.39) mmol/L Urine Color Yellow (Yellw/Straw) Urine Clarity Hazy H (Clear) Urine pH 5.0 (5.0-8.5) Ur Specific [place] 1.011 (1.002-1.035) Urine Protein 100 H (Neg-Trace) mg/dL Urine Glucose (UA) 500 or greater H (Negative) mg/dL Urine Ketones Negative (Negative) mg/dL Urine Occult Blood Negative (Negative) Urine Nitrate Negative (Negative) Urine Bilirubin Negative (Negative) Urine Urobilinogen Less than 2 (Less than 2) mg/dL Ur Leukocyte Esterase Trace H (Negative) Urine WBC 8 H (0-5) /hpf Ur Squamous Epith Cells 4 (0-5) /hpf Hyaline Casts 14 (0-3) /lpf Micro UA Comment Culture indicated Ur Microscopic Review Not Reportable Urine Culture Comments Culture indicated 12/06/18 Range/Units 17:57 WBC (4.0-11.0) th/mm3 RBC (4.00-5.30) mil/mm3 Hgb (11.6-15.3) gm/dL Hct (35.0-46.0) % MCV (80.0-100.0) fL MCH (27.0-34.0) pg MCHC (32.0-36.0) % RDW (11.6-17.2) % Plt Count (150-450) th/mm3 MPV (7.0-11.0) fL Neut % (Auto) (16.0-70.0) % Lymph % (Auto) (9.0-44.0) % [place] % (Auto) (0.0-8.0) % Eos % (Auto) (0.0-4.0) % Baso % (Auto) (0.0-2.0) % Neut # (Auto) (1.8-7.7) th/mm3 Lymph # (Auto) (1.0-4.8) th/mm3 [place] # (Auto) (0.0-0.9) th/mm3 Eos # (Auto) (0.0-0.4) th/mm3 Baso # (Auto) (0.0-0.2) th/mm3 WBC Differential Differential Comment Sodium 141 (136-145) meq/L Potassium 4.0 (3.5-5.1) meq/L Chloride 106 (98-107) meq/L Carbon Dioxide 25.4 (21.0-32.0) meq/L Anion Gap 10 (5-15) meq/L BUN 42 H (7-18) mg/dL Creatinine 2.78 H (0.50-1.00) mg/dL Estimated GFR 17 L (>89) mL/min POC Glucose (68-110) mg/dl Random Glucose 93 (74-106) mg/dL Calcium 9.0 (8.5-10.1) mg/dL Total Bilirubin 0.2 (0.2-1.0) mg/dL AST 10 L (15-37) U/L ALT 12 (10-53) U/L Alkaline Phosphatase 181 H (45-117) U/L Total Protein 7.1 (6.4-8.2) g/dL Albumin 3.0 L (3.4-5.0) g/dL Beta-Hydroxybutyric Acd 0.12 (0.00-0.39) mmol/L Urine Color (Yellw/Straw) Urine Clarity (Clear) Urine pH (5.0-8.5) Ur Specific [place] (1.002-1.035) Urine Protein (Neg-Trace) mg/dL Urine Glucose (UA) (Negative) mg/dL Urine Ketones (Negative) mg/dL Urine Occult Blood (Negative) Urine Nitrate (Negative) Urine Bilirubin (Negative) Urine Urobilinogen (Less than 2) mg/dL Ur Leukocyte Esterase (Negative) Urine WBC (0-5) /hpf Ur Squamous Epith Cells (0-5) /hpf Hyaline Casts (0-3) /lpf Micro UA Comment Ur Microscopic Review Urine Culture Comments Discharge Plan Discharge Disposition Patient Disposition: ED Admit(ED Internal Use Only) Discharge Order Discharge Orders: ED Use Only Admit Order (Routine); Ordered 12/06/18 Ordered By: Nadege Hernandez Discharge Details Diagnosis: Acute renal failure Physicians Team ED Provider: Nadege Hernandez Primary Care Provider: Soren Lopez Attending Provider: Soren Lopez Status ED Status: Admitted Patient
[2018-12-06 18:20] LABS: Baso # (Auto) 0.1 th/mm3 (0.0-0.2); Baso % (Auto) 0.9 % (0.0-2.0); Eos # (Auto) 0.3 th/mm3 (0.0-0.4); Eos % (Auto) 2.5 % (0.0-4.0); Hematocrit 29.5 % (35.0-46.0); Hemoglobin 9.9 gm/dL (11.6-15.3); Lymph # (Auto) 1.2 th/mm3 (1.0-4.8); Lymph % (Auto) 9.9 % (9.0-44.0); Mean Corpuscular HGB Conc 33.7 % (32.0-36.0); Mean Corpuscular Hemoglobin 29.2 pg (27.0-34.0); Mean Corpuscular Volume 86.5 fL (80.0-100.0); Mean Platelet Volume 7.5 fL (7.0-11.0); Mono # (Auto) 0.8 th/mm3 (0.0-0.9); Mono % (Auto) 6.5 % (0.0-8.0); Neut # (Auto) 9.7 th/mm3 (1.8-7.7); Neut % (Auto) 80.2 % (16.0-70.0); Platelet Count 195 th/mm3 (150-450); Red Blood Count 3.41 mil/mm3 (4.00-5.30); Red Cell Distribution Width 15.9 % (11.6-17.2); White Blood Count 12.1 th/mm3 (4.0-11.0)
[2018-12-06 18:24] LABS: Bilirubin,Urine Negative (Negative); Clarity,Urine Hazy (Clear); Color,Urine Yellow (Yellw/Straw); Glucose,Urine (UA) 500 or Greater mg/dL (Negative); Hyaline Casts,Urine 14 /lpf (0-3); Leukocyte Esterase,Urine Trace (Negative); Nitrite,Urine Negative (Negative); Specific Gravity,Urine 1.011 (1.002-1.035); Squamous Epithelial Cell,Urine 4 /hpf (0-5)
[2018-12-06 18:49] LABS: Anion Gap 10 meq/L (5-15); Aspartate Aminotransferase 10 U/L (15-37); Blood Urea Nitrogen 42 mg/dL (7-18); Carbon Dioxide 25.4 meq/L (21.0-32.0); Chloride 106 meq/L (98-107); Glomerular Filtration Rate 17 mL/min (>89); Glucose,Random 93 mg/dL (74-106); Sodium 141 meq/L (136-145)
[2018-12-06 18:50] LABS: Alanine Aminotransferase 12 U/L (10-53)
[2018-12-06 18:52] LABS: Alkaline Phosphatase 181 U/L (45-117); Beta Hydroxybutyric Acid 0.12 mmol/L (0.00-0.39); Total Protein 7.1 g/dL (6.4-8.2)
[2018-12-06] MEDS ORDERED: Sodium Chlor 0.9% Inj 500 ML IV.SIG SCH (19:00)
[2018-12-06] MEDS ORDERED: Bisacodyl 10 MG Supp RECTAL PRN (20:42)
[2018-12-06] MEDS ORDERED: Dextrose 50% in Water 50 ML Vial IV.PUSH PRN (20:56)
[2018-12-06] MEDS: Insulin NovoLOG Aspart Correctional Sugar Inj SQ SCH (22:31)
[2018-12-06] MEDS: Sertraline 50 MG Tablet PO SCH (23:33)
[2018-12-06] MEDS: Senna/Docusate Sodium 8.6/50 MG Tablet PO SCH (23:33)
[2018-12-07] MEDS: Insulin NovoLOG Aspart Correctional Sugar Inj SQ SCH ×4 (08:12→20:52)
[2018-12-07] MEDS: Isosorbide Mononitrate 30 MG ER 24HR Tablet (Imdur) PO SCH (08:45)
[2018-12-07] MEDS: Senna/Docusate Sodium 8.6/50 MG Tablet PO SCH ×2 (08:45→21:34)
[2018-12-07] MEDS: hydrALAZINE 50 MG Tablet PO SCH ×3 (08:46→17:09)
[2018-12-07] MEDS ORDERED: INSULIN DEGLUDEC SQ SCH (09:00)
--- NOTE | 2018-12-07 11:44 | P.CONNP ---
History of Present Illness Service: Nephrology Reason for Consult: Acute on chronic kidney disease Primary Care Provider: Soren Saldaña DO History of Present Illness: This is a 77 year old lady with history of CKD. She reports that she sees a tree marker in [place] and had been told that she has stage III CKD. Her labs from October of this year suggest that she was in stage IV CKD at that time. Patient has history of type 2 diabetes, hypertension, CAD, s/p cardiac stents. Admitted with hyperglycemia, her GFR this time was 17. When I saw her, she was feeling better. Patient also has history of multiple myeloma, and has been on chemotherapy. Review of Systems Constitutional: Reports weakness, Denies anorexia, Denies chills Eyes: Denies blurry vision Ears, Nose, Mouth, and Throat: Denies abnormal hearing, Denies hearing loss Cardiovascular: Denies chest pain, Denies chest pain with activity, Denies rapid , pounding, or irregular heartbeat Respiratory: Denies cough, Denies shortness of breath Gastrointestinal: Denies abdominal pain Musculoskeletal: Denies abnormal walking Psychiatric: Denies anxiety PMFSH - History History Provided By: Patient - Medical History Medical History: Medical History (Last Reviewed 12/06/18 @ 23:09 by Leslye Jensen RN) Anxiety CHF (congestive heart failure) COPD (chronic obstructive pulmonary disease) Diabetes H/O: hysterectomy HTN (hypertension) Kidney disease Panic disorder Stroke - Surgical History Surgical History: Surgical History (Last Reviewed 12/06/18 @ 23:09 by Leslye Jensen RN) H/O heart artery stent History of tonsillectomy - Family History Family History: Family History (Last Reviewed 12/06/18 @ 23:09 by Leslye Jensen RN) Other Breast cancer - Tobacco History Second Hand Smoke Exposure: No Tobacco Use In Past 30 Days: No Smoking Status: Former smoker Tobacco Type: Cigarettes - Alcohol History How Often Do You Have a Drink Containing Alcohol: Never - Substance Use History Substance History: No History of Abuse - Travel History Recent Travel in the [place] Within the Last 8 Weeks: No Recent Travel Out of the Country Within the Last 8 Weeks: No - Immunization History Tetanus Immunization: Never Vaccinated Hx Influenza Vaccine This Season: Yes Medications and Allergies Active Medications: Active Medications Albuterol (Ventolin Hfa Inh) 2 puff INH Q8H PRN PRN Reason: shortness of breath or wheezing Stop: 12/11/18 20:47 Bisacodyl (Dulcolax Supp) 10 mg RECTAL DAILY PRN PRN Reason: SEVERE CONSITIPATION Dextrose (D50w Vial) 50 ml IV.PUSH UNSCH PRN PRN Reason: PER HYPOGLYCEMIA PROTOCOL Ergocalciferol (Vitamin D2) 50,000 unit PO BID [facility] Last Admin: 12/07/18 08:46 Dose: 50,000 unit Glucagon (Glucagon Inj) 1 mg OTHER PRN PRN PRN Reason: for Hypoglycemia Protocol Hydralazine HCl (Apresoline) 50 mg PO TID [facility] Last Admin: 12/07/18 08:46 Dose: 50 mg Hydroxyzine Pamoate (Vistaril) 25 mg PO [facility] Last Admin: 12/06/18 23:34 Dose: 25 mg Insulin Aspart (Novolog Inj) 5 units SQ DAILY@0800 [facility] Last Admin: 12/07/18 08:12 Dose: Not Given Insulin Aspart (Novolog Insulin Correctional Sugar Inj) [address] [facility]; Protocol Stop: 12/11/18 20:59 Last Admin: 12/07/18 08:12 Dose: Not Given Isosorbide Mononitrate (Imdur) 30 mg PO DAILY [facility] Last Admin: 12/07/18 08:45 Dose: 30 mg Lactulose (Lactulose Liq) 30 ml PO DAILY PRN PRN Reason: SEVERE CONSITIPATION Levothyroxine Sodium (Synthroid) 200 mcg PO DAILY@0600 [facility] Last Admin: 12/07/18 05:06 Dose: 200 mcg Pantoprazole Sodium (Protonix) 40 mg PO DAILY [facility] Last Admin: 12/07/18 08:46 Dose: 40 mg Patient Own Med- Insulin Degludec [ Tresiba Flextouch U- 200] 0 each SQ DAILY [facility] Pravastatin Sodium (Pravachol) 40 mg PO DAILY@1800 [facility] Senna/Docusate Sodium (Nidhi-Colace) 1 tab PO BID [facility] Last Admin: 12/07/18 08:45 Dose: 1 tab Sennosides (Senokot) 17.2 mg PO Q12H PRN PRN Reason: Moderate Constipation Sertraline HCl (Zoloft) 50 mg PO [facility] Last Admin: 12/06/18 23:33 Dose: 50 mg Sodium Chloride (Ns Flush) 2 ml IV.FLUSH BID [facility] Last Admin: 12/07/18 08:46 Dose: 2 ml Sodium Chloride (Ns Flush) 2 ml IV.FLUSH PRN PRN PRN Reason: FLUSH AFTER USING IV ACCESS Allergies Allergy/AdvReac Type Severity Reaction Status Date / Time penicillin G Allergy Severe HIVES Verified 10/10/18 16:16 minocycline [From Minocin] Allergy Hives Verified 10/10/18 16:16 Tetanus Vaccines and Toxoid Allergy Swelling Verified 10/10/18 16:16 TAPE Allergy Unknown Rash Uncoded 09/11/18 18:53 Home Medications Medication Instructions Recorded Confirmed Type ergocalciferol (vitamin D2) 50,000 unit PO BID 08/11/18 12/06/18 History [Vitamin D2] hydroxyzine pamoate 25 mg PO HS 08/11/18 12/06/18 History insulin aspart U-100 [Novolog 5 unit SUBCUT QAM 08/11/18 12/06/18 History Flexpen U-100 Insulin] insulin degludec [Tresiba 40 unit SUBCUT DAILY 08/11/18 12/06/18 History FlexTouch U-200] isosorbide mononitrate 30 mg PO DAILY 08/11/18 12/06/18 History levothyroxine 200 mcg PO DAILY 08/11/18 12/06/18 History sertraline 50 mg PO HS 08/11/18 12/06/18 History simvastatin 20 mg PO QPM 08/11/18 12/06/18 History torsemide 20 mg PO DAILY 08/11/18 12/06/18 History omeprazole 40 mg PO DAILY 10/10/18 12/06/18 History gabapentin 300 mg PO DAILY 12/06/18 12/06/18 History gabapentin 600 mg PO HS 12/06/18 12/06/18 History Exam Vital signs: Vital Signs 12/06/18 15:19 12/06/18 18:06 12/06/18 18:09 Temperature 98.5 F Pulse Rate 100 H 91 H 91 H Respiratory Rate 18 18 Blood Pressure 128/60 184/78 H Pulse Oximetry 95 95 95 12/06/18 20:00 12/06/18 23:00 12/07/18 04:54 Temperature 98 F 97.4 F L Pulse Rate 88 98 H 90 Respiratory Rate 18 18 18 Blood Pressure 164/78 H 155/70 H 157/67 H Pulse Oximetry 95 95 98 12/07/18 08:00 Temperature 97.5 F L Pulse Rate 70 Respiratory Rate 18 Blood Pressure 143/61 H Pulse Oximetry 96 Intake & Output 12/06/18 12/07/18 12/07/18 18:59 06:59 18:59 Intake Total 1220 / 1220 Balance 1220 / 1220 Weight 72.575 kg 72.575 kg Intake: IV 500 / 500 NS Inj 500 ML @ 1000 mls/hr IV. 500 / 500 SIG BOLUS AG Rx#:[id number] Oral 720 / 720 Other: # Voids 2 Date of Last Bowel Movement 12/06/18 Weight On Admission 72.575 kg - Constitutional no acute distress - Routine HEENT Exam Head: Present: normocephalic, atraumatic Eye: Present: EOMI, PERRL ENT: Present: mucous membranes moist - Routine Neck Exam Present: supple, full ROM. Absent: JVD, lymphadenopathy, thyromegaly - Routine Respiratory Exam Present: CTA bilaterally. Absent: accessory muscle use - Routine Cardiovascular Exam Present: RRR, S1, S2 - Routine Abdominal Exam Present: soft, normoactive bowel sounds - Routine Extremities Exam Absent: edema - Routine Skin Exam Present: intact - Routine Neurological Exam Present: alert, oriented X3 Results - Lab Results 12/06/18 17:57 12/06/18 17:57 Most recent lab results Calcium 9.0 mg/dL (8.5-10.1) 12/06/18 17:57 Assessment and Plan - Assessment (1) Acute worsening of stage 3 chronic kidney disease Code(s): N18.3 - Chronic kidney disease, stage 3 (moderate) Status: Acute Plan: Hyperglycemia could have cause intravascular volume depletion, resulting in pre- renal state. Also has history of myeloma on chemotherapy. Myeloma induced renal failure is a consideration. Supportive care. Treat hyperglycemia. Obtain renal US. Underlying CKD likely is secondary to diabetic nephropathy. Has proteinuria. Avoid NSAIDs and other nephrotoxic agents. (2) Essential (primary) hypertension Code(s): I10 - Essential (primary) hypertension Status: Acute Plan: Monitor BP, currently slightly high. (3) CAD (coronary artery disease) Code(s): I25.10 - Atherosclerotic heart disease of [place] coronary artery without angina pectoris Status: Acute Plan: s/p stents. Has CHF, EF of 40-45% (4) Diabetes Code(s): E11.9 - Type 2 diabetes mellitus without complications Status: Acute Plan: patient admitted with hyperglycemia, was on steroid, insulin coverage to maintain blood sugar between 140 and 180 - Attending Attestation Thanks for the consult.
--- NOTE | 2018-12-07 12:48 | P.HPFP ---
History of Present Illness Service: Family Medicine Primary Care Physician: Soren Saldaña DO Chief Complaint: Sugar is too high History of Present Illness: Patient with known DM was seen in the office and referred to the hospital for hyperglycemia. Once in the ED her sugar fell below 200 but her GFR was found to be 17 ml/min. 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 This AM she is anxious for D/C home as her children are arriving in town tomorrow for her birthday on Sunday. Renal is seeing the patient today and Oncology consult is pending. - Diagnosis (1) Multiple myeloma (2) CKD (chronic kidney disease) (3) HTN (hypertension) (4) COPD (chronic obstructive pulmonary disease) (5) Diabetes Inpatient Certification: I certify that the inpatient services were ordered in accordance with Medicare regulations governing the order. This includes certification that hospital inpatient services are reasonable and necessary and in the case of services not specified as inpatient-only under 42 CFR 419.22(n), that they are appropriately provided as inpatient services in accordance to with the 2-midnight benchmark under 43 CFR 412.3(e) Estimated Total Length of Stay (Days): 4 Plans for Post Hospital Care: Home Review of Systems Constitutional: Reports fatigue, Reports weakness Eyes: Denies change in vision Ears, Nose, Mouth, and Throat: Denies difficulty swallowing, Denies poor balance Cardiovascular: Denies chest pain, Denies generalized swelling Respiratory: Denies chest congestion, Denies shortness of breath Gastrointestinal: Denies abdominal pain, Denies nausea Genitourinary: Denies blood in urine Musculoskeletal: Reports body aches, Denies back pain Neurologic: Reports weakness, Denies abnormal movements, Denies abnormal speech Psychiatric: Denies anxiety, Denies confusion PMFSH - History History Provided By: Patient - Medical History Medical History: Medical History (Last Reviewed 12/07/18 @ 12:34 by Javier Marks) Anxiety CHF (congestive heart failure) COPD (chronic obstructive pulmonary disease) Diabetes H/O: hysterectomy HTN (hypertension) Kidney disease Panic disorder Stroke - Surgical History Surgical History: Surgical History (Last Reviewed 12/07/18 @ 12:34 by Jvaier Marks) H/O heart artery stent History of tonsillectomy - Family History Family History: Family History (Last Updated 12/07/18 @ 12:36 by Javier Marks) Mother Family history of diabetes mellitus Chronic kidney disease Other Breast cancer - Social History I have reviewed the patient's Social History: Yes - Tobacco History Second Hand Smoke Exposure: No Tobacco Use In Past 30 Days: No Smoking Status: Former smoker Tobacco Type: Cigarettes - Alcohol History How Often Do You Have a Drink Containing Alcohol: Never - Substance Use History Substance History: No History of Abuse - Travel History History of Recent Travel: No Recent Travel in the [place] Within the Last 8 Weeks: No Recent Travel Out of the Country Within the Last 8 Weeks: No - Immunization History Tetanus Immunization: Never Vaccinated Hx Influenza Vaccine This Season: Yes Medications and Allergies Active Medications: Active Medications Albuterol (Ventolin Hfa Inh) 2 puff INH Q8H PRN PRN Reason: shortness of breath or wheezing Stop: 12/11/18 20:47 Bisacodyl (Dulcolax Supp) 10 mg RECTAL DAILY PRN PRN Reason: SEVERE CONSITIPATION Dextrose (D50w Vial) 50 ml IV.PUSH UNSCH PRN PRN Reason: PER HYPOGLYCEMIA PROTOCOL Ergocalciferol (Vitamin D2) 50,000 unit PO BID [facility] Last Admin: 12/07/18 08:46 Dose: 50,000 unit Glucagon (Glucagon Inj) 1 mg OTHER PRN PRN PRN Reason: for Hypoglycemia Protocol Hydralazine HCl (Apresoline) 50 mg PO TID [facility] Last Admin: 12/07/18 12:12 Dose: 50 mg Hydroxyzine Pamoate (Vistaril) 25 mg PO HS [facility] Last Admin: 12/06/18 23:34 Dose: 25 mg Insulin Aspart (Novolog Inj) 5 units SQ DAILY@0800 [facility] Last Admin: 12/07/18 08:12 Dose: Not Given Insulin Aspart (Novolog Insulin Correctional Sugar Inj) 0 unit SQ ACHS [facility]; Protocol Stop: 12/11/18 20:59 Last Admin: 12/07/18 12:12 Dose: 1 unit Isosorbide Mononitrate (Imdur) 30 mg PO DAILY [facility] Last Admin: 12/07/18 08:45 Dose: 30 mg Lactulose (Lactulose Liq) 30 ml PO DAILY PRN PRN Reason: SEVERE CONSITIPATION Levothyroxine Sodium (Synthroid) 200 mcg PO DAILY@0600 [facility] Last Admin: 12/07/18 05:06 Dose: 200 mcg Pantoprazole Sodium (Protonix) 40 mg PO DAILY [facility] Last Admin: 12/07/18 08:46 Dose: 40 mg Patient Own Med- Insulin Degludec [ Tresiba Flextouch U- 200] 0 each SQ DAILY [facility] Pravastatin Sodium (Pravachol) 40 mg PO DAILY@1800 [facility] Senna/Docusate Sodium (Nidhi-Colace) 1 tab PO BID [facility] Last Admin: 12/07/18 08:45 Dose: 1 tab Sennosides (Senokot) 17.2 mg PO Q12H PRN PRN Reason: Moderate Constipation Sertraline HCl (Zoloft) 50 mg PO [facility] Last Admin: 12/06/18 23:33 Dose: 50 mg Sodium Chloride (Ns Flush) 2 ml IV.FLUSH BID [facility] Last Admin: 12/07/18 08:46 Dose: 2 ml Sodium Chloride (Ns Flush) 2 ml IV.FLUSH PRN PRN PRN Reason: FLUSH AFTER USING IV ACCESS Allergies Allergy/AdvReac Type Severity Reaction Status Date / Time penicillin G Allergy Severe HIVES Verified 10/10/18 16:16 minocycline [From Minocin] Allergy Hives Verified 10/10/18 16:16 Tetanus Vaccines and Toxoid Allergy Swelling Verified 10/10/18 16:16 TAPE Allergy Unknown Rash Uncoded 09/11/18 18:53 Home Medications Medication Instructions Recorded Confirmed Type ergocalciferol (vitamin D2) 50,000 unit PO BID 08/11/18 12/06/18 History [Vitamin D2] hydroxyzine pamoate 25 mg PO HS 08/11/18 12/06/18 History insulin aspart U-100 [Novolog 5 unit SUBCUT QAM 08/11/18 12/06/18 History Flexpen U-100 Insulin] insulin degludec [Tresiba 40 unit SUBCUT DAILY 08/11/18 12/06/18 History FlexTouch U-200] isosorbide mononitrate 30 mg PO DAILY 08/11/18 12/06/18 History levothyroxine 200 mcg PO DAILY 08/11/18 12/06/18 History sertraline 50 mg PO HS 08/11/18 12/06/18 History simvastatin 20 mg PO QPM 08/11/18 12/06/18 History torsemide 20 mg PO DAILY 08/11/18 12/06/18 History omeprazole 40 mg PO DAILY 10/10/18 12/06/18 History gabapentin 300 mg PO DAILY 12/06/18 12/06/18 History gabapentin 600 mg PO HS 12/06/18 12/06/18 History Exam Vital signs: Vital Signs 12/06/18 15:19 12/06/18 18:06 12/06/18 18:09 Temperature 98.5 F Pulse Rate 100 H 91 H 91 H Respiratory Rate 18 18 Blood Pressure 128/60 184/78 H Pulse Oximetry 95 95 95 12/06/18 20:00 12/06/18 23:00 12/07/18 04:54 Temperature 98 F 97.4 F L Pulse Rate 88 98 H 90 Respiratory Rate 18 18 18 Blood Pressure 164/78 H 155/70 H 157/67 H Pulse Oximetry 95 95 98 12/07/18 08:00 Temperature 97.5 F L Pulse Rate 70 Respiratory Rate 18 Blood Pressure 143/61 H Pulse Oximetry 96 Intake & Output 12/06/18 12/07/18 12/07/18 18:59 06:59 18:59 Intake Total 1220 / 1220 Balance 1220 / 1220 Weight 72.575 kg 72.575 kg Intake: IV 500 / 500 NS Inj 500 ML @ 1000 mls/hr IV. 500 / 500 SIG BOLUS AG Rx#:[id number] Oral 720 / 720 Other: # Voids 2 Date of Last Bowel Movement 12/06/18 Weight On Admission 72.575 kg - Constitutional no acute distress, obese, cooperative - Routine HEENT Exam Head: Present: normocephalic, atraumatic Eye: Present: normal accommodation ENT: Present: mucous membranes moist - Routine Neck Exam Present: supple, full ROM - Routine Respiratory Exam Present: CTA bilaterally - Routine Cardiovascular Exam Present: RRR, S1, S2, murmur - Routine Abdominal Exam Present: soft, normoactive bowel sounds - Routine Extremities Exam Present: full ROM. Absent: cyanosis, edema - Routine Skin Exam Present: intact. Absent: cyanosis - Routine Neurological Exam Present: alert, oriented X3, moving all extremities Results - Labs Result diagrams: 12/06/18 17:57 12/06/18 17:57 Abnormal lab results 12/06/18 12/06/18 12/06/18 Range/Units 17:15 17:55 17:57 WBC 12.1 H (4.0-11.0) th/mm3 RBC 3.41 L (4.00-5.30) mil/mm3 Hgb 9.9 L (11.6-15.3) gm/dL Hct 29.5 L (35.0-46.0) % Neut % (Auto) 80.2 H (16.0-70.0) % Neut # (Auto) 9.7 H (1.8-7.7) th/mm3 BUN (7-18) mg/dL Creatinine (0.50-1.00) mg/dL Estimated GFR (>89) mL/min POC Glucose 119 H (68-110) mg/dl AST (15-37) U/L Alkaline Phosphatase (45-117) U/L Albumin (3.4-5.0) g/dL Urine Clarity Hazy H (Clear) Urine Protein 100 H (Neg-Trace) mg/dL Urine Glucose (UA) 500 or greater H (Negative) mg/dL Ur Leukocyte Esterase Trace H (Negative) Urine WBC 8 H (0-5) /hpf 12/06/18 12/06/18 12/07/18 Range/Units 17:57 22:29 08:10 WBC (4.0-11.0) th/mm3 RBC (4.00-5.30) mil/mm3 Hgb (11.6-15.3) gm/dL Hct (35.0-46.0) % Neut % (Auto) (16.0-70.0) % Neut # (Auto) (1.8-7.7) th/mm3 BUN 42 H (7-18) mg/dL Creatinine 2.78 H (0.50-1.00) mg/dL Estimated GFR 17 L (>89) mL/min POC Glucose 321 H 152 H (68-110) mg/dl AST 10 L (15-37) U/L Alkaline Phosphatase 181 H (45-117) U/L Albumin 3.0 L (3.4-5.0) g/dL Urine Clarity (Clear) Urine Protein (Neg-Trace) mg/dL Urine Glucose (UA) (Negative) mg/dL Ur Leukocyte Esterase (Negative) Urine WBC (0-5) /hpf 12/07/18 Range/Units 11:56 WBC (4.0-11.0) th/mm3 RBC (4.00-5.30) mil/mm3 Hgb (11.6-15.3) gm/dL Hct (35.0-46.0) % Neut % (Auto) (16.0-70.0) % Neut # (Auto) (1.8-7.7) th/mm3 BUN (7-18) mg/dL Creatinine (0.50-1.00) mg/dL Estimated GFR (>89) mL/min POC Glucose 175 H (68-110) mg/dl AST (15-37) U/L Alkaline Phosphatase (45-117) U/L Albumin (3.4-5.0) g/dL Urine Clarity (Clear) Urine Protein (Neg-Trace) mg/dL Urine Glucose (UA) (Negative) mg/dL Ur Leukocyte Esterase (Negative) Urine WBC (0-5) /hpf Short CBC 12/06/18 Range/Units 17:57 WBC 12.1 H (4.0-11.0) th/mm3 Hgb 9.9 L (11.6-15.3) gm/dL Hct 29.5 L (35.0-46.0) % Plt Count 195 (150-450) th/mm3 BMP 12/06/18 17:57 Sodium 141 Potassium 4.0 Chloride 106 Carbon Dioxide 25.4 BUN 42 H Creatinine 2.78 H Calcium 9.0 Liver Function 12/06/18 Range/Units 17:57 Total Bilirubin 0.2 (0.2-1.0) mg/dL AST 10 L (15-37) U/L ALT 12 (10-53) U/L Alkaline Phosphatase 181 H (45-117) U/L Albumin 3.0 L (3.4-5.0) g/dL Urine 12/06/18 Range/Units 17:55 Urine Color Yellow (Yellw/Straw) Urine Clarity Hazy H (Clear) Urine pH 5.0 (5.0-8.5) Ur Specific [place] 1.011 (1.002-1.035) Urine Protein 100 H (Neg-Trace) mg/dL Urine Glucose (UA) 500 or greater H (Negative) mg/dL Caprini VTE Risk Assessment Caprini VTE Risk Assessment: No/Low Risk (score <= 1) Caprini Risk Assessment Model: Point Value = 1 Point Value = 2 Point Value = 3 Point Value = 5 Age 41-60 Minor surgery BMI > 25 kg/m2 Swollen legs Varicose veins or History of unexplained or recurrent spontaneous Oral contraceptives or hormone replacement Sepsis (< 1 month) Serious lung disease, including pneumonia (< 1 month) Abnormal pulmonary function Acute myocardial infarction Congestive heart failure (< 1 month) History of inflammatory bowel disease Medical patient at bed rest Age 61-74 Arthroscopic surgery Major open surgery (> 45 min) Laparoscopic surgery (> 45 min) Malignancy Confined to bed (> 72 hours) Immobilizing plaster cast Central venous access Age >= 75 History of VTE Family history of VTE Factor V Leiden Prothrombin [id number] Lupus anticoagulant Anticardiolipin antibodies Elevated serum homocysteine Heparin-induced thrombocytopenia Other congenital or acquired thrombophilia Stroke (< 1 month) Elective arthroplasty Hip, pelvis, or leg fracture Acute spinal cord injury (< 1 month) Prophylaxis Regimen: Total Risk Factor Score Risk Level Prophylaxis Regimen 0-1 Low Early ambulation 2 Moderate Order ONE of the following: *Sequential Compression Device (SCD) *Heparin 5000 units SQ BID 3-4 Higher Order ONE of the following medications: *Heparin 5000 units SQ TID *Enoxaparin/Lovenox 40 mg SQ daily (WT < 150 kg, CrCl > 30 mL/min) *Enoxaparin/Lovenox 30 mg SQ daily (WT < 150 kg, CrCl > 10-29 mL/min) *Enoxaparin/Lovenox 30 mg SQ BID (WT < 150 kg, CrCl > 30 mL/min) AND/OR *Sequential Compression Device (SCD) 5 or more Highest Order ONE of the following medications: *Heparin 5000 units SQ TID (Preferred with Epidurals) *Enoxaparin/Lovenox 40 mg SQ daily (WT < 150 kg, CrCl > 30 mL/min) *Enoxaparin/Lovenox 30 mg SQ daily (WT < 150 kg, CrCl > 10-29 mL/min) *Enoxaparin/Lovenox 30 mg SQ BID (WT < 150 kg, CrCl > 30 mL/min) AND *Sequential Compression Device (SCD) Assessment and Plan - Assessment (1) Multiple myeloma Code(s): C90.00 - Multiple myeloma not having achieved remission Status: Acute Plan: Will F/U with Oncology and planned chemotherapy pending kidney disease eval (2) CKD (chronic kidney disease) Code(s): N18.9 - Chronic kidney disease, unspecified Status: Chronic Plan: Seeing patient in the hospital having been told by Onc that she would not be able to receive chemotherapy last week due to advancing CKD vs EMA until eval performed by statistical methods teacher (3) HTN (hypertension) Code(s): I10 - Essential (primary) hypertension Status: Chronic Plan: Cont home meds and monitor (4) COPD (chronic obstructive pulmonary disease) Code(s): J44.9 - Chronic obstructive pulmonary disease, unspecified Status: Chronic Plan: Cont home meds and monitor (5) Diabetes Code(s): E11.9 - Type 2 diabetes mellitus without complications Status: Acute Plan: Cont home meds and monitor QID with accuchecks - Assessment and Plan 12/07/18 - Will await consult report from renal and Onc. Sugar is down and she is without complaints today except for D/C CHETNA as her Birthday is Sunday and she wants to be home with her family. Monitor sugar and BP closely. F/U labs in the AM. H&P: Quality - VTE Deep Vein Thrombosis/Pulmonary Embolism Present on Admission: No (1) Multiple myeloma Qualifiers: Multiple myeloma remission status: not in remission Qualified Code(s): C90.00 - Multiple myeloma not having achieved remission (2) CKD (chronic kidney disease) Qualifiers: Chronic kidney disease stage: stage 4 (severe) Qualified Code(s): N18.4 - Chronic kidney disease, stage 4 (severe) (3) HTN (hypertension) Qualifiers: Hypertension type: essential hypertension Qualified Code(s): I10 - Essential (primary) hypertension (4) COPD (chronic obstructive pulmonary disease) Qualifiers: COPD type: unspecified COPD Qualified Code(s): J44.9 - Chronic obstructive pulmonary disease, unspecified (5) Diabetes Qualifiers: Diabetes mellitus type: type 2 Diabetes mellitus termite helper insulin use: with termite helper use Diabetes mellitus complication status: with kidney complications Diabetes mellitus complication detail: with chronic kidney disease Chronic kidney disease stage: stage 4 (severe) Qualified Code(s): E11.22 - Type 2 diabetes mellitus with diabetic chronic kidney disease; N18.4 - Chronic kidney disease, stage 4 (severe); Z79.4 - termite exterminator (current) use of insulin
[2018-12-07 13:47] LABS: Hemoglobin A1c 14.1 % (4.3-6.0)
--- NOTE | 2018-12-07 19:45 | MB ---
cc: Christal Aranda MD DATE: 12/07/2018 HISTORY OF PRESENT ILLNESS: Ms. Silva is a 77-year-old lady with history of anxiety, congestive heart failure, COPD, CVA, multiple myeloma on chemotherapy, who was admitted to the hospital with elevated sugars and worsening renal failure. Nephrology team has been consulted. PAST MEDICAL HISTORY: Anxiety, arthritis, coronary artery disease, type 2 diabetes, acid reflux, multiple myeloma. PAST SURGICAL HISTORY: Appendectomy, hysterectomy, tonsillectomy. FAMILY HISTORY: Parents are both . SOCIAL HISTORY: She is . She denies tobacco, alcohol, or illegal drug use. She is a former smoker. LABORATORY STUDIES: White blood cell count 12.1, hemoglobin 9.9, platelet count is 195,000. Chemistry studies with a creatinine of 2.78. AST 10, ALT 12, total bilirubin is 0.2. ROS: as above in hpi PHYSICAL EXAM general: elderly lady no distress, resting comfortably in bed eyes: no scleral icterus head: normocephalic, atruamic neck: supple lungs: CTA bilaterally heart: RRR no murmrus abdomen: soft, nontender nondistneded ext: no edema neuro: grossly nonfocal. ASSESSMENT AND PLAN: 1. Multiple myeloma, IgA kappa light chain with plasma cells in the bone marrow 20-25% with anemia and renal disease. Bone scan with no evidence of lytic lesions. She is not a candidate for transplant. She has been treated with Velcade and dexamethasone. Side effects to therapy include hyperglycemia and neuropathy. Overall, she is tolerating well. 2. Chronic kidney disease. Nephrology team consulted. Contributing factors include diabetes and multiple myeloma. 3. Anemia at baseline. 4. Multiple myeloma, chronic kidney disease contributing. Inpatient oncology team will continue to follow. MD JONATHAN Noel/ , 05:47 PM , 05:52 PM [facility]
[2018-12-07] MEDS: Sertraline 50 MG Tablet PO SCH (20:51)
[2018-12-07] MEDS ORDERED: Gabapentin 300 MG Capsule PO SCH (21:00)
[2018-12-08 07:31] LABS: Baso # (Auto) 0.1 th/mm3 (0.0-0.2); Baso % (Auto) 0.9 % (0.0-2.0); Eos # (Auto) 0.2 th/mm3 (0.0-0.4); Eos % (Auto) 2.8 % (0.0-4.0); Hematocrit 28.7 % (35.0-46.0); Lymph % (Auto) 11.8 % (9.0-44.0); Mean Corpuscular HGB Conc 34.8 % (32.0-36.0); Mean Corpuscular Hemoglobin 30.3 pg (27.0-34.0); Mean Corpuscular Volume 87.1 fL (80.0-100.0); Mean Platelet Volume 7.3 fL (7.0-11.0); Mono # (Auto) 0.5 th/mm3 (0.0-0.9); Mono % (Auto) 6.5 % (0.0-8.0); Neut # (Auto) 6.6 th/mm3 (1.8-7.7); Platelet Count 156 th/mm3 (150-450); Red Cell Distribution Width 16.5 % (11.6-17.2); White Blood Count 8.4 th/mm3 (4.0-11.0)
[2018-12-08 07:51] LABS: Alanine Aminotransferase 7 U/L (10-53); Albumin 2.6 g/dL (3.4-5.0); Anion Gap 10 meq/L (5-15); Aspartate Aminotransferase 12 U/L (15-37); Blood Urea Nitrogen 43 mg/dL (7-18); Calcium 9.3 mg/dL (8.5-10.1); Carbon Dioxide 24.5 meq/L (21.0-32.0); Chloride 108 meq/L (98-107); Glomerular Filtration Rate 19 mL/min (>89); Glucose,Random 152 mg/dL (74-106); Sodium 142 meq/L (136-145)
[2018-12-08 07:53] LABS: Alkaline Phosphatase 149 U/L (45-117); Total Protein 6.6 g/dL (6.4-8.2)
[2018-12-08] MEDS: Senna/Docusate Sodium 8.6/50 MG Tablet PO SCH (08:37)
[2018-12-08] MEDS: hydrALAZINE 50 MG Tablet PO SCH ×2 (08:37→12:36)
[2018-12-08] MEDS: Isosorbide Mononitrate 30 MG ER 24HR Tablet (Imdur) PO SCH (08:37)
[2018-12-08] MEDS: Insulin NovoLOG Aspart Correctional Sugar Inj SQ SCH ×2 (08:37→12:36)
[2018-12-08] MEDS ORDERED: Gabapentin 300 MG Capsule PO SCH (09:00)
--- NOTE | 2018-12-08 10:37 | P.PNFP ---
Subjective Interval history: She tells me her sugar is down this AM but she is feeling more nervous off her mirtazapine and is not sure why it was stopped. She is hopeful renal will clear for D/C home today or tomorrow at the latest so she is home for her Birthday on Sunday. Results - Labs Result diagrams: 12/08/18 06:25 12/08/18 06:25 Abnormal lab results 12/06/18 12/07/18 12/07/18 Range/Units 17:57 11:56 17:07 RBC (4.00-5.30) mil/mm3 Hgb (11.6-15.3) gm/dL Hct (35.0-46.0) % Neut % (Auto) (16.0-70.0) % Chloride (98-107) meq/L BUN (7-18) mg/dL Creatinine (0.50-1.00) mg/dL Estimated GFR (>89) mL/min POC Glucose 175 H 401 H (68-110) mg/dl Random Glucose (74-106) mg/dL Hemoglobin A1c 14.1 H (4.3-6.0) % AST (15-37) U/L ALT (10-53) U/L Alkaline Phosphatase (45-117) U/L Albumin (3.4-5.0) g/dL 12/07/18 12/07/18 12/08/18 Range/Units 17:59 20:17 06:25 RBC 3.30 L (4.00-5.30) mil/mm3 Hgb 10.0 L (11.6-15.3) gm/dL Hct 28.7 L (35.0-46.0) % Neut % (Auto) 78.0 H (16.0-70.0) % Chloride (98-107) meq/L BUN (7-18) mg/dL Creatinine (0.50-1.00) mg/dL Estimated GFR (>89) mL/min POC Glucose 420 H 349 H (68-110) mg/dl Random Glucose (74-106) mg/dL Hemoglobin A1c (4.3-6.0) % AST (15-37) U/L ALT (10-53) U/L Alkaline Phosphatase (45-117) U/L Albumin (3.4-5.0) g/dL 12/08/18 12/08/18 Range/Units 06:25 08:02 RBC (4.00-5.30) mil/mm3 Hgb (11.6-15.3) gm/dL Hct (35.0-46.0) % Neut % (Auto) (16.0-70.0) % Chloride 108 H (98-107) meq/L BUN 43 H (7-18) mg/dL Creatinine 2.46 H (0.50-1.00) mg/dL Estimated GFR 19 L (>89) mL/min POC Glucose 173 H (68-110) mg/dl Random Glucose 152 H (74-106) mg/dL Hemoglobin A1c (4.3-6.0) % AST 12 L (15-37) U/L ALT 7 L (10-53) U/L Alkaline Phosphatase 149 H (45-117) U/L Albumin 2.6 L (3.4-5.0) g/dL Short CBC 12/08/18 Range/Units 06:25 WBC 8.4 (4.0-11.0) th/mm3 Hgb 10.0 L (11.6-15.3) gm/dL Hct 28.7 L (35.0-46.0) % Plt Count 156 (150-450) th/mm3 BMP 12/08/18 06:25 Sodium 142 Potassium 4.0 Chloride 108 H Carbon Dioxide 24.5 BUN 43 H Creatinine 2.46 H Calcium 9.3 Liver Function 12/08/18 Range/Units 06:25 Total Bilirubin 0.3 (0.2-1.0) mg/dL AST 12 L (15-37) U/L ALT 7 L (10-53) U/L Alkaline Phosphatase 149 H (45-117) U/L Albumin 2.6 L (3.4-5.0) g/dL Physical Exam Vital signs: Vital Signs 12/07/18 12:00 12/07/18 16:00 12/07/18 21:25 Temperature 97.4 F L 97.5 F L 97.5 F L Pulse Rate 88 92 H 95 H Respiratory Rate 18 18 20 Blood Pressure 146/65 H 139/65 175/76 H Pulse Oximetry 98 98 97 12/08/18 00:00 12/08/18 04:50 12/08/18 07:48 Temperature 97.1 F L 97.5 F L 97.6 F Pulse Rate 90 90 87 Respiratory Rate 18 18 20 Blood Pressure 152/63 H 141/68 H 141/69 H Pulse Oximetry 95 95 93 L Intake & Output 12/07/18 12/08/18 12/08/18 18:59 06:59 18:59 Intake Total 460 / 460 Balance 460 / 460 Weight 74.7 kg Intake: Oral 460 / 460 Other: # Voids 2 3 Date of Last Bowel Movement 12/07/18 12/07/18 # Bowel Movements 2 0 - Constitutional no acute distress - Routine HEENT Exam Head: Present: normocephalic Eye: Present: normal accommodation ENT: Present: mucous membranes moist - Routine Neck Exam Present: supple, full ROM - Routine Respiratory Exam Present: CTA bilaterally - Routine Cardiovascular Exam Present: RRR, S1, S2 - Routine Abdominal Exam Present: soft, normoactive bowel sounds - Routine Skin Exam Present: intact. Absent: cyanosis, erythema - Routine Neurological Exam Present: alert, oriented X3 - Detailed Neurological Exam: Coma Scale Eye Opening: Spontaneous Verbal Response: Oriented Motor Response: Obey commands [place] Coma Scale Total: 15 - Routine Psychiatric Exam Present: normal affect, anxious Assessment and Plan - Assessment (1) Multiple myeloma Code(s): C90.00 - Multiple myeloma not having achieved remission Status: Acute Plan: Will F/U with Oncology and planned chemotherapy pending kidney disease eval (2) CKD (chronic kidney disease) Code(s): N18.9 - Chronic kidney disease, unspecified Status: Chronic Plan: Nephrology eval in progress. GFR up slightly from 17 to 19 ml/min this adm. Onc consul noted and awaiting clearance from renal to resume chemotherapy. (3) HTN (hypertension) Code(s): I10 - Essential (primary) hypertension Status: Chronic Plan: Cont home meds and monitor (4) COPD (chronic obstructive pulmonary disease) Code(s): J44.9 - Chronic obstructive pulmonary disease, unspecified Status: Chronic Plan: Cont home meds and monitor (5) Diabetes Code(s): E11.9 - Type 2 diabetes mellitus without complications Status: Acute Plan: Cont home meds and monitor QID with accuchecks. Glucose this AM down to 125 mg/ dl. - Assessment and Plan 12/07/18 - Will await consult report from renal and Onc. Sugar is down and she is without complaints today except for D/C CHETNA as her Birthday is Sunday and she wants to be home with her family. Monitor sugar and BP closely. F/U labs in the AM. 12/08/18 - She is afebrile and her VS are stable. Renal F/U expected today and decision regarding Chemo then per Oncology. DM controlled acceptable and she is without complaints except wants to go home. She has a F/U appt with Oncology so will D/C when cleared by Renal. (1) Multiple myeloma Qualifiers: Multiple myeloma remission status: not in remission Qualified Code(s): C90.00 - Multiple myeloma not having achieved remission (2) CKD (chronic kidney disease) Qualifiers: Chronic kidney disease stage: stage 4 (severe) Qualified Code(s): N18.4 - Chronic kidney disease, stage 4 (severe) (3) HTN (hypertension) Qualifiers: Hypertension type: essential hypertension Qualified Code(s): I10 - Essential (primary) hypertension (4) COPD (chronic obstructive pulmonary disease) Qualifiers: COPD type: unspecified COPD Qualified Code(s): J44.9 - Chronic obstructive pulmonary disease, unspecified (5) Diabetes Qualifiers: Diabetes mellitus type: type 2 Diabetes mellitus long term care pharmacist insulin use: with assisted use Diabetes mellitus complication status: with kidney complications Diabetes mellitus complication detail: with chronic kidney disease Chronic kidney disease stage: stage 4 (severe) Qualified Code(s): E11.22 - Type 2 diabetes mellitus with diabetic chronic kidney disease; N18.4 - Chronic kidney disease, stage 4 (severe); Z79.4 - custodial (current) use of insulin
[2018-12-08 12:01] VITALS: BP 116/54; PULSE 92; RESP 18; TEMP 97.8; O2SAT 97
--- NOTE | 2018-12-08 12:48 | P.PNNP ---
Subjective Interval history: patient's renal function has improved. She is stable. Physical Exam Vital signs: Vital Signs 12/07/18 16:00 12/07/18 21:25 12/08/18 00:00 Temperature 97.5 F L 97.5 F L 97.1 F L Pulse Rate 92 H 95 H 90 Respiratory Rate 18 20 18 Blood Pressure 139/65 175/76 H 152/63 H Pulse Oximetry 98 97 95 12/08/18 04:50 12/08/18 07:48 12/08/18 12:00 Temperature 97.5 F L 97.6 F 97.8 F Pulse Rate 90 87 92 H Respiratory Rate 18 20 18 Blood Pressure 141/68 H 141/69 H 116/54 L Pulse Oximetry 95 93 L 97 Intake & Output 12/07/18 12/08/18 12/08/18 18:59 06:59 18:59 Intake Total 460 / 460 240 / 240 Balance 460 / 460 240 / 240 Weight 74.7 kg Intake: Oral 460 / 460 240 / 240 Other: # Voids 2 3 1 Date of Last Bowel Movement 12/07/18 12/07/18 # Bowel Movements 2 0 1 - Constitutional no acute distress - Routine HEENT Exam Head: Present: normocephalic, atraumatic Eye: Present: EOMI - Routine Neck Exam Present: supple. Absent: JVD, lymphadenopathy - Routine Respiratory Exam Present: CTA bilaterally. Absent: respiratory distress - Routine Cardiovascular Exam Present: RRR, S1, S2, murmur - Routine Abdominal Exam Present: soft, normoactive bowel sounds - Routine Extremities Exam Absent: edema Assessment and Plan - Assessment (1) Acute worsening of stage 3 chronic kidney disease Code(s): N18.3 - Chronic kidney disease, stage 3 (moderate) Status: Acute Plan: Hyperglycemia could have cause intravascular volume depletion, resulting in pre- renal state. Also has history of myeloma on chemotherapy. Myeloma induced renal failure is a consideration. Supportive care. Treat hyperglycemia. Obtain renal US. Renal function has improved. Underlying CKD likely is secondary to diabetic nephropathy. Has proteinuria. Avoid NSAIDs and other nephrotoxic agents. (2) Essential (primary) hypertension Code(s): I10 - Essential (primary) hypertension Status: Acute Plan: Monitor BP, currently slightly high. (3) CAD (coronary artery disease) Code(s): I25.10 - Atherosclerotic heart disease of [place] coronary artery without angina pectoris Status: Acute Plan: s/p stents. Has CHF, EF of 40-45% (4) Diabetes Code(s): E11.9 - Type 2 diabetes mellitus without complications Status: Acute Qualifiers: Diabetes mellitus type: type 2 Diabetes mellitus superintendent container terminal insulin use: with superintendent container terminal use Diabetes mellitus complication status: with kidney complications Diabetes mellitus complication detail: with chronic kidney disease Chronic kidney disease stage: stage 4 (severe) Qualified Code(s): E11.22 - Type 2 diabetes mellitus with diabetic chronic kidney disease; N18.4 - Chronic kidney disease, stage 4 (severe); Z79.4 - terminal worker (current) use of insulin Plan: patient admitted with hyperglycemia, was on steroid, insulin coverage to maintain blood sugar between 140 and 180 - Attending Attestation patient can be discharged from renal standpoint with outpatient followup.
--- NOTE | 2018-12-08 13:57 | P.DS ---
Date of admission: 12/06/18 18:59 Primary care physician: Soren Saldaña DO Attending physician on discharge: Soren Saldaña Anticipated date of discharge: 12/08/18 Brief History from admission: Patient with known DM was seen in the office and referred to the hospital for hyperglycemia. Once in the ED her sugar fell below 200 but her GFR was found to be 17 ml/min. She has known Stage 3 CKD and has a Shift [employer] up [place] and was told by her Oncologist to see renal which occurred this adm. She has an appt with Oncology for eval for chemotherapy for multiple myeloma on . This AM she was anxious for D/C home as her children are arriving in town tomorrow for her birthday on Sunday and i am called now from her nurse and indicated renal has cleared for D/C and F/U as an outpatient. Patient update on day of discharge: She is now cleared for D/C by Renal and Oncology and will F/U with both services as scheduled. DS: Diagnosis - Discharge Diagnosis (1) Multiple myeloma Status: Acute (2) CKD (chronic kidney disease) Status: Chronic (3) HTN (hypertension) Status: Chronic (4) COPD (chronic obstructive pulmonary disease) Status: Chronic (5) Diabetes Status: Chronic DS: Summary Hospital Course: She presented with hyperglycemia and responded to SQ insulin therapy. She was found to have reduced GFR and was seen by renal and cleared for D/C and will F/ U as an outpatient. She was also seen by Oncology and will F/U as scheduled on . We will see in our office later this week. - Time Spent with Patient Total time spent providing and/or coordinating discharge services: Greater than 30 minutes - Quality: AMI Clinical Trial Participant: No - Quality: VTE Deep Vein Thrombosis/Pulmonary Embolism Present on Admission: No Exam Vital signs: Vital Signs 12/07/18 16:00 12/07/18 21:25 12/08/18 00:00 Temperature 97.5 F L 97.5 F L 97.1 F L Pulse Rate 92 H 95 H 90 Respiratory Rate 18 20 18 Blood Pressure 139/65 175/76 H 152/63 H Pulse Oximetry 98 97 95 12/08/18 04:50 12/08/18 07:48 12/08/18 12:00 Temperature 97.5 F L 97.6 F 97.8 F Pulse Rate 90 87 92 H Respiratory Rate 18 20 18 Blood Pressure 141/68 H 141/69 H 116/54 L Pulse Oximetry 95 93 L 97 Intake & Output 12/07/18 12/08/18 12/08/18 18:59 06:59 18:59 Intake Total 460 / 460 240 / 240 Balance 460 / 460 240 / 240 Weight 74.7 kg Intake: Oral 460 / 460 240 / 240 Other: # Voids 2 3 1 Date of Last Bowel Movement 12/07/18 12/07/18 # Bowel Movements 2 0 1 - Constitutional no acute distress - Routine HEENT Exam Head: Present: normocephalic, atraumatic Eye: Present: normal accommodation ENT: Present: mucous membranes moist - Routine Neck Exam Present: supple, full ROM - Routine Respiratory Exam Present: CTA bilaterally - Routine Cardiovascular Exam Present: RRR, S1, S2 - Routine Abdominal Exam Present: soft, normoactive bowel sounds - Routine Extremities Exam Present: full ROM. Absent: cyanosis, edema - Routine Skin Exam Present: intact - Routine Neurological Exam Present: alert, oriented X3 Results Procedures completed during hospitalization: none Labs on day of discharge: Labs from last 24 hours 12/08/18 12/08/18 12/08/18 12:21 08:02 06:25 WBC RBC Hgb Hct MCV MCH MCHC RDW Plt Count MPV Neut % (Auto) Lymph % (Auto) [place] % (Auto) Eos % (Auto) Baso % (Auto) Neut # (Auto) Lymph # (Auto) [place] # (Auto) Eos # (Auto) Baso # (Auto) WBC Differential Differential Comment Sodium 142 Potassium 4.0 Chloride 108 H Carbon Dioxide 24.5 Anion Gap 10 BUN 43 H Creatinine 2.46 H Estimated GFR 19 L POC Glucose 170 H 173 H Random Glucose 152 H Hemoglobin A1c Calcium 9.3 Total Bilirubin 0.3 AST 12 L ALT 7 L Alkaline Phosphatase 149 H Total Protein 6.6 Albumin 2.6 L 12/08/18 12/07/18 12/07/18 06:25 20:17 17:59 WBC 8.4 RBC 3.30 L Hgb 10.0 L Hct 28.7 L MCV 87.1 MCH 30.3 MCHC 34.8 RDW 16.5 Plt Count 156 MPV 7.3 Neut % (Auto) 78.0 H Lymph % (Auto) 11.8 [place] % (Auto) 6.5 Eos % (Auto) 2.8 Baso % (Auto) 0.9 Neut # (Auto) 6.6 Lymph # (Auto) 1.0 [place] # (Auto) 0.5 Eos # (Auto) 0.2 Baso # (Auto) 0.1 WBC Differential . Differential Comment Auto diff final Sodium Potassium Chloride Carbon Dioxide Anion Gap BUN Creatinine Estimated GFR POC Glucose 349 H 420 H Random Glucose Hemoglobin A1c Calcium Total Bilirubin AST ALT Alkaline Phosphatase Total Protein Albumin 12/07/18 12/06/18 17:07 17:57 WBC RBC Hgb Hct MCV MCH MCHC RDW Plt Count MPV Neut % (Auto) Lymph % (Auto) [place] % (Auto) Eos % (Auto) Baso % (Auto) Neut # (Auto) Lymph # (Auto) [place] # (Auto) Eos # (Auto) Baso # (Auto) WBC Differential Differential Comment Sodium Potassium Chloride Carbon Dioxide Anion Gap BUN Creatinine Estimated GFR POC Glucose 401 H Random Glucose Hemoglobin A1c 14.1 H Calcium Total Bilirubin AST ALT Alkaline Phosphatase Total Protein Albumin Discharge Plan - Discharge Disposition Patient Disposition: 01 Discharge Home - Discharge Condition Condition: Fair - Discharge Order Discharge Orders: Discharge Order (Routine); Ordered 12/08/18 Ordered By: Javier Marks - Physicians Team Primary Care Provider: Soren Saldaña Attending Provider: Soren Saldaña Other Providers: Stephen Dove MD ; Christal Aranda
[2018-12-08] MEDS ORDERED: Mirtazapine 15 MG Tablet PO SCH (21:00)
== END 2018-12-08 15:38 | disposition home or self-care (01) | DRG 841 ==
LOC: NEPD 15:14 → NEDA 18:59 → N06 22:46
PROVIDERS: ADMIT Family Medicine; ATTEND Family Medicine
CPT/HCPCS: 80053; 81001; 82010; 82948; 82962; 83036; 85025; 87086; 99285; J1815; J7040; Q0177